=== PATIENT | female | born 1965 | race Caucasian/White ===

== ENCOUNTER 2017-09-15 02:43 | Emergency (ER) | payer SELFPAY ==
[2017-09-15] MEDS ORDERED: MEPERIDINE HCL 50 MG/ML AMP ONE ×2 (03:05→03:26)
[2017-09-15] MEDS ORDERED: PROMETHAZINE 25 MG/ML VIAL ONE (03:06)
[2017-09-15] MEDS ORDERED: NA CHLORIDE 0.9% 1,000 ML ONE (03:06)
--- NOTE | 2017-09-15 05:36 | EDPHYS ---
Physician Documentation [facility] Name: Virgie Silveira Age: 52 yrs Sex: Female : 1965 Arrival Date: 09/15/2017 Time: 02:44 Bed 2 Private MD: ED Physician Silvio Kelly HPI: 09/15 03:32 This 52 yrs old Female presents to ER via Unassigned with complaints of Fall pkl Injury. 03:32 Details of fall: The patient fell from a height, from a ladder, approximately 8 feet. pkl Onset: The symptoms/episode began/occurred just prior to arrival. Associated injuries: The patient sustained injury to the head, contusion, injury to the low back, right elbow. 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 - Social history:: Smoking status: Patient uses tobacco products, smokes one pack cigarettes per day. - Social history: Uses tobacco products: 1 ppd. ROS: 03:32 Eyes: Negative for injury, pain, redness, and discharge, ENT: Negative for injury, pkl pain, and discharge, Neck: Negative for injury, pain, and swelling, Cardiovascular: Negative for chest pain, palpitations, and edema, Respiratory: Negative for shortness of breath, cough, wheezing, and pleuritic chest pain, Abdomen/GI: Negative for abdominal pain, nausea, vomiting, diarrhea, and constipation, Back: Negative for injury and pain, : Negative for injury, bleeding, discharge, and swelling, Skin: Negative for injury, rash, and discoloration, Neuro: Negative for headache, weakness, numbness, tingling, and seizure. 03:32 MS/extremity: Negative for deformity, pain, tenderness, right elbow. Exam: 03:32 Head/Face: Normocephalic, atraumatic. Eyes: Pupils equal round and reactive to light, pkl extra-ocular motions intact. Lids and lashes normal. Conjunctiva and sclera are non-icteric and not injected. Cornea within normal limits. Periorbital areas with no swelling, redness, or edema. ENT: Nares patent. No nasal discharge, no septal abnormalities noted. Tympanic membranes are normal and external auditory canals are clear. Oropharynx with no redness, swelling, or masses, exudates, or evidence of obstruction, uvula midline. Mucous membranes moist. Neck: Trachea midline, no thyromegaly or masses palpated, and no cervical lymphadenopathy. Supple, full range of motion without nuchal rigidity, or vertebral point tenderness. No Meningismus. Chest/axilla: Normal chest wall appearance and motion. Nontender with no deformity. No lesions are appreciated. Cardiovascular: Regular rate and rhythm with a normal S1 and S2. No gallops, murmurs, or rubs. Normal PMI, no JVD. No pulse deficits. Respiratory: Lungs have equal breath sounds bilaterally, clear to auscultation and percussion. No rales, rhonchi or wheezes noted. No increased work of breathing, no retractions or nasal flaring. Abdomen/GI: Soft, non-tender, with normal bowel sounds. No distension or tympany. No guarding or rebound. No evidence of tenderness throughout. Back: No spinal tenderness. No costovertebral tenderness. Full range of motion. Skin: Warm, dry with normal turgor. Normal color with no rashes, no lesions, and no evidence of cellulitis. Neuro: Awake and alert, GCS 15, oriented to person, place, time, and situation. Cranial nerves II-XII grossly intact. Motor strength 5/5 in all extremities. Sensory grossly intact. Cerebellar exam normal. Normal gait. 03:32 Musculoskeletal/extremity: Extremities: grossly normal except: noted in the right elbow: deformity, pain, tenderness. Vital Signs: 02:44 BP 123 / 83; Pulse 67; Resp 22; Temp 97.6(A); Pulse Ox 100% on R/A; Pain 10/10; aa1 03:31 BP 144 / 87; Pulse 81; Resp 16; Pulse Ox 99% on 2 lpm NC; aa1 04:05 BP 130 / 89; Pulse 86; Resp 18 S; Pulse Ox 99% on 2 lpm NC; bb 05:05 BP 140 / 99; Pulse 86; Resp 16 S; Pulse Ox 100% on 2 lpm NC; bb 05:59 BP 136 / 89; Pulse 80; Resp 18; Pulse Ox 97% on R/A; aa1 06:15 BP 127 / 83; Pulse 77; Resp 16; Pulse Ox 97% on R/A; Pain 4/10; aa1 [place] Coma Score: 02:44 Eye Response: spontaneous(4). Verbal Response: oriented(5). Motor Response: obeys aa1 commands(6). Total: 15. 03:31 Eye Response: spontaneous(4). Verbal Response: oriented(5). Motor Response: obeys aa1 commands(6). Total: 15. 05:59 Eye Response: spontaneous(4). Verbal Response: oriented(5). Motor Response: obeys aa1 commands(6). Total: 15. 06:15 Eye Response: spontaneous(4). Verbal Response: oriented(5). Motor Response: obeys aa1 commands(6). Total: 15. Trauma Score (Adult): 02:44 Eye Response: spontaneous(1); Verbal Response: oriented(1); Motor Response: obeys aa1 commands(2); Systolic BP: > 89 mm Hg(4); Respiratory Rate: 10 to 29 per min(4); [place] Score: 15; Trauma Score: 12 Procedures: 05:19 Closed reduction dislocation. Posterior splint applied.. Post- reduction X-rays shows pkl anatomic reduction of dislocated right elbow. Displaced and angulated fracture of the radial neck. The radial head fragment is displaced along the posterior aspect of the capitellum.. MDM: 02:45 Patient medically screened. pkl 05:19 Data reviewed: vital signs, nurses notes, radiologic studies, CT scan, plain films. ED pkl course: Talked to Dr. Diaz. Will see patient in the office today. 09/15 02:46 Order name: Elbow Right 2 View XRAY pkl 09/15 02:46 Order name: CT Traumagram (Head C Spine CAP wo con) pkl 09/15 03:10 Order name: Elbow Right 2 View XRAY fc 09/15 05:36 Order name: Arianaing; Complete Time: 08:11 pkl Administered Medications: 02:48 Drug: NS 0.9% 1000 ml Route: IV; Rate: 100 ml/hr; Site: left antecubital; aa1 02:48 Drug: Demerol 50 mg Route: IVP; Site: left antecubital; aa1 04:42 Follow up: Response: No adverse reaction; Pain is decreased aa1 02:48 Drug: Phenergan 12.5 mg Route: IVP; Site: left antecubital; aa1 04:43 Follow up: Response: No adverse reaction; denies N/V aa1 03:10 Drug: Demerol 25 mg Route: IVP; Site: left antecubital; aa1 04:42 Follow up: Response: No adverse reaction; Pain is decreased aa1 Disposition: 09/15/17 05:35 Discharged to Home. Impression: Fracture/ Dislocation right elbow. S/P fall.. - Condition is Stable. - Prescriptions for Tylenol- Codeine #3 300-30 mg Oral Tablet - take 1 tablet by ORAL route every 8 hours As needed; 30 tablet. - Medication Reconciliation Form, Thank You Letter, Antibiotic Education, Prescription Opioid Use form. - Follow up: Jerome Diaz MD; When: Today; Reason: Re-evaluation by your physician. - Problem is new. - Symptoms have improved. Signatures: Dispatcher [employer] Jazlyn Dunbar, RN RN aa1 Silvio Kelly MD MD pkl Ballard, Brenda, RN RN bb Baxter, Heather, RN RN
--- NOTE | 2017-09-15 05:36 | ER ---
Nurse's Notes [facility] Name: Virgie Silveira Age: 52 yrs Sex: Female : 1965 Arrival Date: 09/15/2017 Time: 02:44 Bed 2 Private MD: Diagnosis: Fracture/ Dislocation right elbow. S/P fall. Presentation: 09/15 02:45 Presenting complaint: EMS states: toned out for report of pt having fallen from a bb ladder. Care prior to arrival: Placed on backboard. Mechanism of Injury: Fall from ladder. Trauma event details: Injury occurred in the [facility], Injury occurred: at home. Injury occurred: September 15, 2017. 02:45 Acuity: [place] 3 bb 02:45 Method Of Arrival: EMS: [facility] bb 02:45 Transition of care: patient was not received from another setting of care. Onset of bb symptoms was September 15, 2017. 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 N/A - Hysterectomy bb Trauma Activation: Alert Physician: ED Physician; Name: Dr Kelly; Notified At: 02:39; Arrived At: 02:39 Physician: General Surgeon; Name: ; Notified At: 02:39; Arrived At: Physician: Radiology; Name: erik valencia; Notified At: 02:39; Arrived At: 02:41 Physician: Respiratory; Name: Cassidy; Notified At: 02:39; Arrived At: 02:42 Physician: Lab; Name: ; Notified At: 02:39; Arrived At: Historical: - Allergies: 03:34 Lisinopril; bb 03:34 Morphine; bb - Home Meds: 03:34 None [Active]; bb - PMHx: 03:34 Hypothyroidism; bb - PSHx: 03:34 Hysterectomy; ; bb - Immunization history: Last tetanus immunization: unknown. - Social history:: Smoking status: Patient uses tobacco products, smokes one pack cigarettes per day. - Social history: Uses tobacco products: 1 ppd. Screenin:44 Abuse screen: Denies threats or abuse. Tuberculosis screening: No symptoms or risk aa1 factors identified. 02:45 Nutritional screening: No deficits noted. Fall Risk Fall in past 12 months (25 points). bb No secondary diagnosis (0 pts). IV access (20 points). Mental Status- Oriented to own ability (0 pts). Total Vogt Fall Scale indicates High Risk Score (45 or more points). Fall prevention measures have been instituted. Side Rails Up X 2 As available patient and family educated on Fall Prevention Program and Strategies. Primary Survey: 02:44 A: Airway: patent. Breathing/Chest: Respiratory pattern: regular, Respiratory effort: aa1 spontaneous, unlabored, Chest inspection: symmetrical rise and fall of the chest. Breathing/Chest: Breath sounds: clear, bilaterally. Circulation: Skin color: pink, Skin temperature: warm. Circulation: Heart tones present. Pulses: palpable right radial artery and left radial artery. Disability Alert. 03:00 Reassessment Airway Airway Patent Breathing/Chest Respiratory pattern Regular bb Respiratory effort Spontaneous Unlabored Breath sounds Clear Chest inspection Symmetrical. 07:15 Reassessment Airway Airway Patent Oxygen No O2 Breathing/Chest Respiratory pattern hb Regular Respiratory effort Spontaneous Unlabored Breath sounds Clear Chest inspection Symmetrical Circulation Color [place] Temperature Warm Dry Disability Alert. Secondary Survey: :44 HEENT: No deficits noted. Gastrointestinal: No deficits noted. : No signs and/or aa1 symptoms were reported regarding the genitourinary system. Musculoskeletal: Circulation, motion, and sensation intact. Capillary refill < 3 seconds, Range of motion: limited in right shoulder Reports pain in back, right arm and neck. Assessment: 02:45 General: Appears distressed, uncomfortable, Behavior is anxious, crying. Pain: bb Complains of pain in right shoulder and neck and right arm and back Pain currently is 10 out of 10 on a pain scale. Neuro: Level of Consciousness is awake, alert, obeys commands, Oriented to person, place, time, situation. Cardiovascular: Heart tones S1 S2 present Capillary refill < 3 seconds Patient's skin is warm and dry. Respiratory: Respiratory effort is even, unlabored, Breath sounds are clear bilaterally. GI: Abdomen is non-distended, Abd is soft and non tender X 4 quads. Derm: Skin is pink, warm \\T\\ dry. Musculoskeletal: to right elbow Reports pain in right arm. 03:10 Reassessment: Patient appears in no apparent distress at this time. Patient is alert, aa1 oriented x 3, equal unlabored respirations, skin warm/dry/pink. Pt O2 sat decreased to low 80's after receiving demerol, placed on NC at 2L and O2 sat increased to 100%. 04:04 Reassessment: Patient is alert, oriented x 3, equal unlabored respirations, skin bb warm/dry/pink. pt resting quietly awaiting results from traumagram, IV site intact, patent with fluids infusing. 05:04 Reassessment: Patient and/or family updated on plan of care and expected duration. Pain bb level reassessed. pt appears to be sleeping, eyes closed, resp unlabored, arouses easily states "it still hurts but not bad", awaiting diagnostic results, IV site intact, patent with fluids infusing. 05:22 Reassessment: Patient appears in no apparent distress at this time. Patient is alert, aa1 oriented x 3, equal unlabored respirations, skin warm/dry/pink. Dr. Kelly at bedside with pt discussing results and POC including f/u instructions. Pt verbalizes understanding of instructions and will call for transportation home. 06:15 Reassessment: Patient appears in no apparent distress at this time. Patient and/or aa1 family updated on plan of care and expected duration. Pain level reassessed. Patient is alert, oriented x 3, equal unlabored respirations, skin warm/dry/pink. Pt states someone is coming to pick her up shortly. 07:15 Reassessment: Patient appears in no apparent distress at this time. Patient and/or hb family updated on plan of care and expected duration. Pain level reassessed. Patient is alert, oriented x 3, equal unlabored respirations, skin warm/dry/pink. Vital Signs: 02:44 BP 123 / 83; Pulse 67; Resp 22; Temp 97.6(A); Pulse Ox 100% on R/A; Pain 10/10; aa1 03:31 BP 144 / 87; Pulse 81; Resp 16; Pulse Ox 99% on 2 lpm NC; aa1 04:05 BP 130 / 89; Pulse 86; Resp 18 S; Pulse Ox 99% on 2 lpm NC; bb 05:05 BP 140 / 99; Pulse 86; Resp 16 S; Pulse Ox 100% on 2 lpm NC; bb 05:59 BP 136 / 89; Pulse 80; Resp 18; Pulse Ox 97% on R/A; aa1 06:15 BP 127 / 83; Pulse 77; Resp 16; Pulse Ox 97% on R/A; Pain 4/10; aa1 [place] Coma Score: 02:44 Eye Response: spontaneous(4). Verbal Response: oriented(5). Motor Response: obeys aa1 commands(6). Total: 15. 03:31 Eye Response: spontaneous(4). Verbal Response: oriented(5). Motor Response: obeys aa1 commands(6). Total: 15. 05:59 Eye Response: spontaneous(4). Verbal Response: oriented(5). Motor Response: obeys aa1 commands(6). Total: 15. 06:15 Eye Response: spontaneous(4). Verbal Response: oriented(5). Motor Response: obeys aa1 commands(6). Total: 15. Trauma Score (Adult): 02:44 Eye Response: spontaneous(1); Verbal Response: oriented(1); Motor Response: obeys aa1 commands(2); Systolic BP: > 89 mm Hg(4); Respiratory Rate: 10 to 29 per min(4); [place] Score: 15; Trauma Score: 12 ED Course: 02:44 Patient arrived in ED. fc 02:44 Initial lab(s) drawn, by me, held in ED. Inserted saline lock: 18 gauge in left aa1 antecubital area, using aseptic technique. Blood collected. Rigid cervical collar applied and checked by physician. Thermoregulation: warm blanket given to patient. 02:44 Patient has correct armband on for positive identification. Bed in low position. Call aa1 light in reach. Side rails up X2. Pulse ox on. NIBP on. 02:45 Silvio Kelly MD is Attending Physician. pkl 02:45 Arm band placed on Patient placed in an exam room. bb 02:50 Thermoregulation: warm blanket given to patient. bb 03:00 X-ray completed. Portable x-ray completed in exam room. Patient tolerated procedure kw well. 03:04 Elbow Right 2 View XRAY In Process Unspecified. EDMS 03:10 Oxygen administration via nasal cannula \\T\\ 2L/min. aa1 03:12 Assist provider with reduction of right elbow using manipulation, Set up for procedure. aa1 Performed by Silvio Kelly MD. 03:17 Elbow Right 2 View XRAY In Process Unspecified. EDMS 03:20 Orthoglass splint: posterior long arm splint applied to the right arm. applied by Dr. rico Kelly. 03:30 Irina Crum, RN is Primary Nurse. bb 03:36 Triage completed. bb 04:31 CT Traumagram (Head C Spine CAP wo con) In Process Unspecified. EDMS 05:34 Jerome Diaz MD is Referral Physician. pkl 07:06 Report given to Cecy PENA. bb 08:00 IV discontinued, intact, bleeding controlled, No redness/swelling at site. Pressure hb dressing applied. Administered Medications: 02:48 Drug: NS 0.9% 1000 ml Route: IV; Rate: 100 ml/hr; Site: left antecubital; aa1 02:48 Drug: Demerol 50 mg Route: IVP; Site: left antecubital; aa1 04:42 Follow up: Response: No adverse reaction; Pain is decreased aa1 02:48 Drug: Phenergan 12.5 mg Route: IVP; Site: left antecubital; aa1 04:43 Follow up: Response: No adverse reaction; denies N/V aa1 03:10 Drug: Demerol 25 mg Route: IVP; Site: left antecubital; aa1 04:42 Follow up: Response: No adverse reaction; Pain is decreased aa1 Intake: 03:33 PO: 0ml; Total: 0ml. bb 05:59 IV: 300ml (IV Fluid); Total: 300ml. aa1 Outcome: 05:35 Discharge ordered by . pkl 08:12 Discharged to home via wheelchair, with family. hb 08:12 Condition: stable 08:12 Discharge instructions given to patient, family, Instructed on discharge instructions, follow up and referral plans. medication usage, Demonstrated understanding of instructions, follow-up care, medications, splint care, Prescriptions given X 1. 08:13 Patient's length of stay in the Emergency Department was greater than 2 hours. awaiting hb dispo and transportationPatient's length of stay extended due to 08:13 Patient left the ED. hb Signatures: Dispatcher [employer] EDMS Jazlyn Bashir RN RN aa1 Silvio Kelly MD MD pkTameka Irby RN RN Crum, Irina, RN RN bb Selin, Mary kw Ludwig, Cecy, RN RN hb
--- NOTE | 2017-09-15 08:34 | RAD REPORT ---
EXAM DESCRIPTION: RAD - Elbow Right 2 View - 09/15/2017 3:05 am CLINICAL HISTORY: Right elbow pain FINDINGS: The radius and ulna are dislocated posteriorly. A radial head capitellum dislocation is p resent. An avulsion fracture of the radial head with malrotation of the fracture fragments present
--- NOTE | 2017-09-15 08:34 | RAD REPORT ---
EXAM DESCRIPTION: RAD - Elbow Right 2 View - 09/15/2017 3:20 am CLINICAL HISTORY: Right elbow pain FINDINGS: The dislocation involving the humerus and ulna has been reduced. A radial head capitellum dislocation persists. An avulsion fracture of the radial head with malrotation is present
--- NOTE | 2017-09-15 10:50 | RAD REPORT ---
EXAM DESCRIPTION: CT - Head C Spine Cap Wo Con - 09/15/2017 9:02 am CLINICAL HISTORY: Head and neck injury with chest and abdominal pain status post fall. TECHNIQUE: Computed axial tomography of the head and cervical spine was obtained. Coronal and sagitt al reconstruction was performed.A preliminary report was generated by [employer] and reviewed prior to this dictation Computed axial tomography of the chest, abdomen and pelvis was obtained. Contrast was not requested. All CT scans are performed using dose optimization technique as appropriate and may include automated exposure control or mA/KV adjustment according to patient size. COMPARISON: 2015 CT cervical spine [address] abdomen FINDINGS: An intracranial bleed is not seen. The ventricles are normal caliber. An extra-axial fluid collection is not noted. Fluid within the sinuses/mastoids is not seen. Mild to moderate posterior subluxation of C3 on C4 is unchanged from 2015. A cervical fracture is not visualized. Spondylosis/disc osteophyte complexes are present from C3-4 to C6-7. This results in gregory tral and foraminal stenosis. At C 5-6 there is considerable compression upon the spinal cord. The the alden sac measures 5 millimeters The evaluation of the mediastinum, adriano, vessels, solid organs and bowel is limited secondary to lack of contrast administration. A mediastinal hematoma is not seen. A pleural effusion is not present. A pericardial effusion is not seen. A pulmonary contusion is not present. The liver, spleen, pancreas, adrenals, kidneys and bladder do not demonstrate a traumatic injury. A h [place] kidney is present. IMPRESSION: 1. No acute intracranial abnormality is seen. 2. A cervical fracture is not visualized. Spondylosis/disc osteophyte complexes involving the cervica l spine as described above. If clinically indicated further evaluation with MRI could be obtained 3. No traumatic injury involving the chest/ abdomen/pelvis.
== END 2017-09-15 08:13 | disposition home or self-care (01) ==
LOC: ER 02:43
PROC: 0PSHXZZ Reposition Right Radius, External Approach (ICD-10-PCS; principal; 2017-09-15)
PROC: 0PSHXZZ Reposition Right Radius, External Approach (ICD-10-PCS; 2017-09-15)
DX: S52.501A Unspecified fracture of the lower end of right radius, initial encounter for closed fracture (principal); S53.001A Unspecified subluxation of right radial head, initial encounter; W11.XXXA Fall on and from ladder, initial encounter; Y93.9 Activity, unspecified; Y92.89 Other specified places as the place of occurrence of the external cause; Z88.5 Allergy status to narcotic agent; Z88.8 Allergy status to other drugs, medicaments and biological substances; F17.210 Nicotine dependence, cigarettes, uncomplicated
CPT/HCPCS: 70450; 71250; 72125; 96374; 96375; 99285; J2175; J2550; J7030

== ENCOUNTER 2018-11-17 22:39 | Emergency (ER) | payer SELFPAY ==
--- OUTSIDE RECORDS SUMMARY | 2018-11-17 22:41 | XMS REPORT ---
:1965 Author Organization [employer] Care Team Providers Name Role Phone Andreia Mcdermotty Provider Role Unavailable Allergies, Adverse Reactions, Alerts Substance Reaction Event Type Morphine Sulfate Info Not Available Drug Allergy Lisinopril Info Not Available Drug Allergy Problems Problem Type Condition Code Onset Dates Condition Status Problem Acquired hypothyroidism E03.9 Active Problem Hypothyroidism (acquired) E03.9 Active Assessment Acquired hypothyroidism E03.9 Active Assessment Hypothyroidism (acquired) E03.9 Active Medications Medication Code Code Instructions Start End Status Dosage System Date Date Synthroid [facility] [id number] 25 MCG Orally Active 1 tablet Once a day on an empty stomach in the morning Hydrochlorothiazide [facility] [id number] 12.5 MG Orally Active 1 tablet Once a day in the morning Naproxen [facility] [id number] 500 MG Orally Active 1 tablet Twice a day prn pain-take with food Daily Multi NDC 0 - Orally Active as Vitamin/Minerals directed Results No Known Results Summary Purpose eClinical[employer] Submission
[2018-11-17] MEDS ORDERED: LIDOCAINE 1% MPF 5 ML VIAL ONE (23:26)
--- NOTE | 2018-11-17 23:48 | ER ---
Nurse's Notes [facility] – [place], [place] Name: Virgie Everett Age: 53 yrs Sex: Female : 1965 Arrival Date: 11/17/2018 Time: 22:40 Bed 13 Private MD: Diagnosis: Laceration without foreign body of right forearm Presentation: 11/17 22:53 Presenting complaint: Patient states: "I fell down the stairs at work today and hurt my jd3 arm. I have a pretty good gash in it and it hurts to move.". Transition of care: patient was not received from another setting of care. Onset of symptoms was November 17, 2018. Risk Assessment: Do you want to hurt yourself or someone else? Patient reports no desire to harm self or others. Initial Sepsis Screen: Does the patient meet any 2 criteria? No. Patient's initial sepsis screen is negative. Does the patient have a suspected source of infection? No. Patient's initial sepsis screen is negative. Care prior to arrival: None. 22:53 Method Of Arrival: Ambulatory j 22:53 Acuity: TOÑITO 3 jd3 [employer]: 11/18 00:05 LMP N/A - Irregular menses jd3 Historical: - Allergies: 11/17 22:56 Lisinopril; jd3 22:56 Morphine; jd3 22:56 codeine; jd3 - Home Meds: 22:56 None [Active]; jd3 - PMHx: 22:56 Hypothyroidism; Hypertension; jd3 - PSHx: 22:56 Hysterectomy; ; right elbow; jd3 - Immunization history:: Adult Immunizations up to date. - Social history:: Smoking status: Patient uses tobacco products, denies chronic smoking, but will smoke occasionally. - Ebola Screening: : Patient negative for fever greater than or equal to 101.5 degrees Fahrenheit, and additional compatible Ebola Virus Disease symptoms. Screenin:01 Abuse screen: Denies threats or abuse. Nutritional screening: No deficits noted. jd3 Tuberculosis screening: No symptoms or risk factors identified. Fall Risk Ambulatory Aid- None/Bed Rest/Nurse Assist (0 pts). Gait- Normal/Bed Rest/Wheelchair (0 pts) Mental Status- Oriented to own ability (0 pts). Total Vogt Fall Scale indicates No Risk (0-24 pts). Assessment: 22:57 General: Appears in no apparent distress. uncomfortable, Behavior is calm, cooperative, jd3 appropriate for age. Pain: Complains of pain in palmar aspect of right forearm Quality of pain is described as aching, sharp. Neuro: Level of Consciousness is awake, alert, obeys commands, Oriented to person, place, time, situation. Cardiovascular: Capillary refill < 3 seconds Patient's skin is warm and dry. Respiratory: Airway is patent Respiratory effort is even, unlabored, Respiratory pattern is regular, symmetrical. GI: No signs and/or symptoms were reported involving the gastrointestinal system. : No signs and/or symptoms were reported regarding the genitourinary system. EENT: No signs and/or symptoms were reported regarding the EENT system. Derm: Skin is intact, Skin is dry, Skin is normal, Skin temperature is warm. Musculoskeletal: Circulation, motion, and sensation intact. Range of motion: limited in right elbow. Injury Description: Laceration sustained to palmar aspect of right forearm is 2.6 to 7.5 cm long, bleeding moderately, a small amount of bleeding noted at this time. 11/18 00:03 Reassessment: Patient appears in no apparent distress at this time. Patient and/or jd3 family updated on plan of care and expected duration. Pain level reassessed. Patient is alert, oriented x 3, equal unlabored respirations, skin warm/dry/pink. Patient states feeling better. Vital Signs: 11/17 22:56 BP 125 / 91; Pulse 88; Resp 17 S; Temp 98.1(TE); Pulse Ox 100% on R/A; Weight 70.31 kg jd3 (R); Height 5 ft. 2 in. (157.48 cm) (R); Pain 8/10; 11/18 00:03 BP 131 / 95; Pulse 86; Resp 16 S; Pulse Ox 100% on R/A; Pain 0/10; jd3 11/17 22:56 Body Mass Index 28.35 (70.31 kg, 157.48 cm) j ED Course: 11/17 22:40 Patient arrived in ED. mr 22:50 Frank Bruce, RN is Primary Nurse. jd3 22:54 Triage completed. jd3 22:57 Arm band placed on. jd3 23:02 Patient has correct armband on for positive identification. Bed in low position. Call jd3 light in reach. Side rails up X 1. 23:04 Radha Messer FNP-C is [facility]. kb 23:04 Jermain Snider MD is Attending Physician. kb 23:16 Wound care: to laceration located on palmar aspect of right forearm was cleaned with jd3 Hibiclens, irrigated with normal saline. 11/18 00:04 No provider procedures requiring assistance completed. Patient did not have IV access jd3 during this emergency room visit. Administered Medications: 11/17 23:40 Drug: Lidocaine (1 %) 1 vials {Note: given by Radha OROZCO..} Volume: 5 ml; jd3 Route: Infiltration; 11/18 00:05 Follow up: Response: No adverse reaction jd3 Outcome: 11/17 23:47 Discharge ordered by . kb 11/18 00:04 Discharged to home ambulatory, with friend. jd3 Condition: stable Discharge instructions given to patient, friend, Instructed on discharge instructions, follow up and referral plans. Demonstrated understanding of instructions, follow-up care. 00:06 Patient left the ED. jd3 Signatures: Radha Messer FNP-C FNP-Blake Faby Dickey Frank Bruce RN RN jd3 Corrections: (The following items were deleted from the chart) 11/17 23:01 23:01 Fall Risk Ambulatory Aid- None/Bed Rest/Nurse Assist (0 pts). Gait- Normal/Bed jd3 Rest/Wheelchair (0 pts) Mental Status- Oriented to own ability (0 pts). Total Vogt Fall Scale indicates No Risk (0-24 pts). jd3
--- NOTE | 2018-11-17 23:48 | EDPHYS ---
Physician Documentation [facility] [place] Name: Virgie Everett Age: 53 yrs Sex: Female : 1965 Arrival Date: 11/17/2018 Time: 22:40 Bed 13 Private MD: ED Physician Jermain Snider HPI: 11/17 23:55 This 53 yrs old Female presents to ER via Ambulatory with complaints of Arm kb Injury. 23:55 The patient has a laceration related to: walking down stairs occurred at work, and kb there are no complicating factors. The injury was accidental. The laceration(s) is(are) located on the palmar aspect of right forearm. Onset: The symptoms/episode began/occurred just prior to arrival. Associated signs and symptoms: The patient has no apparent associated signs or symptoms. The patient has not experienced similar symptoms in the past. The patient has not recently seen a physician. Pt states she fell down about 4 stairs at work s/p slipping. States she landed on buttocks, but doesn't think there is anything wrong with those. sustained laceration to forearm. States she broke that elbow in the past so she has some decreased ROM from that, but feels like it is all normal. Does not want any imaging done. States she came because she was told she needed stitches. No bruising noted to buttocks. PROTECTION MGR: 11/18 00:05 LMP N/A - Irregular menses jd3 Historical: - Allergies: 11/17 22:56 Lisinopril; jd3 22:56 Morphine; jd3 22:56 codeine; jd3 - Home Meds: 22:56 None [Active]; jd3 - PMHx: 22:56 Hypothyroidism; Hypertension; jd3 - PSHx: 22:56 Hysterectomy; ; right elbow; jd3 - Immunization history:: Adult Immunizations up to date. - Social history:: Smoking status: Patient uses tobacco products, denies chronic smoking, but will smoke occasionally. - Ebola Screening: : Patient negative for fever greater than or equal to 101.5 degrees Fahrenheit, and additional compatible Ebola Virus Disease symptoms. ROS: 23:48 Constitutional: Negative for fever, chills, and weight loss, Cardiovascular: Negative kb for chest pain, palpitations, and edema, Respiratory: Negative for shortness of breath, cough, wheezing, and pleuritic chest pain, Abdomen/GI: Negative for abdominal pain, nausea, vomiting, diarrhea, and constipation, MS/Extremity: Negative for injury and deformity, Neuro: Negative for headache, weakness, numbness, tingling, and seizure. 23:48 Skin: Positive for laceration(s), of the palmar aspect of right forearm. Exam: 23:49 Constitutional: This is a well developed, well nourished patient who is awake, alert, kb and in no acute distress. Head/Face: Normocephalic, atraumatic. Neck: Trachea midline, no thyromegaly or masses palpated, and no cervical lymphadenopathy. Supple, full range of motion without nuchal rigidity, or vertebral point tenderness. No Meningismus. Chest/axilla: Normal chest wall appearance and motion. Nontender with no deformity. No lesions are appreciated. Cardiovascular: Regular rate and rhythm with a normal S1 and S2. No gallops, murmurs, or rubs. Normal PMI, no JVD. No pulse deficits. Respiratory: Lungs have equal breath sounds bilaterally, clear to auscultation and percussion. No rales, rhonchi or wheezes noted. No increased work of breathing, no retractions or nasal flaring. Abdomen/GI: Soft, non-tender, with normal bowel sounds. No distension or tympany. No guarding or rebound. No evidence of tenderness throughout. MS/ Extremity: Pulses equal, no cyanosis. Neurovascular intact. Full, normal range of motion. Neuro: Awake and alert, GCS 15, oriented to person, place, time, and situation. Cranial nerves II-XII grossly intact. Motor strength 5/5 in all extremities. Sensory grossly intact. Cerebellar exam normal. Normal gait. 23:49 Skin: injury, laceration(s), the wound is approximately 3 cm(s), of the palmar aspect of right forearm, that can be described as clean, no foreign body, linear, without bleeding. Vital Signs: 22:56 BP 125 / 91; Pulse 88; Resp 17 S; Temp 98.1(TE); Pulse Ox 100% on R/A; Weight 70.31 kg jd3 (R); Height 5 ft. 2 in. (157.48 cm) (R); Pain 8/10; 06/06 00:03 BP 131 / 95; Pulse 86; Resp 16 S; Pulse Ox 100% on R/A; Pain 0/10; jd3 11/17 22:56 Body Mass Index 28.35 (70.31 kg, 157.48 cm) jd3 Laceration: 11/17 23:46 Wound Repair of 3cm ( 1.2in ) subcutaneous laceration to palmar aspect of right kb forearm. Linear shaped.. Distal neuro/vascular/tendon intact. Anesthesia: Wound infiltrated with 4 mls of 1% lidocaine. Wound prep: Extensive cleansing with hibiclenz by nurse by me, Wound irrigation with saline by nurse by me. Skin closed with 5 5-0 Prolene using interrupted sutures and sterile technique. Dressed with Neosporin. Patient tolerated well. MDM: 23:05 Patient medically screened. kb 23:46 Data reviewed: vital signs, nurses notes. Data interpreted: Pulse oximetry: on room air kb is 100 %. Interpretation: normal. Counseling: I had a detailed discussion with the patient and/or guardian regarding: the historical points, exam findings, and any diagnostic results supporting the discharge/admit diagnosis, the need for outpatient follow up, a family practitioner, to return to the emergency department if symptoms worsen or persist or if there are any questions or concerns that arise at home. 11/17 23:05 Order name: Prolene, Sutures; Complete Time: 23:09 kb 11/17 23:05 Order name: Dressing - Wound; Complete Time: 23:06 kb 11/17 23:05 Order name: Gloves, Sterile; Complete Time: 23:09 kb 11/17 23:05 Order name: Setup Suture Tray; Complete Time: 23:09 kb Administered Medications: 23:40 Drug: Lidocaine (1 %) 1 vials {Note: given by Radha RASMUSSEN.} Volume: 5 ml; jd3 Route: Infiltration; 11/18 00:05 Follow up: Response: No adverse reaction jd3 Disposition: 02:09 Co-signature as Attending Physician, Jermain Snider MD I agree with the assessment and tw4 plan of care. Disposition: 11/17/18 23:47 Discharged to Home. Impression: Laceration without foreign body of right forearm. - Condition is Stable. - Discharge Instructions: Laceration Care, Adult, [id number]. - Medication Reconciliation Form, Thank You Letter, Antibiotic Education, Prescription Opioid Use form. - Follow up: Emergency Department; When: As needed; Reason: Worsening of condition. Follow up: Private Physician; When: 2 - 3 days; Reason: Recheck today's complaints, Continuance of care, Re-evaluation by your physician. Signatures: Radha Messer, SUJEY-C CHARGE WEIGHER-Frank Milian RN RN jd3 Jermain Snider MD MD tw4 Corrections: (The following items were deleted from the chart) 00:06 06 23:47 11/17/2018 23:47 Discharged to Home. Impression: Laceration without foreign jd3 body of right forearm. Condition is Stable. Forms are Medication Reconciliation Form, Thank You Letter, Antibiotic Education, Prescription Opioid Use. Follow up: Emergency Department; When: As needed; Reason: Worsening of condition. Follow up: Private Physician; When: 2 - 3 days; Reason: Recheck today's complaints, Continuance of care, Re-evaluation by your physician. kb
== END 2018-11-18 00:06 | disposition home or self-care (01) ==
LOC: ER 22:39
PROC: 0JQG0ZZ Repair Right Lower Arm Subcutaneous Tissue and Fascia, Open Approach (ICD-10-PCS; principal; 2018-11-17)
DX: S51.811A Laceration without foreign body of right forearm, initial encounter (principal); W10.9XXA Fall (on) (from) unspecified stairs and steps, initial encounter; E03.9 Hypothyroidism, unspecified; I10 Essential (primary) hypertension; Z72.0 Tobacco use
CPT/HCPCS: 99283

== ENCOUNTER 2018-11-28 00:29 | Emergency (ER) | payer SELFPAY ==
--- OUTSIDE RECORDS SUMMARY | 2018-11-28 00:31 | XMS REPORT ---
[...] End Status Dosage System Date Date Synthroid [facility] 37875289024 25 MCG Orally Active 1 tablet Once a day on an empty stomach in the morning Hydrochlorothiazide [facility] 13365452739 12.5 MG Orally Active 1 tablet Once a day in the morning Naproxen [facility] [address]-49 500 MG Orally Active 1 tablet Twice a day prn pain-take with food Daily Multi NDC 0 - Orally Active as Vitamin/Minerals directed Results No Known Results Summary Purpose eClinicalWorks Submission
--- NOTE | 2018-11-28 01:27 | ER ---
Nurse's Notes [facility] Name: Virgie Everett Age: 53 yrs Sex: Female : 1965 Arrival Date: 11/28/2018 Time: 00:33 Bed Waiting Private MD: Diagnosis: Encounter for removal of sutures Presentation: 11/28 00:38 Presenting complaint: Patient states: Here for removal of stitches to right forearm, 10 la1 days old. Transition of care: patient was not received from another setting of care. Onset of symptoms was November 28, 2018. Risk Assessment: Do you want to hurt yourself or someone else? Patient reports no desire to harm self or others. Initial Sepsis Screen: Does the patient meet any 2 criteria? No. Patient's initial sepsis screen is negative. Does the patient have a suspected source of infection? No. Patient's initial sepsis screen is negative. Care prior to arrival: None. 00:38 Method Of Arrival: Ambulatory la1 00:38 Acuity: TOÑITO 5 la1 Historical: - Allergies: 00:39 Codeine; la1 00:39 Lisinopril; la1 00:39 Morphine; la1 - PMHx: 00:39 Hypertension; Hypothyroidism; la1 - Immunization history:: Adult Immunizations up to date. - Social history:: Smoking status: Patient uses tobacco products, smokes one-half pack cigarettes per day. - Ebola Screening: : No symptoms or risks identified at this time. Screenin:39 Abuse screen: Denies threats or abuse. Nutritional screening: No deficits noted. la1 Tuberculosis screening: No symptoms or risk factors identified. Fall Risk None identified. Assessment: 00:39 Reassessment: Patient is alert, oriented x 3, equal unlabored respirations, skin la1 warm/dry/pink. wound well approximated without redness, swelling, drainage. Vital Signs: 00:39 BP 125 / 77; Pulse 93; Resp 16; Temp 97.7; Pulse Ox 98% on R/A; Weight 68.95 kg; Height la1 5 ft. 1 in. (154.94 cm); 00:39 Body Mass Index 28.72 (68.95 kg, 154.94 cm) la1 ED Course: 00:33 Patient arrived in ED. es 00:38 Triage completed. la1 00:39 Arm band placed on left wrist. la1 00:40 Patient has correct armband on for positive identification. la1 00:40 No provider procedures requiring assistance completed. Patient did not have IV access la1 during this emergency room visit. 01:21 Sarah Leong FNP-C is [facility]. snw 01:21 Alejandro Jenkins MD is Attending Physician. snw Administered Medications: No medications were administered Outcome: 01: Discharge ordered by . snw 01:27 Patient left the ED. bb Signatures: Sarah Leong FNP-C DOLLY OPERATOR-Csnw Shelley Dickson Brenda, RN RN bb Adis Hutton RN RN la1
--- NOTE | 2018-11-28 01:27 | EDPHYS ---
Physician Documentation [facility] Name: Virgie Everett Age: 53 yrs Sex: Female : 1965 Arrival Date: 11/28/2018 Time: 00:33 Bed Waiting Private MD: ED Physician Alejandro Jenkins HPI: 11/28 01:23 This 53 yrs old Female presents to ER via Ambulatory with complaints of snw Suture Removal. 01:23 The patient has sutures on the palmar aspect of right forearm. Previous treatment: the snw care was rendered at [facility]. Sutures/teresa progress: The patient has no c/o's. The wound is well-healing with no redness, swelling, discharge, or dehiscence reported. The patient has not experienced similar symptoms in the past. It is unknown whether or not the patient has recently seen a physician. pt states she fell down the stairs, sustained the laceration and came to ED for repair.. Historical: - Allergies: 00:39 Codeine; la1 00:39 Lisinopril; la1 00:39 Morphine; la1 - PMHx: 00:39 Hypertension; Hypothyroidism; la1 - Immunization history:: Adult Immunizations up to date. - Social history:: Smoking status: Patient uses tobacco products, smokes one-half pack cigarettes per day. - Ebola Screening: : No symptoms or risks identified at this time. ROS: 01:23 Constitutional: Negative for fever, chills, and weight loss, ENT: Negative for injury, snw pain, and discharge, MS/Extremity: Negative for injury and deformity, Skin: Negative for injury, rash, and discoloration. Exam: 01:25 Constitutional: This is a well developed, well nourished patient who is awake, alert, snw and in no acute distress. Head/Face: Normocephalic, atraumatic. Eyes: Pupils equal round and reactive to light, extra-ocular motions intact. Lids and lashes normal. Conjunctiva and sclera are non-icteric and not injected. Cornea within normal limits. Periorbital areas with no swelling, redness, or edema. ENT: Nares patent. No nasal discharge, no septal abnormalities noted. Tympanic membranes are normal and external auditory canals are clear. Oropharynx with no redness, swelling, or masses, exudates, or evidence of obstruction, uvula midline. Mucous membranes moist. Neck: Trachea midline, no thyromegaly or masses palpated, and no cervical lymphadenopathy. Supple, full range of motion without nuchal rigidity, or vertebral point tenderness. No Meningismus. Chest/axilla: Normal chest wall appearance and motion. Nontender with no deformity. No lesions are appreciated. Cardiovascular: Regular rate and rhythm with a normal S1 and S2. No gallops, murmurs, or rubs. Normal PMI, no JVD. No pulse deficits. Respiratory: Lungs have equal breath sounds bilaterally, clear to auscultation and percussion. No rales, rhonchi or wheezes noted. No increased work of breathing, no retractions or nasal flaring. Abdomen/GI: Soft, non-tender, with normal bowel sounds. No distension or tympany. No guarding or rebound. No evidence of tenderness throughout. Back: No spinal tenderness. No costovertebral tenderness. Full range of motion. MS/ Extremity: Pulses equal, no cyanosis. Neurovascular intact. Full, normal range of motion. Neuro: Awake and alert, GCS 15, oriented to person, place, time, and situation. Cranial nerves II-XII grossly intact. Motor strength 5/5 in all extremities. Sensory grossly intact. Cerebellar exam normal. Normal gait. Psych: Awake, alert, with orientation to person, place and time. Behavior, mood, and affect are within normal limits. 01:25 Skin: Appearance: normal except for affected area, sutures removed from right forearm x5 . Vital Signs: 00:39 BP 125 / 77; Pulse 93; Resp 16; Temp 97.7; Pulse Ox 98% on R/A; Weight 68.95 kg; Height la1 5 ft. 1 in. (154.94 cm); 00:39 Body Mass Index 28.72 (68.95 kg, 154.94 cm) la1 Procedures: 01:21 Suture/Staple removal: Removed 5 sutures, from palmar aspect of right forearm, site snw appears well healed, dressed with band aid, Patient tolerated well. MDM: 01:26 Patient medically screened. snw 01:26 Data reviewed: vital signs, nurses notes. Counseling: I had a detailed discussion with snw the patient and/or guardian regarding: the historical points, exam findings, and any diagnostic results supporting the discharge/admit diagnosis, to return to the emergency department if symptoms worsen or persist or if there are any questions or concerns that arise at home. Special discussion: Based on the history and exam findings, there is no indication for further emergent testing or inpatient evaluation. I discussed with the patient/guardian the need to see the primary care provider for further evaluation of the symptoms. Administered Medications: No medications were administered Disposition: 11/28/18 01:26 Discharged to Home. Impression: Encounter for removal of sutures. - Condition is Stable. - Discharge Instructions: Suture Removal, Care After, Incision Care, Adult. - Follow up: Private Physician; When: 2 - 3 days; Reason: Recheck today's complaints, Continuance of care, Re-evaluation by your physician. Addendum: 11/29/2018 07:26 Co-signature as Attending Physician, Alejandro Jenkins MD I agree with the assessment and c riley plan of care. Signatures: Alejandro Jenkins MD MD cha Therrien, Shelly, DIRECTOR OF DESIGN-C DIRECTOR OF DESIGN-Csnw Irina Crum RN RN bb Attema, Lee, RN RN la1 Corrections: (The following items were deleted from the chart) 11/28 01:27 01:26 11/28/2018 01:26 Discharged to Home. Impression: Encounter for removal of bb sutures. Condition is Stable. Forms are Medication Reconciliation Form, Thank You Letter, Antibiotic Education, Prescription Opioid Use. Follow up: Private Physician; When: 2 - 3 days; Reason: Recheck today's complaints, Continuance of care, Re-evaluation by your physician. snw
== END 2018-11-28 01:27 | disposition home or self-care (01) ==
LOC: ER 00:29
DX: Z48.02 Encounter for removal of sutures (principal); I10 Essential (primary) hypertension; F17.210 Nicotine dependence, cigarettes, uncomplicated; Z88.5 Allergy status to narcotic agent; Z88.8 Allergy status to other drugs, medicaments and biological substances
CPT/HCPCS: 99281

== ENCOUNTER 2019-01-17 01:02 | Emergency (ER) | payer SELFPAY ==
--- OUTSIDE RECORDS SUMMARY | 2019-01-17 01:04 | XMS REPORT ---
[...] End Status Dosage System Date Date Synthroid [facility] [id number] 25 MCG Orally Active 1 tablet Once a day on an empty stomach in the morning Hydrochlorothiazide [facility] 31205939420 12.5 MG Orally Active 1 tablet Once a day in the morning Naproxen [facility] [address]-54 500 MG Orally Active 1 tablet Twice a day prn pain-take with food Daily Multi NDC 0 - Orally Active as Vitamin/Minerals directed Results No Known Results Summary Purpose eClinicalWorks Submission
[2019-01-17] MEDS ORDERED: HYDROCODONE/APAP 10/325 TAB ONE (02:18)
--- NOTE | 2019-01-17 02:21 | EDPHYS ---
Physician Documentation [facility] Name: Virgie Silveira Age: 53 yrs Sex: Female : 1965 Arrival Date: 01/17/2019 Time: 01:06 Bed 14 Private MD: ED Physician Alejandro Jenkins HPI: 01/17 02:14 This 53 yrs old Female presents to ER via Wheelchair with complaints of Ankle adela Injury. 02:14 The patient presents with decreased range of motion, pain, swelling, tenderness. The adela complaints affect the right ankle, right ankle, lateral aspect of right foot, anterior aspect of right ankle and dorsum of right foot. Onset: The symptoms/episode began/occurred just prior to arrival. Context: resulted from The mechanism of injury involved eversion of the affected ankle. The patient is unable to bear weight. Associated signs and symptoms: The patient has no apparent associated signs or symptoms. Severity of symptoms: At their worst the symptoms were moderate, in the emergency department the symptoms are unchanged. The patient has not experienced similar symptoms in the past. 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 - Social history:: Smoking status: Patient uses tobacco products, smokes one-half pack cigarettes per day, Patient/guardian denies using alcohol, street drugs. - Ebola Screening: : Patient negative for fever greater than or equal to 101.5 degrees Fahrenheit, and additional compatible Ebola Virus Disease symptoms Patient denies exposure to infectious person Patient denies travel to an Ebola-affected area in the 21 days before illness onset. - Family history:: not pertinent. ROS: 02:14 Constitutional: Negative for fever, chills, and weight loss, Eyes: Negative for injury, adela pain, redness, and discharge, ENT: Negative for injury, pain, and discharge, Neck: Negative for injury, pain, and swelling, Cardiovascular: Negative for chest pain, palpitations, and edema, Respiratory: Negative for shortness of breath, cough, wheezing, and pleuritic chest pain, Abdomen/GI: Negative for abdominal pain, nausea, vomiting, diarrhea, and constipation, Back: Negative for injury and pain, : Negative for injury, bleeding, discharge, and swelling, Skin: Negative for injury, rash, and discoloration, Neuro: Negative for headache, weakness, numbness, tingling, and seizure, Psych: Negative for depression, anxiety, suicide ideation, homicidal ideation, and hallucinations, Allergy/Immunology: Negative for hives, rash, and allergies, Endocrine: Negative for neck swelling, polydipsia, polyuria, polyphagia, and marked weight changes, Hematologic/Lymphatic: Negative for swollen nodes, abnormal bleeding, and unusual bruising. 02:14 MS/extremity: Positive for decreased range of motion, pain, swelling, tenderness, of the right ankle and lateral aspect of right foot. Exam: 02:14 Constitutional: This is a well developed, well nourished patient who is awake, alert, adela and in no acute distress. Head/Face: Normocephalic, atraumatic. Eyes: Pupils equal round and reactive to light, extra-ocular motions intact. Lids and lashes normal. Conjunctiva and sclera are non-icteric and not injected. Cornea within normal limits. Periorbital areas with no swelling, redness, or edema. ENT: Nares patent. No nasal discharge, no septal abnormalities noted. Tympanic membranes are normal and external auditory canals are clear. Oropharynx with no redness, swelling, or masses, exudates, or evidence of obstruction, uvula midline. Mucous membranes moist. Neck: Trachea midline, no thyromegaly or masses palpated, and no cervical lymphadenopathy. Supple, full range of motion without nuchal rigidity, or vertebral point tenderness. No Meningismus. Chest/axilla: Normal chest wall appearance and motion. Nontender with no deformity. No lesions are appreciated. Cardiovascular: Regular rate and rhythm with a normal S1 and S2. No gallops, murmurs, or rubs. Normal PMI, no JVD. No pulse deficits. Respiratory: Lungs have equal breath sounds bilaterally, clear to auscultation and percussion. No rales, rhonchi or wheezes noted. No increased work of breathing, no retractions or nasal flaring. Abdomen/GI: Soft, non-tender, with normal bowel sounds. No distension or tympany. No guarding or rebound. No evidence of tenderness throughout. Back: No spinal tenderness. No costovertebral tenderness. Full range of motion. Skin: Warm, dry with normal turgor. Normal color with no rashes, no lesions, and no evidence of cellulitis. Neuro: Awake and alert, GCS 15, oriented to person, place, time, and situation. Cranial nerves II-XII grossly intact. Motor strength 5/5 in all extremities. Sensory grossly intact. Cerebellar exam normal. Normal gait. Psych: Awake, alert, with orientation to person, place and time. Behavior, mood, and affect are within normal limits. 02:14 Musculoskeletal/extremity: ROM: limited active range of motion, limited passive range of motion, Circulation is intact in all extremities. Sensation intact. Compartment Syndrome exam of affected extremity: is normal. severe pain. Vital Signs: 01:15 BP 129 / 97; Pulse 86; Resp 17; Temp 98; Pulse Ox 100% ; Weight 68.95 kg; Height 5 ft. rr5 1 in. (154.94 cm); Pain 8/10; 02:30 BP 121 / 85; Pulse 80; Resp 16; Pulse Ox 99% on R/A; rr5 01:15 Body Mass Index 28.72 (68.95 kg, 154.94 cm) rr5 MDM: 01:[address] [facility] 02:16 Data reviewed: vital signs, nurses notes, radiologic studies, plain films. [facility] 01/17 01:17 Order name: XRAY Ankle RIGHT 3 view 01/17 02:14 Order name: Ice pack; Complete Time: 02:26 [facility] 01/17 02:14 Order name: Splint - Ankle: Posterior; Complete Time: 02:26 [facility] 01/17 02:14 Order name: Crutch Training; Complete Time: 02:26 [facility] Administered Medications: 02:24 Drug: [place] 10 mg-325 mg 1 tabs Route: PO; rr5 02:53 Follow up: Response: No adverse reaction rr5 Disposition: 01/17/19 02:19 Discharged to Home. Impression: Sprain of ankle, Displaced fracture of fifth metatarsal bone, right foot. - Condition is Stable. - Discharge Instructions: Metatarsal Fracture. - Prescriptions for Tramadol 50 mg Oral Tablet - take 1 tablet by ORAL route every 8 hours as needed; 26 tablet. - Medication Reconciliation Form, Thank You Letter, Antibiotic Education, Prescription Opioid Use form. - Follow up: Private Physician; When: 2 - 3 days; Reason: Recheck today's complaints, Re-evaluation by your physician. Follow up: Dale Bryan MD; When: 2 - 3 days; Reason: Recheck today's complaints, Re-evaluation by your physician. - Problem is new. - Symptoms have improved. Signatures: Dispatcher [employer] EDMS Alejandro Jenkins MD MD cha Roque, Raymond RN RN rr5 Corrections: (The following items were deleted from the chart) 02:21 02:19 01/17/2019 02:19 Discharged to Home. Impression: Sprain of ankle; Displaced adela fracture of fifth metatarsal bone, right foot. Condition is Stable. Forms are Medication Reconciliation Form, Thank You Letter, Antibiotic Education, Prescription Opioid Use. Follow up: Private Physician; When: 2 - 3 days; Reason: Recheck today's complaints, Re-evaluation by your physician. Problem is new. Symptoms have improved. [facility] 02:54 02:21 01/17/2019 02:19 Discharged to Home. Impression: Sprain of ankle; Displaced rr5 fracture of fifth metatarsal bone, right foot. Condition is Stable. Discharge Instructions: Metatarsal Fracture. Prescriptions for Tramadol 50 mg Oral Tablet - take 1 tablet by ORAL route every 8 hours as needed; 26 tablet. and Forms are Medication Reconciliation Form, Thank You Letter, Antibiotic Education, Prescription Opioid Use. Follow up: Private Physician; When: 2 - 3 days; Reason: Recheck today's complaints, Re-evaluation by your physician. Follow up: Dr. Dale Bryan; When: 2 - 3 days; Reason: Recheck today's complaints, Re-evaluation by your physician. Problem is new. Symptoms have improved. adela
--- NOTE | 2019-01-17 02:21 | ER ---
Nurse's Notes [facility] Name: Virgie Silveira Age: 53 yrs Sex: Female : 1965 Arrival Date: 01/17/2019 Time: 01:06 Bed 14 Private MD: Diagnosis: Sprain of ankle;Displaced fracture of fifth metatarsal bone, right foot Presentation: 01/17 01:45 Presenting complaint: Patient states: while going down to our stairs I misstep then rr5 twisted my ankle. accident happened around 0020 H. pain score 8/10. denies LOC. 01:45 Transition of care: patient was not received from another setting of care. Onset of rr5 symptoms was January 17, 2019 at 00:20. Risk Assessment: Do you want to hurt yourself or someone else? Patient reports no desire to harm self or others. Initial Sepsis Screen: Does the patient meet any 2 criteria? No. Patient's initial sepsis screen is negative. Does the patient have a suspected source of infection? No. Patient's initial sepsis screen is negative. 01:45 Method Of Arrival: Wheelchair rr5 01:45 Acuity: [place] 3 rr5 01:45 Care prior to arrival: None. 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 - Social history:: Smoking status: Patient uses tobacco products, smokes one-half pack cigarettes per day, Patient/guardian denies using alcohol, street drugs. - Ebola Screening: : Patient negative for fever greater than or equal to 101.5 degrees Fahrenheit, and additional compatible Ebola Virus Disease symptoms Patient denies exposure to infectious person Patient denies travel to an Ebola-affected area in the 21 days before illness onset. - Family history:: not pertinent. Screenin:15 Abuse screen: Denies threats or abuse. Denies injuries from another. Nutritional rr5 screening: No deficits noted. Tuberculosis screening: No symptoms or risk factors identified. Fall Risk Fall in past 12 months (25 points). Gait- Impaired (20 pts.). Total Vogt Fall Scale indicates High Risk Score (45 or more points). Fall prevention measures have been instituted. Side Rails Up X 2 Placed Close to Nursing Station Frequent Obs/Assessments Occuring Family Present and informed to notify staff if the need to leave the bedside As available patient and family educated on Fall Prevention Program and Strategies. Assessment: 01:15 General: Appears in no apparent distress. comfortable, Behavior is calm, cooperative, rr5 appropriate for age. 01:15 Pain: Complains of pain in right ankle Pain does not radiate. Pain currently is 8 out rr5 of 10 on a pain scale. Quality of pain is described as aching, Pain began suddenly, Is intermittent. Neuro: Level of Consciousness is awake, alert, obeys commands, Oriented to person, place, time, situation, Appropriate for age. Cardiovascular: Capillary refill < 3 seconds Patient's skin is warm and dry. Respiratory: Airway is patent Respiratory effort is even, unlabored, Respiratory pattern is regular, symmetrical. GI: No signs and/or symptoms were reported involving the gastrointestinal system. : No signs and/or symptoms were reported regarding the genitourinary system. EENT: No signs and/or symptoms were reported regarding the EENT system. Derm: Skin is intact, Skin temperature is warm. Musculoskeletal: Circulation, motion, and sensation intact. Capillary refill < 3 seconds, Swelling present in right ankle Reports pain in right ankle. 02:00 Reassessment: Patient appears in no apparent distress at this time. Patient and/or rr5 family updated on plan of care and expected duration. Pain level reassessed. Patient is alert, oriented x 3, equal unlabored respirations, skin warm/dry/pink. 02:50 Reassessment: Patient appears in no apparent distress at this time. Patient is alert, rr5 oriented x 3, equal unlabored respirations, skin warm/dry/pink. discharge instruction given and explained without complaints made. crutch walking demonstrated by the patient. Patient states feeling better. Patient states symptoms have improved. Vital Signs: 01:15 BP 129 / 97; Pulse 86; Resp 17; Temp 98; Pulse Ox 100% ; Weight 68.95 kg; Height 5 ft. rr5 1 in. (154.94 cm); Pain 8/10; 02:30 BP 121 / 85; Pulse 80; Resp 16; Pulse Ox 99% on R/A; rr5 01:15 Body Mass Index 28.72 (68.95 kg, 154.94 cm) rr5 ED Course: 01:06 Patient arrived in ED. es 01:11 Alejandro Jenkins MD is Attending Physician. adela 01:15 Jonathan Piña, RN is Primary Nurse. rr5 01:20 Arm band placed on. Affected limb iced. Affected limb elevated. rr5 01:20 Patient has correct armband on for positive identification. Bed in low position. Call rr5 light in reach. Side rails up X2. 01:35 XRAY Ankle RIGHT 3 view In Process Unspecified. EDMS 01:49 Triage completed. rr5 02:21 Dale Bryan MD is Referral Physician. adela 02:31 No provider procedures requiring assistance completed. Patient did not have IV access rr5 during this emergency room visit. 02:34 Crutch training done. Orthoglass splint: ankle posterior splint. rr5 Administered Medications: 02:24 Drug: [place] 10 mg-325 mg 1 tabs Route: PO; rr5 02:53 Follow up: Response: No adverse reaction rr5 Outcome: 02:19 Discharge ordered by . adela 02:26 Discharged to home ambulatory, with crutches, with family. rr5 02:26 Condition: stable 02:26 Instructed on crutch walking. 02:26 Discharge instructions given to patient, family, Demonstrated understanding of instructions, follow-up care, medications, Prescriptions given X 1. 02:54 Patient left the ED. rr5 Signatures: Dispatcher [employer] EDDC Alejandro Jenkins MD MD cha Salyer, Edna es Roque, Raymond, RN RN rr5
--- NOTE | 2019-01-17 08:44 | RAD REPORT ---
EXAM DESCRIPTION: RAD - Ankle Right 3 View - 01/17/2019 1:34 am CLINICAL HISTORY: Twisting injury, ankle pain COMPARISON: None. FINDINGS: No gross fracture injury involving the distal tibia or fibula. There is cortical irregular ity along the medial margin of the talar dome. This is believed to be volume averaging of a small bon y protuberance. Fracture at the medial margin of the ankle joint is not suspected. Patient has promin ent lateral and anterior soft tissue swelling. Transverse fracture is present at the base of the fifth metatarsal. No significant distraction at thi s fracture site. No foreign body. IMPRESSION: Transverse fracture of the base of the right fifth metatarsal. Significant soft tissue swelling at the ankle joint without fracture identified.
== END 2019-01-17 02:54 | disposition home or self-care (01) ==
LOC: ER 01:02
PROC: 2W3QX1Z Immobilization of Right Lower Leg using Splint (ICD-10-PCS; principal; 2019-01-17)
DX: S92.351A Displaced fracture of fifth metatarsal bone, right foot, initial encounter for closed fracture (principal); S93.401A Sprain of unspecified ligament of right ankle, initial encounter; I10 Essential (primary) hypertension; F17.210 Nicotine dependence, cigarettes, uncomplicated; Z88.5 Allergy status to narcotic agent; Z88.8 Allergy status to other drugs, medicaments and biological substances
CPT/HCPCS: 99284

== ENCOUNTER 2019-06-06 23:57 | Inpatient (IN) | payer SELFPAY ==
--- OUTSIDE RECORDS SUMMARY | 2019-06-07 | XMS REPORT ---
[...] End Status Dosage System Date Date Synthroid [facility] [id number] 25 MCG Orally Active 1 tablet Once a day on an empty stomach in the morning Hydrochlorothiazide [facility] [id number] 12.5 MG Orally Active 1 tablet Once a day in the morning Naproxen [facility] [address]-98 500 MG Orally Active 1 tablet Twice a day prn pain-take with food Daily Multi NDC 0 - Orally Active as Vitamin/Minerals directed Results No Known Results Summary Purpose eClinicalWorks Submission
[2019-06-07 01:12] LABS: Arterial Blood Carboxyhemoglob 1.9 % (0-1.5); Blood Gas Oxyhemoglobin 93.7 % (94-97); Blood O2 Saturation 96.3 % (92-98.5)
--- NOTE | 2019-06-07 01:30 | EDPHYS ---
Physician Documentation [facility] Name: Virgie Silveira Age: 53 yrs Sex: Female : 1965 Arrival Date: 06/06/2019 Time: 23:58 Bed 13 Private MD: ED Physician Alejandro Jenkins HPI: 06/07 00:57 This 53 yrs old Female presents to ER via Ambulatory with complaints of adela Breathing Difficulty. 00:57 The patient has shortness of breath with light activity. Onset: The symptoms/episode adela began/occurred 2 week(s) ago. Duration: The symptoms are continuous, and are steadily getting worse. The patient's shortness of breath is aggravated by exertion, is alleviated by rest, sitting up, application of supplemental oxygen. Associated signs and symptoms: The patient has no apparent associated signs or symptoms. Severity of symptoms: in the emergency department the symptoms have improved mildly. The patient has experienced similar episodes in the past, a few times. 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 - Social history:: Smoking status: Patient uses tobacco products, smokes one-half pack cigarettes per day. - Ebola Screening: : No symptoms or risks identified at this time. - Family history:: not pertinent. ROS: 00:57 Constitutional: Negative for fever, chills, and weight loss, Eyes: Negative for injury, adela pain, redness, and discharge, ENT: Negative for injury, pain, and discharge, Neck: Negative for injury, pain, and swelling, Cardiovascular: Negative for chest pain, palpitations, and edema, Abdomen/GI: Negative for abdominal pain, nausea, vomiting, diarrhea, and constipation, Back: Negative for injury and pain, : Negative for injury, bleeding, discharge, and swelling, MS/Extremity: Negative for injury and deformity, Skin: Negative for injury, rash, and discoloration, Neuro: Negative for headache, weakness, numbness, tingling, and seizure, Psych: Negative for depression, anxiety, suicide ideation, homicidal ideation, and hallucinations, Allergy/Immunology: Negative for hives, rash, and allergies, Endocrine: Negative for neck swelling, polydipsia, polyuria, polyphagia, and marked weight changes, Hematologic/Lymphatic: Negative for swollen nodes, abnormal bleeding, and unusual bruising. 00:57 Respiratory: Positive for dyspnea on exertion, shortness of breath, on exertion. Exam: 00:57 Constitutional: This is a well developed, well nourished patient who is awake, alert, adela and in no acute distress. Head/Face: Normocephalic, atraumatic. Eyes: Pupils equal round and reactive to light, extra-ocular motions intact. Lids and lashes normal. Conjunctiva and sclera are non-icteric and not injected. Cornea within normal limits. Periorbital areas with no swelling, redness, or edema. ENT: Nares patent. No nasal discharge, no septal abnormalities noted. Tympanic membranes are normal and external auditory canals are clear. Oropharynx with no redness, swelling, or masses, exudates, or evidence of obstruction, uvula midline. Mucous membranes moist. Neck: Trachea midline, no thyromegaly or masses palpated, and no cervical lymphadenopathy. Supple, full range of motion without nuchal rigidity, or vertebral point tenderness. No Meningismus. Chest/axilla: Normal chest wall appearance and motion. Nontender with no deformity. No lesions are appreciated. Cardiovascular: Regular rate and rhythm with a normal S1 and S2. No gallops, murmurs, or rubs. Normal PMI, no JVD. No pulse deficits. Respiratory: Lungs have equal breath sounds bilaterally, clear to auscultation and percussion. No rales, rhonchi or wheezes noted. No increased work of breathing, no retractions or nasal flaring. Abdomen/GI: Soft, non-tender, with normal bowel sounds. No distension or tympany. No guarding or rebound. No evidence of tenderness throughout. Back: No spinal tenderness. No costovertebral tenderness. Full range of motion. Skin: Warm, dry with normal turgor. Normal color with no rashes, no lesions, and no evidence of cellulitis. MS/ Extremity: Pulses equal, no cyanosis. Neurovascular intact. Full, normal range of motion. Neuro: Awake and alert, GCS 15, oriented to person, place, time, and situation. Cranial nerves II-XII grossly intact. Motor strength 5/5 in all extremities. Sensory grossly intact. Cerebellar exam normal. Normal gait. Psych: Awake, alert, with orientation to person, place and time. Behavior, mood, and affect are within normal limits. Vital Signs: 00:53 BP 129 / 92; Pulse 98; Resp 20; Temp 98.8; Pulse Ox 100% ; Weight 63.5 kg; Height 5 ft. ea 1 in. (154.94 cm); 01:00 BP 128 / 98; Pulse 100; Resp 18; Pulse Ox 100% on R/A; ea 02:00 BP 113 / 81; Pulse 84; Resp 18; Pulse Ox 97% on R/A; ea 03:23 BP 117 / 80; Pulse 86; Resp 18; Pulse Ox 99% ; ea 00:53 Body Mass Index 26.45 (63.50 kg, 154.94 cm) ea MDM: 00:09 Patient medically screened. [facility] 00:59 Data reviewed: vital signs, nurses notes, lab test result(s), EKG, radiologic studies, [facility] CT scan, plain films. 12 00:54 Order name: Basic Metabolic Panel; Complete Time: 02:24 [facility] 06/07 00:54 Order name: CBC with Diff; Complete Time: 02:24 [facility] 06/07 00:54 Order name: LFT's; Complete Time: 02:24 [facility] 06/07 00:54 Order name: Magnesium; Complete Time: 02:24 [facility] 06/07 00:54 Order name: NT PRO-BNP; Complete Time: 02:24 [facility] 06/07 00:54 Order name: PT-INR; Complete Time: 02:24 [facility] 06/07 00:54 Order name: Troponin (emerg Dept Use Only); Complete Time: 02:24 [facility] 06/07 00:57 Order name: Urine Culture [facility] 06/07 00:57 Order name: ABG; Complete Time: 01:27 [facility] 06/07 00:57 Order name: Lipase [facility] 06/07 01:31 Order name: Urine Dipstick--Ancillary (enter results) [place] 06/07 01:38 Order name: Thyroid Stimulating Hormone EDUT 06/07 02:43 Order name: CKMB Creatine Kinase MB [facility] 06/07 00:54 Order name: XRAY Chest (1 view) [facility] 06/07 00:54 Order name: EKG; Complete Time: 00:55 [facility] 06/07 00:54 Order name: CT Chest For PE Angio [facility] 06/07 02:36 Order name: Echo w/ Doppler [facility] 06/07 02:43 Order name: Heart Healthy [facility] 06/07 02:43 Order name: CKMB Creatine Kinase MB [facility] 06/07 02:43 Order name: CKMB Creatine Kinase MB [facility] 06/07 02:43 Order name: Troponin I [facility] 06/07 02:43 Order name: Troponin I [facility] 06/07 02:43 Order name: Troponin I [facility] 06/07 02:45 Order name: T4 Free [facility] 06/07 00:54 Order name: Cardiac monitoring; Complete Time: 01:43 [facility] 06/07 00:54 Order name: EKG - Nurse/Tech; Complete Time: 01:43 [facility] 06/07 00:54 Order name: IV Saline Lock; Complete Time: 01:43 [facility] 06/07 00:54 Order name: Labs collected and sent; Complete Time: 01:43 [facility] 06/07 00:54 Order name: O2 Per Protocol; Complete Time: 01:43 [facility] 06/07 00:54 Order name: O2 Sat Monitoring; Complete Time: 01:43 [facility] 06/07 00:57 Order name: Urine Dipstick-Ancillary (obtain specimen); Complete Time: 01:42 [facility] Administered Medications: 02:05 Drug: Aspirin 162 mg Route: PO; ea 02:47 Follow up: Response: No adverse reaction ea 02:05 Drug: Lovenox 1 mg/kg Route: Sub-Q; Site: left lower abdomen; ea 02:47 Follow up: Response: No adverse reaction ea 03:09 Drug: Lopressor 25 mg Route: PO; ea 03:30 Follow up: Response: No adverse reaction ea 03:10 Drug: Lasix 40 mg Route: IVP; Site: right antecubital; ea 03:30 Follow up: Response: No adverse reaction ea 03:10 Drug: Potassium Effervescent Tablet 25 mEq Route: PO; ea 03:30 Follow up: Response: No adverse reaction ea Disposition: 06/07/19 01:29 Hospitalization ordered by Jose Raul Roca for Inpatient Admission. Preliminary diagnosis are Dyspnea, Unspecified combined systolic (congestive) and diastolic (congestive) heart failure, Essential (primary) hypertension. - Bed requested for Telemetry/MedSurg (Inpatient). - Status is Inpatient Admission. ea - Condition is Fair. - Problem is new. - Symptoms have improved. UTI on Admission? No Signatures: Dispatcher [employer] [facility] Cherie Zepeda RN RN Alejandro Rm MD MD cha Antunez, Elena, RN RN ea Corrections: (The following items were deleted from the chart) 01:38 01:30 THYROID STIMULAT HORMONE+C.LAB.BRZ ordered. [facility] EDUT 02:48 01:29 Hospitalization Ordered by Jose Raul Roca MD for Inpatient Admission. Preliminary diagnosis is Dyspnea; Unspecified combined systolic (congestive) and diastolic (congestive) heart failure; Essential (primary) hypertension. Bed requested for Telemetry/MedSurg (Inpatient). Status is Inpatient Admission. Condition is Fair. Problem is new. Symptoms have improved. UTI on Admission? No. adela 03:29 02:48 06/07/2019 01:29 Hospitalization Ordered by Jose Raul Roca MD for Inpatient ea Admission. Preliminary diagnosis is Dyspnea; Unspecified combined systolic (congestive) and diastolic (congestive) heart failure; Essential (primary) hypertension. Bed requested for Telemetry/MedSurg (Inpatient). Status is Inpatient Admission. Condition is Fair. Problem is new. Symptoms have improved. UTI on Admission? No. mw
--- NOTE | 2019-06-07 01:30 | ER ---
Nurse's Notes [facility] Name: Virgie Silveira Age: 53 yrs Sex: Female : 1965 Arrival Date: 06/06/2019 Time: 23:58 Bed 13 Private MD: Diagnosis: Dyspnea;Unspecified combined systolic (congestive) and diastolic (congestive) heart failure;Essential (primary) hypertension Presentation: 06/07 00:51 Presenting complaint: Patient states: Pt reports 2 months ago she started noticing she ea was getting winded going up and down the stairs. Reports symptoms worsened and noticed last night she was having a hard time breathing. Transition of care: patient was not received from another setting of care. Onset of symptoms was June 07, 2019. Risk Assessment: Do you want to hurt yourself or someone else? Patient reports no desire to harm self or others. Initial Sepsis Screen: Does the patient meet any 2 criteria? No. Patient's initial sepsis screen is negative. Does the patient have a suspected source of infection? No. Patient's initial sepsis screen is negative. Care prior to arrival: None. 00:51 Method Of Arrival: Ambulatory ea 00:51 Acuity: TOÑITO 3 ea Triage Assessment: 00:57 General: Appears uncomfortable, Behavior is appropriate for age. Pain: Denies pain. ea Respiratory: Reports shortness of breath at rest Onset: The symptoms/episode began/occurred reports symptoms started about 2 months ago and gradually got worse, the patient has mild shortness of breath. 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 - Social history:: Smoking status: Patient uses tobacco products, smokes one-half pack cigarettes per day. - Ebola Screening: : No symptoms or risks identified at this time. - Family history:: not pertinent. Screenin:55 Abuse screen: Denies threats or abuse. Nutritional screening: No deficits noted. ea Tuberculosis screening: No symptoms or risk factors identified. Fall Risk None identified. Assessment: 01:00 General: Appears in no apparent distress. Behavior is calm, cooperative, appropriate ea for age. Pain: Denies pain. Neuro: Level of Consciousness is awake, alert, obeys commands, Oriented to person, place, time, situation. Cardiovascular: Patient's skin is warm and dry. Respiratory: Airway is patent Respiratory effort is even, unlabored, Respiratory pattern is regular, symmetrical, Breath sounds are clear. Derm: Skin is pink, warm \T\ dry. Musculoskeletal: Circulation, motion, and sensation intact. 02:00 Reassessment: Patient and/or family updated on plan of care and expected duration. Pain ea level reassessed. Patient is alert, oriented x 3, equal unlabored respirations, skin warm/dry/pink. 03:15 Reassessment: Patient and/or family updated on plan of care and expected duration. Pain ea level reassessed. Patient is alert, oriented x 3, equal unlabored respirations, skin warm/dry/pink. Vital Signs: 00:53 BP 129 / 92; Pulse 98; Resp 20; Temp 98.8; Pulse Ox 100% ; Weight 63.5 kg; Height 5 ft. ea 1 in. (154.94 cm); 01:00 BP 128 / 98; Pulse 100; Resp 18; Pulse Ox 100% on R/A; ea 02:00 BP 113 / 81; Pulse 84; Resp 18; Pulse Ox 97% on R/A; ea 03:23 BP 117 / 80; Pulse 86; Resp 18; Pulse Ox 99% ; ea 00:53 Body Mass Index 26.45 (63.50 kg, 154.94 cm) ea ED Course: 06/06 23:58 Patient arrived in ED. ag3 06/07 00:09 Alejandro Jenkins MD is Attending Physician. adela 00:51 Linnea Thompson RN is Primary Nurse. ea 00:53 Triage completed. ea 00:55 Patient has correct armband on for positive identification. Bed in low position. Call ea light in reach. Side rails up X2. 00:55 Arm band placed on Patient placed in an exam room, on a stretcher, on pulse oximetry. ea 01:10 XRAY Chest (1 view) In Process Unspecified. EDMS 01:28 Jose Raul Roca MD is Hospitalizing Provider. adela 01:55 Radiology exam delayed due to lab results not completed at this time. (BUN/Creatinine). kw1 02:06 No provider procedures requiring assistance completed. ea 03:27 Patient admitted, IV remains in place. ea Administered Medications: 02:05 Drug: Aspirin 162 mg Route: PO; ea 02:47 Follow up: Response: No adverse reaction ea 02:05 Drug: Lovenox 1 mg/kg Route: Sub-Q; Site: left lower abdomen; ea 02:47 Follow up: Response: No adverse reaction ea 03:09 Drug: Lopressor 25 mg Route: PO; ea 03:30 Follow up: Response: No adverse reaction ea 03:10 Drug: Lasix 40 mg Route: IVP; Site: right antecubital; ea 03:30 Follow up: Response: No adverse reaction ea 03:10 Drug: Potassium Effervescent Tablet 25 mEq Route: PO; ea 03:30 Follow up: Response: No adverse reaction ea Outcome: 01:29 Decision to Hospitalize by Provider. adela 03:25 Admitted to Med/surg accompanied by tech, via wheelchair, room 218, with chart, Report ea called to Brandon PENA 03:25 Condition: stable 03:25 Instructed on the need for admit, Demonstrated understanding of instructions. 03:29 Patient left the ED. ea Signatures: Dispatcher [employer] Alejandro Quinn MD MD cha Antunez, Elena RN RN Carley Castellanos kw1 Tiffany Farias3
[2019-06-07 01:52] LABS: Absolute Lymphocytes (CBC) 3.3 K/uL (0.7-4.9); Basophils % 0.7 % (0-1.3); Hematocrit 40.4 % (36.0-45.0); Lymphocytes % 39.2 % (15.3-44.8); RBC Red Blood Cell Count 4.62 M/uL (3.86-4.86)
[2019-06-07 01:53] LABS: Protime INR 1.01
[2019-06-07] MEDS ORDERED: ASPIRIN EC 81 MG TAB PO ONE (02:01)
[2019-06-07] MEDS ORDERED: ENOXAPARIN 60 MG/0.6 ML SQ ONE (02:01)
[2019-06-07 02:06] LABS: ALT/SGPT 46 U/L (12-78); AST/SGOT 24 U/L (15-37); Alkaline Phosphatase 75 U/L (45-117); BUN Blood Urea Nitrogen 21 mg/dL (7-18); Bicarbonate 26 mmol/L (21-32); Bilirubin Direct < 0.1 mg/dL (0-0.2); Bilirubin Total 0.3 mg/dL (0.2-1.0); Glucose Level 98 mg/dL (74-106); Magnesium 2.2 mg/dL (1.8-2.4); NT PRO-BNP 2106 pg/mL (<125); Potassium 3.8 mmol/L (3.5-5.1); Protein, Total 7.6 g/dL (6.4-8.2); Sodium Level 142 mmol/L (136-145); Troponin (Emerg Dept Use Only) 0.07 ng/mL (0.0-0.045)
[2019-06-07] MEDS ORDERED: ACETAMINOPHEN 500 MG TAB PO PRN (02:38)
[2019-06-07] MEDS ORDERED: ONDANSETRON 4 MG/2 ML VIAL IV PRN (02:38)
[2019-06-07] MEDS ORDERED: ALBUTEROL 2.5 MG/3 ML NEB SOL NEB PRN (02:38)
--- NOTE | 2019-06-07 02:44 | P.HP ---
Certification for Inpatient Patient admitted to: Observation With expected LOS: <2 Midnights Patient will require the following post-hospital care: None Practitioner: I am a practitioner with admitting privileges, knowledge of patient current condition, hospital course, and medical plan of care. Services: Services provided to patient in accordance with Admission requirements found in Title 42 Section 412.3 of the Code of Federal Regulations Patient History Date of Service: 06/07/19 Reason for admission: SOB History of Present Illness: 53-year-old female with no significant past medical history other than hypothyroidism admitted with shortness of breath which has been going on for the last 1 month and has been progressively worsening. Patient states that she used to have exertional dyspnea which was progressive. She also complains of difficulty in breathing especially while she is in sleep. Denies any previous history of obstructive sleep apnea. Today patient was awakened from sleep because of shortness of breath and difficulty catching breath, and was brought to ER. denies any chest pain. no recent travel. no sick contacts. Patient was assessed in the ER and was found to have CHF and was admitted for further management of possible CHF exacerbation. Allergies lisinopril Allergy (Verified 06/07/19 03:41) Unknown morphine Allergy (Verified 06/07/19 03:41) Unknown Home Medications: NK [No Home Meds] 06/07/19 - Past Medical/Surgical History Past Medical History: Reviewed- Non-Contributory -: Hypothyroid Past Surgical History: Reviewed- Non-Contributory - Family History Family History: Reviewed- Non-Contributory - Social History Smoking Status: Current every day smoker Counseled patient to stop smoking for: more than 10 minutes Review of Systems 10-point ROS is otherwise unremarkable Respiratory: Shortness of Breath Cardiovascular: Paroxysmal Noc. Dyspnea Gastrointestinal: Unremarkable Genitourinary: Unremarkable Integumentary: Unremarkable Physical Examination - Vital Signs Temperature: 97.8 F Blood Pressure: 138/82 Pulse: 88 Respirations: 18 - Physical Exam General: Alert, In no apparent distress, Oriented x3 HEENT: Atraumatic, Normocephalic Neck: Supple, 2+ carotid pulse no bruit, JVD distended Respiratory: Clear to auscultation bilaterally, Normal air movement Cardiovascular: Regular rate/rhythm, Normal S1 S2 Capillary refill: <2 Seconds Gastrointestinal: Soft and benign, W/out hepatosplenomegaly Musculoskeletal: No clubbing, No swelling Integumentary: No rashes, No breakdown Neurological: Normal speech, Normal strength at 5/5 x4 extr Lymphatics: No axilla or inguinal lymphadenopathy Urinary: Other (No bladder distention) External genitalia: Deferred Rectal: Deferred - Studies Laboratory Data (last 24 hrs) 06/07/19 01:20: PT 11.9, INR 1.01 06/07/19 01:20: WBC 8.5, Hgb 13.3, Hct 40.4, Plt Count 267 06/07/19 01:20: Sodium 142, Potassium 3.8, BUN 21 H, Creatinine 0.99, Glucose 98 , Magnesium 2.2, Total Bilirubin 0.3, AST 24, ALT 46, Alkaline Phosphatase 75 Assessment and Plan - Problems (Diagnosis) (1) Acute exacerbation of CHF (congestive heart failure) Current Visit: Yes Status: Acute (2) Thyroid disorder Current Visit: Yes Status: Acute (3) Exertional dyspnea Current Visit: Yes Status: Acute (4) Elevated blood pressure reading Current Visit: Yes Status: Acute - Plan Acute CHF exacerbation possibly combined systolic/diastolic Exertional dyspnea with possible PND Elevated blood pressure with no previous history of hypertension Thyroid disorder Plan monitor under telemetry ABG looks within normal limits Aggressive diuresis Echocardiogram Will get a CT chest PE protocol Titrate antihypertensives will get TSH level and T4 Bronchodilators p.r.n. GI/DVT prophylaxis - Advance Directives Does patient have a Living Will: No Does patient have a Durable POA for Healthcare: No Time Spent Managing Pts Care (In Minutes): 46
[2019-06-07 02:45] LABS: Thyroid Stimulating Hormone 13.5 uIU/mL (0.360-3.740)
[2019-06-07 02:54] LABS: Urine Blood 2+ (NEG); Urine Glucose NEGATIVE (NEG); Urine Protein NEGATIVE (NEG); Urine Specific Gravity 1.025 (1.005-1.030)
[2019-06-07] MEDS ORDERED: METOPROLOL TAR 25 MG TAB ONE (03:06)
[2019-06-07] MEDS ORDERED: FUROSEMIDE 40 MG/4 ML VIAL ONE (03:06)
[2019-06-07] MEDS ORDERED: POTASSIUM 25 MEQ EFFERV TAB ONE (03:06)
[2019-06-07 03:42] VITALS: BMI 29.9
[2019-06-07 04:53] LABS: CKMB Creatine Kinase MB 2.4 ng/mL (0.3-3.6); Troponin I 0.08 ng/mL (0.0-0.045)
--- NOTE | 2019-06-07 06:32 | EKG ---
Test Date: 2019-06-07 Test Time: 01:15:09 Environmental Health Inspector: PRINCE MEASUREMENT RESULTS: Intervals: Rate: 83 CA: 138 QRSD: 96 QT: 386 QTc: 453 [place]: P: 54 CA: 138 QRS: 37 T: 268 INTERPRETIVE STATEMENTS: Normal sinus rhythm T wave abnormality, consider inferolateral ischemia Abnormal ECG Compared to ECG 10/29/2016 11:17:12 T-wave abnormality now present Possible ischemia now present Electronically Signed On 06-07-19 06:31:57 MEDICAL ASSISTANT INTERNAL MEDICINE by Jun Harper
[2019-06-07] MEDS ORDERED: ENOXAPARIN 40 MG/0.4 ML SQ SCH (09:00)
[2019-06-07] MEDS: FUROSEMIDE 40 MG/4 ML VIAL IV SCH ×2 (09:00→17:00)
[2019-06-07] MEDS: IPRATROPIUM BROM 0.5MG/2.5ML NEB SCH ×2 (09:41→14:58)
--- NOTE | 2019-06-07 12:02 | RAD REPORT ---
EXAM DESCRIPTION: CT - Chest For Pe Angio - 06/07/2019 4:19 am CLINICAL HISTORY: Dyspnea;SOB COMPARISON: None Available. TECHNIQUE: CTA of the chest obtained following the uncomplicated intravenous administration of iodin ated contrast.. 3-D/MIP reformatted images of the chest available for evaluation. FINDINGS: Chest: Pulmonary arteries: Contrast bolus is adequate.No filling defects identified in the pulmonary arterie s to suggest pulmonary embolus. Thyroid: No abnormalities of the visualized thyroid. Great Vessels: Great vessels have normal anatomic configuration. Thoracic Aorta: No abnormalities of the thoracic aorta identified. Heart: Cardiomegaly. No coronary artery atherosclerosis or significant pericardial effusion. Lymph Nodes: No enlarged mediastinal lymph nodes identified. Esophagus: No abnormalities of the esophagus identified. Other: No additional findings. Lungs: Lingular subsegmental/discoid atelectasis. Low lung volumes. Respiratory motion artifact. Pleura: No pleural effusion or pneumothorax. Trachea/Airways: No abnormalities of the visualized trachea or airways. Bones: Minimal endplate spondylosis. Upper Abdomen: Limited images of the upper abdomen demonstrate no definite abnormalities of visualize d portions of the liver, gallbladder, pancreas, spleen, adrenal glands, or kidneys. IMPRESSION: 1. No pulmonary embolus. 2. Mild left basilar subsegmental atelectasis. 3. Cardiomegaly. This exam was performed according to our departmental dose-optimization program, which includes autom ated exposure control, adjustment of the mA and/or kV according to patient size and/or use of iterati ve reconstruction technique. Electronically signed by: Temo Quijano 06/07/2019 3:38 AM [employer] COLOR[employer] Due to temporary technical issues with the PACS/Fluency reporting system, reports are being signed by the in house radiologist as a courtesy to ensure prompt reporting. The interpreting radiologist is f ully responsible for the content of the report.
[2019-06-07 12:23] LABS: Troponin I 0.06 ng/mL (0.0-0.045)
--- NOTE | 2019-06-07 13:10 | RAD REPORT ---
EXAM DESCRIPTION: RAD - Chest Single View - 06/07/2019 1:08 am CLINICAL HISTORY: Cough;Dyspnea Chest pain. COMPARISON: Chest For Pe Angio dated 06/07/2019 FINDINGS: Portable technique limits examination quality. Mild interstitial pulmonary edema is seen. The heart is moderately enlarged in size. No displaced fra ctures. IMPRESSION: Mild CHF versus volume overload pattern.
[2019-06-07 15:27] VITALS: O2SAT 94
--- NOTE | 2019-06-07 16:16 | P.PN ---
Date of Service: 06/07/19 Patient seen and examined. She reports no dyspnea at rest but significant dyspnea with exertion. Troponin mildly elevated but flat. CT chest result reviewed. The patient has cardiomegaly. Chest x-ray report mild vascular congestion. Plan: Elevated troponin likely secondary to demand ischemia. Low suspicion for ACS. Continue IV Lasix Echocardiogram is requested Cardiology consult requested. Oxygen as needed. Bronchodilators Start aspirin
[2019-06-07 17:14] VITALS: BP 99/61
--- NOTE | 2019-06-07 17:37 | P.DS ---
Admission Date: 06/07/19 Discharge Date: 06/07/19 Disposition: ROUTINE DISCHARGE Discharge Condition: FAIR Reason for Admission: SOB Consultations: Cardiology-Dr. Harper. - Problems (1) Acute exacerbation of CHF (congestive heart failure) Current Visit: Yes Status: Acute (2) Exertional dyspnea Current Visit: Yes Status: Acute (3) Thyroid disorder Current Visit: Yes Status: Chronic Brief History of Present Illness: 53-year-old woman with a history of hypothyroidism presented to the ED due to progressive shortness of breath of 1 month duration. The shortness of breath became more to the point she developed orthopnea. She woke up from sleep very short of breath last night and presented to the ED for evaluation. Chest x-ray in the ED reported CHF. Her initial troponin was mildly elevated. EKG demonstrated sinus rhythm and T-wave abnormality. Patient was admitted for further management. Hospital Course: Troponin trended was mildly elevated but flat. There was low suspicion for ACS. Patient was not hypertensive. She reported improvement in her shortness of breath. The patient was seen and evaluated by cardiology. Echocardiogram is not available this week. Patient requested to go home today. Cardiology- Dr. Harper recommended further outpatient workup in his office. She is discharged with oral Lasix and oral potassium per cardiology recommendations. Vital Signs/Physical Exam: Temp Pulse Resp BP Pulse Ox 97.7 F 71 18 99/61 95 06/07/19 12:00 06/07/19 17:00 06/07/19 12:00 06/07/19 17:00 06/07/19 12:00 General: Alert, In no apparent distress, Oriented x3 HEENT: Mucous membr. moist/pink Neck: Supple, JVD not distended Respiratory: Clear to auscultation bilaterally, Normal air movement Cardiovascular: No edema, Regular rate/rhythm, Normal S1 S2 Capillary refill: <2 Seconds Gastrointestinal: Normal bowel sounds, Soft and benign, No tenderness Musculoskeletal: No swelling Integumentary: No rashes Neurological: Normal speech, Normal strength at 5/5 x4 extr Laboratory Data at Discharge: WBC 8.5 K/uL (4.3-10.9) 06/07/19 01:20 Hgb 13.3 g/dL (12.0-15.0) 06/07/19 01:20 Hct 40.4 % (36.0-45.0) 06/07/19 01:20 Plt Count 267 K/uL (152-406) 06/07/19 01:20 PT 11.9 SECONDS (9.5-12.5) 06/07/19 01:20 INR 1.01 06/07/19 01:20 Sodium 142 mmol/L (136-145) 06/07/19 01:20 Potassium 3.8 mmol/L (3.5-5.1) 06/07/19 01:20 BUN 21 mg/dL (7-18) H 06/07/19 01:20 Creatinine 0.99 mg/dL (0.55-1.3) 06/07/19 01:20 Glucose 98 mg/dL (74-106) 06/07/19 01:20 Magnesium 2.2 mg/dL (1.8-2.4) 06/07/19 01:20 Total Bilirubin 0.3 mg/dL (0.2-1.0) 06/07/19 01:20 AST 24 U/L (15-37) 06/07/19 01:20 ALT 46 U/L (12-78) 06/07/19 01:20 Alkaline Phosphatase 75 U/L (45-117) 06/07/19 01:20 Troponin I 0.06 ng/mL (0.0-0.045) H 06/07/19 10:43 Lipase 250 U/L (73-393) 06/07/19 01:20 Home Medications: Aspirin [Aspirin EC 81 MG] 81 mg PO DAILY #30 tablet. 06/07/19 Furosemide [Lasix] 40 mg PO DAILY #30 tab 06/07/19 Levothyroxine Sodium 25 mcg PO DAILY #30 tablet 06/07/19 Potassium Chloride 20 meq PO DAILY #30 tablet.er 06/07/19 New Medications: Aspirin [Aspirin EC 81 MG] 81 mg PO DAILY #30 tablet. Furosemide [Lasix] 40 mg PO DAILY #30 tab Levothyroxine Sodium 25 mcg PO DAILY #30 tablet Potassium Chloride 20 meq PO DAILY #30 tablet.er Diet: AHA Activity: Ad christie Followup: Jun Harper MD [ACTIVE - CAN ADMIT] - 1 Week Physician Review: Patient Assessed, Agree with Above Assessment and Plan Time spent managing pt's care (in minutes): 28
[2019-06-07 17:45] VITALS: TEMP 98.9
[2019-06-08] MEDS ORDERED: ASPIRIN EC 81 MG TAB PO SCH (09:00)
--- NOTE | 2019-06-09 13:07 | CON ---
Date of Consultation: 06/07/2019 Reason For Consultation: Congestive heart failure. Patient was admitted to Dr. Shepherd. History Of Present Illness: Ms. Silveira is a 53-year-old white woman, has a history of hypertensio n and hypothyroidism. Came in with shortness of breath, PND. No pedal edema. No palpitation. No s yncope. No chest pain. Denied any nausea, vomiting, diaphoresis. Denied any fever or chills or cou gh. Past Medical History: Hypertension and hypothyroidism. Allergies: SHE IS ALLERGIC TO LISINOPRIL, MORPHINE, AND CODEINE. Home Medications: None. Review of Systems: Negative. Social History: Negative. Family History: Noncontributory. Physical Examination: General: She was in no acute distress. Vital Signs: Stable. She was afebrile. HEENT: Negative. Neck: Supple with no bruit. Chest: Clear to auscultation and percussion. Cardiac: Revealed a regular rhythm and rate. No murmurs, gallops, or rubs. Abdomen: Benign. Extremities: Revealed no clubbing, cyanosis, or edema. Her EKG showed possible inferolateral ischemia. BNP was 2106. Her TSH was 13.5. Chest x-ray showed mild failure. Troponin was 0.07, x3 separate occasions. Impression And Plan: 1.New onset acute congestive heart failure, probably diastolic. Echocardiogram is pending. 2.Hypothyroidism with elevated TSH. She needs to get back on her thyroid medicine. 3.Elevated BNP and troponin secondary to congestive heart failure. 4.Abnormal EKG probably secondary to hypertension and possible ischemia. I agree with her treatment right now. She needs to be on beta blockers, diuretic, low-salt diet, Synthroid, get her echocardio gram. She can go home whenever she feels better as far as I am concerned, and if it is okay with Dr. Shepherd. I will make arrangements for her to have an outpatient stress test. CHERYL/GERARDO Voice ID: [id number] Report ID: [id number]
== END 2019-06-07 18:45 | disposition home or self-care (01) | DRG 293 ==
LOC: ER 23:57 → ERHOLD 06-07 03:03 → 2ND 06-07 03:17
PROVIDERS: ADMIT Family Medicine; ATTEND Internal Medicine
DX: I50.43 Acute on chronic combined systolic (congestive) and diastolic (congestive) heart failure (principal); R06.00 Dyspnea, unspecified; E07.9 Disorder of thyroid, unspecified; E03.9 Hypothyroidism, unspecified; I10 Essential (primary) hypertension
CPT/HCPCS: 36415; 71045; 71275; 80048; 80076; 81003; 82553; 82805; 83690; 83735; 83880; 84439; 84443; 84484; 85025; 85610; 87077; 87086; 87088; 87186; 93005; 94640; 94760; 96372; 96374; 99285; J1650; J1940; Q9967

== ENCOUNTER 2020-03-18 15:14 | Emergency (ER) | payer OTHER, SELFPAY ==
[2020-03-18 16:30] LABS: Absolute Lymphocytes (CBC) 1.7 K/uL (0.7-4.9); Basophils % 0.6 % (0-1.3); Hematocrit 40.4 % (36.0-45.0); Lymphocytes % 20.4 % (15.3-44.8); MPV 9.3 fL (7.6-11.3); RBC Red Blood Cell Count 4.55 M/uL (3.86-4.86)
[2020-03-18 16:31] LABS: Protime INR 1.04
[2020-03-18 16:48] LABS: ALT/SGPT 61 U/L (12-78); AST/SGOT 35 U/L (15-37); Albumin 3.5 g/dL (3.4-5.0); Alkaline Phosphatase 77 U/L (45-117); BUN Blood Urea Nitrogen 13 mg/dL (7-18); Bicarbonate 29 mmol/L (21-32); Bilirubin Direct < 0.1 mg/dL (0-0.2); Bilirubin Total 0.4 mg/dL (0.2-1.0); Glucose Level 88 mg/dL (74-106); Potassium 3.7 mmol/L (3.5-5.1); Protein, Total 7.2 g/dL (6.4-8.2); Sodium Level 139 mmol/L (136-145)
[2020-03-18 16:49] LABS: NT PRO-BNP 149 pg/mL (<125); Troponin (Emerg Dept Use Only) 0.02 ng/mL (0.0-0.045)
[2020-03-18] MEDS ORDERED: DIAZEPAM 10 MG/2 ML INJ SYRINGE ONE (16:59)
[2020-03-18 17:01] LABS: Urine Blood TRACE (NEG); Urine Glucose NEGATIVE (NEG); Urine Protein NEGATIVE (NEG); Urine Specific Gravity 1.025 (1.005-1.030)
--- NOTE | 2020-03-18 17:31 | RAD REPORT ---
EXAM DESCRIPTION: Nancy Single View03/18/2020 5:14 pm CLINICAL HISTORY: Shortness of breath COMPARISON: 2019 FINDINGS: The lungs appear clear of acute infiltrate. The heart is upper limits normal size IMPRESSION: No acute abnormalities displayed
--- NOTE | 2020-03-18 17:32 | RAD REPORT ---
EXAM DESCRIPTION: RAD - Lumbar Spine 3 Views - 03/18/2020 5:16 pm CLINICAL HISTORY: Back pain FINDINGS: The alignment of the lumbar spine is satisfactory. No fracture or dislocation is seen. Mild spondylosis involves the lumbar spine. Bones appear osteoporotic
[2020-03-18] MEDS ORDERED: KETOROLAC 30 MG/ML INJ ONE (18:16)
[2020-03-18] MEDS ORDERED: dexAMETHasone 4 MG/ML VIAL ONE (18:16)
[2020-03-18] MEDS ORDERED: FENTANYL CITR 100 MCG/2 ML ONE (18:16)
--- NOTE | 2020-03-18 19:01 | EDPHYS ---
Physician Documentation [facility] Name: Virgie Silveira Age: 54 yrs Sex: Female : 1965 Arrival Date: 03/18/2020 Time: 15:14 Bed 20 Private MD: ED Physician Alejandro Jenkins HPI: 03/18 15:34 This 54 yrs old Female presents to ER via Wheelchair with complaints of Chest jmm Pain, Back Pain. 15:34 The patient presents with pain that is acute, and an injury. Onset: The jmm symptoms/episode began/occurred acutely, 3 day(s) ago. Modifying factors: The patient symptoms are alleviated by nothing, the patient symptoms are aggravated by any movement. Associated signs and symptoms: Pertinent positives: dysuria, numbness, Pertinent negatives: hematuria, incontinence. This is a 54 year old female with a history of htn, hypothyroidism, heart failure that presents to the ED with complaints of low back pain after heavy lifting this past . Patient also complains of shortness of breath but believes it is most likely from the pain. Patient denies incontinence, urinary or bowel issues but complains of numbness to the left leg. . 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 - Social history:: Smoking status: Patient reports the use of cigarette tobacco products, denies chronic smoking, but will smoke occasionally. ROS: 15:34 Constitutional: Negative for fever, chills, and weight loss, Cardiovascular: Negative jmm for chest pain, palpitations, and edema. 15:34 Respiratory: Positive for shortness of breath. 15:34 Back: Positive for pain with movement. 15:34 All other systems are negative. Exam: 15:34 Constitutional: This is a well developed, well nourished patient who is awake, alert, jmm and in no acute distress. Head/Face: atraumatic. Eyes: EOMI, no conjunctival erythema appreciated ENT: Moist Mucus Membranes Neck: Trachea midline, Supple Chest/axilla: Normal chest wall appearance and motion. Cardiovascular: Regular rate and rhythm. No edema appreciated Respiratory: Normal respirations, no respiratory distress appreciated Abdomen/GI: Non distended, soft 15:34 Back: ROM is painful. 15:34 Musculoskeletal/extremity: ROM: intact in all extremities. 15:34 Neuro: Orientation: is normal, Mentation: is normal, Memory: is normal, extensor hallucis longus intact bilaterally. 15:34 Psych: Behavior/mood is pleasant, cooperative. 17:40 ECG was reviewed by the Attending Physician. [facility] Vital Signs: 15:20 BP 104 / 64; Pulse 94; Resp 19 S; Temp 97.4(O); Pulse Ox 98% on R/A; Weight 69.85 kg jd3 (R); Height 5 ft. 3 in. (160.02 cm) (R); Pain 10/10; 16:30 BP 99 / 50; Pulse 78; Resp 22; Pulse Ox 99% on R/A; ca1 17:51 BP 100 / 52; Pulse 72; Resp 18; Pulse Ox 98% on R/A; mh5 18:28 BP 95 / 56; Pulse 80; Resp 18; Temp 98.1; Pulse Ox 99% on R/A; mh5 19:22 BP 101 / 59; Pulse 76; Resp 15 S; Pulse Ox 99% on R/A; ca1 15:20 Body Mass Index 27.28 (69.85 kg, 160.02 cm) jd3 MDM: 15:51 Patient medically screened. [facility] 18:59 Data reviewed: vital signs, nurses notes. Counseling: I had a detailed discussion with [facility] the patient and/or guardian regarding: the historical points, exam findings, and any diagnostic results supporting the discharge/admit diagnosis, lab results, radiology results, the need for outpatient follow up, to return to the emergency department if symptoms worsen or persist or if there are any questions or concerns that arise at home. ED course: Pain is relieved in the ED. Patient is advised to follow up with pcp and otherwise given strict return precautions. Patient understood and agrees with the plan of care. . 03/18 15:56 Order name: Basic Metabolic Panel; Complete Time: 16:51 [facility] 03/18 15:56 Order name: CBC with Diff; Complete Time: 16:51 [facility] 03/18 15:56 Order name: LFT's; Complete Time: 16:51 [facility] 03/18 15:56 Order name: Magnesium; Complete Time: 16:51 [facility] 03/18 15:56 Order name: NT PRO-BNP; Complete Time: 16:51 m 03/18 15:56 Order name: PT-INR; Complete Time: 16:51 m 03/18 15:56 Order name: Troponin (emerg Dept Use Only); Complete Time: 16:51 [facility] 03/18 15:56 Order name: XRAY Chest (1 view); Complete Time: 17:34 [facility] 03/18 15:56 Order name: Lumbar Spine (3 Views) XRAY; Complete Time: 17:34 [facility] 03/18 16:59 Order name: Urine Dipstick--Ancillary (enter results); Complete Time: 17:02 03/18 16:59 Order name: Urine --Ancillary (enter results); Complete Time: 17:02 03/18 15:34 Order name: EKG; Complete Time: 15:[address] [facility] 03/18 15:34 Order name: EKG - Nurse/Tech; Complete Time: 15:[address] [facility] 03/18 15:56 Order name: Cardiac monitoring; Complete Time: 16:41 [facility] 03/18 15:56 Order name: IV Saline Lock; Complete Time: 16:18 [facility] 03/18 15:56 Order name: Labs collected and sent; Complete Time: 16:18 [facility] 03/18 15:56 Order name: O2 Per Protocol; Complete Time: 16:58 [facility] 03/18 15:56 Order name: O2 Sat Monitoring; Complete Time: 16:58 [facility] 03/18 15:57 Order name: Urine Dipstick-Ancillary (obtain specimen); Complete Time: 16:41 jmm EC:40 Rate is 82 beats/min. Rhythm is regular. QRS [place] is Normal. HI interval is normal. QRS jmm interval is normal. QT interval is normal. No Q waves. T waves are Normal. No ST changes noted. Reviewed by me. Administered Medications: 16:58 Drug: Valium 2 mg Route: IVP; Site: right antecubital; ca1 18:00 Follow up: Response: No adverse reaction; Pain is decreased ca1 17:55 Drug: Ketorolac 30 mg Route: IVP; Site: right antecubital; ca1 19:00 Follow up: Response: No adverse reaction; Pain is decreased ca1 17:57 Drug: Decadron - Dexamethasone 10 mg Route: IVP; Site: right antecubital; ca1 19:00 Follow up: Response: No adverse reaction ca1 18:00 Drug: fentaNYL (PF) 25 mcg {Note: rass 0.} Route: IVP; Site: right antecubital; ca1 19:00 Follow up: Response: No adverse reaction; Pain is decreased; RASS: Alert and Calm (0) ca1 Disposition: 03/19 07:17 Co-signature as Attending Physician, Alejandro Jenkins MD I agree with the assessment and adela plan of care. Disposition: 03/18/20 19:01 Discharged to Home. Impression: Strain of muscle, fascia and tendon of lower back. - Condition is Stable. - Discharge Instructions: Back Pain, Adult. - Prescriptions for Zanaflex 4 mg Oral Tablet - take 1 tablet by ORAL route every 8 hours As needed; 20 tablet. - Medication Reconciliation Form, Thank You Letter, Antibiotic Education, Prescription Opioid Use form. - Follow up: Private Physician; When: 2 - 3 days; Reason: Recheck today's complaints, Continuance of care, Re-evaluation by your physician. Signatures: Dispatcher [employer] EDAlejandro Fabian MD MD cha Mickail, Joel, PA PA jmm Davies, Jonathon, RN RN jd3 Orly Coley RN RN ca1 Corrections: (The following items were deleted from the chart) 03/18 19:23 19:01 03/18/2020 19:01 Discharged to Home. Impression: Strain of muscle, fascia and ca1 tendon of lower back. Condition is Stable. Forms are Medication Reconciliation Form, Thank You Letter, Antibiotic Education, Prescription Opioid Use. Follow up: Private Physician; When: 2 - 3 days; Reason: Recheck today's complaints, Continuance of care, Re-evaluation by your physician. dylan
--- NOTE | 2020-03-18 19:01 | ER ---
Nurse's Notes [facility] Name: Virgie Silveira Age: 54 yrs Sex: Female : 1965 Arrival Date: 03/18/2020 Time: 15:14 Bed 20 Private MD: Diagnosis: Strain of muscle, fascia and tendon of lower back Presentation: 03/18 15:16 Chief complaint: Patient states: "I am having some bad back issues since when jd3 I was carrying some heavy items up the stairs, but I also have heart failure and I am having pain that feels like it is related to that.". Coronavirus screen: Coronavirus screen: At this time, the client does not indicate any symptoms associated with coronavirus-19. Ebola Screen: Patient negative for fever greater than or equal to 101.5 degrees Fahrenheit, and additional compatible Ebola Virus Disease symptoms. Initial Sepsis Screen: Does the patient meet any 2 criteria? No. Patient's initial sepsis screen is negative. Does the patient have a suspected source of infection? No. Patient's initial sepsis screen is negative. Risk Assessment: Do you want to hurt yourself or someone else? Patient reports no desire to harm self or others. Onset of symptoms was March 15, 2020. 15:16 Method Of Arrival: Wheelchair jd3 15:16 Acuity: [place] 3 jd3 EMS DIRECTOR: 15:20 LMP N/A - Hysterectomy jd3 Historical: - Allergies: 15:20 Codeine; jd3 15:20 Lisinopril; jd3 - PMHx: 15:20 Hypertension; Hypothyroidism; Pacemaker; defib; jd3 - PSHx: 15:20 elbow surgery; ; Hysterectomy; jd3 - Immunization history:: Adult Immunizations unknown. - Social history:: Smoking status: Patient reports the use of cigarette tobacco products, denies chronic smoking, but will smoke occasionally. Screenin:30 Abuse screen: Denies threats or abuse. Denies injuries from another. Nutritional ca1 screening: No deficits noted. Tuberculosis screening: No symptoms or risk factors identified. Fall Risk IV access (20 points). Assessment: 15:30 General: Appears in no apparent distress. uncomfortable, Behavior is calm, cooperative, ca1 appropriate for age. Pain: Complains of pain in low back area and chest Pain does not radiate. Pain currently is 10 out of 10 on a pain scale. Pain began 2-3 days ago. Is intermittent. Neuro: Level of Consciousness is awake, alert, obeys commands, Oriented to person, place, time, situation. Cardiovascular: Heart tones S1 S2 present Capillary refill < 3 seconds Patient's skin is warm and dry. Pulses are all present. Rhythm is sinus rhythm. Respiratory: Airway is patent Respiratory effort is even, unlabored, Respiratory pattern is regular, symmetrical. GI: Abdomen is round non-distended, Bowel sounds present X 4 quads. Abd is soft and non tender X 4 quads. : No signs and/or symptoms were reported regarding the genitourinary system. EENT: No signs and/or symptoms were reported regarding the EENT system. Derm: Skin is intact, is healthy with good turgor, Skin is pink, warm \\T\\ dry. Musculoskeletal: Circulation, motion, and sensation intact. Capillary refill < 3 seconds. 16:30 Reassessment: Patient appears in no apparent distress at this time. Patient and/or ca1 family updated on plan of care and expected duration. Pain level reassessed. Patient is alert, oriented x 3, equal unlabored respirations, skin warm/dry/pink. 17:00 Reassessment: Pt at radiology. ca1 17:30 Reassessment: Patient appears in no apparent distress at this time. Patient and/or ca1 family updated on plan of care and expected duration. Pain level reassessed. Patient is alert, oriented x 3, equal unlabored respirations, skin warm/dry/pink. 18:29 Reassessment: Patient appears in no apparent distress at this time. Patient and/or ca1 family updated on plan of care and expected duration. Pain level reassessed. Patient is alert, oriented x 3, equal unlabored respirations, skin warm/dry/pink. 19:22 Reassessment: Patient appears in no apparent distress at this time. Patient is alert, ca1 oriented x 3, equal unlabored respirations, skin warm/dry/pink. Vital Signs: 15:20 BP 104 / 64; Pulse 94; Resp 19 S; Temp 97.4(O); Pulse Ox 98% on R/A; Weight 69.85 kg jd3 (R); Height 5 ft. 3 in. (160.02 cm) (R); Pain 10/10; 16:30 BP 99 / 50; Pulse 78; Resp 22; Pulse Ox 99% on R/A; ca1 17:51 BP 100 / 52; Pulse 72; Resp 18; Pulse Ox 98% on R/A; mh5 18:28 BP 95 / 56; Pulse 80; Resp 18; Temp 98.1; Pulse Ox 99% on R/A; mh5 19:22 BP 101 / 59; Pulse 76; Resp 15 S; Pulse Ox 99% on R/A; ca1 15:20 Body Mass Index 27.28 (69.85 kg, 160.02 cm) jd3 ED Course: 15:14 Patient arrived in ED. as 15:18 Triage completed. jd3 15:18 Arm band placed on. jd3 15:30 No provider procedures requiring assistance completed. ca1 15:34 EKG done, by ED staff. jd3 15:43 Orly Coley, BECKY is Primary Nurse. ca1 15:46 Rufino Sparks PA is PHCP. [facility] 15:46 Alejandro Jenkins MD is Attending Physician. m 16:15 Inserted saline lock: 20 gauge in right antecubital area, using aseptic technique. dh4 Blood collected. 16:18 Troponin (emerg Dept Use Only) Sent. dh4 16:41 Patient has correct armband on for positive identification. Placed in gown. Bed in low mh5 position. Warm blanket given. assistant finance manager on. Pulse ox on. NIBP on. 16:41 Troponin (emerg Dept Use Only) Sent. mh5 16:41 Basic Metabolic Panel Sent. mh5 16:58 Patient maintains SpO2 saturation greater than 95% on room air. ca1 17:15 XRAY Chest (1 view) In Process Unspecified. EDMS 17:15 Lumbar Spine (3 Views) XRAY In Process Unspecified. EDMS 19:22 IV discontinued, intact, bleeding controlled, No redness/swelling at site. Pressure ca1 dressing applied. Administered Medications: 16:58 Drug: Valium 2 mg Route: IVP; Site: right antecubital; ca1 18:00 Follow up: Response: No adverse reaction; Pain is decreased ca1 17:55 Drug: Ketorolac 30 mg Route: IVP; Site: right antecubital; ca1 19:00 Follow up: Response: No adverse reaction; Pain is decreased ca1 17:57 Drug: Decadron - Dexamethasone 10 mg Route: IVP; Site: right antecubital; ca1 19:00 Follow up: Response: No adverse reaction ca1 18:00 Drug: fentaNYL (PF) 25 mcg {Note: rass 0.} Route: IVP; Site: right antecubital; ca1 19:00 Follow up: Response: No adverse reaction; Pain is decreased; RASS: Alert and Calm (0) ca1 Outcome: 19:01 Discharge ordered by MD. richardson 19:22 Discharged to home ambulatory. ca1 19:22 Condition: stable 19:22 Discharge instructions given to patient, Instructed on discharge instructions, follow up and referral plans. medication usage, Demonstrated understanding of instructions, follow-up care, medications, Prescriptions given X 1. 19:23 Patient left the ED. ca1 Signatures: Dispatcher [employer] EDMS Rufino Sparks PA PA jmm Martinez, Amelia as Martinez, [facility] Frank Bruce RN RN jd3 Orly Coley RN RN ca1 Kaiden Dillard 4 Corrections: (The following items were deleted from the chart) 15:23 15:20 Pulse 94bpm; Resp 19bpm; Spontaneous; Pulse Ox 98% RA; Temp 97.4F Oral; 69.85 kg jd3 Reported; Height 5 ft. 3 in. Reported; BMI: 27.2; Pain 10/10; jd3
[2020-03-18 20:03] VITALS: TEMP 98.1; O2SAT 99
[2020-03-18 20:05] VITALS: BP 101/59
--- OUTSIDE RECORDS SUMMARY | 2020-03-22 01:23 | XMS REPORT ---
:1965 Author Organization [employer] Care Team Providers Name Role Phone Awilda Daniels Provider Role Unavailable Allergies No Known Allergies Problems Problem Type Condition Code Onset Dates Condition Statu s Problem Peripheral edema R60.9 Active Problem Follow-up exam Z09 Active Problem Family history of colon cancer Z80.0 Active Problem Hypokalemia E87.6 Active Problem Acquired hypothyroidism E03.9 Acti ve Problem Congestive heart failure, unspecified I50.9 Active HF chronicity, unspecified heart failure type Problem Tachycardia R00.0 Active Medications No Known Medications Results No Known Results Summary Purpose [employer] Submission
--- OUTSIDE RECORDS SUMMARY | 2020-03-22 01:23 | XMS REPORT ---
:1965 Author Organization [employer] Care Team Providers Name Role Phone Steph Mcdermott Provider Role Unavailable Allergies, Adverse Reactions, Alerts Substance Reaction Event Type Morphine Sulfate Info Not Available Drug Allergy Lisinopril Info Not Available Drug Allergy Problems Problem Type Condition Code Onset Dates Condition Statu s Problem Hypokalemia E87.6 Active Problem Acquired hypothyroidism E03.9 Acti ve Assessment Lumbar radiculopathy, chronic M54.16 Active Assessment Cervical radiculopathy at C5 M54.12 Active Assessment Cough R05 Active Assessment Bronchitis J40 Active Problem Cervical radiculopathy at C5 M54.12 Active Problem Follow-up exam Z09 Active Problem Lumbar radiculopathy, chronic M54.16 Active Problem Peripheral edema R60.9 Active Problem Tachycardia R00.0 Active Problem Congestive heart failure, I50.9 Ac tive unspecified HF chronicity, unspecified heart failure type Problem Family history of colon cancer Z80.0 Active Medications Medication Code Code Instructions Start End Status Dosage System Date Date Furosemide [facility] 56714696279 40 MG Orally Active 1 ta blet Once a day Aspirin 81 [facility] [id number] 81 MG Orally Active 1 ta blet Once a day Levothyroxine [facility] 12731686581 25 MCG Orally Active 1 tablet Sodium Once daily in the morning on an empty stomach Entresto [facility] [id number] 24-26 MG Oral Active TAKE 1 TABLET BY MOUTH TWICE A DAY Results No Known Results Summary Purpose [employer] Submission
--- OUTSIDE RECORDS SUMMARY | 2020-03-22 01:23 | XMS REPORT ---
:1965 Author Organization [employer]ClinicalWorks Care Team Providers Name Role Phone Awilda Daniels Provider Role Unavailable Allergies No Known Allergies Problems Problem Type Condition Code Onset Dates Condition Statu s Problem Hypokalemia E87.6 Active Problem Acquired hypothyroidism E03.9 Acti ve Assessment Cervical radiculopathy at C5 M54.12 Active Assessment Lumbar radiculopathy, chronic M54.16 Active Problem Cervical radiculopathy at C5 M54.12 Active Problem Follow-up exam Z09 Active Problem Lumbar radiculopathy, chronic M54.16 Active Problem Peripheral edema R60.9 Active Problem Tachycardia R00.0 Active Problem Congestive heart failure, I50.9 Ac tive unspecified HF chronicity, unspecified heart failure type Problem Family history of colon cancer Z80.0 Active Medications Medication Code Code Instructions Start End Status Dosage System Date Date Furosemide [facility] 29499907220 40 MG Orally Active 1 ta blet Once a day Aspirin 81 [facility] [id number] 81 MG Orally Active 1 ta blet Once a day Levothyroxine Sodium [facility] 76872403737 25 MCG Orally A ctive 1 tablet Once daily in the morning on an empty stomach Naproxen [facility] [id number] 500 MG Orally Active 1 tab let Twice a day prn pain-take with food Hydrochlorothiazide [facility] [id number] 12.5 MG Orally A ctive 1 tablet Once a day in the morning Daily Multi NDC 0 - Orally Active as Vitamin/Minerals directe d Amoxicillin-Pot [facility] 16908225236 875-125 MG December Active 1 tablet Clavulanate Orally every 31, 07, 12 hrs 2019 2019 Results No Known Results Summary Purpose eClinicalWorks Submission
--- OUTSIDE RECORDS SUMMARY | 2020-03-22 01:23 | XMS REPORT | Continuity of Care Document ---
:1965 Author Organization [facility] t Address [address] [place] [address] Care Team Providers Name Role Phone Unavailable Unavailable Unavailable Problems Condition Condition Condition Status Onset Resolution Last Treating Co mments Source Name Details Category Date Date Treatment Clinician Date Acquired Acquired Problem [facility]i Emily kes - dism dism [facility] l [facility] Tachycardi Tachycardi Problem [facility] Peripheral Peripheral Problem Active [facility] edema edema [facility] Follow-up Follow-up Problem Active [facility] exam exam [facility] Family Family Problem Active [facility] history of history of Emily kes - colon colon Memoria cancer cancer l [facility] Hypokalemi Hypokalemi Problem Active [facility] Congestive Congestive Problem Active [facility] heart heart [facility] - failure, failure, Memori a unspecifie unspecifie l d HF d HF [facility] chronicity chronicity en t , , Clinics unspecifie unspecifie d heart d heart failure failure type type Lumbar Lumbar Problem Active [facility] radiculopa radiculopa Emily kes - thy, thy, Memoria chronic chronic l [facility] Cervical Cervical Problem Active [facility] radiculopa radiculopa Emily kes - thy at C5 thy at C5 Luis gonzalo l [facility]ics Allergies, Adverse Reactions, Alerts Allergy Allergy Status Severity Reaction(s) Onset Inactive Treating Comm ents Source Name Type Date Date Clinician Morphine Adverse Active Info Not [facility] Sulfate Reaction Available [facility] Lisinopr Adverse Active Info Not [facility] il Reaction Available [facility] - [facility] Medications Ordered Filled Start Stop Current Ordering Indication Dosage Frequency Signature Comments Components Source Medication Medication Date Date Medication? Clinician (SIG) Name Name Amoxicillin Amoxicillin 2019- Yes Awilda [address] [facility] -Pot -Pot 01-12 [facility] - Clavulanate Clavulanate 00:00: 00:00 Memoria 00 :00 [facility] Furosemide Furosemide Yes Awilda [address] [facility] Aspirin 81 Aspirin 81 Yes Awilda [address] [facility] Levothyroxi Levothyroxi Yes Awilda [address] [facility] ne Sodium ne Sodium Millender in the [facility] - morning on [facility] an empty l stomach [facility] Naproxen Naproxen Yes Awilda [address] [facility] Hydrochloro Hydrochloro Yes Awilda [address] [facility] thiazide thiazide [facility] in [facility] - morning [facility] ent [facility] Daily Multi Daily Multi Yes Awilda as [facility] Vitamin/Min Vitamin/Min Millender directed [facility] Procedures This patient has no known procedures. Encounters Start End Encounter Admission Attending Care Care Encounter Source Date/Time Date/Time Type Type Clinicians Facility Department ID 2020-01-13 2020-01-13 Outpatient Vivi Partida [id number] [facility] 14:40:00 14:40:00 [facility] Medicine Medicine [facility] 2020-01-13 2020-01-13 Outpatient Vivi Partida [id number] 11:40:00 11:40:00 [facility] Medicine [facility] 2019-12-21 2019-12-21 Outpatient Vivi Partida [id number] [facility] 16:33:00 16:33:00 [facility] Medicine Medicine [facility] Clinics 2019-09-05 2019-09-05 Outpatient Vivi Partida [id number] [facility] 13:11:00 13:11:00 [facility] Medicine Medicine [facility] ent [facility] 2019-08-15 2019-08-15 Inpatient E [address] 19:48:00 15:28:00 [facility] 2019-07-07 2019-07-07 Outpatient Vivi Partida [id number] [facility] 15:26:00 15:26:00 [facility] ent [facility] 2019-06-23 2019-06-23 Outpatient Vivi Partida [id number] 14:00:00 14:00:00 [facility] ent [facility] 2018-02-04 2018-02-04 Outpatient Vivi Trinidadt [id number] 15:00:00 15:00:00 [facility] Results Test Description Test Time Test Comments Results Result Comments Source Lipid Panel 2019-10-28 06:52:53 Test Item Value Reference Range Interpretation Comme nts Cholesterol Total (test code = 147 mg/dL 0-200 RISK OF HEART DISEASEPublished by Cholesterol Total) [place] [employer] Analyte Optimal Border line Increased RiskCHOL <200 200-239 >240TRIG <150 150-199 >2 00HDL Male >60 <40HDL Female >60 <50LDL <100 130-159 >160LDL Near optimal is 100-129 Triglycerides (test code = 95 mg/dL 9-200 Triglycerides) HDL (test code = HDL) 51 mg/dL 50-60 LDL (test code = LDL) 77 mg/dL 0-130 The eq uation being used in this calculation is LDL = (Chol - HDL) - (Trig / 5) VLDL (test code = VLDL) 19 mg/dL 5-40 The equation being used in this calculation is VLDL = Trig / 5 Chol/HDL (test code = Chol/HDL) 2.9 ratio 0.0-4.4 LDL/HDL Ratio (test code = 2 N T he equation being used in this LDL/HDL Ratio) calculation i s LDL/HDL Ratio=LDL Calc/HDL Chol Troponin [id number] 21:47:02 Test Item Value Reference Range Interpretation Comments Troponin-T (test 7.950 ng/L 0.000-14.000 The CV of t he assay at code = Troponin-T) 99th perc entile for both male and female patient population is < 10%. A rise and fall i n REJI with at least one va lue above the 99th percen tile with clinical eviden ce of myocardial isch emia would support a diagn osis of AMI. A delta of at least 20% is recommen ded to assess acute ch anges in results above t he 99th percentile in s erial measurements. S table REJI levels (<20%) d elta above the 99th percen tile URL would support a diagnosis of chronic myoc ardial injury. Troponin [id number] 19:26:34 Test Item Value Reference Range Interpretation Comments Troponin-T (test 8.060 ng/L 0.000-14.000 The CV of t he assay at code = Troponin-T) 99th perc entile for both male and female patient population is < 10%. A rise and fall i n REJI with at least one va lue above the 99th percen tile with clinical eviden ce of myocardial isch emia would support a diagn osis of AMI. A delta of at least 20% is recommen ded to assess acute ch anges in results above t he 99th percentile in s erial measurements. S table REJI levels (<20%) d elta above the 99th percen tile URL would support a diagnosis of chronic myoc ardial injury. Troponin [id number] 17:01:59 Test Item Value Reference Range Interpretation Comments Troponin-T (test 8.150 ng/L 0.000-14.000 The CV of t he assay at code = Troponin-T) 99th perc entile for both male and female patient population is < 10%. A rise and fall i n REJI with at least one va lue above the 99th percen tile with clinical eviden ce of myocardial isch emia would support a diagn osis of AMI. A delta of at least 20% is recommen ded to assess acute ch anges in results above t he 99th percentile in s erial measurements. S table REJI levels (<20%) d elta above the 99th percen tile URL would support a diagnosis of chronic myoc ardial injury. Comprehensive Metabolic [id number] 16:46:40 Test Item Value Reference Range Interpretation Comments Sodium Level (test 137.0 mmol/L 135.0-145.0 code = Sodium Level) Potassium Level 4.0 mmol/L 3.5-5.1 (test code = Potassium Level) Chloride Level (test 103 mmol/L 98-105 code = Chloride Level) CO2 (test code = 24 mmol/L 22-29 CO2) Anion Gap (test code 10 mmol/L 7-16 = Anion Gap) BUN (test code = 18.20 mg/dL 6.00-20.00 BUN) Creatinine Level 0.90 mg/dL 0.50-0.90 (test code = Creatinine Level) BUN/Creat Ratio 20 N (test code = BUN/Creat Ratio) Glucose Level (test 132 mg/dL 70-115 H code = Glucose Level) Calcium Level (test 9.5 mg/dL 8.3-10.5 code = Calcium Level) Alk Phos (test code 73 U/L 35-104 = Alk Phos) Bilirubin Total 0.4 mg/dL 0.1-0.9 (test code = Bilirubin Total) Albumin Level (test 4.3 g/dL 3.5-5.2 code = Albumin Level) Protein Total (test 6.5 g/dL 6.4-8.3 code = Protein Total) ALT (test code = 24 U/L 1-33 ALT) AST (test code = 19 U/L 1-32 AST) Globulin (test code 2.2 g/dL 2.9-3.1 L = Globulin) A/G Ratio (test code 2.0 ratio N = A/G Ratio) eGFR AA (test code = >60 N eGFR (e stimated eGFR AA) mL/min/1.73 m2 Glomerular Filtration Rate ) is an estimated va lue, calculated from the patient's serum creatinine usin g the MDRD equation. It is NOT the patient 's actual GFR. The eGFR provides a more clinically usef ul measure of kidn ey disease than se rum creatinine alone.This calculation geovany es sex and race in to account, if the information is provided. If th e race is not provided, and t he patient is -Sandra n, multiply by 1.2 12. If sex is not provided, and t he patient is fema le, multiply by 0.7 42. Results for pat ients <18 years of ag e have not been validated by th e MDRD study and should be interpreted wit h caution. eGFR R esult Interpretation: eGFR > or = 60 is in the Normal RangeeGF R < 60 may mean kid ibrahima diseaseeGFR < 1 5 may mean kidney failure Rang es recommended by the National Kidney Foundation, http://nkdep.ni h.gov Creatine [id number] 16:46:40 Test Item Value Reference Range Interpretation Comments CK (test code = CK) 224 U/L 26-192 H Comprehensive Metabolic [id number] 16:46:40 Test Item Value Reference Range Interpretation Comments Sodium Level (test 137.0 mmol/L 135.0-145.0 code = Sodium Level) Potassium Level 4.0 mmol/L 3.5-5.1 (test code = Potassium Level) Chloride Level (test 103 mmol/L 98-105 code = Chloride Level) CO2 (test code = 24 mmol/L 22-29 CO2) Anion Gap (test code 10 mmol/L 7-16 = Anion Gap) BUN (test code = 18.20 mg/dL 6.00-20.00 BUN) Creatinine Level 0.90 mg/dL 0.50-0.90 (test code = Creatinine Level) BUN/Creat Ratio 20 N (test code = BUN/Creat Ratio) Glucose Level (test 132 mg/dL 70-115 H code = Glucose Level) Calcium Level (test 9.5 mg/dL 8.3-10.5 code = Calcium Level) Alk Phos (test code 73 U/L 35-104 = Alk Phos) Bilirubin Total 0.4 mg/dL 0.1-0.9 (test code = Bilirubin Total) Albumin Level (test 4.3 g/dL 3.5-5.2 code = Albumin Level) Protein Total (test 6.5 g/dL 6.4-8.3 code = Protein Total) ALT (test code = 24 U/L 1-33 ALT) AST (test code = 19 U/L 1-32 AST) Globulin (test code 2.2 g/dL 2.9-3.1 L = Globulin) A/G Ratio (test code 2.0 ratio N = A/G Ratio) eGFR AA (test code = >60 N eGFR (e stimated eGFR AA) mL/min/1.73 m2 Glomerular Filtration Rate ) is an estimated va lue, calculated from the patient's serum creatinine usin g the MDRD equation. It is NOT the patient 's actual GFR. The eGFR provides a more clinically usef ul measure of kidn ey disease than se rum creatinine alone.This calculation geovany es sex and race in to account, if the information is provided. If th e race is not provided, and t he patient is -Sandra n, multiply by 1.2 12. If sex is not provided, and t he patient is fema le, multiply by 0.7 42. Results for pat ients <18 years of ag e have not been validated by [facility] MDRD study and should be interpreted wit h caution. eGFR R esult Interpretation: eGFR > or = 60 is in the Normal RangeeGF R < 60 may mean kid ibrahima diseaseeGFR < 1 5 may mean kidney failure Rang es recommended by the National Kidney Foundation, http://nkdep.ni h.gov eGFR Non-AA (test >60.00 N eGFR (oscar mated code = eGFR Non-AA) mL/min/1.73 m2 Glomer ular Filtration Rate ) is an estimated va lue, calculated from the patient's serum creatinine usin g the MDRD equation. It is NOT the patient 's actual GFR. The eGFR provides a more clinically usef ul measure of kidn ey disease than se rum creatinine alone.This calculation geovany es sex and race in to account, if the information is provided. If th e race is not provided, and t he patient is -Sandra n, multiply by 1.2 12. If sex is not provided, and t he patient is fema le, multiply by 0.7 42. Results for pat ients <18 years of ag e have not been validated by [facility] MDRD study and should be interpreted wit h caution. eGFR R esult Interpretation: eGFR > or = 60 is in the Normal RangeeGF R < 60 may mean kid ibrahima diseaseeGFR < 1 5 may mean kidney failure Rang es recommended by the National Kidney Foundation, http://nkdep.ni h.gov Comprehensive Metabolic [id number] 16:46:40 Test Item Value Reference Range Interpretation Comments Sodium Level (test 137.0 mmol/L 135.0-145.0 code = Sodium Level) Potassium Level 4.0 mmol/L 3.5-5.1 (test code = Potassium Level) Chloride Level (test 103 mmol/L 98-105 code = Chloride Level) CO2 (test code = 24 mmol/L 22-29 CO2) Anion Gap (test code 10 mmol/L 7-16 = Anion Gap) BUN (test code = 18.20 mg/dL 6.00-20.00 BUN) Creatinine Level 0.90 mg/dL 0.50-0.90 (test code = Creatinine Level) BUN/Creat Ratio 20 N (test code = BUN/Creat Ratio) Glucose Level (test 132 mg/dL 70-115 H code = Glucose Level) Calcium Level (test 9.5 mg/dL 8.3-10.5 code = Calcium Level) Alk Phos (test code 73 U/L 35-104 = Alk Phos) Bilirubin Total 0.4 mg/dL 0.1-0.9 (test code = Bilirubin Total) Albumin Level (test 4.3 g/dL 3.5-5.2 code = Albumin Level) Protein Total (test 6.5 g/dL 6.4-8.3 code = Protein Total) ALT (test code = 24 U/L 1-33 ALT) AST (test code = 19 U/L 1-32 AST) Globulin (test code 2.2 g/dL 2.9-3.1 L = Globulin) A/G Ratio (test code 2.0 ratio N = A/G Ratio) eGFR AA (test code = >60 N eGFR (e stimated eGFR AA) mL/min/1.73 m2 Glomerular Filtration Rate ) is an estimated va lue, calculated from the patient's serum creatinine usin g the MDRD equation. It is NOT the patient 's actual GFR. The eGFR provides a more clinically usef ul measure of kidn ey disease than se rum creatinine alone.This calculation geovany es sex and race in to account, if the information is provided. If th e race is not provided, and t he patient is -Sandra n, multiply by 1.2 12. If sex is not provided, and t he patient is fema le, multiply by 0.7 42. Results for pat ients <18 years of ag e have not been validated by th e MDRD study and should be interpreted wit h caution. eGFR R esult Interpretation: eGFR > or = 60 is in the Normal RangeeGF R < 60 may mean kid ibrahima diseaseeGFR < 1 5 may mean kidney failure Rang es recommended by the National Kidney Foundation, http://nkdep.ni h.gov eGFR Non-AA (test >60.00 N eGFR (oscar mated code = eGFR Non-AA) mL/min/1.73 m2 Glomer ular Filtration Rate ) is an estimated va lue, calculated from the patient's serum creatinine usin g the MDRD equation. It is NOT the patient 's actual GFR. The eGFR provides a more clinically usef ul measure of kidn ey disease than se rum creatinine alone.This calculation geovany es sex and race in to account, if the information is provided. If th e race is not provided, and t he patient is -Sandra n, multiply by 1.2 12. If sex is not provided, and t he patient is fema le, multiply by 0.7 42. Results for pat ients <18 years of ag e have not been validated by e MDRD study and should be interpreted wit h caution. eGFR R esult Interpretation: eGFR > or = 60 is in the Normal RangeeGF R < 60 may mean kid ibrahima diseaseeGFR < 1 5 may mean kidney failure Rang es recommended by the National Kidney Foundation, http://nkdep.ni h.gov Pro B Natriuretic [id number] 16:43:50 Test Item Value Reference Range Interpretation Comments NT-proBNP (test code = NT-proBNP) 513 pg/mL 0-124 H Automated [id number] 16:24:33 Test Item Value Reference Range Interpretation Comments Neutro Auto (test code = Neutro 53.0 % 36.0-70.0 Auto) Lymph Auto (test code = Lymph Auto) 39.3 % 12.0-44.0 [place] Auto (test code = [place] Auto) 6.6 % 0.0-11.0 Eos, Auto (test code = Eos, Auto) 0.0 % 0.0-7.0 Basophil Auto (test code = Basophil 0.8 % 0.0-2.0 Auto) Neutro Absolute (test code = Neutro 4.0 x10 1.6-7.4 Absolute) Lymph Absolute (test code = Lymph 2.97 x10 .50-4.60 Absolute) [place] Absolute (test code = [place] .50 x10 .00-1.20 Absolute) Eos Absolute (test code = Eos 0.00 x10 0.00-0.74 Absolute) Baso Absolute (test code = Baso 0.06 x10 0.00-0.21 Absolute) IG [id number] 16:24:33 Test Item Value Reference Range Interpretation Comments IG (test code = IG) 0.3 % 0.0-5.0 IG Abs (test code = IG Abs) 0 x10 N Complete Blood Count with [id number] 16:24:32 Test Item Value Reference Range Interpretation Comments WBC (test code = WBC) 7.6 x10 4.4-10.5 RBC (test code = RBC) 4.42 x10 3.75-5.20 Hgb (test code = Hgb) 12.7 g/dL 12.2-14.8 Hct (test code = Hct) 40.2 % 36.5-44.4 MCV (test code = MCV) 91.00 fL 80.00-100.00 MCHC (test code = 31.60 g/dL 32.00-37.50 L MCHC) RDW CV (test code = 14.4 % 11.5-14.5 RDW CV) MCH (test code = MCH) 28.7 pg 27.0-32.5 Platelets (test code = 301.0 x10 140.0-440.0 Platelets) MPV (test code = MPV) 10.9 fL N Slide Review (test Auto Auto Result cr eated by code = Slide Review) GL_SJM_ SLIDE_REV_AUTO nRBC (test code = 0 N nRBC) NRBC Abs (test code = 0.00 x10 N NRBC Abs) IPF (test code = IPF) 0 % N XR Chest 1 View [id number] 16:11:29Patient: SHEFALI JOYNER Date/Time10/27/2019 16:05 CDTReason for ExamChest painReportDICTATION LOCATION: [id number]: Female, 54 years of age with Chest painEXAM: CHEST X-RAY, ONE VIEWCOMPARISON: NoneCOMMENT: Frontal view of the chest is provided. No focal infiltrate, consolidation, mass lesion, or effusion is seen. Cardiac silhouette is within normal limits. No acute bony abnormalities.IMPRESSION: No acute cardiopulmonary disease. Final Dictated by: Fanny Davis LDictated DT/TM: 10/27/2019 4:11 pmSigned by: Fanny Davis LSigned (Electronic Signature): 10/27/2019 4:11 pm
== END 2020-03-18 19:23 | disposition home or self-care (01) ==
LOC: ER 15:14
DX: S39.012A Strain of muscle, fascia and tendon of lower back, initial encounter (principal); I10 Essential (primary) hypertension; X50.0XXA Overexertion from strenuous movement or load, initial encounter; Y93.89 Activity, other specified; Y92.9 Unspecified place or not applicable; Z88.5 Allergy status to narcotic agent; Z88.8 Allergy status to other drugs, medicaments and biological substances; Z95.0 Presence of cardiac pacemaker; F17.210 Nicotine dependence, cigarettes, uncomplicated
CPT/HCPCS: 93005; 85025; 80048; 36415; 83735; 81025; 85610; 80076; 81003; 84484; 83880; 71045; 72100; 96375; 96374; 99285; J1100; J3360; J3010

== ENCOUNTER 2020-05-26 16:18 | Emergency (ER) | payer SELFPAY ==
--- OUTSIDE RECORDS SUMMARY | 2020-05-26 16:30 | XMS REPORT | Continuity of Care Document ---
:1965 Author Organization [facility] t Address [address] [place] [address] Care Team Providers Name Role Phone Bobby Arceo Attending Clinician Unavailable Bobby Arceo Admitting Clinician Unavailable Problems Condition Condition Condition Status Onset Resolution Last Treating Co mments Source Name Details Category Date Date Treatment Clinician Date Acquired Acquired Problem [facility] hypothyroi Emily kes - dism dism Memoria l [facility] Tachycardi Tachycardi Problem Active [facility] Peripheral Peripheral Problem Active [facility] edema edema [facility] Follow-up Follow-up Problem Active [facility] exam exam [facility] Family Family Problem Active [facility] history of history of Emily kes - colon colon Memoria cancer cancer l [facility]ics Hypokalemi Hypokalemi Problem Active [facility] Congestive Congestive Problem Active [facility] heart heart [facility] - failure, failure, Memori a unspecifie unspecifie l d HF d HF [facility] chronicity chronicity en t , , Clinics unspecifie unspecifie d heart d heart failure failure type type Lumbar Lumbar Problem Active [facility] radiculopa radiculopa Emily kes - thy, thy, Memoria chronic chronic l [facility] Cervical Cervical Problem Active [facility] radiculopa radiculopa Emily kes - thy at C5 thy at C5 Luis gonzalo l [facility] Allergies, Adverse Reactions, Alerts Allergy Allergy Status Severity Reaction(s) Onset Inactive Treating Comm ents Source Name Type Date Date Clinician Morphine Adverse Active Info Not [facility] Sulfate Reaction Available [facility] - Memoria l [facility] Lisinopr Adverse Active Info Not [facility] il Reaction Available [facility] Medications Ordered Filled Start Stop Current Ordering Indication Dosage Frequency Signature Comments Components Source Medication Medication Date Date Medication? Clinician (SIG) Name Name Amoxicillin Amoxicillin Awilda [address] [facility] [address] -Pot -Pot 01-12 Millender [facility] - Clavulanate Clavulanate 00:00: 00:00 Memoria 00 :00 [facility] Furosemide Furosemide Yes Awilda [address] [facility] Millender [facility] Aspirin 81 Aspirin 81 Yes Awilda [address] [facility] [address] Millender [facility] Levothyroxi Levothyroxi Yes Awilda [address] ne Sodium ne Sodium Millender in the [facility] - morning on [facility] an empty l stomach [facility] Naproxen Naproxen Yes Awilda [address] Millender [facility] Hydrochloro Hydrochloro Yes Awilda [address] thiazide thiazide [facility]ender in the [facility] - morning [facility] Daily Multi Daily Multi Yes Awilda as [facility] Vitamin/Min Vitamin/Min Millender directed [facility] Procedures This patient has no known procedures. Encounters Start End Encounter Admission Attending Care Care Encounter Source Date/Time Date/Time Type Type Clinicians Facility Department ID 2020-01-13 2020-01-13 Outpatient Vivi Partida [id number] [facility] [address] 14:40:00 14:40:00 [facility] Medicine [facility] 2020-01-13 2020-01-13 Outpatient Vivi Trinidadt [id number] 11:40:00 11:40:00 [facility] Medicine Medicine [facility] 2019-12-21 2019-12-21 Outpatient Vivi Trinidadt [id number] [address] 16:33:00 16:33:00 [facility] Medicine [facility] 2019-10-27 2019-10-28 Inpatient 1 Oscar Arceo [facility] TEL [id number] 39 [facility] 15:41:00 20:02:00 Oscar Arceo 2019-09-05 2019-09-05 [place] [id number] [address] 13:11:00 13:11:00 [facility] 2019-08-15 2019-08-15 Inpatient E [facility] [address] [place] [address] 19:48:00 15:28:00 l [facility] 2019-07-07 2019-07-07 [place] [id number] 15:26:00 15:26:00 [facility] 2019-06-23 2019-06-23 [place] [id number] [address] 14:00:00 14:00:00 [facility] 2018-02-04 2018-02-04 [place] [id number] [address] 15:00:00 15:00[facility]00 [facility] Results Test Description Test Time Test Comments Results Result Comments Source Lipid Panel 2019-10-28 06:52:53 Test Item Value Reference Range Interpretation Comme nts Cholesterol Total (test code = 147 mg/dL 0-200 RISK OF HEART DISEASEPublished by Cholesterol Total) [place] [employer] Analyte Optimal Border line Increased [...] i s LDL/HDL Ratio=LDL Calc/HDL Chol Troponin [id number] 21:47:02 Test Item Value Reference Range Interpretation [...] diagnosis of chronic myoc ardial injury. Troponin [id number] 19:26:34 Test Item Value Reference Range Interpretation [...] diagnosis of chronic myoc ardial injury. Troponin [id number] 17:01:59 Test Item Value Reference Range Interpretation [...] of chronic myoc ardial injury. Comprehensive Metabolic [id number] 16:46:40 Test Item Value Reference Range Interpretation [...] the National Kidney Foundation, http://nkdep.ni h.gov Creatine [id number] 16:46:40 Test Item Value Reference Range Interpretation Comments CK (test code = CK) 224 U/L 26-192 H Comprehensive Metabolic [id number] 16:46:40 Test Item Value Reference Range Interpretation [...] ag e have not been validated by [facility] MDRD study and should be interpreted [...] ag e have not been validated by [facility] MDRD study and should be interpreted wit h caution. eGFR R esult Interpretation: eGFR > or = 60 is in the Normal RangeeGF R < 60 may mean kid ibrahima diseaseeGFR < 1 5 may mean kidney failure Rang es recommended by the National Kidney Foundation, http://nkdep.ni h.gov Comprehensive Metabolic [id number] 16:46:40 Test Item Value Reference Range Interpretation [...] ag e have not been validated by [facility] MDRD study and should be interpreted [...] ag e have not been validated by [facility] MDRD study and should be interpreted wit h caution. eGFR R esult Interpretation: eGFR > or = 60 is in the Normal RangeeGF R < 60 may mean kid irbahima diseaseeGFR < 1 5 may mean kidney failure Rang es recommended by the National Kidney Foundation, http://nkdep.ni h.gov Pro B Natriuretic [id number] 16:43:50 Test Item Value Reference Range Interpretation Comments NT-proBNP (test code = NT-proBNP) 513 pg/mL 0-124 H Automated [id number] 16:24:33 Test Item Value Reference Range Interpretation Comments Neutro Auto (test code = Neutro 53.0 % 36.0-70.0 Auto) Lymph Auto (test code = Lymph Auto) 39.3 % 12.0-44.0 Mathews Auto (test code = Mathews Auto) 6.6 % 0.0-11.0 Eos, Auto (test code = Eos, Auto) 0.0 % 0.0-7.0 Basophil Auto (test code = Basophil 0.8 % 0.0-2.0 Auto) Neutro Absolute (test code = Neutro 4.0 x10 1.6-7.4 Absolute) Lymph Absolute (test code = Lymph 2.97 x10 .50-4.60 Absolute) Mathews Absolute (test code = Mathews .50 x10 .00-1.20 Absolute) Eos Absolute (test code = Eos 0.00 x10 0.00-0.74 Absolute) Baso Absolute (test code = Baso 0.06 x10 0.00-0.21 Absolute) IG [id number] 16:24:33 Test Item Value Reference Range Interpretation Comments IG (test code = IG) 0.3 % 0.0-5.0 IG Abs (test code = IG Abs) 0 x10 N Complete Blood Count with [id number] 16:24:32 Test Item Value Reference Range Interpretation [...] 0 % N XR Chest 1 View [id number] 16:11:29Patient: SHEFALI JOYNER Date/Time10/27/2019 16:05 CDTReason for ExamChest painReportDICTATION LOCATION: [id number]: Female, 54 years of age with Chest [...]
--- NOTE | 2020-05-26 18:53 | ER ---
Nurse's Notes [facility] Name: Virgie Silveira Age: 54 yrs Sex: Female : 1965 Arrival Date: 05/26/2020 Time: 16:20 Bed Waiting Private MD: Diagnosis: Presentation: 05/26 16:45 Chief complaint: Patient states: Non-radiating, intermittent mid-sternal chest pain x 2 jl7 days, shortness of breath at night when trying to sleep. Coronavirus screen: Client denies travel out of the [place] in the last 14 days. At this time, the client does not indicate any symptoms associated with coronavirus-19. Ebola Screen: No symptoms or risks identified at this time. 16:45 Method Of Arrival: Ambulatory jl7 16:45 Initial Sepsis Screen: Does the patient meet any 2 criteria? No. Patient's initial jl7 sepsis screen is negative. Does the patient have a suspected source of infection? No. Patient's initial sepsis screen is negative. Risk Assessment: Do you want to hurt yourself or someone else? Patient reports no desire to harm self or others. Onset of symptoms was May 24, 2020. Care prior to arrival: None. 16:45 Acuity: TOÑITO 2 jl7 Triage Assessment: 17:29 General: Appears in no apparent distress. uncomfortable, Behavior is cooperative, jl7 anxious. Pain: Complains of pain in mid-sternal area Pain does not radiate. Pain currently is 8 out of 10 on a pain scale. Cardiovascular: Patient's skin is warm and dry. 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 - Social history:: Smoking status: Patient reports the use of cigarette tobacco products. Assessment: 18:10 Reassessment: attempted to call pt on the phone, no answer. jl7 18:52 Reassessment: attempted to call pt on phone, no answer. jl7 Vital Signs: 16:45 BP 106 / 57; Pulse 88; Resp 17; Temp 98.4; Pulse Ox 99% ; Weight 69.85 kg; Pain 8/10; jl7 ED Course: 16:20 Patient arrived in ED. ag5 16:50 EKG completed in triage. Results shown to MD. jl7 17:27 Triage completed. jl7 17:29 Arm band placed on right wrist. jl7 18:09 Patient's name was called from ER lobby. No response. jl7 18:51 Patient's name was called from ER lobby. No response. Unable to locate patient. Will jl7 disposition as left without being seen by a provider. Administered Medications: No medications were administered Outcome: 18:53 Patient left the ED. jl7 Signatures: Miah Velasco RN RN jl7 Liseth Mcbride [facility]
[2020-05-30 18:58] VITALS: BP 106/57; TEMP 98.4; O2SAT 99
== END 2020-05-26 18:53 | disposition left against medical advice (07) ==
LOC: ER 16:18
DX: Z53.21 Procedure and treatment not carried out due to patient leaving prior to being seen by health care provider (principal)
CPT/HCPCS: 93005; 99281

== ENCOUNTER 2021-01-04 16:05 | Inpatient (IN) | payer SELFPAY ==
--- OUTSIDE RECORDS SUMMARY | 2021-01-04 16:09 | XMS REPORT | Continuity of Care Document ---
:1965 Author Organization [facility] t Address [address] [place] [address] Care Team Providers Name Role Phone Bobby Arceo Attending Clinician Unavailable Bobby Arceo Admitting Clinician Unavailable Problems This patient has no known problems. Allergies, Adverse Reactions, Alerts Allergy Allergy Status Severity Reaction(s) Onset Inactive Treating Comm ents Source Name Type Date Date Clinician Morphine Adverse Active Info Not [facility] Sulfate Reaction Available [place] [facility] - Memoria [facility] ent [facility] Lisinopr Adverse Active Info Not [facility] il Reaction Available [facility] Medications Ordered Filled Start Stop Current Ordering Indication Dosage Frequency Signature Comments Components Source Medication Medication Date Date Medication? Clinician (SIG) Name Name Amoxicillin Amoxicillin 2020-0 2020- No Awilda [address] [facility] [address] -Pot -Pot 01-12 08-07 Millender [facility] - Clavulanate Clavulanate 00:00: 00:00 Memoria 00 :00 l [facility] ent Clinics Furosemide Furosemide Yes Awilda [address] [facility] Millender [facility] ent [facility] Aspirin 81 Aspirin 81 Yes Awilda [address] [facility] Millender [facility] ent Clinics Levothyroxi Levothyroxi Yes Awilda [address] ne Sodium ne Sodium Millender in the [facility] - morning on Memoria an empty l stomach [facility] ent Clinics Naproxen Naproxen Yes Awilda [address] Mill[facility] ent Clinics Hydrochloro Hydrochloro Yes Awilda [address] thiazide thiazide Millender in the [facility] - morning [facility] Clin[facility] Daily Multi Daily Multi Yes Awilda as [facility] Vitamin/Min Vitamin/Min Millender directed [facility] Outpati ent Clinics Procedures This patient has no known procedures. Encounters Start End Encounter Admission Attending Care Care Encounter Source Date/Time Date/Time Type Type Clinicians Facility Department ID 2020-12-10 2020-12-10 [facility] [id number]00 [facility] Outpat[facility] ent Clinics 2020-01-13 2020-01-13 [place] [facility] [id number] 14:40:00 14:40:00 [facility] Medicine Medicine Outpati ent Clinics 2020-01-13 2020-01-13 [place] [id number] 11:40:00 11:40:00 [facility] Medicine l Medicine Outpati ent Clinics 2019-12-21 2019-12-21 [place] [id number] 16:33:00 16:33:00 [facility] Medicine Medicine Outpati ent Clinics 2019-10-27 2019-10-28 Inpatient 1 Oscar Arceo [facility] TEL [id number] [address] 15:41:00 20:02:00 AdisOscar [facility] 2019-09-05 2019-09-05 [place] [id number] 13:11:00 13:11:00 [facility] Medicine l Medicine Outpati ent Clinics 2019-08-15 2019-08-15 Inpatient E [facility] [id number] [facility] 19:48:00 15:28:00 [facility] 2019-07-07 2019-07-07 [place] [place] [id number] 15:26:00 15:26:00 [facility] Medicine l Medicine Outpati ent Clinics 2019-06-23 2019-06-23 [place] [id number] 14:00:00 14:00:00 [facility] Medicine l Medicine Outpati ent Clinics 2018-02-04 2018-02-04 [facility] [facility] [id number] 15:00:00 15:00:00 [facility] s [facility] ent [facility] Results Test Description Test Time Test Comments Results Result Comments Source Lipid Panel 2019-10-28 06:52:53 Test Item Value Reference Range Interpretation Comme nts Cholesterol Total (test code = 147 mg/dL 0-200 RISK OF HEART DISEASEPublished by Cholesterol Total) [place] [employer] Analyte Optimal Border line Increased [...] i s LDL/HDL Ratio=LDL Calc/HDL Chol Troponin [id number] 21:47:02 Test Item Value Reference Range Interpretation [...] diagnosis of chronic myoc ardial injury. Troponin [id number] 19:26:34 Test Item Value Reference Range Interpretation [...] diagnosis of chronic myoc ardial injury. Troponin [id number] 17:01:59 Test Item Value Reference Range Interpretation [...] of chronic myoc ardial injury. Comprehensive Metabolic [id number] 16:46:40 Test Item Value Reference Range Interpretation [...] the National Kidney Foundation, http://nkdep.ni h.gov Creatine [id number] 16:46:40 Test Item Value Reference Range Interpretation Comments CK (test code = CK) 224 U/L 26-192 H Comprehensive Metabolic [id number] 16:46:40 Test Item Value Reference Range Interpretation [...] ag e have not been validated by [facility] MDRD study and should be interpreted wit [...] account, if the information is provided. If e race is not provided, and t he patient is -Sandra n, multiply by 1.2 12. If sex is not provided, and t he patient is fema le, multiply by 0.7 42. Results for pat ients <18 years of ag e have not been validated by [facility] MDRD study and should be interpreted wit h caution. eGFR R esult Interpretation: eGFR > or = 60 is in the Normal RangeeGF R < 60 may mean kid ibrahima diseaseeGFR < 1 5 may mean kidney failure Rang es recommended by the National Kidney Foundation, http://nkdep.ni h.gov Comprehensive Metabolic [id number] 16:46:40 Test Item Value Reference Range Interpretation [...] Kidney Foundation, http://nkdep.ni h.gov Pro B Natriuretic [id number] 16:43:50 Test Item Value Reference Range Interpretation Comments NT-proBNP (test code = NT-proBNP) 513 pg/mL 0-124 H Automated [id number] 16:24:33 Test Item Value Reference Range Interpretation Comments Neutro Auto (test code = Neutro 53.0 % 36.0-70.0 Auto) Lymph Auto (test code = Lymph Auto) 39.3 % 12.0-44.0 Shackelford Auto (test code = Shackelford Auto) 6.6 % 0.0-11.0 Eos, Auto (test code = Eos, Auto) 0.0 % 0.0-7.0 Basophil Auto (test code = Basophil 0.8 % 0.0-2.0 Auto) Neutro Absolute (test code = Neutro 4.0 x10 1.6-7.4 Absolute) Lymph Absolute (test code = Lymph 2.97 x10 .50-4.60 Absolute) Shackelford Absolute (test code = Shackelford .50 x10 .00-1.20 Absolute) Eos Absolute (test code = Eos 0.00 x10 0.00-0.74 Absolute) Baso Absolute (test code = Baso 0.06 x10 0.00-0.21 Absolute) IG [id number] 16:24:33 Test Item Value Reference Range Interpretation Comments IG (test code = IG) 0.3 % 0.0-5.0 IG Abs (test code = IG Abs) 0 x10 N Complete Blood Count with [id number] 16:24:32 Test Item Value Reference Range Interpretation [...] 0 % N XR Chest 1 View [id number] 16:11:29Patient: SHEFALI JOYNER Date/Time10/27/2019 16:05 CDTReason for ExamChest painReportDICTATION LOCATION: [id number]: Female, 54 years of age with Chest [...]
--- NOTE | 2021-01-04 16:28 | RAD REPORT ---
EXAM DESCRIPTION: CT - Ct Stroke Brain Wo Cont - 01/04/2021 4:20 pm CLINICAL HISTORY: left arm and left leg weakness COMPARISON: <Comparisons> TECHNIQUE: All CT scans are performed using dose optimization technique as appropriate and may inclu de automated exposure control or mA/KV adjustment according to patient size. FINDINGS: No intracranial hemorrhage, hydrocephalus or extra-axial fluid collection.No areas of brai n edema or evidence of midline shift. The paranasal sinuses and mastoids are clear. The calvarium is intact. IMPRESSION: No acute intracranial abnormality. Discussed with Alejandro in the ED at 1617 on 01/04/21
[2021-01-04 16:33] LABS: Absolute Lymphocytes (CBC) 2.3 K/uL (0.7-4.9); Basophils % 0.7 % (0-1.3); Hematocrit 37.8 % (36.0-45.0); Lymphocytes % 25.7 % (15.3-44.8); MPV 8.8 fL (7.6-11.3)
[2021-01-04 16:34] LABS: Protime INR 0.98
[2021-01-04 16:36] LABS: Albumin 3.8 g/dL (3.4-5.0); Bilirubin Direct 0.1 mg/dL (0-0.2); Bilirubin Total 0.3 mg/dL (0.2-1.0); Magnesium 2.2 mg/dL (1.8-2.4); Potassium 3.7 mmol/L (3.5-5.1); Protein, Total 7.1 g/dL (6.4-8.2); Troponin (Emerg Dept Use Only) 0.02 ng/mL (0.0-0.045)
[2021-01-04] MEDS ORDERED: ALTEPLASE 100 ML IV ONE (16:41)
--- NOTE | 2021-01-04 16:52 | RAD REPORT ---
EXAM DESCRIPTION: RAD - Chest Single View - 01/04/2021 4:36 pm CLINICAL HISTORY: left side weakness COMPARISON: Chest Single View dated 03/18/2020; Chest Single View dated 06/07/2019 FINDINGS: No evidence of edema or pneumonia. Cardiomegaly defibrillator.No acute osseous abnormality . No significant pleural effusions or pneumothorax. IMPRESSION: No acute cardiopulmonary disease.
[2021-01-04] MEDS ORDERED: FOLIC ACID 5 MG/ML VIAL ONE (18:07)
--- NOTE | 2021-01-04 18:07 | RAD REPORT ---
EXAM DESCRIPTION: CT - Head angio - 01/04/2021 5:55 pm CLINICAL HISTORY: WEAKNESS COMPARISON: Ct Stroke Brain Wo Cont dated 01/04/2021 TECHNIQUE: CT angiography of the head was performed with MIPs. All CT scans are performed using dose optimization technique as appropriate and may include automated exposure control or mA/KV adjustment according to patient size. FINDINGS: No evidence of aneurysm is detected. No flow-limiting stenosis or vascular malformation id entified. Antegrade flow is seen in the vertebral arteries. The vertebral arteries are codominant. The visualized dural venous sinuses are patent. IMPRESSION: No significant flow abnormality is detected.
--- NOTE | 2021-01-04 18:08 | RAD REPORT ---
EXAM DESCRIPTION: CT - Neck Angio - 01/04/2021 5:55 pm CLINICAL HISTORY: left side weakness COMPARISON: [id number] dated 10/05/2014 TECHNIQUE: CT angiography of the neck vessels was performed with MIPs. All CT scans are performed using dose optimization technique as appropriate and may include automated exposure control or mA/KV adjustment according to patient size. FINDINGS: A left aortic arch is identified with normal three vessel configuration of the great vesse ls. No significant flow abnormality is seen of the common carotid bilaterally. No significant stenosis is identified involving the cervical segments of both internal carotid arteri es. Normal flow is seen within both vertebral arteries. IMPRESSION: No significant flow abnormality of the neck vessels is identified.
--- NOTE | 2021-01-04 18:13 | EDPHYS ---
Physician Documentation [facility] Name: Virgie Silveira Age: 55 yrs Sex: Female : 1965 Arrival Date: 01/04/2021 Time: 16:11 Bed 27 Private MD: ED Physician Demetria Pham HPI: 01/04 16:13 This 55 yrs old Female presents to ER via Unassigned with complaints of Left cp Arm and Left Leg Weakness. 16:13 The patient's problem is reported as a facial droop, on left, paresthesias, in left cp upper extremity, in left lower extremity, in left side of face, weakness, in the left upper extremity, in the left lower extremity. Onset: The symptoms/episode began/occurred suddenly, approximately 1500 today. Duration: The episode is continuous. 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 Severity of symptoms: in the emergency department the symptoms are unchanged despite EMS interventions. Patient's baseline: Neuro: alert and fully oriented, Motor: no deficits, Ambulation: walks without assistance, Speech: normal. Historical: - Allergies: 16:47 Codeine; zb 16:47 Lisinopril; zb 16:47 Morphine; zb - Home Meds: 16:47 Furosemide Oral [Active]; levothyroxine oral [Active]; Norvasc Oral [Active]; Potassium zb Chloride Oral [Active]; - PMHx: 16:47 Hypertension; Hypothyroidism; Pacemaker; defib; Congestive heart failure; zb - Immunization history:: Adult Immunizations up to date, Client reports having NOT received the Covid vaccine. - Social history:: Smoking status: Patient/guardian denies using tobacco, Stopped _ months ago 2. ROS: 16:13 Cardiovascular: Negative for chest pain, palpitations. cp 16:13 Neuro: Positive for weakness, of the left arm and left leg, left side facial droop, Negative for altered mental status, headache. 16:13 Constitutional: Negative for body aches, chills, fever, poor PO intake. cp 16:13 Eyes: Negative for injury, pain, redness, and discharge. cp 16:13 Neck: Negative for pain with movement, pain at rest. 16:13 Respiratory: Negative for cough, shortness of breath, wheezing. 16:13 Abdomen/GI: Negative for abdominal pain, nausea, vomiting, and diarrhea. 16:13 Back: Negative for pain at rest, pain with movement. 16:13 All other systems are negative. Exam: 16:15 Head/Face: Normocephalic, atraumatic. cp 16:15 Constitutional: The patient appears in no acute distress, alert, awake, non-diaphoretic, non-toxic, well developed, well nourished. 16:15 Eyes: Periorbital structures: appear normal, Pupils: equal, round, and reactive to light and accomodation, Extraocular movements: intact throughout, Conjunctiva: normal, no exudate, no injection, Sclera: no appreciated abnormality, Lids and lashes: appear normal, bilaterally. 16:15 ENT: External ear(s): are unremarkable, Nose: is normal, Mouth: Lips: moist, Oral mucosa: moist, Posterior pharynx: Airway: no evidence of obstruction, patent. 16:15 Neck: ROM/movement: is normal, is supple, without pain, no range of motions limitations. 16:15 Chest/axilla: Inspection: normal, Palpation: is normal, no crepitus, no tenderness. 16:15 Cardiovascular: Rate: normal, Rhythm: regular, Edema: is not appreciated, JVD: is not appreciated. 16:15 Respiratory: the patient does not display signs of respiratory distress, Respirations: normal, no use of accessory muscles, no retractions, labored breathing, is not present, Breath sounds: are clear throughout, no decreased breath sounds, no stridor, no wheezing. 16:15 Abdomen/GI: Inspection: abdomen appears normal, Palpation: abdomen is soft and non-tender, in all quadrants. 16:15 Neuro: Orientation: to person, place \T\ time. Mentation: able to follow commands, slow to respond, Motor: moves all fours, Sensation: numbness, that is mild, of the left arm and left leg. 16:19 Radiologist reports: no acute findings cp 16:57 ECG was reviewed by the Attending Physician. cp Vital Signs: 14:00 BP 127 / 79; Pulse 88; Resp 16; Pulse Ox 98% ; Weight 75.75 kg; Pain 0/10; zb 17:22 BP 104 / 69; Pulse 73; Resp 18; Temp 97.8; Pulse Ox 97% ; zb 17:51 BP 113 / 73; Pulse 75; Resp 16; Pulse Ox 100% on R/A; zb NIH Stroke Scale Scores: 16:15 NIHSS Score: 6 cp 19:26 NIHSS Score: 6 zb MDM: 16:12 Patient medically screened. cp 16:30 Differential diagnosis: CVA, TIA, metabolic disorder, drug effects. cp 16:30 Physician consultation: Aire Ross MD was called at 16:25, was contacted at 16:25, regarding consult, patient's condition, would like further tests performed, CT angio of head and neck. Admit to hospital if negative for large vessel blockage. 17:49 Data reviewed: vital signs, nurses notes, lab test result(s), EKG, radiologic studies, cp CT scan, plain films, I have discussed the patient's presentation/case with the attending Emergency Department Physician;. 01/04 16:12 Order name: Basic Metabolic Panel; Complete Time: 16:41 01/04 16:41 Interpretation: Normal except: CL 108; GLUC 126; GFR 63; CA 8.2. 01/04 16:12 Order name: CBC with Diff; Complete Time: 16:41 01/04 16:41 Interpretation: Reviewed. 01/04 16:12 Order name: LFT's; Complete Time: 16:41 01/04 16:41 Interpretation: Reviewed. 01/04 16:12 Order name: Magnesium; Complete Time: 16:41 01/04 16:12 Order name: NT PRO-BNP; Complete Time: 16:41 01/04 16:41 Interpretation: Abnormal: NT PRO-BNP 141. 01/04 16:12 Order name: PT-INR; Complete Time: 16:41 01/04 16:12 Order name: Troponin (emerg Dept Use Only); Complete Time: 16:41 01/04 16:42 Interpretation: Within normal limits: TROPED 0.02. 01/04 16:52 Order name: Glucose, Ancillary Testing; Complete Time: 17:07 [facility] 01/04 18:59 Order name: SARS-COV-2 RT PCR; Complete Time: 16:26 EDND 01/05 04:42 Order name: CBC with Automated Diff; Complete Time: 16:26 [facility] 01/05 05:10 Order name: Comprehensive Metabolic Panel; Complete Time: 16:26 EDMS 01/05 05:10 Order name: Lipid Profile; Complete Time: 16:26 EDMS 01/05 05:10 Order name: T4 Free; Complete Time: 16:26 EDMS 01/04 16:12 Order name: XRAY Chest (1 view); Complete Time: 17:07 cp 01/04 16:12 Order name: EKG; Complete Time: 16:13 cp 01/04 16:12 Order name: Cardiac monitoring; Complete Time: 16:46 cp 01/04 16:12 Order name: EKG - Nurse/Tech; Complete Time: 17:52 cp 01/04 16:12 Order name: IV Saline Lock; Complete Time: 16:46 cp 01/04 16:12 Order name: Labs collected and sent; Complete Time: 16:46 cp 01/04 16:15 Order name: CT Stroke Brain w/o Contrast; Complete Time: 16:41 cp 01/04 16:42 Interpretation: Report reviewed. 01/04 16:22 Order name: CT Head Angio; Complete Time: 18:13 cp 01/04 18:13 Interpretation: Report reviewed. 01/04 16:22 Order name: CT Neck Angio; Complete Time: 18:13 cp 01/04 18:13 Interpretation: Report reviewed. 01/04 21:26 Order name: US; Complete Time: 02:10 EDMS 01/05 05:10 Order name: Magnesium; Complete Time: 16:26 EDMS 01/05 05:10 Order name: Thyroid Stimulating Hormone; Complete Time: 16:26 EDMS 01/05 16:19 Order name: CT; Complete Time: 16: EDMS 01/04 16:12 Order name: O2 Per Protocol; Complete Time: 16:46 cp 01/04 16:12 Order name: O2 Sat Monitoring; Complete Time: 16:46 cp EC:57 Rate is 80 beats/min. Rhythm is regular. WV interval is normal. QRS interval is normal. cp QT interval is normal. T waves are Inverted in leads V4, V5, V6. Interpreted by me. Reviewed by me. Administered Medications: 16:35 Drug: ACTIvase (alteplase) {Co-Signature: jd3 (Frank Bruce RN).} Route: IV zb Thrombolytics; Rate: calculated rate; Infused Over: 60 mins; 17:35 Follow up: Response: No adverse reaction; Marked relief of symptoms zb 17:49 Follow up: Response: No adverse reaction; Marked relief of symptoms zb 17:47 Drug: foLIC Acid 1 mg Route: IVPB; Site: right antecubital; zb 23:49 Follow up: Response: No adverse reaction; IV Status: Completed infusion; IV Intake: zb 0.2ml 21:52 Drug: Nicotine Patch 21 mg/24 hr 1 patches Route: Transdermal; Site: affected area; zb 23:49 Follow up: Response: No adverse reaction zb Disposition: 01/06 17:11 Co-signature as Attending Physician, Demetria Pham MD. ma2 Disposition Summary: 01/04/21 18:12 Hospitalization Ordered Hospitalization Status: Inpatient Admission cp Provider: Jonathan Casarez cp Condition: Stable cp Problem: new cp Symptoms: have improved cp Bed/Room Type: Standard cp Location: [facility] ER HOLD(01/04/21 21:47) cg Room Assignment: ERHOLD-(01/04/21 21:47) cg Diagnosis - Cerebral infarction, unspecified cp Forms: - Medication Reconciliation Form cp - SBAR form cp NIH Stroke Scale - NIH Stroke Score Date: 01/04/2021 Time: 16:15 Total Score = 6 1a. Level of Consciousness (LOC) - 0(Alert) 1b. Level of Consciousness (LOC) (Month \T\ Age) - 0(Both) 1c. LOC Commands (Open \T\ Closes Eyes/Environmental Compliance Inspector) - 0(Both) 2. Best Gaze (Lateral Gaze Paresis) - 0(Normal) 3. Visual Field Loss - 0(No visual loss) 4. Facial Palsy - 1(Minor Paralysis) 5a. Left Arm: Motor (10-second hold) - 1(Drift) 5b. Right Arm: Motor (10-second hold) - 0(No drift) 6a. Left Leg: Motor (5-second hold - always test supine) - 1(Drift) 6b. Right Leg: Motor (5-second hold - always test supine) - 0(No drift) 7. Limb Ataxia (finger/nose \T\ heel/lawson - test with eyes open) - 2(Present in two limbs) 8. Sensory Loss (pinprick arms/legs/face) - 1(Mild to moderate loss) 9. Best Language: Aphasia (description/naming/reading) - 0(No aphasia) 10. Dysarthria (speech clarity - read or repeat words) - 0(Normal) 11. Extinction and Inattention (visual/tactile/auditory/spatial/personal) - 0(No abnormality) Initials: cp NIH Stroke Scale - NIH Stroke Score Date: 01/04/2021 Time: 19:26 Total Score = 6 1a. Level of Consciousness (LOC) - 0(Alert) 1b. Level of Consciousness (LOC) (Month \T\ Age) - 0(Both) 1c. LOC Commands (Open \T\ Closes Eyes/Environmental Compliance Inspector) - 0(Both) 2. Best Gaze (Lateral Gaze Paresis) - 0(Normal) 3. Visual Field Loss - 0(No visual loss) 4. Facial Palsy - 1(Minor Paralysis) 5a. Left Arm: Motor (10-second hold) - 1(Drift) 5b. Right Arm: Motor (10-second hold) - 0(No drift) 6a. Left Leg: Motor (5-second hold - always test supine) - 1(Drift) 6b. Right Leg: Motor (5-second hold - always test supine) - 0(No drift) 7. Limb Ataxia (finger/nose \T\ heel/lawson - test with eyes open) - 2(Present in two limbs) 8. Sensory Loss (pinprick arms/legs/face) - 1(Mild to moderate loss) 9. Best Language: Aphasia (description/naming/reading) - 0(No aphasia) 10. Dysarthria (speech clarity - read or repeat words) - 0(Normal) 11. Extinction and Inattention (visual/tactile/auditory/spatial/personal) - 0(No abnormality) Initials: cesar Signatures: Dispatcher [employer] EDMS Adis Hutton, WHITE LEAD GRINDER-C WHITE LEAD GRINDER-Cla1 Alejandro Barraza PA PA cp Sondra Garrett, Demetria Valdez RN, MD MD ma2 Sharon Bruce RN RN zb Jonathon Davies RN jd3 Corrections: (The following items were deleted from the chart) 01/04 17:48 17:30 CORONAVIRUS+MR.LAB.BRZ ordered. EDMS EDMS 47 18:12 Telemetry/MedSurg (Inpatient) [facility] :47 18:12 cp cg
--- NOTE | 2021-01-04 18:13 | ER ---
Nurse's Notes [facility] Name: Virgie Silveira Age: 55 yrs Sex: Female : 1965 Arrival Date: 01/04/2021 Time: 16:11 Bed 27 Private MD: Diagnosis: Cerebral infarction, unspecified Presentation: 01/04 14:00 Chief complaint: EMS states: 1500 patient called EMS c/o left side facial dropping and zb left hand numbness. Risk Assessment: Do you want to hurt yourself or someone else? Patient reports no desire to harm self or others. Onset of symptoms was January 04, 2021 at 15:00. 14:00 Acuity: TOÑITO 2 zb 14:00 Method Of Arrival: EMS: [facility] zb 17:00 Coronavirus screen: At this time, the client does not indicate any symptoms associated zb with coronavirus-19. Ebola Screen: No symptoms or risks identified at this time. Initial Sepsis Screen: Does the patient meet any 2 criteria? No. Patient's initial sepsis screen is negative. Does the patient have a suspected source of infection? No. Patient's initial sepsis screen is negative. Triage Assessment: 16:00 General: Appears uncomfortable, Behavior is calm, cooperative, appropriate for age. zb Pain: Complains of pain in forehead, left arm and left leg Pain Quality of pain is described as tingling, Pain began suddenly, 1500. Neuro: Level of Consciousness is awake, alert, obeys commands, Oriented to person, place, time, Student Accounts Coordinator are weak on left Weakness in left hand(s) Speech is slurred, Facial droop on left, Pupils are PERRLA, Reports headache frontal area, numbness in face, left arm and left leg. Cardiovascular: Patient's skin is warm and dry. Respiratory: Airway is patent. Derm: Skin is normal. Musculoskeletal: Range of motion: limited in left leg and left arm. Historical: - Allergies: 16:47 Codeine; zb 16:47 Lisinopril; zb 16:47 Morphine; zb - Home Meds: 16:47 Furosemide Oral [Active]; levothyroxine oral [Active]; Norvasc Oral [Active]; Potassium zb Chloride Oral [Active]; - PMHx: 16:47 Hypertension; Hypothyroidism; Pacemaker; defib; Congestive heart failure; zb - Immunization history:: Adult Immunizations up to date, Client reports having NOT received the Covid vaccine. - Social history:: Smoking status: Patient/guardian denies using tobacco, Stopped _ months ago 2. Screenin:05 VAN Screening: Arm Drift: Minor drift. Visual Disturbance: No visual disturbance noted. zb Aphasia: No aphasia noted. 17:00 Abuse screen: Denies threats or abuse. Denies injuries from another. Nutritional zb screening: No deficits noted. Tuberculosis screening: No symptoms or risk factors identified. Fall Risk No fall in past 12 months (0 pts). Secondary diagnosis (15 points) CVA, IV access (20 points). Ambulatory Aid- None/Bed Rest/Nurse Assist (0 pts). Gait- Normal/Bed Rest/Wheelchair (0 pts) Mental Status- Oriented to own ability (0 pts). Total Vogt Fall Scale indicates Low Risk Score (25-44 pts). Fall prevention measures have been instituted. Side Rails Up X 2 Placed close to Nursing Station Frequent Obs/Assesments occuring Family Present and informed to notify staff if they need to leave bedside As available Patient and Family Educated on Fall Prevention Program and strategies. 17:23 Patient has been NPO before screening. The patient is alert, able to follow commands. zb The patient exhibits slurred or garbled speech. The patient is not exhibiting difficulty speaking. The patient does not exhibit difficulty understanding words. The patient is able to swallow own secretions with no drooling or need for suction. Patient tolerated one teaspoon of water. No drooling, immediate coughing, gurgling, or clearing of the throat was noted. The patient tolerated 90mL of water. No drooling, immediate coughing, gurgling, or clearing of the throat was noted. The patient passed the bedside swallow screening. Oral medications may be given as ordered. Contact Physician for further diet orders. Provider notified of bedside swallow screening results: Alejandro MONTESINOS. Assessment: 16:00 Reassessment: See triage assessment. zb 16:45 Reassessment: Patient appears in no apparent distress at this time. Patient and/or zb family updated on plan of care and expected duration. Pain level reassessed. Patient is alert, oriented x 3, equal unlabored respirations, skin warm/dry/pink. patient states sx are improving. passed swallow study. slurred speech appears to be resolved. Patient states feeling better. 17:50 Reassessment: Patient appears in no apparent distress at this time. Patient and/or zb family updated on plan of care and expected duration. Pain level reassessed. Patient is alert, oriented x 3, equal unlabored respirations, skin warm/dry/pink. pt states she is back to base line Patient states feeling better. Patient states symptoms have improved. 18:21 Reassessment: hospitilist at bedside. discussing care with patient. Reassessment: zb Patient appears in no apparent distress at this time. Patient and/or family updated on plan of care and expected duration. Pain level reassessed. Patient is alert, oriented x 3, equal unlabored respirations, skin warm/dry/pink. 21:51 Reassessment: received verbal for nicotine patch by DIE DESIGNER minda. zb Vital Signs: 14:00 BP 127 / 79; Pulse 88; Resp 16; Pulse Ox 98% ; Weight 75.75 kg; Pain 0/10; zb 17:22 BP 104 / 69; Pulse 73; Resp 18; Temp 97.8; Pulse Ox 97% ; zb 17:51 BP 113 / 73; Pulse 75; Resp 16; Pulse Ox 100% on R/A; zb NIH Stroke Scale Scores: 16:15 NIHSS Score: 6 cp 19:26 NIHSS Score: 6 zb ED Course: 16:00 Arm band placed on. zb 16:11 Patient arrived in ED. iw 16:11 [facility] cp 16:11 Demetria Pham MD is Attending Physician. cp 16:19 Neurologist called and connected Dr. Ross with Alejandro Montesinos for patient consultation. eb 16:20 CT Stroke Brain w/o Contrast In Process Unspecified. EDMS 16:22 Sharon Bruce, BECKY is Primary Nurse. zb 16:23 Triage completed. zb 16:36 XRAY Chest (1 view) In Process Unspecified. EDMS 17:03 Patient has correct armband on for positive identification. Placed in gown. Bed in low zb position. Adult w/ patient. 17:55 CT Head Angio In Process Unspecified. EDMS 17:55 CT Neck Angio In Process Unspecified. EDMS 18:11 Casarez, Jonathan, MD is Hospitalizing Provider. cp 21:00 No provider procedures requiring assistance completed. Patient admitted, IV remains in zb place. Administered Medications: 16:35 Drug: ACTIvase (alteplase) {Co-Signature: jd3 (Frank Bruce RN).} Route: IV zb Thrombolytics; Rate: calculated rate; Infused Over: 60 mins; 17:35 Follow up: Response: No adverse reaction; Marked relief of symptoms zb 17:49 Follow up: Response: No adverse reaction; Marked relief of symptoms zb 17:47 Drug: foLIC Acid 1 mg Route: IVPB; Site: right antecubital; zb 23:49 Follow up: Response: No adverse reaction; IV Status: Completed infusion; IV Intake: zb 0.2ml 21:52 Drug: Nicotine Patch 21 mg/24 hr 1 patches Route: Transdermal; Site: affected area; zb 23:49 Follow up: Response: No adverse reaction zb Intake: 23:49 IV: 0ml; Total: 0ml. zb Outcome: 18:12 Decision to Hospitalize by Provider. cp 21:00 [facility]. zb 21:00 Condition: stable 21:00 Instructed on the need for admit. 01/05 18:37 Patient left the ED. bp NIH Stroke Scale - NIH Stroke Score Date: 01/04/2021 Time: 16:15 Total Score = 6 1a. Level of Consciousness (LOC) - 0(Alert) 1b. Level of Consciousness (LOC) (Month \T\ Age) - 0(Both) 1c. LOC Commands (Open \T\ Closes Eyes/Therapy Coordinator) - 0(Both) 2. Best Gaze (Lateral Gaze Paresis) - 0(Normal) 3. Visual Field Loss - 0(No visual loss) 4. Facial Palsy - 1(Minor Paralysis) 5a. Left Arm: Motor (10-second hold) - 1(Drift) 5b. Right Arm: Motor (10-second hold) - 0(No drift) 6a. Left Leg: Motor (5-second hold - always test supine) - 1(Drift) 6b. Right Leg: Motor (5-second hold - always test supine) - 0(No drift) 7. Limb Ataxia (finger/nose \T\ heel/lawson - test with eyes open) - 2(Present in two limbs) 8. Sensory Loss (pinprick arms/legs/face) - 1(Mild to moderate loss) 9. Best Language: Aphasia (description/naming/reading) - 0(No aphasia) 10. Dysarthria (speech clarity - read or repeat words) - 0(Normal) 11. Extinction and Inattention (visual/tactile/auditory/spatial/personal) - 0(No abnormality) Initials: cp NIH Stroke Scale - NIH Stroke Score Date: 01/04/2021 Time: : Total Score = 6 1a. Level of Consciousness (LOC) - 0(Alert) 1b. Level of Consciousness (LOC) (Month \T\ Age) - 0(Both) 1c. LOC Commands (Open \T\ Closes Eyes/Therapy Coordinator) - 0(Both) 2. Best Gaze (Lateral Gaze Paresis) - 0(Normal) 3. Visual Field Loss - 0(No visual loss) 4. Facial Palsy - 1(Minor Paralysis) 5a. Left Arm: Motor (10-second hold) - 1(Drift) 5b. Right Arm: Motor (10-second hold) - 0(No drift) 6a. Left Leg: Motor (5-second hold - always test supine) - 1(Drift) 6b. Right Leg: Motor (5-second hold - always test supine) - 0(No drift) 7. Limb Ataxia (finger/nose \T\ heel/lawson - test with eyes open) - 2(Present in two limbs) 8. Sensory Loss (pinprick arms/legs/face) - 1(Mild to moderate loss) 9. Best Language: Aphasia (description/naming/reading) - 0(No aphasia) 10. Dysarthria (speech clarity - read or repeat words) - 0(Normal) 11. Extinction and Inattention (visual/tactile/auditory/spatial/personal) - 0(No abnormality) Initials: zb Signatures: Dispatcher [employer] Jo Waggoner RN RN iw Page, Corey, PA PA cp Peltier, Brian, RN RN bp Botello, Elizabeth eb Brown, Zipporah, RN RN zb Frank Bruce RN jd3 Corrections: (The following items were deleted from the chart) 01/04 19:27 16:05 NIHSS Score: 6 zb zb 19:27 19:15 NIHSS Score: 6 zb zb 19:27 19:16 NIHSS Score: 6 zb zb
--- NOTE | 2021-01-04 18:41 | P.HP ---
Certification for Inpatient Patient admitted to: Inpatient With expected LOS: >2 Midnights Patient will require the following post-hospital care: None Practitioner: I am a practitioner with admitting privileges, knowledge of patient current condition, hospital course, and medical plan of care. Services: Services provided to patient in accordance with Admission requirements found in Title 42 Section 412.3 of the Code of Federal Regulations Patient History Date of Service: 01/04/21 Primary Care Provider: Dr. Marilin Perales Reason for admission: Hemiplegia, suspected acute ischemic CVA History of Present Illness: 55-year-old female with history of chronic systolic congestive heart failure, hypothyroidism presents emergency department with left-sided weakness. Patient reports that she was exerting herself helping move some things around in the house when she had sudden weakness, numbness of the left side of her body which began at 1500 this evening. Patient presented to the emergency department for evaluation, stat CT head brain negative for any acute findings, patient was given TPA in the emergency department after neurology consult. Patient had CT angio head and neck which were both negative for occlusive findings, neurology recommends admission to ICU overnight for close monitoring after TPA. Chest x- ray was unremarkable, labs also unremarkable. Patient reports that she had an echocardiogram approximately 3 months ago with an EF of around 22%. Patient does have pacemaker in place. When I saw the patient in the emergency department she was awake, alert, oriented x3. Patient has had some resolution of her symptoms, at this time patient currently with partial left-sided facial palsy, mild slurred speech, mild left leg drift. Patient did pass her bedside swallow screen, will admit for further evaluation and management of acute suspected ischemic CVA Allergies lisinopril Allergy (Verified 06/07/19 03:41) Unknown morphine Allergy (Verified 06/07/19 03:41) Unknown Home Medications: Aspirin [Aspirin EC 81 MG] 81 mg PO DAILY #30 tablet.dr 06/07/19 Furosemide [Lasix] 40 mg PO DAILY #30 tab 06/07/19 Levothyroxine Sodium 25 mcg PO DAILY #30 tablet 06/07/19 Potassium Chloride 20 meq PO DAILY #30 tablet.er 06/07/19 - Past Medical/Surgical History Diabetic: No -: Hypothyroid -: Systolic congestive heart failure status post pacemaker -: Hysterectomy -: Elbow Surgery -: C section -: Pacemaker 2019 Psychosocial/ Personal History: Employed, lives with family - Family History Mother -: Cancer Notes: Colon Father -: Cancer Notes: Prostate - Social History Smoking Status: Current every day smoker Counseled patient to stop smoking for: less than 10 minutes Smoking therapy provided: Yes Alcohol use: No Caffeine use: No Place of Residence: Home Review of Systems 10-point ROS is otherwise unremarkable Neurological: Weakness, Change in Speech, As per HPI Physical Examination - Physical Exam General: Alert, In no apparent distress, Oriented x3 HEENT: Atraumatic, Normocephalic Neck: Supple Respiratory: Clear to auscultation bilaterally, Normal air movement Cardiovascular: No edema, Normal S1 S2 Capillary refill: <2 Seconds Gastrointestinal: Normal bowel sounds, Soft and benign Musculoskeletal: No contractures, No erythema, No tenderness Integumentary: No significant lesion, No tenderness/swelling, No erythema Neurological: Abnormal gait, Abnormal speech, Abnormal strength (4/5 left upper and lower extremities, mild left arm drift, mild left facial palsy) Lymphatics: No axilla or inguinal lymphadenopathy - Studies Laboratory Data (last 24 hrs) 01/04/21 16:09: PT 11.3, INR 0.98 01/04/21 16:09: WBC 8.80, Hgb 12.8, Hct 37.8, Plt Count 263 01/04/21 16:09: Sodium 141, Potassium 3.7, BUN 13, Creatinine 0.93, Glucose 126 H, Magnesium 2.2, Total Bilirubin 0.3, AST 16, ALT 25, Alkaline Phosphatase 79 Assessment and Plan - Plan Assessment: Left-sided weakness with suspected ischemic CVA status post TPA Chronic systolic congestive heart failure S/P pacemaker insertion 2019 Hypothyroidism Plan: Left-sided weakness with suspected ischemic CVA status post TPA: Patient received TPA in the emergency department, neurology has been consulted will admit to the ICU overnight for close monitoring, neuro checks. Continue with folic acid, statin therapy. Physical/speech therapy consult in place. Patient passed bedside swallow screen, continue with diet. Patient with pacemaker will be unable to have MRI. CT head brain without contrast ordered for 24-hour follow-up tomorrow at 1600. DVT prophylaxis with SCDs at this time as patient did receive TPA. Will likely need Plavix at discharge. Appreciate further input from neurology. Chronic systolic congestive heart failure S/P pacemaker insertion 2019: Stable at this time, continue medications. Patient reports most recent echocardiogram with ejection fraction of around 22% about 3 months ago. Patient on Entresto. Continue other medications. Hypothyroidism: Continue medications, thyroid panel with morning labs. DVT PPX: SCDs Code status: Full Discharge Plan: Home Plan to discharge in: 48 Hours - Advance Directives Does patient have a Living Will: No Does patient have a Durable POA for Healthcare: No - Code Status/Comfort Care Code Status Assessed: Yes (Full code) Critical Care: No Time Spent Managing Pts Care (In Minutes): 55
[2021-01-04] MEDS ORDERED: TRAMADOL HCL 50 MG TAB PO PRN (19:53)
[2021-01-04] MEDS ORDERED: ONDANSETRON 4 MG/2 ML VIAL IV PRN (19:53)
[2021-01-04] MEDS ORDERED: ACETAMINOPHEN 500 MG TAB PO PRN (19:53)
[2021-01-04] MEDS ORDERED: ATORVASTATIN 40 MG TAB PO SCH (21:00)
--- NOTE | 2021-01-04 21:25 | RAD REPORT ---
EXAM DESCRIPTION: US - CP - 01/04/2021 9:02 pm CLINICAL HISTORY: cva COMPARISON: Neck Angio dated 01/04/2021 TECHNIQUE: Real-time sonographic evaluation of both carotid systems was performed. Doppler interroga tion was performed with waveform tracing bilaterally. FINDINGS: Normal high resistance waveforms are noted in both external carotid arteries. The common c arotid arteries and internal carotid arteries show normal low resistance waveforms. Mild soft plaque is present at both proximal ICAs at the bulbs. Peak systolic and end diastolic veloc ity values and the ICA/CCA ratios are in the non-hemodynamically significant range. Antegrade flow seen in both vertebral arteries. IMPRESSION: Mild atherosclerotic changes with soft plaque involving the ICAs at the carotid bulbs. No evidence of a hemodynamically significant stenosis.
[2021-01-04] MEDS ORDERED: ATORVASTATIN 20 MG TAB ONE (22:08)
[2021-01-04] MEDS ORDERED: NICOTINE 21 MG/PAT TD ONE (22:08)
[2021-01-04 23:28] VITALS: BMI 27.8
[2021-01-04] MEDS ORDERED: ACETAMINOPHEN 500 MG TAB ONE (23:47)
[2021-01-05 04:37] LABS: Absolute Lymphocytes (CBC) 2.2 K/uL (0.7-4.9); Basophils % 0.6 % (0-1.3); Hematocrit 37.1 % (36.0-45.0); MPV 8.8 fL (7.6-11.3)
[2021-01-05 04:55] LABS: Albumin 3.3 g/dL (3.4-5.0); Bilirubin Total 0.2 mg/dL (0.2-1.0); Magnesium 2.2 mg/dL (1.8-2.4); Potassium 3.3 mmol/L (3.5-5.1); Protein, Total 6.6 g/dL (6.4-8.2)
[2021-01-05 05:10] LABS: Thyroid Stimulating Hormone 7.01 uIU/mL (0.360-3.740)
[2021-01-05] MEDS ORDERED: NICOTINE 21 MG/PAT TD SCH (09:00)
[2021-01-05] MEDS ORDERED: FOLIC ACID 1 MG TABLET PO SCH (09:00)
[2021-01-05] MEDS ORDERED: NICOTINE 21 MG/PAT TD ONE (10:37)
[2021-01-05] MEDS ORDERED: FOLIC ACID 1 MG TABLET ONE (10:37)
[2021-01-05 10:40] VITALS: TEMP 97.9
--- NOTE | 2021-01-05 16:19 | RAD REPORT ---
EXAM DESCRIPTION: CT - Head Brain Wo Cont - 01/05/2021 4:11 pm CLINICAL HISTORY: CVA COMPARISON: January 04, 2021 TECHNIQUE: Computed axial tomography of the head was obtained. IV contrast was not requested. All CT scans are performed using dose optimization technique as appropriate and may include automated exposure control or mA/KV adjustment according to patient size. FINDINGS: An intracranial bleed is not seen . The ventricles are normal in caliber. No extra-axial fluid collection is noted. Fluid within the sinuses/ mastoids is not seen. IMPRESSION: No acute intracranial abnormality is seen. If patient's symptoms persist MRI of the bra in would be recommended.
[2021-01-05 18:40] VITALS: BP 114/68
[2021-01-05 18:52] VITALS: O2SAT 100
--- NOTE | 2021-01-05 19:27 | P.DS ---
Admission Date: 01/04/21 Discharge Date: 01/05/21 Primary Care Provider: Dr. Marilin Perales Disposition: ROUTINE DISCHARGE Discharge Condition: GOOD Reason for Admission: Hemiplegia, suspected acute ischemic CVA Consultations: Neurology - Dr. Ross Procedures: CXR (01/04): No evidence of edema or pneumonia. Cardiomegaly defibrillator.No acute osseous abnormality. No significant pleural effusions or pneumothorax. IMPRESSION: No acute cardiopulmonary disease. CT Brain (01/04): No intracranial hemorrhage, hydrocephalus or extra-axial fluid collection.No areas of brain edema or evidence of midline shift. The paranasal sinuses and mastoids are clear. The calvarium is intact. IMPRESSION: No acute intracranial abnormality. CTA Head (01/04): No evidence of aneurysm is detected. No flow-limiting stenosis or vascular malformation identified. Antegrade flow is seen in the vertebral arteries. The vertebral arteries are codominant. The visualized dural venous sinuses are patent. IMPRESSION: No significant flow abnormality is detected. CTA Neck (01/04): A left aortic arch is identified with normal three vessel configuration of the great vessels. No significant flow abnormality is seen of the common carotid bilaterally. No significant stenosis is identified involving the cervical segments of both internal carotid arteries. Normal flow is seen within both vertebral arteries. IMPRESSION: No significant flow abnormality of the neck vessels is identified. Carotid U/S (01/04): Normal high resistance waveforms are noted in both external carotid arteries. The common carotid arteries and internal carotid arteries show normal low resistance waveforms. Mild soft plaque is present at both proximal ICAs at the bulbs. Peak systolic and end diastolic velocity values and the ICA/CCA ratios are in the non- hemodynamically significant range. Antegrade flow seen in both vertebral arteries. IMPRESSION: Mild atherosclerotic changes with soft plaque involving the ICAs at the carotid bulbs. No evidence of a hemodynamically significant stenosis. CT Head (01/05): An intracranial bleed is not seen . The ventricles are normal in caliber. No extra-axial fluid collection is noted. Fluid within the sinuses/ mastoids is not seen. IMPRESSION: No acute intracranial abnormality is seen. If patient's symptoms persist MRI of the brain would be recommended. Problem List Left-sided weakness with suspected ischemic CVA status post TPA Chronic systolic congestive heart failure S/P pacemaker insertion 2020 Hypothyroidism Brief History of Present Illness: 55-year-old female with history of chronic systolic congestive heart failure, hypothyroidism presents emergency department with left-sided weakness. Patient reports that she was exerting herself helping move some things around in the house when she had sudden weakness, numbness of the left side of her body which began at 1500 this evening. Patient presented to the emergency department for evaluation, stat CT head brain negative for any acute findings, patient was given TPA in the emergency department after neurology consult. Patient had CT angio head and neck which were both negative for occlusive findings, neurology recommends admission to ICU overnight for close monitoring after TPA. Chest x- ray was unremarkable, labs also unremarkable. Patient reports that she had an echocardiogram approximately 3 months ago with an EF of around 22%. Patient does have pacemaker in place. When I saw the patient in the emergency department she was awake, alert, oriented x3. Patient has had some resolution of her symptoms, at this time patient currently with partial left-sided facial palsy, mild slurred speech, mild left leg drift. Patient did pass her bedside swallow screen, will admit for further evaluation and management of acute suspected ischemic CVA Hospital Course: Received TPA in the ED. Neurology was consulted and recommended monitoring overnight / next 24hrs. Repeat CT head done ~24hrs after TPA was negative. Patient with pacemaker and unable to have MRI done. She had near resolution of her symptoms. PT recommended outpatient PT/OT. She was discharged home with aspirin, plavix, folic acid, to continue statin. f/u with PCP in 3-5 days f/u with Neurology in ~1 month Vital Signs/Physical Exam: Physical Exam General: Alert, In no apparent distress, Oriented x3 HEENT: Atraumatic, Normocephalic Respiratory: Clear to auscultation bilaterally, Normal air movement Cardiovascular: No edema, Normal S1 S2, regular rate/rhythm Gastrointestinal: soft, nontender, nondistended Musculoskeletal: No contractures, No tenderness Integumentary: No significant lesion Neurological: Str 5-/5 on left arm/leg, 5/5 on R arm/leg. no facial droop/palsy - CN II-XII grossly intact Temp Pulse Resp BP Pulse Ox 97.9 F 84 20 114/68 100 01/05/21 08:00 01/05/21 18:00 01/05/21 18:00 01/05/21 18:00 01/05/21 18:00 Laboratory Data at Discharge: WBC 7.40 K/uL (4.3-10.9) D 01/05/21 04:08 Hgb 12.4 g/dL (12.0-15.0) 01/05/21 04:08 Hct 37.1 % (36.0-45.0) 01/05/21 04:08 Plt Count 251 K/uL (152-406) 01/05/21 04:08 PT 11.3 SECONDS (9.5-12.5) 01/04/21 16:09 INR 0.98 01/04/21 16:09 Sodium 140 mmol/L (136-145) 01/05/21 04:08 Potassium 3.3 mmol/L (3.5-5.1) L 01/05/21 04:08 BUN 13 mg/dL (7-18) 01/05/21 04:08 Creatinine 0.77 mg/dL (0.55-1.3) 01/05/21 04:08 Glucose 108 mg/dL (74-106) H 01/05/21 04:08 Magnesium 2.2 mg/dL (1.8-2.4) 01/05/21 04:08 Total Bilirubin 0.2 mg/dL (0.2-1.0) 01/05/21 04:08 AST 15 U/L (15-37) 01/05/21 04:08 ALT 24 U/L (12-78) 01/05/21 04:08 Alkaline Phosphatase 77 U/L (45-117) 01/05/21 04:08 Triglycerides 55 mg/dL (<150) 01/05/21 04:08 Cholesterol 103 mg/dL (<200) 01/05/21 04:08 HDL Cholesterol 57 mg/dL (40-60) 01/05/21 04:08 Cholesterol/HDL Ratio 1.81 01/05/21 04:08 Home Medications: Aspirin [Aspirin EC 81 MG] 81 mg PO DAILY #30 tablet. 06/07/19 Furosemide [Lasix*] 40 mg PO DAILY #30 tab 06/07/19 Levothyroxine Sodium 25 mcg PO DAILY #30 tablet 06/07/19 Potassium Chloride 20 meq PO DAILY #30 tablet.er 06/07/19 Atorvastatin Calcium [Lipitor] 40 mg PO DAILY 01/05/21 Clopidogrel Bisulfate [Plavix] 75 mg PO DAILY 30 Days #30 tablet 01/05/21 Folic Acid 1 mg PO DAILY 30 Days #30 tablet 01/05/21 Sacubitril/Valsartan [Entresto 24 mg-26 mg Tablet] 1 tab PO DAILY 01/05/21 New Medications: Folic Acid 1 mg PO DAILY 30 Days #30 tablet Clopidogrel Bisulfate [Plavix] 75 mg PO DAILY 30 Days #30 tablet Physician Discharge Instructions: Your symptoms were likely related to a transient ischemic attack vs stroke. Your symptoms resolved and your CT scan did not reveal any stroke findings, however an MRI was unable to be performed due to your pacemaker. You were given TPA (blood thinner) to treat your potential stroke. You had near resolution of your symptoms Recommend outpatient physical therapy Your blood pressure was noted to be on the low-normal end. Recommend holding your entresto over the next few days as you do not want to have a low blood pressure shortly after a possible TIA or stroke. Follow up with your PCP in 3-5 days. Discuss restarting your blood pressure medication. Call Dr. Ross's office (Neurology) Thursday to schedule appointment in 4-6 weeks. Diet: AHA Activity: Ad christie Followup: Unknown,U [Primary Care Provider] - Time spent managing pt's care (in minutes): 40
== END 2021-01-05 18:41 | disposition home or self-care (01) | DRG 62 ==
LOC: ER 16:05 → ERHOLD 18:54
PROVIDERS: ADMIT Hospitalist; ATTEND Hospitalist
DX: I63.9 Cerebral infarction, unspecified (principal); I50.22 Chronic systolic (congestive) heart failure; G81.94 Hemiplegia, unspecified affecting left nondominant side; I11.0 Hypertensive heart disease with heart failure; F17.200 Nicotine dependence, unspecified, uncomplicated; E03.9 Hypothyroidism, unspecified; G51.0 Bell's palsy; R29.810 Facial weakness; R29.706 NIHSS score 6; R20.2 Paresthesia of skin; Z88.5 Allergy status to narcotic agent; Z88.8 Allergy status to other drugs, medicaments and biological substances; Z79.890 Hormone replacement therapy; Z79.899 Other long term (current) drug therapy; Z95.810 Presence of automatic (implantable) cardiac defibrillator; Z79.82 Long term (current) use of aspirin; Z90.710 Acquired absence of both cervix and uterus; Z79.02 Long term (current) use of antithrombotics/antiplatelets; Z20.822 Contact with and (suspected) exposure to COVID-19
CPT/HCPCS: 36415; 70450; 70496; 70498; 71045; 80048; 80053; 80061; 80076; 82947; 83735; 83880; 84439; 84443; 84484; 85025; 85610; 92977; 93005; 93880; 96365; 96366; 97112; 97162; 99291; 99292; J2997; Q9967; U0003

== ENCOUNTER 2021-09-11 01:08 | Observation (INO) | payer OTHER ==
--- OUTSIDE RECORDS SUMMARY | 2021-09-11 01:12 | XMS REPORT | Continuity of Care Document ---
:1965 Author Organization [facility] t Address [address] [place] [place] [address] Care Team Providers Name Role Phone Sharron Attending Clinician Unavailable Jeremiah Attending Clinician Unavailable Bobby Arceo Attending Clinician Unavailable Yg Gaston Attending Clinician Unavailable Yg Gaston Attending Clinician Unavailable KENDALL Attending Clinician Unavailable Bobby Arceo Admitting Clinician Unavailable Yg Gaston Admitting Clinician Unavailable KENDALL Admitting Clinician Unavailable Payers Payer Name Policy Type Policy Number Effective Date Expiration Date S ource Problems This patient has no known problems. Allergies, Adverse Reactions, Alerts Allergy Allergy Status Severity Reaction(s) Onset Inactive Treating Comm ents Source Name Type Date Date Clinician LISINOPR DRUG Active [place] [facility] [place] 01-14 ity of 00:00: [address] MORPHINE DRUG Active Unknown-Cmnt 2009-06 Un tony INGREDI 06-16 ity of 00:00: [address] CODEINE- DRUG Active N/V 2006-06 Univers BUTALBIT 07-12 ity of [place]-ASA-C 00:00: [place] [address] morphine Drug Active [facility] lisinopr Drug Active [facility] morphine Drug Active [facility] lisinopr Drug Active [facility] morphine Drug Active [facility] lisinopr Drug Active [facility] morphine [facility] Active [facility] lisinopr Drug Active [facility] morphine [facility] Active [facility] lisinopr Drug Active [facility] morphine Drug Active [facility] lisinopr Drug Active [facility] morphine Drug Active [facility] lisinopr Drug Active [facility] morphine Drug Active [facility] lisinopr Drug Active [facility] morphine Drug Active [facility] lisinopr Drug Active [facility] morphine Drug Active [facility] lisinopr Drug Active [facility] morphine Drug Active [facility] lisinopr Drug Active [facility] morphine Drug Active [facility] lisinopr Drug Active [facility] morphine Drug Active [facility] lisinopr Drug Active [facility] morphine Drug Active [facility] lisinopr Drug Active [facility] Morphine Adverse Active Info Not [facility] Sulfate Reaction Available [facility] ent Clinics Lisinopr Adverse Active Info Not [facility] Reaction Available [facility]ics Medications Ordered Filled Start Stop Current Ordering Indication Dosage Frequency Signature Comments Components Source Medication Medication Date Date Medication? Clinician (SIG) Name Name Amoxicillin Amoxicillin 2020-0 2020- No Awilda [address] [facility] 01-12 08-07 [facility] Cl[facility] Clavulanate 00:00: 00:00 [facility]oria 00 :00 l [facility] Furosemide Furosemide Yes Awilda [address] [facility] Aspirin 81 Aspirin 81 Yes Awilda [address] [facility] Levothyroxi Levothyroxi Yes Awilda [address] [facility] ne Sodium ne Sodium Millender in the [facility] on [facility]oria an empty l stomach [facility] Naproxen Naproxen Yes Awilda [address] [facility] Hydrochloro Hydrochloro Yes Awilda [address] [facility] thiazide thiazide Millender in the [facility] Daily Multi Daily Multi Yes Awilda as [facility] Vitamin/Min Vitamin/Min Millender directed [facility] ent [facility] Vital Signs Vital Name Observation Time Observation Value Comments Source Height/Length Measured 2019-10-27 21:50:43 Height/Length Measured 2021-07-02 12:51:42 158 cm Weight Dosing 2021-07-02 12:51:42 728.00 kg Height/Length Measured 2021-07-02 12:50:29 158 cm Weight Dosing 2021-07-02 12:50:29 728.00 kg Height/Length Measured 2021-07-02 10:34:06 158 cm Weight Dosing 2021-07-02 10:34:06 728.00 kg Height/Length Measured 2021-07-02 10:26:27 158 cm Weight Dosing 2021-07-02 10:26:27 728.00 kg Height/Length Measured 2021-07-02 10:26:26 158 cm Weight Dosing 2021-07-02 10:26:26 728.00 kg Height/Length Measured 2021-07-02 10:25:23 158 cm Weight Dosing 2021-07-02 10:25:23 728.00 kg Height/Length Measured 2021-07-02 10:24:58 158 cm Weight Dosing 2021-07-02 10:24:58 728.00 kg Height/Length Measured 2021-07-02 10:24:26 158 cm Weight Dosing 2021-07-02 10:24:26 728.00 kg Procedures This patient has no known procedures. Encounters Start End Encounter Admission Attending Care Care Encounter Source Date/Time Date/Time Type Type Clinicians Facility Department ID 2021-07-[address] [facility] [id number] [facility] [address] 13:02:37 Steph [id number] [facility] 2021-07-[address] [facility] [id number] [facility] 11:34:12 Awilda [id number] [facility] 2021-07-[address] [facility] [id number] [id number] [facility] 2021-07-10 Outpatient Jeremiah STNATANAEL [facility] 10:59:36 Awilda [id number] [facility] 2021-07-10 Outpatient Jeremiah STJOLENELC [facility] 10:59[facility]25 Awilda [id number] [facility] 2021-07-10 Outpatient Jeremiah STNATANAEL [facility] 10:59[facility]02 Awilda [id number] [facility] 2019-10-27 Inpatient 1 Oscar Arceo [facility] TEL [id number] 15:41:00 Oscar Arceo -[id number] [facility] 2019-08-09 Inpatient Stanford Gaston [facility] STEFANI [id number] 13:06:00 Marilin Stanford Delmer [facility] 2021-05-10 2021-05-10 ambulatory [facility] [id number] [facility] 2021-01-20 2021-01-20 Outpatient [facility] [id number] [facility] 2021-01-14 2021-01-14 Emergency X [facility] ERT [id number] Univers 14:30:00 14:30:00 [facility] 2020-12-10 2020-12-10 Outpatient [facility] [id number] [facility] 2020-01-13 2020-01-13 [facility] [id number] 14:40:00 14:40:00 t [facility] l Medicine Outpati ent Clinics 2020-01-13 2020-01-13 [facility] [id number] 11:40:00 11:40:00 t [facility] Medicine l Medicine Outpati ent Clinics 2019-12-21 2019-12-21 [facility] [id number] 16:33:00 16:33:00 [facility] 2019-10-27 2019-10-28 Inpatient 1 Oscar Arceo [facility] TEL [id number] 15:41:00 [facility]02[facility]00 [facility] 2019-09-05 [facility] [id number] 13:11:00 13:11:00 [facility] 2019-08-15 2019-08-20 Inpatient E DIDIER ARGUETA [id number] 19:48:00 12:33:00 l [facility] 2019-07-07 2019-07-07 [facility] [id number] 15:26:00 15:26:00 [facility] 2019-06-23 2019-06-23 [facility] [id number] 14:00:00 14:00:00 [facility] 2018-02-04 2018-02-04 [facility] [id number] 15:00:00 15:00:00 [facility] Results Test Description Test Time Test Comments Results Result Comments Source Lipid Panel 2019-10-28 06:52:53 Test Item Value Reference Range Interpretation Comme nts Cholesterol Total (test code = 147 mg/dL 0-200 RISK OF HEART DISEASEPublished by Cholesterol Total) [employer] Analyte Optimal Border line Increased [...] i s LDL/HDL Ratio=LDL Calc/HDL Chol Troponin [id number] 21:47:02 Test Item Value Reference Range Interpretation [...] diagnosis of chronic myoc ardial injury. Troponin [id number] 19:26:34 Test Item Value Reference Range Interpretation [...] diagnosis of chronic myoc ardial injury. Troponin [id number] 17:01:59 Test Item Value Reference Range Interpretation [...] of chronic myoc ardial injury. Comprehensive Metabolic [id number] 16:46:40 Test Item Value Reference Range Interpretation [...] the National Kidney Foundation, http://nkdep.ni h.gov Creatine [id number] 16:46:40 Test Item Value Reference Range Interpretation Comments CK (test code = CK) 224 U/L 26-192 H Comprehensive Metabolic [id number] 16:46:40 Test Item Value Reference Range Interpretation [...] ag e have not been validated by [facility] MDRD study and should be interpreted wit h caution. eGFR R esult Interpretation: eGFR > or = 60 is in the Normal RangeeGF R < 60 may mean kid ibrahima diseaseeGFR < 1 5 may mean kidney failure Rang es recommended by the National Kidney Foundation, http://nkdep.ni h.gov Comprehensive Metabolic [id number] 16:46:40 Test Item Value Reference Range Interpretation [...] ag e have not been validated by [facility] MDRD study and should be [...] ag e have not been validated by [facility] MDRD study and should be interpreted wit h caution. eGFR R esult Interpretation: eGFR > or = 60 is in the Normal RangeeGF R < 60 may mean kid ibrahima diseaseeGFR < 1 5 may mean kidney failure Rang es recommended by the National Kidney Foundation, http://nkdep.ni h.gov Pro B Natriuretic [id number] 16:43:50 Test Item Value Reference Range Interpretation Comments NT-proBNP (test code = NT-proBNP) 513 pg/mL 0-124 H Automated [id number] 16:24:33 Test Item Value Reference Range Interpretation Comments Neutro Auto (test code = Neutro 53.0 % 36.0-70.0 Auto) Lymph Auto (test code = Lymph Auto) 39.3 % 12.0-44.0 Dillingham Auto (test code = Dillingham Auto) 6.6 % 0.0-11.0 Eos, Auto (test code = Eos, Auto) 0.0 % 0.0-7.0 Basophil Auto (test code = Basophil 0.8 % 0.0-2.0 Auto) Neutro Absolute (test code = Neutro 4.0 x10 1.6-7.4 Absolute) Lymph Absolute (test code = Lymph 2.97 x10 .50-4.60 Absolute) Dillingham Absolute (test code = Dillingham .50 x10 .00-1.20 Absolute) Eos Absolute (test code = Eos 0.00 x10 0.00-0.74 Absolute) Baso Absolute (test code = Baso 0.06 x10 0.00-0.21 Absolute) IG [id number] 16:24:33 Test Item Value Reference Range Interpretation Comments IG (test code = IG) 0.3 % 0.0-5.0 IG Abs (test code = IG Abs) 0 x10 N Complete Blood Count with [id number] 16:24:32 Test Item Value Reference Range Interpretation [...] 0 % N XR Chest 1 View [id number] 16:11:29Patient: SHEFALI JOYNER Date/Time10/27/2019 16:05 CDTReason for ExamChest painReportDICTATION LOCATION: [id number]: Female, 54 years of age with Chest [...]
[2021-09-11 02:18] LABS: Protime INR 1.08
[2021-09-11 02:19] LABS: Absolute Lymphocytes (CBC) 2.9 K/uL (0.7-4.9); Lymphocytes % 32.6 % (15.3-44.8); MPV 8.4 fL (7.6-11.3); RBC Red Blood Cell Count 4.52 M/uL (3.86-4.86)
[2021-09-11] MEDS ORDERED: dexAMETHasone 10 MG/ML VIAL ONE (02:19)
[2021-09-11] MEDS ORDERED: NA CHLORIDE 0.9% 1,000 ML ONE (02:19)
[2021-09-11] MEDS ORDERED: ONDANSETRON 4 MG/2 ML VIAL ONE (02:19)
[2021-09-11] MEDS ORDERED: HYDROMORPHONE HCL 0.5 MG/0.5 ML INJ ONE (02:19)
[2021-09-11] MEDS ORDERED: DIAZEPAM 5 MG TABLET ONE (02:19)
[2021-09-11 02:33] LABS: Albumin 3.9 g/dL (3.4-5.0); Bilirubin Direct 0.2 mg/dL (0-0.2); Bilirubin Total 0.4 mg/dL (0.2-1.0); Magnesium 2.2 mg/dL (1.8-2.4); Potassium 3.5 mmol/L (3.5-5.1); Protein, Total 7.8 g/dL (6.4-8.2)
[2021-09-11 03:02] LABS: Troponin High Sensitivity 73.9 pg/mL (<58.9)
--- NOTE | 2021-09-11 03:26 | EDPHYS ---
Physician Documentation [facility] Name: Virgie Silveira Age: 56 yrs Sex: Female : 1965 Arrival Date: 09/11/2021 Time: 01:09 Bed 30 Private MD: ED Physician Alejandro Jenkins HPI: 09/11 01:48 This 56 yrs old Female presents to ER via Ambulatory with complaints of Arm adela Pain. 01:48 The patient or guardian complains of decreased range of motion. The complaints affect adela the anterior aspect of left shoulder and posterior aspect of left shoulder. Context: The problem was sustained at an unknown location. Historical: - Allergies: 01:18 Codeine; lg3 01:18 Lisinopril; lg3 01:18 Morphine; lg3 - Home Meds: 01:18 Furosemide Oral [Active]; levothyroxine oral [Active]; Norvasc Oral [Active]; Potassium lg3 Chloride Oral [Active]; Entresto oral [Active]; - PMHx: 01:18 Congestive heart failure; Hypertension; Hypothyroidism; Pacemaker; defib; lg3 - PSHx: 01:18 section; lg3 01:19 hysterectomy; lg3 - Immunization history:: Adult Immunizations up to date, Client reports receiving the 2nd dose of the Covid vaccine, pfizer X2. - Social history:: Smoking status: Patient reports the use of cigarette tobacco products, smokes one-half pack cigarettes per day, Patient/guardian denies using alcohol. ROS: 01:49 Constitutional: Negative for fever, chills, and weight loss, Eyes: Negative for injury, adela pain, redness, and discharge, ENT: Negative for injury, pain, and discharge, Neck: Negative for injury, pain, and swelling, Cardiovascular: Negative for chest pain, palpitations, and edema, Respiratory: Negative for shortness of breath, cough, wheezing, and pleuritic chest pain, Abdomen/GI: Negative for abdominal pain, nausea, vomiting, diarrhea, and constipation, Back: Negative for injury and pain, : Negative for injury, bleeding, discharge, and swelling, Skin: Negative for injury, rash, and discoloration, Neuro: Negative for headache, weakness, numbness, tingling, and seizure, Psych: Negative for depression, anxiety, suicide ideation, homicidal ideation, and hallucinations, Allergy/Immunology: Negative for hives, rash, and allergies, Endocrine: Negative for neck swelling, polydipsia, polyuria, polyphagia, and marked weight changes, Hematologic/Lymphatic: Negative for swollen nodes, abnormal bleeding, and unusual bruising. 01:49 MS/extremity: Positive for decreased range of motion, pain, of the left arm. Exam: 01:49 Constitutional: This is a well developed, well nourished patient who is awake, alert, adela and in no acute distress. Head/Face: Normocephalic, atraumatic. Eyes: Pupils equal round and reactive to light, extra-ocular motions intact. Lids and lashes normal. Conjunctiva and sclera are non-icteric and not injected. Cornea within normal limits. Periorbital areas with no swelling, redness, or edema. ENT: Nares patent. No nasal discharge, no septal abnormalities noted. Tympanic membranes are normal and external auditory canals are clear. Oropharynx with no redness, swelling, or masses, exudates, or evidence of obstruction, uvula midline. Mucous membranes moist. Neck: Trachea midline, no thyromegaly or masses palpated, and no cervical lymphadenopathy. Supple, full range of motion without nuchal rigidity, or vertebral point tenderness. No Meningismus. Chest/axilla: Normal chest wall appearance and motion. Nontender with no deformity. No lesions are appreciated. Cardiovascular: Regular rate and rhythm with a normal S1 and S2. No gallops, murmurs, or rubs. Normal PMI, no JVD. No pulse deficits. Respiratory: Lungs have equal breath sounds bilaterally, clear to auscultation and percussion. No rales, rhonchi or wheezes noted. No increased work of breathing, no retractions or nasal flaring. Abdomen/GI: Soft, non-tender, with normal bowel sounds. No distension or tympany. No guarding or rebound. No evidence of tenderness throughout. Back: No spinal tenderness. No costovertebral tenderness. Full range of motion. Female : Normal external genitalia. Skin: Warm, dry with normal turgor. Normal color with no rashes, no lesions, and no evidence of cellulitis. Neuro: Awake and alert, GCS 15, oriented to person, place, time, and situation. Cranial nerves II-XII grossly intact. Motor strength 5/5 in all extremities. Sensory grossly intact. Cerebellar exam normal. Normal gait. Psych: Awake, alert, with orientation to person, place and time. Behavior, mood, and affect are within normal limits. 01:49 Musculoskeletal/extremity: ROM: limited active range of motion due to pain, limited passive range of motion due to pain, in the left arm, Circulation is intact in all extremities. Sensation intact. Compartment Syndrome exam of affected extremity: is normal. DVT Exam: no swelling, negative Homans' sign noted on exam, no appreciated bluish discoloration, no erythema, no increased warmth, pain, tenderness. 02:09 ECG was reviewed by the Attending Physician. [facility] Vital Signs: 01:15 BP 133 / 78; Pulse 93; Resp 17 S; Temp 97.6(TE); Pulse Ox 100% on R/A; Weight 72.57 kg lg3 (R); Height 5 ft. 3 in. (160.02 cm) (R); Pain 10/10; 03:00 BP 111 / 79; Pulse 84; Resp 14 S; Pulse Ox 93% on R/A; al4 03:48 Weight 72.5 kg (M); al4 03:48 Body Mass Index 28.31 (72.50 kg, 160.02 cm) al4 MDM: 01:40 Patient medically screened. [facility] 01:50 Differential diagnosis: contusion, tendonitis. Data reviewed: vital signs, nurses [facility] notes, lab test result(s), EKG, radiologic studies, CT scan, plain films. Data interpreted: court monitor: rate is 93 beats/min, rhythm is regular, Pulse oximetry: on room air is 100 %. Test interpretation: by ED physician or midlevel provider: ECG, plain radiologic studies. Counseling: I had a detailed discussion with the patient and/or guardian regarding: the historical points, exam findings, and any diagnostic results supporting the discharge/admit diagnosis, lab results, radiology results, the need for outpatient follow up, for definitive care, a family practitioner, a neurologist. 09/11 01:47 Order name: Basic Metabolic Panel; Complete Time: 03: adela 09/11 01:47 Order name: CBC with Diff; Complete Time: 03: adela 09/11 01:47 Order name: LFT's; Complete Time: 03: adela 09/11 01:47 Order name: Magnesium; Complete Time: 03:26 [facility] 09/11 01:47 Order name: NT PRO-BNP; Complete Time: 03:26 [facility] 09/11 01:47 Order name: PT-INR; Complete Time: 03:26 [facility] 09/11 01:47 Order name: Troponin HS; Complete Time: 03:26 [facility] 09/11 05:43 Order name: COVID-19 (Coronavirus) Document "Date of Onset" if Symptomatic vc1 09/11 06:21 Order name: COVID 19 CPL [facility] 09/11 06:59 Order name: SARS-COV-2 RT PCR [facility] 09/11 08:32 Order name: Troponin High Sensitivity [facility] 09/11 12:34 Order name: Urine Dipstick-Ancillary [facility] 09/11 14:32 Order name: Troponin High Sensitivity [facility] 09/12 03:40 Order name: CBC with Automated Diff [facility] 09/11 01:47 Order name: XRAY Chest (1 view) [facility] 09/11 01:47 Order name: EKG; Complete Time: 01:48 [facility] 09/11 01:47 Order name: Cardiac monitoring; Complete Time: 02:10 [facility] 09/11 01:47 Order name: EKG - Nurse/Tech; Complete Time: 02:10 [facility] 09/11 01:47 Order name: CT C Spine [facility] 09/11 01:49 Order name: Shoulder Left (2 View) XRAY [facility] 09/11 02:24 Order name: UPPER EXTREMITY VENOUS UNILATE [facility] 09/12 03:57 Order name: Comprehensive Metabolic Panel [facility] 09/11 01:47 Order name: IV Saline Lock; Complete Time: 01:54 [facility] 09/11 01:47 Order name: Labs collected and sent; Complete Time: 01:54 [facility] 09/11 01:47 Order name: O2 Per Protocol; Complete Time: 01:54 [facility] 09/11 01:47 Order name: O2 Sat Monitoring; Complete Time: 01:54 [facility] EC:09 Rate is 76 beats/min. Rhythm is regular. QRS [place] is Normal. NM interval is normal. QRS adela interval is normal. QT interval is prolonged at 463 msec. No Q waves. T waves are Normal. No ST changes noted. Clinical impression: NSR w/ Non-specific ST/T Changes and No evidence of ischemia. Interpreted by me. Reviewed by me. Administered Medications: 02:27 Drug: Zofran (Ondansetron) 4 mg Route: IVP; Site: right antecubital; lg3 02:28 Follow up: Response: No adverse reaction lg3 02:28 Drug: Decadron - Dexamethasone 10 mg Route: IVP; Site: right antecubital; lg3 02:28 Follow up: Response: No adverse reaction lg3 02:28 Drug: Valium (diazepam) 5 mg Route: PO; lg3 02:28 Follow up: Response: No adverse reaction lg3 02:28 Drug: Dilaudid (HYDROmorphone) 0.5 mg Route: IVP; Site: right antecubital; lg3 02:28 Follow up: Response: No adverse reaction; RASS: Alert and Calm (0) lg3 02:30 Drug: NS 0.9% 1000 ml Route: IV; Rate: 50 ml/hr; Site: right antecubital; lg3 04:25 Drug: Lovenox (enoxaparin) 1 mg/kg Route: Sub-Q; Site: left lower abdomen; al4 05:29 Follow up: Response: No adverse reaction al4 04:25 Drug: Pepcid (famotidine) 20 mg Route: IVP; Site: right antecubital; al4 05:29 Follow up: Response: No adverse reaction al4 Disposition Summary: 09/11/21 03:31 Hospitalization Ordered Condition: Fair(09/11/21 03:31) adela Problem: new(09/11/21 03:31) adela Symptoms: have improved(09/11/21 03:31) adela Bed/Room Type: Standard adela Provider: Jaquan Miller(09/11/21 03:43) la1 Hospitalization Status: Observation(09/11/21 04:05) la1 Location: [facility] ER HOLD(09/11/21 06:25) eb1 Room Assignment: ERHOLD-(09/11/21 06:25) eb1 Diagnosis - Cervical disc disorder with radiculopathy(09/11/21 03:31) adela - Non ST elevation [place] adela - Systolic (congestive) heart failure adela - Pain in left arm(09/11/21 03:31) adela Forms: - Medication Reconciliation Form adela - SBAR form adela Signatures: Dispatcher [employer] EDAlejandro Fabian MD MD cha Attema, Lee, RELAY MAN-C RELAY MAN-Cla1 Jovana Patel, RN RN eb1 Stacey Rodriguez, RN RN lg3 Mane Rosales Corrections: (The following items were deleted from the chart) 02:24 02:14 Extremity Venous [employer]+US.RAD.BRZ ordered. EDMS EDMS 03:25 03:25 Home adela adela 03:25 03:25 new adela adela 03:25 03:25 have improved adela adela 03:25 03:25 Stable adela adela 03:25 03:25 Cervical disc disorder with radiculopathy adela adela 03:25 03:25 Tobacco abuse counseling adela adela 03:25 03:25 Tobacco use adela adela 03:25 03:25 Pain in left arm adela adela 03:43 03:31 Jonathan Casarez adela la1 04:00 03:31 Telemetry/MedSurg (Inpatient) adela eb1 04:00 03:31 adela eb1 04:05 03:31 Inpatient Admission adela la1 05:37 04:00 [facility] ER HOLD eb1 eb1 05:37 04:00 ERHOLD- eb1 eb1 06:25 05:37 Telemetry/MedSurg (observation) eb1 eb1 06:25 05:37 403 eb1 eb1
--- NOTE | 2021-09-11 03:26 | ER ---
Nurse's Notes [facility] Name: Virgie Silveira Age: 56 yrs Sex: Female : 1965 Arrival Date: 09/11/2021 Time: 01:09 Bed 30 Private MD: Diagnosis: Cervical disc disorder with radiculopathy;Non ST elevation [place];Systolic (congestive) heart failure;Pain in left arm Presentation: 09/11 01:15 Chief complaint: Patient states: left arm pain for 3 days. numbness for over 6 months. lg3 now numbness and episodes of hand turning blue. cannot lift left arm at this time. Coronavirus screen: Client denies travel out of the [place] in the last 14 days. At this time, the client does not indicate any symptoms associated with coronavirus-19. Ebola Screen: No symptoms or risks identified at this time. Initial Sepsis Screen: Does the patient meet any 2 criteria? No. Patient's initial sepsis screen is negative. Does the patient have a suspected source of infection? No. Patient's initial sepsis screen is negative. Risk Assessment: Do you want to hurt yourself or someone else? Patient reports no desire to harm self or others. Onset of symptoms is unknown. 01:15 Method Of Arrival: Ambulatory lg3 01:15 Acuity: TOÑITO 3 lg3 Triage Assessment: 01:19 General: Appears in no apparent distress. comfortable, Behavior is calm, cooperative. lg3 Pain: Complains of pain in left arm. EENT: No deficits noted. No signs and/or symptoms were reported regarding the EENT system. Neuro: No deficits noted. Level of Consciousness is awake, alert, obeys commands, Oriented to person, place, time, situation. Cardiovascular: Denies chest pain, shortness of breath, Capillary refill < 3 seconds JVD is absent Patient's skin is warm and dry. Respiratory: No deficits noted. Airway is patent Trachea midline Respiratory effort is even, unlabored, Respiratory pattern is regular, symmetrical. GI: No deficits noted. No signs and/or symptoms were reported involving the gastrointestinal system. Abdomen is round non-distended. : No deficits noted. No signs and/or symptoms were reported regarding the genitourinary system. Derm: No deficits noted. Skin is intact, is healthy with good turgor, Skin is dry. Musculoskeletal: Circulation, motion, and sensation intact. Range of motion: limited in left shoulder and left elbow Reports weakness in left arm numbness in left arm pain in left arm. Historical: - Allergies: 01:18 Codeine; lg3 01:18 Lisinopril; lg3 01:18 Morphine; lg3 - Home Meds: 01:18 Furosemide Oral [Active]; levothyroxine oral [Active]; Norvasc Oral [Active]; Potassium lg3 Chloride Oral [Active]; Entresto oral [Active]; - PMHx: 01:18 Congestive heart failure; Hypertension; Hypothyroidism; Pacemaker; defib; lg3 - PSHx: 01:18 section; lg3 01:19 hysterectomy; lg3 - Immunization history:: Adult Immunizations up to date, Client reports receiving the 2nd dose of the Covid vaccine, pfizer X2. - Social history:: Smoking status: Patient reports the use of cigarette tobacco products, smokes one-half pack cigarettes per day, Patient/guardian denies using alcohol. Screenin:22 Abuse screen: Denies threats or abuse. Denies injuries from another. Nutritional lg3 screening: No deficits noted. Tuberculosis screening: No symptoms or risk factors identified. Fall Risk None identified. Assessment: 02:09 General: see triage assessment. lg3 03:08 General: Appears in no apparent distress. Behavior is calm, cooperative. Pain: al4 Complains of pain in left arm Pain began "3 or 4 days ago". Neuro: Level of Consciousness is awake, alert, obeys commands, Oriented to person, place, time, situation. Cardiovascular: Capillary refill < 3 seconds Patient's skin is warm and dry. Respiratory: Airway is patent Respiratory effort is unlabored, Respiratory pattern is regular. Musculoskeletal: Circulation, motion, and sensation intact. 05:00 Reassessment: confirmed home medication list with patient. al4 05:28 Reassessment: Report given to BECKY Lagunas. al4 Vital Signs: 01:15 BP 133 / 78; Pulse 93; Resp 17 S; Temp 97.6(TE); Pulse Ox 100% on R/A; Weight 72.57 kg lg3 (R); Height 5 ft. 3 in. (160.02 cm) (R); Pain 10/10; 03:00 BP 111 / 79; Pulse 84; Resp 14 S; Pulse Ox 93% on R/A; al4 03:48 Weight 72.5 kg (M); al4 03:48 Body Mass Index 28.31 (72.50 kg, 160.02 cm) al4 ED Course: 01:09 Patient arrived in ED. ag3 01:18 Triage completed. lg3 01:19 Arm band placed on right wrist. lg3 01:40 Alejandro Jenkins MD is Attending Physician. adela 01:54 Basic Metabolic Panel Sent. bb 01:54 CBC with Diff Sent. bb 01:54 LFT's Sent. bb 01:54 Magnesium Sent. bb 01:54 NT PRO-BNP Sent. bb 01:54 PT-INR Sent. bb 01:54 Troponin HS Sent. bb 02:05 XRAY Chest (1 view) In Process Unspecified. EDMS 02:05 Shoulder Left (2 View) XRAY In Process Unspecified. EDMS 02:09 Stacey Rodriguez, RN is Primary Nurse. lg3 02:24 CT C Spine In Process Unspecified. EDMS 02:30 Inserted saline lock: 20 gauge in right antecubital area, using aseptic technique. lg3 Blood collected. 03:01 UPPER EXTREMITY VENOUS UNILATE In Process Unspecified. EDMS 03:25 Arie Ross MD is Referral Physician. adela 03:28 Jonathan Casarez MD is Hospitalizing Provider. adela 03:43 Jaquan Miller MD is Hospitalizing Provider. la1 05:00 Bed in low position. al4 05:27 No provider procedures requiring assistance completed. Patient admitted, IV remains in al4 place. 06:17 COVID-19 (Coronavirus) Document "Date of Onset" if Symptomatic Sent. al4 19:45 Primary Nurse role handed off by Stacey Rodriguez, RN vc1 Administered Medications: 02:27 Drug: Zofran (Ondansetron) 4 mg Route: IVP; Site: right antecubital; lg3 02:28 Follow up: Response: No adverse reaction lg3 02:28 Drug: Decadron - Dexamethasone 10 mg Route: IVP; Site: right antecubital; lg3 02:28 Follow up: Response: No adverse reaction lg3 02:28 Drug: Valium (diazepam) 5 mg Route: PO; lg3 02:28 Follow up: Response: No adverse reaction lg3 02:28 Drug: Dilaudid (HYDROmorphone) 0.5 mg Route: IVP; Site: right antecubital; lg3 02:28 Follow up: Response: No adverse reaction; RASS: Alert and Calm (0) lg3 02:30 Drug: NS 0.9% 1000 ml Route: IV; Rate: 50 ml/hr; Site: right antecubital; lg3 04:25 Drug: Lovenox (enoxaparin) 1 mg/kg Route: Sub-Q; Site: left lower abdomen; al4 05:29 Follow up: Response: No adverse reaction al4 04:25 Drug: Pepcid (famotidine) 20 mg Route: IVP; Site: right antecubital; al4 05:29 Follow up: Response: No adverse reaction al4 Outcome: 03:25 Discharge ordered by MD. adela 03:31 Decision to Hospitalize by Provider. adela 05:27 Admitted to ER Hold. Please see [facility] for further documentation. al4 05:27 Condition: stable 05:27 Instructed on the need for admit, Demonstrated understanding of instructions. 17:13 Patient left the ED. ab2 09/12 12:40 Patient left the ED. iw Signatures: Dispatcher [employer] EDMS Alejandro Jenkins MD MD cha Ballard, Brenda, RN RN Jo Rivera RN BECKY iw Adis Hutton, WEB UI SOFTWARE ENGINEER-C WEB UI SOFTWARE ENGINEER-[facility] Tiffany Farias ag3 Stacey Rodriguez RN RN lg3 Mane Rosales al4 Mane Zimmerman ab2 Norma Melara RN RN vc1 Corrections: (The following items were deleted from the chart) 09/11 05:28 05:27 No provider procedures requiring assistance completed. al4 al4 05:28 05:27 Patient admitted, IV remains in place. al4 al4
[2021-09-11] MEDS ORDERED: ENOXAPARIN 80 MG/0.8 ML SQ ONE (03:56)
[2021-09-11] MEDS ORDERED: FAMOTIDINE 20 MG/2 ML VIAL IV ONE (03:56)
--- NOTE | 2021-09-11 04:19 | P.HP ---
Certification for Inpatient Patient admitted to: Observation With expected LOS: <2 Midnights Patient will require the following post-hospital care: None Practitioner: I am a practitioner with admitting privileges, knowledge of patient current condition, hospital course, and medical plan of care. Services: Services provided to patient in accordance with Admission requirements found in Title 42 Section 412.3 of the Code of Federal Regulations Patient History Date of Service: 09/11/21 Reason for admission: ACS r/o History of Present Illness: 56-year-old female with history of chronic systolic congestive heart failure related to cardiomyopathy, HTN, HLD presents to the emergency department for left shoulder pain. Patient reports left arm pain over the course of the last year worsening over the course last few days reports that she has intermittent numbness pain especially the range of motion to the left shoulder area. Patient was evaluated the emergency department she had CT scan of her C- spine which showed degenerative changes, x-ray left shoulder which was negative DVT study of left upper extremity which was also negative. Chest x-ray unremarkable does show pacemaker in place. Patient had mild elevation in her [id number]. Given elevation in troponin in conjunction with left shoulder pain ED provider wishes to admit under observation for ACS rule out. Allergies lisinopril Allergy (Verified 06/07/19 03:41) Unknown morphine Allergy (Verified 06/07/19 03:41) Unknown Home Medications: Aspirin [Aspirin EC 81 MG] 81 mg PO DAILY #30 tablet.dr 06/07/19 Furosemide [Lasix*] 40 mg PO DAILY #30 tab 06/07/19 Levothyroxine Sodium 25 mcg PO DAILY #30 tablet 06/07/19 Potassium Chloride 20 meq PO DAILY #30 tablet.er 06/07/19 Atorvastatin Calcium [Lipitor] 40 mg PO DAILY 01/05/21 Clopidogrel Bisulfate [Plavix] 75 mg PO DAILY 30 Days #30 tablet 01/05/21 Folic Acid 1 mg PO DAILY 30 Days #30 tablet 01/05/21 Sacubitril/Valsartan [Entresto 24 mg-26 mg Tablet] 1 tab PO DAILY 01/05/21 - Past Medical/Surgical History Diabetic: No -: Hypothyroid -: Hypertension -: Systolic congestive heart failure status post pacemaker -: HLD -: Hysterectomy -: Elbow Surgery -: C section -: Pacemaker 2019 Psychosocial/ Personal History: Employed, lives with family - Family History Mother -: Cancer Notes: Colon Father -: Cancer Notes: Prostate - Social History Smoking Status: Current every day smoker Counseled patient to stop smoking for: less than 10 minutes Smoking therapy provided: No (Pt declined) Alcohol use: No CD- Drugs: No Caffeine use: Yes Place of Residence: Home Review of Systems 10-point ROS is otherwise unremarkable Musculoskeletal: Shoulder Pain, Arm Pain Physical Examination - Physical Exam General: Alert, In no apparent distress, Oriented x3 HEENT: Atraumatic, PERRLA, Mucous membr. moist/pink, EOMI, Sclerae nonicteric Neck: Supple, 2+ carotid pulse no bruit, No LAD, Without JVD or thyroid ab normality Respiratory: Clear to auscultation bilaterally, Normal air movement Cardiovascular: Regular rate/rhythm, Normal S1 S2 Gastrointestinal: Normal bowel sounds, No tenderness Musculoskeletal: No tenderness Integumentary: No rashes Neurological: Normal speech, Normal strength at 5/5 x4 extr, Normal tone, Normal affect Lymphatics: No axilla or inguinal lymphadenopathy - Studies Laboratory Data (last 24 hrs) 09/11/21 01:52: PT 11.9, INR 1.08 09/11/21 01:52: WBC 8.8, Hgb 13.3, Hct 39.0, Plt Count 274 09/11/21 01:52: Sodium 136, Potassium 3.5, BUN 18, Creatinine 1.11, Glucose 109 H, Magnesium 2.2, Total Bilirubin 0.4, AST 21, ALT 59, Alkaline Phosphatase 111 Assessment and Plan - Plan Assessment: Mild troponin elevationrule out ACS left shoulder pain Chronic systolic congestive heart failure Hypertension hypothyroidism Hyperlipidemia Plan: Mild troponin elevationrule out ACS: Monitor on telemetry, trend troponins, cardiology consult in place. Patient reports her most recent echocardiogram done "a few months ago" demonstrated ejection fraction of 19%. Patient does have pacemaker in place. Patient denies any chest pain reports he does have shortness of breath although this is chronic and has been going on over the course last few months. left shoulder pain: Seems musculoskeletal/possibility to cervical degenerative changes. Good pulses, painful range of motion sensation intact currently. Unable to have MRI secondary to pacemaker placement. Instructed to follow-up with Ortho/neuro at discharge. Chronic systolic congestive heart failure: Continue medications including Entresto, Lasix. Appears to be stable at this time. Likely contributes to mild troponin elevation Hypertension: Continue home meds hypothyroidism:Continue home meds Hyperlipidemia:Continue home meds DVT PPX: Lovenox Code status: Full Discharge Plan: Home Plan to discharge in: 24 Hours - Advance Directives Does patient have a Living Will: No Does patient have a Durable POA for Healthcare: No - Code Status/Comfort Care Code Status Assessed: Yes (full code) Critical Care: No Time Spent Managing Pts Care (In Minutes): 55
[2021-09-11] MEDS ORDERED: ONDANSETRON 4 MG/2 ML VIAL IV PRN (05:09)
[2021-09-11 06:26] VITALS: BMI 28.1
[2021-09-11] MEDS ORDERED: TRAMADOL HCL 50 MG TAB PO PRN (07:50)
--- NOTE | 2021-09-11 07:53 | EKG ---
Test Date: 2021-09-11 Test Time: 02:04:46 Manager Talent Management: MEASUREMENT RESULTS: Intervals: Rate: 76 SC: 154 QRSD: 90 QT: 412 QTc: 463 [place]: P: 58 SC: 154 QRS: 50 T: -42 INTERPRETIVE STATEMENTS: Normal sinus rhythm Nonspecific T wave abnormality Prolonged QT Abnormal ECG Compared to ECG 01/04/2021 16:49:15 Prolonged QT interval now present Possible ischemia no longer present T-wave abnormality still present Electronically Signed On 09-11-21 07:52:26 CDT by Jun Harper
[2021-09-11] MEDS ORDERED: INFLUENZA VACCINE (for 6+ mo) 0.5 ML DOSE IMVAC ONE ×2 (08:00→08:21)
[2021-09-11] MEDS ORDERED: ENOXAPARIN 40 MG/0.4 ML SQ ONE (08:03)
[2021-09-11] MEDS: ENOXAPARIN 40 MG/0.4 ML SQ SCH (08:20)
[2021-09-11] MEDS ORDERED: ASPIRIN EC 81 MG TAB PO SCH (09:00)
[2021-09-11] MEDS ORDERED: CLOPIDOGREL 75 MG TABLET PO SCH (09:00)
[2021-09-11 12:34] LABS: Urine Blood 2+ (Negative); Urine Glucose Negative (Negative); Urine Protein Negative (Negative); Urine Specific Gravity >=1.030 (1.005-1.030)
--- NOTE | 2021-09-11 13:57 | ECHO ---
HEIGHT: 5 ft 3 in WEIGHT: 159 lb 0 oz DATE OF STUDY: 09/11/[address]: Jun Harper MD 2-DIMENSIONAL: YES M.MODE: YES DOPPLER: YES COLOR FLOW: YES TDS: PORTABLE: DEFINITY: BUBBLE STUDY: DIAGNOSIS: CONGESTIVE HEART FAILURE CARDIAC HISTORY: CATHERIZATION: SURGERY: PROSTHETIC VALVE: PACEMAKER: YES MEASUREMENTS (cm) DIASTOLIC (NORMALS) SYSTOLIC (NORMALS) IVSd 1.0 (0.6-1.2) LA Diam 2.9 (1.9-4.0) LVEF 45% LVIDd 4.6 (3.5-5.7) LVIDs 3.5 (2.0-3.5) %FS 22% LVPWd 1.2 (0.6-1.2) Ao Diam 2.4 (2.0-3.7) 2 DIMENSIONAL ASSESSMENT: RIGHT ATRIUM: NORMAL LEFT ATRIUM: NORMAL RIGHT VENTRICLE: NORMAL LEFT VENTRICLE: NORMAL TRICUSPID VALVE: NORMAL MITRAL VALVE: NORMAL PULMONIC VALVE: NORMAL AORTIC VALVE: NORMAL PERICARDIAL EFFUSION: NONE AORTIC ROOT: NORMAL LEFT VENTRICULAR WALL MOTION: MILD GLOBAL HYPOKINESIS DOPPLER/COLOR FLOW: NORMAL COMMENTS: MILD GLOBAL HYPOKINESIS. POSITIVE PERMANENT PACEMAKER IN RIGHT VENTRICULAR APEX. EJECTION FRACTION 45%. TECHNOLOGIST: MUNDO RIOS
--- NOTE | 2021-09-11 13:57 | RAD REPORT ---
EXAM DESCRIPTION: US - UPPER EXTREMITY VENOUS UNILATE - 09/11/2021 4:16 am CLINICAL HISTORY: 56 years, Female, Pain;Radiculopathy COMPARISON: None. FINDINGS: Multiple grayscale images as well as duplex Doppler ultrasound of left approximately were performed. Left internal jugular vein, left subclavian vein, left external vein, left brachial vein, left radial vein, left ulnar vein were imaged. Spectral waveform demonstrate normal compressibility, phasicity and augmentation. No intraluminal defects were seen. The left cephalic vein and basilic vein demonstrate to be patent with no evidence for superficial thr ombophlebitis. IMPRESSION: NO EVIDENCE FOR DEEP VEIN THROMBOSIS OF THE LEFT UPPER EXTREMITY. Electronically signed by: Geoff Basilio MD 09/11/2021 3:45 AM CDT Due to temporary technical issues with the PACS/Fluency reporting system, reports are being signed by the in house radiologists without review as a courtesy to insure prompt reporting. The interpreting radiologist is fully responsible for the content of the report.
--- NOTE | 2021-09-11 14:03 | RAD REPORT ---
EXAM DESCRIPTION: CT - C Spine Wo Con - 09/11/2021 6:42 am CLINICAL HISTORY: 56 years Female PAIN TECHNIQUE: Multiple high-resolution thin axial CT images were performed through the cervical spine f ollowed by sagittal and coronal reconstructed images. The CT study is performed according to ALARA (a s low as reasonably achievable) or ALARA/IMAGE GENTLY, with automatic adjustment of mA and/or kV acco rding to patient size. Performed on: 09/11/2021 at 2:22 AM COMPARISON: CTA neck performed on 01/04/2021. FINDINGS: The cervical vertebrae are normal in height. There is straightening and slight reversal of the normal cervical lordosis. There is multilevel moderate to marked disc space narrowing C3-C4 thro ugh C6-C7. There is degenerative spurring throughout the cervical spine most pronounced from C3 throu gh C7. Bone mineralization is normal. The atlanto-axial articulation is preserved and the odontoid process is intact. There is normal alignment of the facet joints on the parasagittal images. There are mild degenerative changes of the facet joints. There is no evidence of acute fracture or subluxation. There is multilevel canal stenosis due to mult ilevel disc osteophyte complexes most pronounced from C3-C4 through C6-C7. There is multilevel bila teral neural foraminal stenosis secondary to uncovertebral joint hypertrophy. The prevertebral and paraspinal soft tissues are unremarkable. The lung apices are clear. There are b ilateral carotid artery bifurcation calcifications. There is partial visualization of a left subclavi an pacemaker. IMPRESSION: 1. No evidence of acute osseous injury involving the cervical spine. 2. Multilevel degenerative changes of the cervical spine as described above resulting in multilevel spinal canal stenosis and neural foraminal stenosis. 3. Straightening and slight reversal of the normal cervical lordosis. Electronically signed by: Tiffany Gamboa DO 09/11/2021 3:01 AM CDT Due to temporary technical issues with the PACS/Fluency reporting system, reports are being signed by the in house radiologists without review as a courtesy to insure prompt reporting. The interpreting radiologist is fully responsible for the content of the report.
--- NOTE | 2021-09-11 14:04 | RAD REPORT ---
EXAM DESCRIPTION: RAD - Shoulder Left 2 View - 09/11/2021 2:04 am CLINICAL HISTORY: 56 years Female PAIN TECHNIQUE: 2 x-ray views of the left shoulder were performed on 09/11/2021 at 1:59 AM. COMPARISON: None FINDINGS: There is no definite fracture or dislocation. There is no significant arthritis or degener ative change. No focal lytic or sclerotic bone lesions are seen. There is a left subclavian unipola r AICD. The pacer pack projects over the medial scapula. Bone mineralization is grossly within normal limits. No acute soft tissue abnormalities are identified. IMPRESSION: No evidence of acute osseous injury involving the left shoulder. Electronically signed by: Tiffany Gamboa DO 09/11/2021 2:30 AM CDT Due to temporary technical issues with the PACS/Fluency reporting system, reports are being signed by the in house radiologists without review as a courtesy to insure prompt reporting. The interpreting radiologist is fully responsible for the content of the report.
--- NOTE | 2021-09-11 14:12 | RAD REPORT ---
EXAM DESCRIPTION: RAD - Chest Single View - 09/11/2021 2:04 am COMPARISON: None. TECHNIQUE: Single portable x-ray view of the chest performed on 09/11/2021 at 1:58 AM FINDINGS: The lungs are well expanded and are clear. There is no evidence of a pneumothorax. The cardiac silhouette is normal in size and configuration. The mediastinal contours are normal. No acute osseous abnormality is identified. No acute soft tissue abnormalities are seen. Lines and tubes: There is a left subclavian single lead AICD. Free air: None IMPRESSION: No evidence of acute intrathoracic disease. Electronically signed by: Tiffany Gamboa DO 09/11/2021 2:27 AM CDT Due to temporary technical issues with the PACS/Fluency reporting system, reports are being signed by the in house radiologists without review as a courtesy to insure prompt reporting. The interpreting radiologist is fully responsible for the content of the report.
[2021-09-11] MEDS: AMLODIPINE 10 MG TAB PO SCH (17:00)
[2021-09-11] MEDS ORDERED: AMLODIPINE 10 MG TAB ONE (18:04)
[2021-09-12 03:39] LABS: Absolute Lymphocytes (CBC) 2.6 K/uL (0.7-4.9); Hematocrit 38.4 % (36.0-45.0); Lymphocytes % 22.7 % (15.3-44.8); MPV 8.5 fL (7.6-11.3); RBC Red Blood Cell Count 4.39 M/uL (3.86-4.86)
[2021-09-12 03:57] LABS: Albumin 3.4 g/dL (3.4-5.0); Bilirubin Total 0.3 mg/dL (0.2-1.0); Potassium 3.6 mmol/L (3.5-5.1); Protein, Total 6.9 g/dL (6.4-8.2)
[2021-09-12] MEDS ORDERED: LEVOTHYROXINE SOD 0.025 MG TAB ONE (05:42)
[2021-09-12] MEDS ORDERED: LEVOTHYROXINE SOD 0.025 MG TAB PO SCH (06:30)
[2021-09-12] MEDS ORDERED: ENOXAPARIN 40 MG/0.4 ML SQ ONE (07:56)
[2021-09-12] MEDS ORDERED: ATORVASTATIN 20 MG TAB ONE (07:56)
[2021-09-12] MEDS ORDERED: FUROSEMIDE 40 MG TABLET ONE (07:56)
[2021-09-12] MEDS ORDERED: AMLODIPINE 10 MG TAB ONE (07:56)
[2021-09-12] MEDS ORDERED: SPIRONOLACTONE 25 MG TABLET ONE (08:05)
[2021-09-12] MEDS ORDERED: CEPHALEXIN 250 MG CAP ONE (08:56)
[2021-09-12] MEDS: ENOXAPARIN 40 MG/0.4 ML SQ SCH (08:58)
[2021-09-12] MEDS ORDERED: ATORVASTATIN 40 MG TAB PO SCH ×2 (09:00→21:00)
[2021-09-12] MEDS ORDERED: SACUBITRIL/VALSARTAN 24/26 MG TAB PO SCH (09:00)
[2021-09-12] MEDS ORDERED: CEPHALEXIN 250 MG CAP PO SCH (09:00)
[2021-09-12] MEDS ORDERED: FUROSEMIDE 40 MG TABLET PO SCH (09:00)
[2021-09-12] MEDS ORDERED: SPIRONOLACTONE 25 MG TABLET PO SCH (09:00)
[2021-09-12] MEDS: AMLODIPINE 10 MG TAB PO SCH (09:00)
[2021-09-12 09:03] VITALS: BP 108/62
--- NOTE | 2021-09-12 09:42 | P.DS ---
Admission Date: 09/11/21 Discharge Date: 09/12/21 Disposition: ROUTINE DISCHARGE Discharge Condition: GOOD Reason for Admission: ACS r/o Consultations: cardiology Procedures: Echocardiogram. Brief History of Present Illness: 56-year-old female with history of chronic systolic congestive heart failure related to cardiomyopathy, HTN, HLD presents to the emergency department for left shoulder pain. Patient reports left arm pain over the course of the last year worsening over the course last few days reports that she has intermittent numbness pain especially the range of motion to the left shoulder area. Patient was evaluated the emergency department she had CT scan of her C- spine which showed degenerative changes, x-ray left shoulder which was negative DVT study of left upper extremity which was also negative. Chest x-ray unremarkable does show pacemaker in place. Patient had mild elevation in her [id number]. Given elevation in troponin in conjunction with left shoulder pain ED provider wishes to admit under observation for ACS rule out. Hospital Course: She was worked up for possible ACS because she had troponin elevation. She also had echocardiogram ordered and cardiology consultation done. On echocardiogram review she was found to have mild global hypokinesis but EF was measured at 45%. A chest pain episode improved and there was no significant change. She does have a history of congestive heart failure and will follow up with cardiology as an outpatient. Presently patient is recommended to start Lasix therapy for possible volume management due to her CHF episode. Vital Signs/Physical Exam: Temp Pulse Resp BP Pulse Ox 97.7 F 76 16 108/62 94 09/12/21 04:00 09/12/21 09:00 09/12/21 04:00 09/12/21 09:00 09/12/21 04:00 Laboratory Data at Discharge: WBC 11.3 K/uL (4.3-10.9) H D 09/12/21 03:16 Hgb 12.7 g/dL (12.0-15.0) 09/12/21 03:16 Hct 38.4 % (36.0-45.0) 09/12/21 03:16 Plt Count 277 K/uL (152-406) 09/12/21 03:16 PT 11.9 SECONDS (9.5-12.5) 09/11/21 01:52 INR 1.08 09/11/21 01:52 Sodium 138 mmol/L (136-145) 09/12/21 03:16 Potassium 3.6 mmol/L (3.5-5.1) 09/12/21 03:16 BUN 17 mg/dL (7-18) 09/12/21 03:16 Creatinine 0.83 mg/dL (0.55-1.3) 09/12/21 03:16 Glucose 107 mg/dL (74-106) H 09/12/21 03:16 Magnesium 2.2 mg/dL (1.8-2.4) 09/11/21 01:52 Total Bilirubin 0.3 mg/dL (0.2-1.0) 09/12/21 03:16 AST 25 U/L (15-37) 09/12/21 03:16 ALT 59 U/L (12-78) 09/12/21 03:16 Alkaline Phosphatase 99 U/L (45-117) 09/12/21 03:16 Home Medications: Furosemide [Lasix*] 40 mg PO DAILY #30 tab 06/07/19 Levothyroxine Sodium 25 mcg PO DAILY #30 tablet 06/07/19 Atorvastatin Calcium [Lipitor] 40 mg PO DAILY 01/05/21 Sacubitril/Valsartan [Entresto 24 mg-26 mg Tablet] 1 tab PO DAILY 09/11/21 Spironolactone 25 mg PO DAILY 09/11/21 Followup: Unknown,U [Primary Care Provider] -
[2021-09-12 11:09] VITALS: TEMP 97.6; O2SAT 100
--- NOTE | 2021-09-12 12:56 | PN ---
Date of Progress Note: 09/12/2021 The patient is 56 years old patient of Dr. Gaston, normal coronaries, history of defibrillator pacemak er for congestive heart failure. Echocardiogram yesterday showed an ejection fraction about 40% to 4 5%, with mild global hypokinesis. She had come in on 09/11/2021, because of CHF and elevated troponi n. Her troponin elevation is secondary to congestive heart failure. She was on Entresto, aldactone, Lasix and Synthroid. She diuresed well. She is asymptomatic today and she can be discharged on fabrizio e medication and maybe double her Lasix dose when she goes home, but she will follow up with Dr. Andrew moncada in the near future. CHERYL/GERARDO Voice ID: [id number] Report ID: [id number]
--- NOTE | 2021-09-12 14:02 | CON ---
Date of Consultation: 09/11/2021 Reason For Consultation: Congestive heart failure and elevated troponin. History Of Present Illness: Ms. Silveira is a 56-year-old white woman. She is a patient of Dr. Christopher Gaston. She has had a history of chronic systolic congestive heart failure. She has had normal h eart catheterization. She has a history of defibrillator and pacemaker. She has a history of hypert ension, hypothyroidism. She came in with congestive heart failure exacerbation and was found to have elevated troponin and I was consulted. Echocardiogram is pending. Her troponin was 73. She denied any chest pain. Denied any nausea, vomiting, diaphoresis. Has had some shortness of breath and ped al edema. No palpitation or syncope or fever or chills. She has recently had a visit with Dr. Gaston and has had her defibrillator checked recently and it was functioning appropriately. Past Medical History: As stated above. Allergies: SHE IS ALLERGIC TO LISINOPRIL AND MORPHINE. Review of Systems: Negative. Social History: Negative. Family History: Noncontributory. Medications: At home include Aldactone, Lasix, Synthroid, and Entresto. Physical Examination: Vital Signs: Stable. She was afebrile. Sinus rhythm. HEENT: Negative. Neck: Supple. No bruit. Chest: Revealed some rales at both bases. Cardiac: Revealed a regular rhythm and rate. No murmurs, gallops, or rubs. Abdomen: Benign. Extremities: Revealed trace edema. Diagnostic Data: Normal except for the troponin of 73. Impression And Plan: 1.Elevated troponin secondary to demand ischemia from congestive heart failure. 2.History of chronic systolic congestive heart failure, status post pacemaker and defibrillator rece ntly checked, which was normal. She had normal coronaries. 3.Hypothyroidism. 4.Hypertension, well controlled. I think Ms. Silveira needs to be diuresed slowly with IV Lasix. Echocardiogram is pending. She may need to go home on a higher dose of Lasix and maybe a low-dose beta-agnieszka, but she will follow up with Dr. Gaston after her discharge. No plan for heart catheterization at this point. CHERYL/GERARDO Voice ID: [id number] Report ID: [id number]
== END 2021-09-12 11:50 | disposition home or self-care (01) ==
LOC: ER 01:08 → ERHOLD 04:53
PROVIDERS: ADMIT Internal Medicine Nephrology; ATTEND Internal Medicine Nephrology
DX: I11.0 Hypertensive heart disease with heart failure (principal); I50.22 Chronic systolic (congestive) heart failure; I24.8 Other forms of acute ischemic heart disease; M25.512 Pain in left shoulder; E03.9 Hypothyroidism, unspecified; E78.5 Hyperlipidemia, unspecified; M50.10 Cervical disc disorder with radiculopathy, unspecified cervical region; F17.210 Nicotine dependence, cigarettes, uncomplicated; Z71.6 Tobacco abuse counseling; Z95.810 Presence of automatic (implantable) cardiac defibrillator; Z79.82 Long term (current) use of aspirin; Z79.02 Long term (current) use of antithrombotics/antiplatelets; Z79.899 Other long term (current) drug therapy; Z88.6 Allergy status to analgesic agent; Z88.8 Allergy status to other drugs, medicaments and biological substances; Z90.710 Acquired absence of both cervix and uterus; Z20.822 Contact with and (suspected) exposure to COVID-19; Z80.0 Family history of malignant neoplasm of digestive organs; Z80.42 Family history of malignant neoplasm of prostate
CPT/HCPCS: 93005; 93306; 85025 ×2; 80048; 36415 ×2; 83735; 85610; 80076; 81003; 84484 ×3; 80053; 83880; 72125; 71045; 73030; 93971; 90471; U0003; Q2035; J1650; J1100; J1170; J7030; J2405; G0378 ×3; 96372; 96374; 96375; 99285

== ENCOUNTER 2022-01-29 01:06 | Emergency (ER) | payer OTHER ==
--- OUTSIDE RECORDS SUMMARY | 2022-01-29 01:10 | XMS REPORT | Continuity of Care Document ---
:1965 Author Organization [facility] t Address [address] [place] [address] Care Team Providers Name Role Phone STEPH OSWALD Primary Care Physician Unavailable Steph Oswald Attending Clinician Unavailable Awilda Daniels Attending Clinician Unavailable Oscar Arceo Attending Clinician Unavailable Stanford Gaston Attending Clinician Unavailable Stanford Gaston Attending Clinician Unavailable AALIYAH MASON Attending Clinician Unavailable Aaliyah Morrison Attending Clinician DIDIER ARGUETA Attending Clinician Unavailable Oscar Arceo Admitting Clinician Unavailable Stanford Gaston Admitting Clinician Unavailable AALIYAH MASON Admitting Clinician Unavailable DIDIER ARGUETA Admitting Clinician Unavailable Payers Payer Name Policy Type Policy Number Effective Date Expiration Date Rosalina SEPULVEDA FROM [id number] 2020 [facility] 00:00:00 Problems Condition Condition Condition Status Onset Resolution Last Treating Co mments Source Name Details Category Date Date Treatment Clinician Date No known No known Disease Unive rs active active ity of problems problems [facility] Allergies, Adverse Reactions, Alerts Allergy Allergy Status Severity Reaction(s) Onset Inactive Treating Comm ents Source Name Type Date Date Clinician LISINOPR DRUG Active Rash 2021-0 Univers [place] INGREDI 01-14 ity of 00:00: [place] 00 [facility] Branch Lisinopr Propensi Active Rash 0 Univer s il ty to 01-14 ity of adverse 00:00: [place] reaction 00 Medical s Branch MORPHINE DRUG Active Unknown-Cmnt 2009-06 Un tony INGREDI 06-16 ity of 00:00: [place] 00 [facility] Morphine Propensi Active Unknown - 2009-06 Uni vers ty to See comments 06-16 ity of adverse 00:00: [place] reaction Medical s Branch CODEINE- DRUG Active N/V 2006-06 Univers BUTALBIT 07-12 ity of AL-ASA-C 00:00: [place] AFF 00 Medical Branch Codeine- Propensi Active Nausea 2006-06 Univer s Butalbit ty to and/or 07-12 ity of al-Asa-C adverse Vomiting 00:00: [place] aff reaction 00 Medical s Branch morphine Drug Active [facility] lisinopr Drug Active [facility] morphine Drug Active [facility] lisinopr Drug Active [facility] morphine Drug Active [facility] lisinopr Drug Active [facility] morphine Drug Active [facility] lisinopr Drug Active [facility] morphine Drug Active [facility] lisinopr Drug Active [facility] morphine Drug Active [facility] lisinopr Drug Active [facility] morphine Drug Active [facility] lisinopr Drug Active [facility] morphine Drug Active [facility] lisinopr Drug Active [facility] morphine Drug Active [facility] lisinopr Drug Active [facility] morphine Drug Active [facility] lisinopr Drug Active [facility] morphine Drug Active [facility] lisinopr Drug Active [facility] morphine Drug Active [facility] lisinopr Drug Active [facility] morphine Drug Active [facility] lisinopr Drug Active [facility] morphine Drug Active [facility] lisinopr Drug Active [facility] Morphine Adverse Active Info Not Commo n Sulfate Reaction Available Spir it - [facility] Lisinopr Adverse Active Info Not Commo n il Reaction Available Spiri t - [facility] Social History Social Habit Start Date Stop Date Quantity Comments Source History of Cigarette Smoker Universi ty of tobacco use [facility] Exposure to 2021-11-24 2021-12-04 Unable to assess Univers ity of SARS-CoV-2 00:00:00 10:21:00 [place] [facility] (event) [facility] Alcohol intake 2010-04-16 2010-04-16 Current drinker Unive rsity of 00:00:00 00:00:00 of alcohol [facility] (finding) Branch Sex [birth year] At [birth year] Universit y of 00:00:00 00:00:00 [facility] Smoking Status Start Date Stop Date Source Current every day smoker Univers ity of [facility] Medications Ordered Filled Start Stop Current Ordering Indication Dosage Frequency Signature Comments Components Source Medication Medication Date Date Medication? Clinician (SIG) Name Name albuterol Yes [id number] 2{puff} Inhale 2 Univers 90 6-22 Puffs ity of mcg/actuati 00:00: every 6 [place] as on inhaler 00 (six) Medical hours as Branch needed for Wheezing or Shortness of Breath. Amoxicillin Amoxicillin 2019-0 2020- No Awilda 1 tablet Common -Pot -Pot 01-12 08-07 [facility] Spirit Clavulanate Clavulanate 00:00: 00:00 - [facility] 00 :00 [facility] acetaminoph Yes 1{tbl} Take 1 Un tony en-codeine 4-06 tablet by ity of 300-30 mg 00:00: mouth [place] tablet 00 every 4 Medical (four) Branch hours as needed for Pain (scale 4-6). ibuprofen Yes 600mg Take 1 Unive rs 600 mg 4-06 tablet by ity of tablet 00:00: mouth [place] 00 every 6 Medical (six) Branch hours as needed for Pain (scale 4-6). sulfamethox 2009-06 Yes 1{tbl} Take 1 Tab Univers azole-trime -02 by mouth 2 it y of thoprim 00:00: (two) [place] (BACTRIM 00 times Medical DS) 800-160 daily. Branch mg tablet hydrochloro 2009-06 Yes 12.5mg Take 0.5 Univers thiazide 1-02 Tabs by ity of (ESIDRIX) 00:00: mouth [place] 25 mg 00 daily. Medical tablet Branch hydrocodone 2009-06 Yes 1{tbl} Take 1 Tab Univers -acetaminop 1-02 by mouth ity of hen (NORCO 00:00: every 6 [place] 5) 5-325 mg 00 (six) Medical tablet hours as Branch needed for Pain. Furosemide Furosemide Yes Awilda 1 tablet Common Millender [facility] Aspirin 81 Aspirin 81 Yes Awilda 1 tablet Common Millender [facility] Levothyroxi Levothyroxi Yes Awilda 1 tablet Common ne Sodium ne Sodium Millender in the [facility] on - [facility] an empty [facility] Naproxen Naproxen Yes Awilda 1 tablet Co mmon Millender [facility] Hydrochloro Hydrochloro Yes Awilda 1 tablet Common thiazide thiazide Millender in the [facility] Daily Multi Daily Multi Yes Awilda as Common Vitamin/Min Vitamin/Min Millender directed [facility] Vital Signs Vital Name Observation Time Observation Value Comments Source Height/Length 2019-10-27 21:50:43 Measured Systolic blood 2021-12-04 15:36:00 125 mm[Hg] Univer sity [facility] Diastolic blood 2021-12-04 15:36:00 53 mm[Hg] [facility] 2021-12-04 15:36:00 93 /min [facility] Body temperature 2021-12-04 15:36:00 36.78 Monalisa [facility] Respiratory rate 2021-12-04 15:36:00 20 /min [facility] Body height 2021-12-04 15:36:00 160 cm [facility] Body weight 2021-12-04 15:36:00 75.751 kg [facility] BMI 2021-12-04 15:36:00 29.58 kg/m2 [facility] Oxygen saturation in 2021-12-04 15:36:00 97 /min University of Arterial blood by [facility] Pulse oximetry Branch Height/Length 2021-07-02 12:51:42 158 cm Measured Weight Dosing 2021-07-02 12:51:42 728.00 kg Height/Length 2021-07-02 12:50:29 158 cm Measured Weight Dosing 2021-07-02 12:50:29 728.00 kg Height/Length 2021-07-02 10:34:06 158 cm Measured Weight Dosing 2021-07-02 10:34:06 728.00 kg Height/Length 2021-07-02 10:26:27 158 cm Measured Weight Dosing 2021-07-02 10:26:27 728.00 kg Height/Length 2021-07-02 10:26:26 158 cm Measured Weight Dosing 2021-07-02 10:26:26 728.00 kg Height/Length 2021-07-02 10:25:23 158 cm Measured Weight Dosing 2021-07-02 10:25:23 728.00 kg Height/Length 2021-07-02 10:24:58 158 cm Measured Weight Dosing 2021-07-02 10:24:58 728.00 kg Height/Length 2021-07-02 10:24:26 158 cm Measured Weight Dosing 2021-07-02 10:24:26 728.00 kg Procedures Procedure Date / Time Performed Performing Clinician Sour e XR CHEST 1 VW 2021-12-04 16:35:48 Aaliyah Mason [facility] RAPID INFLUENZA A/B 2021-12-04 15:50:00 Aaliyah Mason [facility] COVID-19 (ID NOW 2021-12-04 15:50:00 Aaliyah Mason [facility] RAPID TESTING) Medical Branch NOTICE OF PRIVACY 2021-12-04 15:23:47 Doctor Unassigned, No Univ [facility] PRACTICES Name [facility] CONSENT/REFUSAL FOR 2021-12-04 15:23:25 [facility] AND Name Medical Branch TREATMENT Encounters Start End Encounter Admission Attending Care Care Encounter Source Date/Time Date/Time Type Type Clinicians Facility Department ID 2022-01-08 Outpatient Van Zandt, STLMLC STLMLC [id number] Common 08:37:00 Steph [id number] [facility] 2021-07-10 Outpatient Sharron, STLMLC STLMLC [id number] Common 13:02:37 Steph 24740 [facility] 2021-07-10 Outpatient Jeremiah, STLMLC STLMLC [id number] Common 11:34:12 Awilda 26628 [facility] 2021-07-10 Outpatient Millender, STLMLC STLMLC [id number] Common 11:34:01 Awilda 19526 [facility] 2021-07-10 Outpatient Millender, STLMLC STLMLC [id number] Common 10:59:36 Awilda 26402 [facility] 2021-07-10 Outpatient Ajayender, STLMLC STLMLC [id number] Common 10:59:25 Awilda 46217 [facility] 2021-07-10 Outpatient Jeremiah, STLMLC STLMLC [id number] Common 10:59:02 Awilda 11103 [facility] 2019-10-27 Inpatient 1 Oscar Arceo [facility] [address] [id number] 15:41:00 Oscar Arceo -[id number] [facility] 2019-08-09 Inpatient Stanford Gaston [facility] STEFANI [id number] 13:06:00 Stanford Gaston Demler [facility] 2021-12-04 2021-12-04 Emergency X RIDDLE, [facility] ERT [id number] Univers 10:40:00 12:16:00 AALIYAH clark [facility] 2021-12-04 2021-12-04 Emergency [place], [facility] [id number] Univers 10:40:00 12:16:00 Aaliyah VICTORIA [id number] [facility] [id number] [facility] [id number] [place] [address] Branch 2021-05-10 2021-05-10 ambulatory STLMLC STLMLC [id number] Common 00:00:00 00:00:00 [facility] 2021-01-20 2021-01-20 Outpatient STLMLC STLMLC [id number] Common 00:00:00 00:00:00 [facility] 2021-01-14 2021-01-14 Emergency X [facility] ERT [id number] Univers 14:30:00 14:30:00 ity [facility] 2020-12-10 2020-12-10 Outpatient STLMLC STLMLC [id number] Common 00:00:00 00:00:00 [facility] 2020-01-13 2020-01-13 [facility] [id number] Common 14:40:00 14:40:[address] [facility] [address] [facility] 2020-01-13 2020-01-13 Outpatient [facility] [id number] Common 11:40:00 11:40:[address] [facility] [address] [facility] 2019-12-21 2019-12-21 Outpatient [facility] [id number] Common 16:33:00 16:33:[address] [facility] [address] [facility] 2019-10-27 2019-10-28 Inpatient 1 Adis Oscar [facility] TEL [id number] 15:41:00 20:02:[facility] 2019-09-05 [facility] [id number] Common 13:11:00 13:11:[address] [facility] [address] [facility] 2019-08-15 2019-08-20 Inpatient E DIDIER ARGUETA [facility] MED [id number] 19:48:00 12:33:00 l [facility] 2019-07-07 2019-07-07 [facility] [id number] Common 15:26:00 15:26:[address] [facility] 2019-06-23 2019-06-23 Out[facility] [id number] Common 14:00:00 14:00:[address] [facility] 2018-02-04 2018-02-04 Outpatient Vivi Trinidadt [id number] Common 15:00:00 15:00:[address] [facility] [address] [facility] Results Test Description Test Time Test Comments Results Result Comments Source Lipid Panel 2019-10-28 06:52:53 Test Item Value Reference Range Interpretation Comme nts Cholesterol Total (test code = 147 mg/dL 0-200 RISK OF HEART DISEASEPublished by Cholesterol Total) [place] [employer] Analyte Optimal Borderl ine Increased RiskCHOL <200 2 00-239 >240TRIG <150 150-199 >2 00HDL Male >60 <40HDL Female > 60 <50LDL <100 130-159 >160LDL Near optimal is [...] i s LDL/HDL Ratio=LDL Calc/HDL Chol Troponin [id number] 21:47:02 Test Item Value Reference Range Interpretation [...] diagnosis of chronic myoc ardial injury. Troponin [id number] 19:26:34 Test Item Value Reference Range Interpretation [...] diagnosis of chronic myoc ardial injury. Troponin [id number] 17:01:59 Test Item Value Reference Range Interpretation [...] of chronic myoc ardial injury. Comprehensive Metabolic [id number] 16:46:40 Test Item Value Reference Range Interpretation [...] the National Kidney Foundation, http://nkdep.ni h.gov Creatine [id number] 16:46:40 Test Item Value Reference Range Interpretation Comments CK (test code = CK) 224 U/L 26-192 H Comprehensive Metabolic [id number] 16:46:40 Test Item Value Reference Range Interpretation [...] National Kidney Foundation, http://nkdep.ni h.gov Comprehensive Metabolic [id number] 16:46:40 Test Item Value Reference Range Interpretation [...] Kidney Foundation, http://nkdep.ni h.gov Pro B Natriuretic [id number] 16:43:50 Test Item Value Reference Range Interpretation Comments NT-proBNP (test code = NT-proBNP) 513 pg/mL 0-124 H Automated [id number] 16:24:33 Test Item Value Reference Range Interpretation Comments Neutro Auto (test code = Neutro 53.0 % 36.0-70.0 Auto) Lymph Auto (test code = Lymph Auto) 39.3 % 12.0-44.0 [place] Auto (test code = [place] Auto) 6.6 % 0.0-11.0 Eos, Auto (test code = Eos, Auto) 0.0 % 0.0-7.0 Basophil Auto (test code = Basophil 0.8 % 0.0-2.0 Auto) Neutro Absolute (test code = Neutro 4.0 x10 1.6-7.4 Absolute) Lymph Absolute (test code = Lymph 2.97 x10 .50-4.60 Absolute) [place] Absolute (test code = [place] .50 x10 .00-1.20 Absolute) Eos Absolute (test code = Eos 0.00 x10 0.00-0.74 Absolute) Baso Absolute (test code = Baso 0.06 x10 0.00-0.21 Absolute) IG [id number] 16:24:33 Test Item Value Reference Range Interpretation Comments IG (test code = IG) 0.3 % 0.0-5.0 IG Abs (test code = IG Abs) 0 x10 N Complete Blood Count with [id number] 16:24:32 Test Item Value Reference Range Interpretation [...] 0 % N XR Chest 1 View [id number] 16:11:29Patient: SHEFALI JOYNER Date/Time10/27/2019 16:05 CDTReason for [facility] pain ReportDICTATION LOCATION: [id number]: Female, 54 years of age with Chest painEXAM: CHEST X-RAY, ONE VIEWCOMPARISON: NoneCOMMENT: Frontal view of the chest is provided. No focal infiltrate, consolidation, mass lesion, or effusion is seen. Cardiac silhouette is within normal limits. No acute bony abnorma lities.IMPRESSION: No acute cardiopulmonary disease. Final Dictated by: Fanny Davis LDictated DT/TM: 10/27/2019 4:11 pmSigned by: Fanny Davis LSigned (Electronic Signature): 10/27/2019 4:11pm
[2022-01-29 04:27] LABS: Absolute Lymphocytes (CBC) 2.5 K/uL (0.7-4.9); Hematocrit 39.2 % (36.0-45.0); Lymphocytes % 32.1 % (15.3-44.8); MCV 87.3 fL (80-100); MPV 8.3 fL (7.6-11.3); RBC Red Blood Cell Count 4.49 M/uL (3.86-4.86)
[2022-01-29 04:34] LABS: Protime INR 1.04
[2022-01-29 04:50] LABS: ALT/SGPT 47 U/L (12-78); AST/SGOT 23 U/L (15-37); Albumin 3.7 g/dL (3.4-5.0); Alkaline Phosphatase 86 U/L (45-117); BUN Blood Urea Nitrogen 15 mg/dL (7-18); Bicarbonate 27 mmol/L (21-32); Bilirubin Total 0.3 mg/dL (0.2-1.0); Glomerular Filtration Rate 88 ml/min (=/>90); Glucose Level 101 mg/dL (74-106); Magnesium 2.2 mg/dL (1.8-2.4); NT PRO-BNP 114 pg/mL (<125); Potassium 3.7 mmol/L (3.5-5.1); Protein, Total 7.4 g/dL (6.4-8.2); Sodium Level 138 mmol/L (136-145)
[2022-01-29 04:51] LABS: Bilirubin Direct < 0.1 mg/dL (0-0.2)
[2022-01-29 04:52] LABS: Troponin High Sensitivity 72.2 pg/mL (<58.9)
--- NOTE | 2022-01-29 05:31 | EDPHYS ---
Physician Documentation [facility] Name: Virgie Silveira Age: 56 yrs Sex: Female : 1965 Arrival Date: 01/29/2022 Time: 01:41 Bed 25 Private MD: ED Physician Thomas Hahn HPI: 01/29 03:28 This 56 yrs old Unknown Female presents to ER via Ambulatory with complaints of Fall mh7 Injury. 03:28 Details of fall: The patient fell from an upright position, while standing. Onset: The mh7 symptoms/episode began/occurred yesterday, at 15:30. Associated injuries: The patient sustained right jaw, painful injury, right hand, painful injury. Severity of symptoms: At their worst the symptoms were moderate, yesterday, in the emergency department the symptoms have improved, moderately. States that she felt dizzy with a spinning sensation then fell to the ground. Denies any head trauma or LOC.. Historical: - Allergies: 01:45 Codeine; kd3 01:45 Lisinopril; kd3 01:45 Morphine; kd3 - Home Meds: 01:45 Entresto Oral [Active]; Furosemide Oral [Active]; levothyroxine oral [Active]; Norvasc kd3 Oral [Active]; Potassium Chloride Oral [Active]; - PMHx: 01:45 Congestive heart failure; Hypothyroidism; Hypertension; Pacemaker; defib; kd3 - PSHx: 01:45 section; hysterectomy; kd3 - Immunization history:: Adult Immunizations not up to date, Client reports receiving the 2nd dose of the Covid vaccine, Last tetanus immunization: up to date. - Social history:: Smoking status: Patient reports the use of cigarette tobacco products, smokes one-half pack cigarettes per day. ROS: 03:28 Constitutional: Negative for fever, chills, and weight loss, Eyes: Negative for injury, mh7 pain, redness, and discharge, ENT: Negative for injury, pain, and discharge, Neck: Negative for injury, pain, and swelling, Cardiovascular: Negative for chest pain, palpitations, and edema, Respiratory: Negative for shortness of breath, cough, wheezing, and pleuritic chest pain, Abdomen/GI: Negative for abdominal pain, nausea, vomiting, diarrhea, and constipation, Back: Negative for injury and pain, : Negative for injury, bleeding, discharge, and swelling, Skin: Negative for injury, rash, and discoloration, Neuro: Negative for headache, weakness, numbness, tingling, and seizure, Psych: Negative for depression, anxiety, suicide ideation, homicidal ideation, and hallucinations, Allergy/Immunology: Negative for hives, rash, and allergies, Endocrine: Negative for neck swelling, polydipsia, polyuria, polyphagia, and marked weight changes, Hematologic/Lymphatic: Negative for swollen nodes, abnormal bleeding, and unusual bruising. Exam: 03:28 Constitutional: This is a well developed, well nourished patient who is awake, alert, mh7 and in no acute distress. Eyes: Pupils equal round and reactive to light, extra-ocular motions intact. Lids and lashes normal. Conjunctiva and sclera are non-icteric and not injected. Cornea within normal limits. Periorbital areas with no swelling, redness, or edema. Neck: Trachea midline, no thyromegaly or masses palpated, and no cervical lymphadenopathy. Supple, full range of motion without nuchal rigidity, or vertebral point tenderness. No Meningismus. Chest/axilla: Normal chest wall appearance and motion. Nontender with no deformity. No lesions are appreciated. 03:28 Cardiovascular: Regular rate and rhythm with a normal S1 and S2. No gallops, murmurs, or rubs. Normal PMI, no JVD. No pulse deficits. Respiratory: Lungs have equal breath sounds bilaterally, clear to auscultation and percussion. No rales, rhonchi or wheezes noted. No increased work of breathing, no retractions or nasal flaring. Abdomen/GI: Soft, non-tender, with normal bowel sounds. No distension or tympany. No guarding or rebound. No evidence of tenderness throughout. Back: No spinal tenderness. No costovertebral tenderness. Full range of motion. Skin: Warm, dry with normal turgor. Normal color with no rashes, no lesions, and no evidence of cellulitis. Neuro: Awake and alert, GCS 15, oriented to person, place, time, and situation. Cranial nerves II-XII grossly intact. Motor strength 5/5 in all extremities. Sensory grossly intact. Cerebellar exam normal. Normal gait. Psych: Awake, alert, with orientation to person, place and time. Behavior, mood, and affect are within normal limits. 03:28 Head/face: Noted is tenderness, that is mild, of the right jaw. 03:28 Musculoskeletal/extremity: Extremities: noted in the right hand: ecchymosis, tenderness, ROM: intact in all extremities, Circulation is intact in all extremities. Sensation intact. Compartment Syndrome exam of affected extremity: is normal. no numbness, no tingling, no sensation deficit, no palor, no weak pulses, Joints: All joints appear normal with full range of motion. Weight bearing: able to fully bear weight, without difficulty, Tendon exam: specific tendon testing normal through active and passive range of motion Vital Signs: 01:43 BP 146 / 89; Pulse 81; Resp 15; Temp 98(O); Pulse Ox 100% on R/A; Weight 68.04 kg; kd3 Height 5 ft. 2 in. (157.48 cm); 05:24 BP 115 / 71; Pulse 73; Resp 14; Pulse Ox 99% on R/A; ke1 01:43 Body Mass Index 27.44 (68.04 kg, 157.48 cm) kd3 [place] Coma Score: 01/28 22:00 Eye Response: spontaneous(4). Verbal Response: oriented(5). Motor Response: obeys ke1 commands(6). Total: 15. Trauma Score (Adult): 22:00 Eye Response: spontaneous(1); Verbal Response: oriented(1); Motor Response: obeys ke1 commands(2); Systolic BP: > 89 mm Hg(4); Respiratory Rate: 10 to 29 per min(4); Maranda Score: 15; Trauma Score: 12 MDM: 01/29 05:26 Differential diagnosis: abrasion, closed head injury, contusion, fracture, sprain, mh7 dizziness. Data reviewed: vital signs, nurses notes, lab test result(s), cardiac enzymes, CBC, electrolytes, EKG, radiologic studies, CT scan, plain films. Data interpreted: Pulse oximetry: on room air is 99 %. Interpretation: normal. Counseling: I had a detailed discussion with the patient and/or guardian regarding: the historical points, exam findings, and any diagnostic results supporting the discharge/admit diagnosis, lab results, radiology results, the need for further work-up and treatment in the hospital. Response to treatment: the patient's symptoms have markedly improved after treatment. 05:27 Refusal of service: The patient/guardian displays adequate decision making capability [facility] and despite a detailed discussion of alternatives, benefits, risks, and consequences refuses: Admission to the hospital for further work-up and treatment. 05:30 Patient medically screened. [facility] 01/29 03:04 Order name: Basic Metabolic Panel; Complete Time: 04:54 [facility] 01/29 03:04 Order name: CBC with Diff; Complete Time: 04:54 [facility] 01/29 03:04 Order name: LFT's; Complete Time: 04:54 [facility] 01/29 03:04 Order name: Magnesium; Complete Time: 04:54 [facility] 01/29 03:04 Order name: NT PRO-BNP; Complete Time: 04:54 [facility] 01/29 03:04 Order name: PT-INR; Complete Time: 04:54 [facility] 01/29 02:00 Order name: XRAY Hand RIGHT 3 View [facility] 01/29 02:18 Order name: Head C Spine MPR Wo Con [facility] 01/29 02:18 Order name: Facial Bones W/O Con [facility] 01/29 03:04 Order name: Troponin HS; Complete Time: 04:54 [facility] 01/29 03:04 Order name: XRAY Chest (1 view) [facility] 01/29 03:04 Order name: EKG; Complete Time: 03:08 [facility] 01/29 03:04 Order name: Cardiac monitoring; Complete Time: 05:20 [facility] 01/29 03:04 Order name: EKG - Nurse/Tech; Complete Time: 04:33 [facility] 01/29 03:04 Order name: IV Saline Lock; Complete Time: 04:40 [facility] 01/29 03:04 Order name: Labs collected and sent; Complete Time: 04:40 [facility] 01/29 03:04 Order name: O2 Per Protocol; Complete Time: 04:40 [facility] 01/29 03:04 Order name: O2 Sat Monitoring; Complete Time: 04:40 7 Administered Medications: 05:44 Drug: Aspirin 325 mg Route: PO; ke1 05:44 Follow up: Response: Medication administered at discharge. ke1 Disposition Summary: 01/29/22 05:30 Left Against Medical Advice Location: Home [facility] Problem: new [facility] Symptoms: have improved [facility] Condition: Stable mh7 Diagnosis - Dizziness and giddiness mh7 - Elevated Troponin level mh7 - Contusion, Right Hand mh7 - Fall on same level, unspecified 7 Followup: 7 - With: Private Physician - When: Today - Reason: Worsening of condition, Recheck today's complaints, Continuance of care, Re-evaluation by your physician Followup: 7 - With: Jun Harper MD - When: Today - Reason: Worsening of condition, Recheck today's complaints Discharge Instructions: - Discharge Summary Sheet 7 - Hand Contusion, [id number] mh7 - Dizziness, [id number] mh7 Signatures: Dispatcher [employer] EDMS Thomas Hahn MD MD 7 Karen Orellana RN RN kd3 Joaquim Broderick RN RN ke1 Corrections: (The following items were deleted from the chart) 02:13 02:03 Wrist Right 3 View+RAD.RAD.BRZ ordered. EDMS EDMS 03:31 03:28 Details of fall: The patient fell 7 7
--- NOTE | 2022-01-29 05:31 | ER ---
Nurse's Notes [facility] Name: Virgie Silveira Age: 56 yrs Sex: Female : 1965 Arrival Date: 01/29/2022 Time: 01:41 Bed 25 Private MD: Diagnosis: Dizziness and giddiness;Elevated Troponin level;Contusion, Right Hand;Fall on same level, unspecified Presentation: 01/28 22:00 Mechanism of Injury: Fall from standing position. Trauma event details: Injury occurred ke1 in the [facility]. 01/29 01:43 Chief complaint: Patient states: I have congestive heart failure and I stood up from my kd3 car, got dizzy and fell. I do not remember hitting my head but my right wrist and hand hurt and are swollen. my right jaw also hurts. Coronavirus screen: Vaccine status: Patient reports receiving the 2nd dose of the covid vaccine. Ebola Screen: No symptoms or risks identified at this time. Initial Sepsis Screen: Does the patient meet any 2 criteria? No. Patient's initial sepsis screen is negative. Does the patient have a suspected source of infection? No. Patient's initial sepsis screen is negative. Risk Assessment: Do you want to hurt yourself or someone else? Patient reports no desire to harm self or others. Onset of symptoms was January 29, 2022. 01:43 Method Of Arrival: Ambulatory kd3 01:43 Acuity: TOÑITO 3 kd3 04:24 Care prior to arrival: None. ke Triage Assessment: 01:46 General: Appears in no apparent distress. Behavior is calm, cooperative. Pain: kd3 Complains of pain in right hand. Trauma Activation: Physician: ED Physician; Name: dusty; Notified At: 01:45; Arrived At: Physician: General Surgeon; Name: ; Notified At: 01:45; Arrived At: Physician: Radiology; Name: ; Notified At: 01:45; Arrived At: Physician: Respiratory; Name: ; Notified At: 01:45; Arrived At: Physician: Lab; Name: ; Notified At: 01:45; Arrived At: Historical: - Allergies: 01:45 Codeine; kd3 01:45 Lisinopril; kd3 01:45 Morphine; kd3 - Home Meds: 01:45 Entresto Oral [Active]; Furosemide Oral [Active]; levothyroxine oral [Active]; Norvasc kd3 Oral [Active]; Potassium Chloride Oral [Active]; - PMHx: 01:45 Congestive heart failure; Hypothyroidism; Hypertension; Pacemaker; defib; kd3 - PSHx: 01:45 section; hysterectomy; kd3 - Immunization history:: Adult Immunizations not up to date, Client reports receiving the 2nd dose of the Covid vaccine, Last tetanus immunization: up to date. - Social history:: Smoking status: Patient reports the use of cigarette tobacco products, smokes one-half pack cigarettes per day. Screenin/16 22:30 Abuse screen: Denies threats or abuse. Nutritional screening: No deficits noted. ke1 Tuberculosis screening: No symptoms or risk factors identified. Fall Risk No fall in past 12 months (0 pts). IV access (20 points). Ambulatory Aid- None/Bed Rest/Nurse Assist (0 pts). Gait- Normal/Bed Rest/Wheelchair (0 pts) Mental Status- Oriented to own ability (0 pts). Total Vogt Fall Scale indicates No Risk (0-24 pts). Primary Survey: 01/29 02:00 NO uncontrolled hemorrhage observed. A: The client is alert. Airway: patent, No ke1 supplemental oxygen in use on arrival. Oral cavity: clear, gag reflex present, Trachea midline. Breathing/Chest: Respiratory effort: spontaneous, unlabored, Breath sounds: clear, bilaterally. Respiratory pattern: regular, Chest inspection: symmetrical rise and fall of the chest. Circulation: Hemorrhage: No external hemorrhage noted. Pulses: palpable right radial artery and left radial artery. Skin color: pink, Skin temperature: warm, Heart tones present. Disability Pupils are equal, round, reactive to light and accommodation. Exposure/Environment: All clothing and personal items were removed. Forensic evidence collection is not deemed to be indicated at this time. Items placed in patient belonging bag. There is no evidence of uncontrolled external bleeding. No obvious injuries are noted at this time. A warming method has been applied: A warm blanket has been provided to the patient. 04:28 Reassessment Alertness and Airway: Airway Patent Breathing: Respiratory effort ke1 Spontaneous Unlabored Breath sounds Clear Diminished Respiratory pattern Regular Circulation: Heart rhythm Heart tones Present Pulses Palpable Color [place] Temperature Warm Dry Disability:. Secondary Survey: 03:00 HEENT: Head No injury/deformity Face No injury/deformity Eyes: No injury or deformity ke1 noted. to bilateral eyes. Ears: clear bilaterally. Nose: clear to bilateral nares. Throat: No injury or deformity noted. with gag reflex present. Gastrointestinal: Abdomen is soft. :. Musculoskeletal: Capillary refill < 3 seconds, Range of motion: limited in right elbow and right wrist. Assessment: 01/28 22:00 Pain: Complains of pain in right wrist and right elbow. Neuro: Level of Consciousness ke1 is awake, alert, Oriented to person, place, time, situation. Vital Signs: 01/29 01:43 BP 146 / 89; Pulse 81; Resp 15; Temp 98(O); Pulse Ox 100% on R/A; Weight 68.04 kg; kd3 Height 5 ft. 2 in. (157.48 cm); 05:24 BP 115 / 71; Pulse 73; Resp 14; Pulse Ox 99% on R/A; ke1 01:43 Body Mass Index 27.44 (68.04 kg, 157.48 cm) kd3 Maranda Coma Score: 01/28 22:00 Eye Response: spontaneous(4). Verbal Response: oriented(5). Motor Response: obeys ke1 commands(6). Total: 15. Trauma Score (Adult): 22:00 Eye Response: spontaneous(1); Verbal Response: oriented(1); Motor Response: obeys ke1 commands(2); Systolic BP: > 89 mm Hg(4); Respiratory Rate: 10 to 29 per min(4); Maranda Score: 15; Trauma Score: 12 ED Course: 22:00 Placed in gown. Bed in low position. ke1 01/29 01:41 Patient arrived in ED. ja2 01:45 Triage completed. kd3 01:46 Arm band placed on left wrist. kd3 02:00 Thermoregulation: warm blanket given to patient. ke1 02:31 Thomas Hahn MD is Attending Physician. 7 02:42 XRAY Hand RIGHT 3 View In Process Unspecified. EDMS 02:55 Joaquim Broderick, BECKY is Primary Nurse. ke1 02:58 Facial Bones W/O Con CT In Process Unspecified. EDMS 02:58 Head C Spine MPR Wo Con CT In Process Unspecified. EDMS 03:49 XRAY Chest (1 view) In Process Unspecified. EDMS 04:19 Inserted saline lock: 20 gauge in left antecubital area, using aseptic technique. ke1 04:29 Patient maintains SpO2 saturation greater than 95% on room air. ke1 04:53 Notified ED physician of a critical lab result(s). troponin of 70.2 Dr Hahn notified. 05:28 Jun Harper MD is Referral Physician. [facility] 05:45 No provider procedures requiring assistance completed. IV discontinued. ke1 Administered Medications: 05:44 Drug: Aspirin 325 mg Route: PO; ke1 05:44 Follow up: Response: Medication administered at discharge. ke1 Medication: 05:45 VIS not applicable for this client. ke1 Outcome: 05:45 Discharged to home ambulatory. ke1 05:45 Condition: good 05:45 Discharge instructions given to patient. 05:46 Patient left the ED. ke1 Signatures: Dispatcher [employer] Irina Penn, RN RN Thomas Luna MD MD 7 Diane Reynoso Kyli RN RN kd3 Joaquim Broderick RN RN ke1
[2022-01-29 05:52] VITALS: TEMP 98
[2022-01-29] MEDS ORDERED: ASPIRIN 325 MG TAB ONE (05:52)
[2022-01-29 05:54] VITALS: BP 115/71; O2SAT 99
--- NOTE | 2022-01-29 13:50 | RAD REPORT ---
EXAM DESCRIPTION: XR HAND 3 OR MORE VIEWS CLINICAL HISTORY: Pain COMPARISON: None. TECHNIQUE: XR HAND 3 OR MORE VIEWS 01/29/2022 2:00 AM CDT FINDINGS: There is no fracture. Joint spaces are preserved. Soft tissues are unremarkable. IMPRESSION: No acute osseous findings. Electronically signed by: Marlon Wayne MD 01/29/2022 3:23 AM CDT Due to temporary technical issues with the PACS/Fluency reporting system, reports are being signed by the in house radiologists without review as a courtesy to insure prompt reporting. The interpreting radiologist is fully responsible for the content of the report.
--- NOTE | 2022-01-29 13:56 | RAD REPORT ---
EXAM DESCRIPTION: CT MAXILLOFACIAL WITHOUT IV CONTRAST CLINICAL HISTORY: Facial trauma COMPARISON: None. TECHNIQUE: CT MAXILLOFACIAL WITHOUT IV CONTRAST on 01/29/2022 2:18 AM CDT This exam was performed according to our departmental dose-optimization program, which includes autom ated exposure control, adjustment of the mA and/or kV according to patient size and/or use of iterati ve reconstruction technique. FINDINGS: There is no acute fracture. The paranasal sinuses are clear. Orbits and globes are unremar kable. Mastoid air cells are clear. Temporomandibular joints are intact. There are no significant sof t tissue abnormalities. IMPRESSION: No post-traumatic findings. Electronically signed by: Marlon Wayne MD 01/29/2022 3:30 AM CDT Due to temporary technical issues with the PACS/Fluency reporting system, reports are being signed by the in house radiologists without review as a courtesy to insure prompt reporting. The interpreting radiologist is fully responsible for the content of the report.
--- NOTE | 2022-01-29 14:09 | RAD REPORT ---
EXAM DESCRIPTION: CT HEAD AND CERVICAL SPINE WITHOUT CONTRAST CLINICAL HISTORY: Dizziness COMPARISON: None. TECHNIQUE: CT HEAD AND CERVICAL SPINE WITHOUT CONTRAST on 01/29/2022 2:18 AM CDT This exam was performed according to our departmental dose-optimization program, which includes autom ated exposure control, adjustment of the mA and/or kV according to patient size and/or use of iterati ve reconstruction technique. FINDINGS: Brain: There is no acute hemorrhage, mass effect or midline shift. Jordan-white differentiat ion is preserved. There is no hydrocephalus. There is no significant volume loss for age. The calvarium is intact. Orbits and globes are unremarkable. The paranasal sinuses are clear. Mastoid air cells are clear. Cervical Spine: There is no acute fracture. There may be minimal grade 1 retrolisthesis of C3 on C4. There is moderate to severe narrowing of the C3-4, C4-5, C5-6 and C6-7 discs. Vertebral body heights are preserved. Soft tissues are unremarkable. IMPRESSION: No acute postraumatic findings. Electronically signed by: Marlon Wayne MD 01/29/2022 3:29 AM CDT Due to temporary technical issues with the PACS/Fluency reporting system, reports are being signed by the in house radiologists without review as a courtesy to insure prompt reporting. The interpreting radiologist is fully responsible for the content of the report.
--- NOTE | 2022-01-29 14:12 | RAD REPORT ---
EXAM DESCRIPTION: Chest Radiography COMPARISON: Chest radiograph September 11, 2021 CLINICAL HISTORY: [facility] MA[facility] Dizziness FINDINGS: A single AP view of the chest demonstrates a normal cardiomediastinal silhouette. Left samir st pacemaker in place. No pneumothorax or pleural effusion. No consolidation or pulmonary edema. Osseous structures are intact. IMPRESSION: No acute chest process. Electronically signed by: Aureliano Cristina MD 01/29/2022 4:54 AM CDT Due to temporary technical issues with the PACS/Fluency reporting system, reports are being signed by the in house radiologists without review as a courtesy to insure prompt reporting. The interpreting radiologist is fully responsible for the content of the report.
--- NOTE | 2022-01-30 07:56 | EKG ---
Test Date: 2022-01-29 Test Time: 04:26:44 Medical Auditor: EVELYN MEASUREMENT RESULTS: Intervals: Rate: 59 [place]: 152 QRSD: 94 QT: 528 QTc: 522 [place]: P: 61 [place]: 152 QRS: 61 T: 49 INTERPRETIVE STATEMENTS: Sinus bradycardia Prolonged QT Abnormal ECG Compared to ECG 09/11/2021 02:04:46 Sinus rhythm no longer present T-wave abnormality no longer present Electronically Signed On 01-30-22 07:54:34 CDT by Jun Harper
== END 2022-01-29 05:46 | disposition left against medical advice (07) ==
LOC: ER 01:06
DX: S60.221A Contusion of right hand, initial encounter (principal); R77.8 Other specified abnormalities of plasma proteins; W18.30XA Fall on same level, unspecified, initial encounter; F17.210 Nicotine dependence, cigarettes, uncomplicated; I10 Essential (primary) hypertension; I50.9 Heart failure, unspecified; Z95.810 Presence of automatic (implantable) cardiac defibrillator; Z88.5 Allergy status to narcotic agent; Z88.8 Allergy status to other drugs, medicaments and biological substances
CPT/HCPCS: 36415; 70450; 70486; 71045; 72125; 76377; 80048; 80076; 83735; 83880; 84484; 85025; 85610; 93005

== ENCOUNTER 2022-05-06 06:21 | Inpatient (IN) | payer OTHER, SELFPAY ==
--- OUTSIDE RECORDS SUMMARY | 2022-05-06 06:24 | XMS REPORT | Continuity of Care Document ---
:[address] [facility] t Address [address] [place] [place] [address] Care Team Providers Name Role Phone STEPH OSWALD Primary Care Physician Unavailable Steph Oswald Attending Clinician Unavailable Awilda Daniels Attending Clinician Unavailable Oscar Arceo Attending Clinician Unavailable Stanford Gaston Attending Clinician Unavailable Stanford Gaston Attending Clinician Unavailable AALIYAH ROSADO Attending Clinician Unavailable Aaliyah Morrison Attending Clinician DIDIER RAGUETA Attending Clinician Unavailable Oscar Arceo Admitting Clinician Unavailable Stanford Gaston Admitting Clinician Unavailable AALIYAH ROSADO Admitting Clinician Unavailable DIDIER ARGUETA Admitting Clinician Unavailable Payers Payer Name Policy Type Policy Number Effective Date Expiration Date S shi HIM AMBETTER [id number] 2020 FROM [place] 00:00:00 HEALTH Ambetter from [id number] 2020 Common Spi [facility] 00:00:00 - [facility] Ambetter from [id number] 2020 Common Spi rit [facility] 00:00:00 - [facility] Ambetter from [id number] 2020 Common [facility] 00:00:00 - [facility] Problems Condition Condition Condition Status Onset Resolution Last Treating Co mments Source Name Details Category Date Date Treatment Clinician Date [id number] Hypokalemi Problem Active Com mon a [facility] [id number] Tachycardi Problem Active Comm on a [facility] [id number] Congestive Problem Active Com mon heart [facility] failure, [facility] unspecifie [facility] chronicity [facility] Center unspecifie d heart failure type Smoker Smoker Problem Active Common [facility] [id number] Acquired Problem Active Comm on hypothyroi [facility] [id number] Screening Problem Active Com mon mammogram, [facility] for [facility] [id number] Peripheral Problem Active Co mmon edema [facility] [id number] Cervical Problem Active Commo n radiculopa [facility] thy at [address] [id number] Lumbar Problem Active Common radiculopa Spirit thy, [facility] No known No known Disease Unive rs active active ity of problems problems [facility] Allergies, Adverse Reactions, Alerts Allergy Allergy Status Severity Reaction(s) Onset Inactive Treating Comm ents Source Name Type Date Date Clinician LISINOPR DRUG Active Rash Univers [place] INGREDI 01-14 ity of 00:00: Medical Branch Lisinopr Propensi Active Rash Univer s il ty to 01-14 ity of adverse 00:00: [place] reaction Medical s Branch MORPHINE DRUG Active Unknown-Cmnt 2009-06 Un tony INGREDI 06-16 ity of 00:00: [place] [facility] Morphine Propensi Active Unknown - 2009-06 Uni vers ty to See comments 06-16 ity of adverse 00:00: [place] reaction 00 Medical s Branch CODEINE- DRUG Active N/V 2006-06 Univers BUTALBIT 07-12 ity of AL-ASA-C 00:00: [place] AFF 00 Medical Branch Codeine- Propensi Active Nausea 2006-06 Univer s Butalbit ty to and/or 07-12 ity of al-Asa-C adverse Vomiting 00:00: [place] aff reaction 00 Medical s Branch morphine morphine Active Unknown Commo n Spirit - [facility] lisinopr lisinopr Active Unknown Commo n il il [facility] - [facility] morphine Drug Active [facility] lisinopr Drug Active [facility] morphine Drug Active [facility] lisinopr Drug Active [facility] morphine Drug Active [facility] lisinopr Drug Active [facility] morphine Drug Active [facility] lisinopr Drug Active [facility] morphine Drug Active [facility] lisinopr Drug Active [facility] morphine Drug Active [facility] lisinopr Drug Active [facility] morphine Drug Active [facility] lisinopr Drug Active [facility] morphine Drug Active [facility] lisinopr Drug Active [facility] morphine Drug Active [facility] lisinopr Drug Active [facility] morphine Drug Active [facility] lisinopr Drug Active [facility] morphine Drug Active [facility] lisinopr Drug Active [facility] morphine Drug Active [facility] lisinopr Drug Active [facility] morphine Drug Active [facility] lisinopr Drug Active [facility] morphine Drug Active [facility] lisinopr Drug Active [facility] Social History Social Habit Start Date Stop Date Quantity Comments Source History of Common Spirit - Tobacco Use [facility] Sex Assigned At Common Sp ilana - [facility] Exposure to 2021-11-24 2021-12-04 Unable to assess Univers ity of SARS-CoV-2 00:00:00 10:21:00 [facility] (event) Branch Alcohol intake 2010-04-16 2010-04-16 Current drinker Unive rsity of 00:00:00 00:00:00 of alcohol [facility] (finding) Branch Smoking Status Start Date Stop Date Source Current every day [facility] smoker Medical Branch Former Smoker 2021-03-11 00:00:00 2021-03-11 00:00:00 Common S pirit - [facility] nter Medications Ordered Filled Start Stop Current Ordering Indication Dosage Frequency Signature Comments Components Source Medication Medication Date Date Medication? Clinician (SIG) Name Name albuterol Yes [id number] 2{puff} Inhale 2 Univers 90 6-22 Puffs ity of mcg/actuati 00:00: every 6 Pa as on inhaler 00 (six) Medical hours as Branch needed for Wheezing or Shortness of Breath. Chantix Chantix 2020- No BID Chantix Continuing Continuing 01-21 Continuing Month Jaleel 1 Month Jaleel 1 00:00: 00:00 Month Jaleel MG MG 00 :00 1 MG Amoxicillin Amoxicillin Awilda 1 tablet Common -Pot -Pot 01-12 [facility] Spirit Clavulanate Clavulanate 00:00: 00:00 - [facility]I 00 :00 [facility] acetaminoph Yes 1{tbl} Take 1 Un [...] Yes 1{tbl} Take 1 Tab Univers azole-trime 1-02 by mouth 2 it y of thoprim [...] Furosemide Yes Awilda 1 tablet Common [facility] Aspirin 81 Aspirin 81 Yes Awilda 1 tablet Common Millender [facility] Levothyroxi Levothyroxi Yes Awilda 1 tablet Common ne Sodium ne Sodium Millender in the Spirit morning on - [facility] an empty [facility] Naproxen Naproxen Yes Awilda 1 tablet Co mmon Millender [facility] Hydrochloro Hydrochloro Yes Awilda 1 tablet Common thiazide thiazide Mill[facility] in the [facility] Daily Multi Daily Multi Yes Awilda as Common Vitamin/Min Vitamin/Min [facility] Spironolact Spironolact No Spironolac one 25 MG one 25 MG tone 25 MG Chantix Chantix No Chantix Starting Starting Starting Month Month Month Jaleel 0.5 MG X 11 0.5 MG X 11 0.5 MG X & 1 MG X 42 & 1 MG X 42 11 & 1 MG X 42 Furosemide Furosemide No 1{table QD Furosemide 40 MG 40 MG t} 40 MG Potassium Potassium No 1{table QD Potassium Chloride ER Chloride ER t_with_ Chloride 20 MEQ 20 MEQ food} ER 20 MEQ Levothyroxi Levothyroxi No QD Levothyrox ne Sodium ne Sodium ine Sodium 25 MCG 25 MCG 25 MCG Atorvastati Atorvastati No 1{table QD Atorvastat n Calcium n Calcium t} in Calcium 40 MG 40 MG 40 MG Entresto Entresto No Entresto 24-26 MG 24-26 MG 24-26 MG Spironolact Spironolact No Spironolac one 25 MG one 25 MG tone 25 MG Furosemide Furosemide No 1{table QD Furosemide 40 MG 40 MG t} 40 MG Entresto Entresto No Entresto 24-26 MG 24-26 MG 24-26 MG Potassium Potassium No 1{table QD Potassium Chloride ER Chloride ER t_with_ Chloride 20 MEQ 20 MEQ food} ER 20 MEQ Levothyroxi Levothyroxi No QD Levothyrox ne Sodium ne Sodium ine Sodium 25 MCG 25 MCG 25 MCG Atorvastati Atorvastati No 1{table QD Atorvastat n Calcium n Calcium t} in Calcium 40 MG 40 MG 40 MG Chantix Chantix No Chantix Starting Starting Starting Month Jaleel Month Jaleel Month Jaleel 0.5 MG X 11 0.5 MG X 11 0.5 MG X & 1 MG X 42 & 1 MG X 42 11 & 1 MG X 42 Chantix 1 Chantix 1 No 1{table BID Chantix 1 MG MG t} MG Entresto Entresto No Entresto 24-26 MG 24-26 MG 24-26 MG Potassium Potassium No 1{table QD Potassium Chloride ER Chloride ER t_with_ Chloride 20 MEQ 20 MEQ food} ER 20 MEQ Furosemide Furosemide No 1{table QD Furosemide 40 MG 40 MG t} 40 MG Atorvastati Atorvastati No 1{table QD Atorvastat n Calcium n Calcium t} in Calcium 40 MG 40 MG 40 MG Spironolact Spironolact No Spironolac one 25 MG one 25 MG tone 25 MG Levothyroxi Levothyroxi No QD Levothyrox ne Sodium ne Sodium ine Sodium 25 MCG 25 MCG 25 MCG Immunizations Ordered Immunization Filled Immunization Date Status Commen ts Source Name Name Pfizer COVID-19 Pfizer COVID-19 2021-03-13 Completed Comm on Spirit Vaccine Vaccine 11:37:00 - [facility] Pfizer COVID-19 Pfizer COVID-19 2021-02-12 Completed Comm on Spirit Vaccine Vaccine 16:27:00 - [facility] Vital Signs Vital Name Observation Time Observation Value Comments Source Height/Length 2019-10-27 21:50:43 Measured Systolic blood 2021-12-04 15:36:00 125 mm[Hg] Univer sity [facility] Diastolic blood 2021-12-04 15:36:00 53 mm[Hg] [facility] 2021-12-04 15:36:00 93 /min [facility] Body temperature 2021-12-04 15:36:00 36.78 Monalisa [facility] Res[facility] rate 2021-12-04 15:36:00 20 /min [facility] Body height 2021-12-04 15:36:00 160 cm [facility] Body weight 2021-12-04 15:36:00 75.751 kg [facility] BMI 2021-12-04 15:36:00 29.58 kg/m2 [facility] Oxygen saturation in 2021-12-04 15:36:00 97 /min [facility] of Arterial blood by [facility] Pulse oximetry Branch height 2020-12-10 09:00:00 61 [in_i] [facility] weight 2020-12-10 09:00:00 160 [lb_av] [facility] temperature 2020-12-10 09:00:00 97.2 [degF] [facility] bmi 2020-12-10 09:00:00 30.23 kg/m2 [facility] oximetry 2020-12-10 09:00:00 100 % [facility] respiratory rate 2020-12-10 09:00:00 20 /min Comm on [facility] blood pressure 2020-12-10 09:00:00 110 mm[Hg] Common [facility] - systolic [facility] blood pressure 2020-12-10 09:00:00 64 mm[Hg] Common [facility] - diastolic [facility] Height/Length 2021-07-02 12:51:42 158 cm Measured Weight [...] Procedure Date / Time Performed Performing Clinician Sourc e XR CHEST 1 VW 2021-12-04 16:35:48 Aaliyah Rosado [facility] RAPID INFLUENZA A/B 2021-12-04 15:50:00 Aaliyah Rosado [facility] COVID-19 (ID NOW 2021-12-04 15:50:00 Aaliyah Rosado [facility] RAPID TESTING) Medical Branch NOTICE OF PRIVACY 2021-12-04 15:23:47 Doctor Unassigned, No [facility] PRACTICES Name [facility] CONSENT/REFUSAL FOR 2021-12-04 15:23:25 Doctor Unassigned, No [facility] DIAGNOSIS AND Name [facility] Branch TREATMENT Encounters Start End Encounter Admission Attending Care Care Encounter Source Date/Time Date/Time Type Type Clinicians Facility Department ID 2022-01-08 Outpatient [place], STLMLC STLMLC [id number] Common 08:37:00 Steph [id number] [facility] 2021-07-10 Outpatient [place], STLMLC STLMLC [id number] Common 13:02:37 Steph 25815 [facility] 2021-07-10 Outpatient [place], STLMLC STLMLC [id number] Common 11:34:12 Awilda [id number] [facility] 2021-07-10 Outpatient [place], STLMLC STLMLC [id number] Common 11:34:01 Awilda [id number] [facility] 2021-07-10 Outpatient [place], STLMLC STLMLC [id number] Common 10:59:36 Awilda 42102 [facility] 2021-07-10 Outpatient [place], STLMLC STLMLC [id number] Common 10:59:25 Awilda [id number] [facility] 2021-07-10 Outpatient [place], STLMLC STLMLC [id number] Common 10:59:02 Awilda 74437 [facility] 2019-10-27 Inpatient 1 Oscar Arceo [facility] T[address] [id number] St. 15:41:00 Oscar Arceo -[id number] [facility] 2019-08-09 Inpatient Stanford Gaston [facility] STEF[id number] 13:06:00 Stanford Gaston [facility] 2021-12-04 2021-12-04 Emergency X [place], [facility] ERT [id number] Univers 10:40:00 12:16:00 FLEMING it y [facility] 2021-12-04 2021-12-04 Emergency [place], [facility] [id number] Univers 10:40:00 12:16:00 Aaliyah PHENIX [id number] ity [facility] [id number] [facility] [id number] [place] [id number] Branch 2021-05-10 2021-05-10 (TEL) STLMLC STLMLC [id number] Co mmon 00:00:00 00:00:00 [facility] 2021-01-20 2021-01-20 (WEB) STLMLC STLMLC [id number] Co mmon 00:00:00 00:00:00 Spirit [facility] 2021-01-14 2021-01-14 Emergency X [facility] ERT [id number] Univers 14:30:00 14:30:00 ity [facility] 2020-12-10 2020-12-10 OFFICE STLMLC STLMLC [id number] Co mmon 00:00:00 00:00:00 VISIT Spirit ESTAB PT - [facility] LEVEL 4 [facility] 2020-01-13 2020-01-13 [place] [id number] Common 14:40:00 14:40:00 t [facility] [address] [facility] 2020-01-13 2020-01-13 [place] [id number] Common 11:40:00 11:40:00 t [facility] [address] [facility] 2019-12-21 2019-12-21 Outpatient [place] [id number] Common 16:33:00 16:33:00 t [facility] [address] [facility] 2019-10-27 2019-10-28 Inpatient 1 Oscar Arceo [facility] TEL [id number] 15:41:00 20:02:00 [facility] 2019-09-05 2019-09-05 [place] [place] [id number] Common 13:11:00 13:11:[address] [facility] 2019-08-15 2019-08-20 Inpatient E DIDIER ARGUETA [facility] MED [facility] Memoria 19:48:00 12:33:00 l [facility] 2019-07-07 2019-07-07 [place] [id number] Common 15:26:00 15:26:[address] [facility] 2019-06-23 2019-06-23 [place] [id number] Common 14:00:00 14:00:[address] [facility] 2018-02-04 2018-02-04 [place] [id number] Common 15:00:00 15:00:[address] [facility] Results Test Description Test Time Test Comments Results Result Comments Source Lipid Panel 2019-10-28 06:52:53 Test Item Value Reference Range Interpretation Comme nts Cholesterol Total (test code = 147 mg/dL 0-200 RISK OF HEART DISEASEPublished by Cholesterol Total) [place] [employer] Analyte Optimal Borderl ine Increased [...] i s LDL/HDL Ratio=LDL Calc/HDL Chol Troponin [id number] 21:47:02 Test Item Value Reference Range Interpretation [...] diagnosis of chronic myoc ardial injury. Troponin [id number] 19:26:34 Test Item Value Reference Range Interpretation [...] diagnosis of chronic myoc ardial injury. Troponin [id number] 17:01:59 Test Item Value Reference Range Interpretation [...] of chronic myoc ardial injury. Comprehensive Metabolic [id number] 16:46:40 Test Item Value Reference Range Interpretation [...] the National Kidney Foundation, http://nkdep.ni h.gov Creatine [id number] 16:46:40 Test Item Value Reference Range Interpretation Comments CK (test code = CK) 224 U/L 26-192 H Comprehensive Metabolic [id number] 16:46:40 Test Item Value Reference Range Interpretation [...] ag e have not been validated by [facility] MDRD study and should be interpreted [...] ag e have not been validated by [facility] MDRD study and should be interpreted wit h caution. eGFR R esult Interpretation: eGFR > or = 60 is in the Normal RangeeGF R < 60 may mean kid ibrahima diseaseeGFR < 1 5 may mean kidney failure Rang es recommended by the National Kidney Foundation, http://nkdep.ni h.gov Comprehensive Metabolic [id number] 16:46:40 Test Item Value Reference Range Interpretation [...] ag e have not been validated by [facility] MDRD study and should be interpreted [...] ag e have not been validated by [facility] MDRD study and should be interpreted wit h caution. eGFR R esult Interpretation: eGFR > or = 60 is in the Normal RangeeGF R < 60 may mean kid ibrahima diseaseeGFR < 1 5 may mean kidney failure Rang es recommended by the National Kidney Foundation, http://nkdep.ni h.gov Pro B Natriuretic [id number] 16:43:50 Test Item Value Reference Range Interpretation Comments NT-proBNP (test code = NT-proBNP) 513 pg/mL 0-124 H Automated [id number] 16:24:33 Test Item Value Reference Range Interpretation Comments Neutro Auto (test code = Neutro 53.0 % 36.0-70.0 Auto) Lymph Auto (test code = Lymph Auto) 39.3 % 12.0-44.0 Piute Auto (test code = Piute Auto) 6.6 % 0.0-11.0 Eos, Auto (test code = Eos, Auto) 0.0 % 0.0-7.0 Basophil Auto (test code = Basophil 0.8 % 0.0-2.0 Auto) Neutro Absolute (test code = Neutro 4.0 x10 1.6-7.4 Absolute) Lymph Absolute (test code = Lymph 2.97 x10 .50-4.60 Absolute) Piute Absolute (test code = Piute .50 x10 .00-1.20 Absolute) Eos Absolute (test code = Eos 0.00 x10 0.00-0.74 Absolute) Baso Absolute (test code = Baso 0.06 x10 0.00-0.21 Absolute) IG [id number] 16:24:33 Test Item Value Reference Range Interpretation Comments IG (test code = IG) 0.3 % 0.0-5.0 IG Abs (test code = IG Abs) 0 x10 N Complete Blood Count with [id number] 16:24:32 Test Item Value Reference Range Interpretation [...] 0 % N XR Chest 1 View [id number] 16:11:29Patient: SHEFALI SILVEIRA Date/Time10/27/2019 16:05 CDTReason for ExamChest [facility] nReportDICTATION LOCATION: [id number]: Female, 54 years of age with Chest painEXAM: CHEST X-RAY, ONEVIEWCOMPARISON: NoneCOMMENT: Frontal view of the chest is provided. No focal infiltrate, consolidation, mass lesion, or effusion is seen. Cardiac silhouette is within normal limits. No acute bony abnorm alities.IMPRESSION: No acute cardiopulmonary disease. Final Dictated by: Fanny Davis LDictated DT/TM: 10/27/2019 4:11 pmSigned by: Fanny Davis LSigned (Electronic Signature): 10/27/2019 4:11 pm
[2022-05-06] MEDS ORDERED: HYDROMORPHONE HCL 1 MG/ML INJ ONE ×2 (06:49→12:06)
[2022-05-06] MEDS ORDERED: KETOROLAC 30 MG/ML INJ ONE (06:49)
[2022-05-06] MEDS ORDERED: FAMOTIDINE 20 MG/2 ML VIAL IV ONE (06:50)
[2022-05-06] MEDS ORDERED: ONDANSETRON 4 MG/2 ML VIAL ONE ×2 (06:50→09:21)
[2022-05-06] MEDS ORDERED: NA CHLORIDE 0.9% 1,000 ML ONE (06:50)
[2022-05-06 06:54] LABS: Absolute Lymphocytes (CBC) 1.4 K/uL (0.7-4.9); Hematocrit 39.7 % (36.0-45.0); Lymphocytes % 10.5 % (15.3-44.8); MCV 85.9 fL (80-100); MPV 8.8 fL (7.6-11.3); RBC Red Blood Cell Count 4.62 M/uL (3.86-4.86)
[2022-05-06 07:04] LABS: Urine Blood 2+ (Negative); Urine Glucose Negative (Negative); Urine Protein Negative (Negative); Urine Specific Gravity 1.025 (1.005-1.030); Urine pH 5.5 (5.0-7.0)
[2022-05-06 07:06] LABS: Albumin 3.9 g/dL (3.4-5.0); Bilirubin Total 0.6 mg/dL (0.2-1.0); Potassium 3.6 mmol/L (3.5-5.1); Protein, Total 7.7 g/dL (6.4-8.2)
[2022-05-06 07:07] LABS: Urine Bacteria <20 /HPF (<20); Urine Mucus Slight /HPF (None Seen); Urine RBC <5 /HPF (None Seen)
--- NOTE | 2022-05-06 07:40 | RAD REPORT ---
EXAM DESCRIPTION: CT - Stone Protocol - 05/06/2022 7:14 am CLINICAL HISTORY: Abdominal pain. COMPARISON: 2016 TECHNIQUE: Computed axial tomography of the abdomen pelvis was obtained without oral or IV contrast. Lack of IV and oral contrast limits evaluation of solid organs, appendix, bowel, and vessels. Gonzales l reformatted images were obtained and reviewed. All CT scans are performed using dose optimization technique as appropriate and may include automated exposure control or mA/KV adjustment according to patient size. FINDINGS: Horseshoe kidney. Renal calculus is not seen. Ureteral calculus is not visualized. Bladder calculus is not present. No hydronephrosis. Extrarenal pelvis. The liver, spleen, pancreas and adrenals appear grossly normal There is no evidence of diverticulitis. The appendix is mildly dilated. It extends medially from the cecum. Couple of calculi within the appe ndix are present. Mild stranding adjacent to the proximal appendix. No abscess. No free air. No adnexal mass. Small umbilical hernia IMPRESSION: Negative for a genitourinary calculus Appendicitis
--- NOTE | 2022-05-06 07:45 | RAD REPORT ---
EXAM DESCRIPTION: US - Abdomen Exam Limited - 05/06/2022 7:03 am CLINICAL HISTORY: Abdominal pain. COMPARISON: None. FINDINGS: 2.5 centimeter gallstone. Gallbladder wall is not thickened. The biliary tree is normal caliber. IMPRESSION: Cholelithiasis without evidence of cholecystitis
--- NOTE | 2022-05-06 08:24 | ER ---
Nurse's Notes [facility] Name: Virgie Silveira Age: 56 yrs Sex: Female : 1965 Arrival Date: 05/06/2022 Time: 06:24 Bed 8 Private MD: Diagnosis: Acute appendicitis with localized peritonitis Presentation: 05/06 06:31 Chief complaint: Patient states: "about an hour ago I got a sharp cramping pain in my as6 right side and it's not going away" EMS states: called out for abdominal pain. Coronavirus screen: At this time, the client does not indicate any symptoms associated with coronavirus-19. Ebola Screen: No symptoms or risks identified at this time. Initial Sepsis Screen: Does the patient meet any 2 criteria? No. Patient's initial sepsis screen is negative. Does the patient have a suspected source of infection? No. Patient's initial sepsis screen is negative. Risk Assessment: Do you want to hurt yourself or someone else? Patient reports no desire to harm self or others. Onset of symptoms was May 06, 2022 at 05:00. 06:31 Acuity: TOÑITO 3 as6 06:31 Method Of Arrival: EMS: [facility] as6 Historical: - Allergies: 06:35 Codeine; as6 06:35 Lisinopril; as6 06:35 Morphine; as6 - Home Meds: 06:35 Potassium Chloride Oral [Active]; furosemide 40 mg oral tab 1 tab once daily [Active]; as6 - PMHx: 06:35 Congestive heart failure; Hypertension; Hypothyroidism; Pacemaker; defib; as6 - PSHx: 06:35 section; hysterectomy; as6 - Immunization history:: Client reports receiving the 2nd dose of the Covid vaccine, pfizer Flu vaccine is not up to date. - Social history:: Smoking status: Patient reports the use of cigarette tobacco products, denies chronic smoking, but will smoke occasionally. Screenin:36 Abuse screen: Denies threats or abuse. Denies injuries from another. Nutritional as6 screening: No deficits noted. Tuberculosis screening: No symptoms or risk factors identified. Fall Risk None identified. Assessment: 06:36 General: Appears uncomfortable, Behavior is crying, restless. Pain: Complains of pain as6 in right lower quadrant Pain radiates to right upper quadrant Pain currently is 10 out of 10 on a pain scale. Quality of pain is described as crampy, sharp, shooting, stabbing. GI: Reports lower abdominal pain, upper abdominal pain, nausea. 07:20 Reassessment: Patient appears in no apparent distress at this time. No changes from [facility] previously documented assessment. Patient and/or family updated on plan of care and expected duration. Pain level reassessed. Patient is alert, oriented x 3, equal unlabored respirations, skin warm/dry/pink. client stated her pain is decreased to 4/10. placed client on 2L per nasal canula for SPO2 less than 89% on room air. 08:20 Reassessment: Patient appears in no apparent distress at this time. No changes from [facility] previously documented assessment. Patient and/or family updated on plan of care and expected duration. Pain level reassessed. Patient is alert, oriented x 3, equal unlabored respirations, skin warm/dry/pink. 09:20 Reassessment: Patient appears in no apparent distress at this time. No changes from [facility] previously documented assessment. Patient and/or family updated on plan of care and expected duration. Pain level reassessed. Patient is alert, oriented x 3, equal unlabored respirations, skin warm/dry/pink. 09:53 Reassessment: preop nurse at bedside, taking client for appendectomy. kc6 Vital Signs: 06:31 BP 131 / 96; Pulse 86; Resp 18 S; Temp 98.6(O); Pulse Ox 98% on R/A; Weight 73.48 kg as6 (R); Height 5 ft. 1 in. (154.94 cm) (R); Pain 10/10; 07:21 BP 112 / 68; Pulse 86; Resp 16 S; Pulse Ox 95% on 2 lpm NC; Pain 4/10; kc6 09:03 BP 109 / 65; Pulse 72; Resp 18 S; Pulse Ox 94% on R/A; kc6 09:30 BP 97 / 57; Pulse 71; Resp 17 S; Pulse Ox 97% on R/A; kc6 06:31 Body Mass Index 30.61 (73.48 kg, 154.94 cm) as6 ED Course: 06:24 Patient arrived in ED. vc1 06:25 Alejandro Jenkins MD is Attending Physician. adela 06:29 Esteban, Karen, RN is Primary Nurse. kd3 06:33 Triage completed. as6 06:36 Arm band placed on. as6 06:36 Inserted saline lock: 18 gauge in right antecubital area, using aseptic technique. as6 Blood collected. 06:37 Bed in low position. Call light in reach. Side rails up X 1. as6 06:45 Lipase Sent. as6 06:45 CMP Sent. as6 06:45 CBC with Diff Sent. as6 07:05 US Abdomen Limited In Process Unspecified. EDMS 07:14 Primary Nurse role handed off by Karen Orellana, BECKY jd3 07:14 Frank Bruce, BECKY is Primary Nurse. jd3 07:15 CT Stone Protocol In Process Unspecified. EDMS 07:20 Mariam Hernandez, BECKY is Primary Nurse. kc6 07:35 Attending Physician role handed off by Alejandro Jenkins MD rt 07:35 Ty Santiago MD is Attending Physician. rt 08:23 Aaron Leahy MD is Hospitalizing Provider. rt 08:37 Chest Single View XRAY In Process Unspecified. EDMS 09:02 SARS-COV-2 Antigen Rapid Sent. kc6 09:53 No provider procedures requiring assistance completed. Patient admitted, IV remains in kc6 place. Administered Medications: 06:50 Drug: NS 0.9% 1000 ml Route: IV; Rate: 125 ml/hr; Site: right antecubital; as6 07:50 Follow up: Response: No adverse reaction; IV Status: Completed infusion; IV Intake: kc6 1000ml 06:50 Drug: Ketorolac 30 mg Route: IVP; Site: right antecubital; as6 07:50 Follow up: Response: No adverse reaction; Pain is decreased kc6 06:50 Drug: Dilaudid (HYDROmorphone) 1 mg Route: IVP; Site: right antecubital; as6 07:50 Follow up: Response: No adverse reaction; Pain is decreased; RASS: Alert and Calm (0) kc6 06:50 Drug: Zofran (Ondansetron) 4 mg Route: IVP; Site: right antecubital; as6 07:50 Follow up: Response: No adverse reaction; Nausea is decreased kc6 06:50 Drug: Pepcid (famotidine) 20 mg Route: IVP; Site: right antecubital; as6 07:50 Follow up: Response: No adverse reaction kc6 09:02 Drug: Zosyn (piperacillin-tazobactam) 3.375 grams Route: IVPB; Infused Over: 60 mins; kc6 Site: right antecubital; 09:54 Follow up: Response: No adverse reaction; IV Status: Completed infusion; IV Intake: kc6 100ml Medication: 06:37 VIS not applicable for this client. as6 Intake: 07:50 IV: 1000ml; Total: 1000ml. kc6 09:54 IV: 100ml; Total: 1100ml. kc6 Outcome: 08:24 Decision to Hospitalize by Provider. rt 09:53 Admitted to OR accompanied by nurse, via stretcher, with chart. kc6 09:53 Condition: stable 09:53 Instructed on the need for admit. 09:55 Patient left the ED. kc6 Signatures: Dispatcher [employer] EDAlejandro Fabian MD MD cha Davies, Jonathon, RN RN Sivakumar Almeida RN RN as6 Karen Orellana RN RN kd3 Norma Melara RN RN 1 Mariam Hernandez RN RN kc6 Ty Santiago MD MD rt Corrections: (The following items were deleted from the chart) 07:26 07:20 Reassessment: Patient appears in no apparent distress at this time. No changes kc6 from previously documented assessment. Patient and/or family updated on plan of care and expected duration. Pain level reassessed. Patient is alert, oriented x 3, equal unlabored respirations, skin warm/dry/pink. client stated her pain is decreased to 4/10. kc6
--- NOTE | 2022-05-06 08:25 | EDPHYS ---
Physician Documentation [facility] Name: Virgie Silveira Age: 56 yrs Sex: Female : 1965 Arrival Date: 05/06/2022 Time: 06:24 Bed 8 Private MD: ED Physician Ty Santiago HPI: 05/06 06:56 This 56 yrs old Unknown Female presents to ER via EMS with complaints of RIGHT adela ABDOMINAL PAIN. 06:56 The patient presents with abdominal pain right lower quadrant, abdominal distention in adela the upper abdomen, in the lower abdomen. Onset: The symptoms/episode began/occurred just prior to arrival. The patient presents to the emergency department with nausea, vomiting. Onset: The symptoms/episode began/occurred this morning. Possible causes: unknown. The symptoms are aggravated by nothing. The symptoms are alleviated by remaining still. Associated signs and symptoms: Pertinent positives: abdominal pain, nausea. The symptoms radiate to right lower quadrant. Associated signs and symptoms: none. The symptoms are described as sharp. Modifying factors: The symptoms are alleviated by nothing, the symptoms are aggravated by movement, touching the area, walking. Historical: - Allergies: 06:35 Codeine; as6 06:35 Lisinopril; as6 06:35 Morphine; as6 - Home Meds: 06:35 Potassium Chloride Oral [Active]; furosemide 40 mg oral tab 1 tab once daily [Active]; as6 - PMHx: 06:35 Congestive heart failure; Hypertension; Hypothyroidism; Pacemaker; defib; as6 - PSHx: 06:35 section; hysterectomy; as6 - Immunization history:: Client reports receiving the 2nd dose of the Covid vaccine, pfizer Flu vaccine is not up to date. - Social history:: Smoking status: Patient reports the use of cigarette tobacco products, denies chronic smoking, but will smoke occasionally. ROS: 06:59 Constitutional: Negative for fever, chills, and weight loss, Eyes: Negative for injury, adela pain, redness, and discharge, ENT: Negative for injury, pain, and discharge, Neck: Negative for injury, pain, and swelling, Cardiovascular: Negative for chest pain, palpitations, and edema, Respiratory: Negative for shortness of breath, cough, wheezing, and pleuritic chest pain, Back: Negative for injury and pain, : Negative for injury, bleeding, discharge, and swelling, MS/Extremity: Negative for injury and deformity, Skin: Negative for injury, rash, and discoloration, Neuro: Negative for headache, weakness, numbness, tingling, and seizure, Psych: Negative for depression, anxiety, suicide ideation, homicidal ideation, and hallucinations, Allergy/Immunology: Negative for hives, rash, and allergies, Endocrine: Negative for neck swelling, polydipsia, polyuria, polyphagia, and marked weight changes, Hematologic/Lymphatic: Negative for swollen nodes, abnormal bleeding, and unusual bruising. 06:59 Abdomen/GI: Positive for abdominal pain, nausea and vomiting, of the epigastric area, right upper quadrant and right lower quadrant. Exam: 06:59 Constitutional: This is a well developed, well nourished patient who is awake, alert, adela and in no acute distress. Head/Face: Normocephalic, atraumatic. Eyes: Pupils equal round and reactive to light, extra-ocular motions intact. Lids and lashes normal. Conjunctiva and sclera are non-icteric and not injected. Cornea within normal limits. Periorbital areas with no swelling, redness, or edema. ENT: Nares patent. No nasal discharge, no septal abnormalities noted. Tympanic membranes are normal and external auditory canals are clear. Oropharynx with no redness, swelling, or masses, exudates, or evidence of obstruction, uvula midline. Mucous membranes moist. Neck: Trachea midline, no thyromegaly or masses palpated, and no cervical lymphadenopathy. Supple, full range of motion without nuchal rigidity, or vertebral point tenderness. No Meningismus. Chest/axilla: Normal chest wall appearance and motion. Nontender with no deformity. No lesions are appreciated. Cardiovascular: Regular rate and rhythm with a normal S1 and S2. No gallops, murmurs, or rubs. Normal PMI, no JVD. No pulse deficits. Respiratory: Lungs have equal breath sounds bilaterally, clear to auscultation and percussion. No rales, rhonchi or wheezes noted. No increased work of breathing, no retractions or nasal flaring. Back: No spinal tenderness. No costovertebral tenderness. Full range of motion. Skin: Warm, dry with normal turgor. Normal color with no rashes, no lesions, and no evidence of cellulitis. MS/ Extremity: Pulses equal, no cyanosis. Neurovascular intact. Full, normal range of motion. Neuro: Awake and alert, GCS 15, oriented to person, place, time, and situation. Cranial nerves II-XII grossly intact. Motor strength 5/5 in all extremities. Sensory grossly intact. Cerebellar exam normal. Normal gait. Psych: Awake, alert, with orientation to person, place and time. Behavior, mood, and affect are within normal limits. 06:59 Constitutional: The patient appears in obvious distress, moderately distressed, restless. 06:59 Abdomen/GI: Inspection: distension, Bowel sounds: active, Palpation: moderate abdominal tenderness, in the right upper quadrant and right lower quadrant, Liver: no appreciated palpable abnormalities, Hernia: not appreciated. 09:08 ECG was reviewed by the Attending Physician. rt Vital Signs: 06:31 BP 131 / 96; Pulse 86; Resp 18 S; Temp 98.6(O); Pulse Ox 98% on R/A; Weight 73.48 kg as6 (R); Height 5 ft. 1 in. (154.94 cm) (R); Pain 10/10; 07:21 BP 112 / 68; Pulse 86; Resp 16 S; Pulse Ox 95% on 2 lpm NC; Pain 4/10; kc6 09:03 BP 109 / 65; Pulse 72; Resp 18 S; Pulse Ox 94% on R/A; kc6 09:30 BP 97 / 57; Pulse 71; Resp 17 S; Pulse Ox 97% on R/A; kc6 06:31 Body Mass Index 30.61 (73.48 kg, 154.94 cm) as6 MDM: 06:25 Patient medically screened. adela 07:01 Differential diagnosis: Nonspecific abd pain, gastritis, pancreatitis, bowel adela obstruction, Cholelithiasis, gastritis, non-specific abd pain, pancreatitis, Ureterolithiasis, urinary tract infection. Data reviewed: vital signs, nurses notes, lab test result(s), radiologic studies, CT scan, ultrasound. Data interpreted: delivery person: rate is 86 beats/min, rhythm is regular, Pulse oximetry: on room air is 98 %. Counseling: I had a detailed discussion with the patient and/or guardian regarding: the historical points, exam findings, and any diagnostic results supporting the discharge/admit diagnosis, lab results, radiology results. 08:24 ED course: Assumed care at shift change. Patient presents to the ED with right lower rt quadrant pain, CT scan shows an uncomplicated appendicitis. Patient was given Zosyn. Case was discussed with general surgery who given comorbidities request medical admission for preoperative clearance.. 05/06 06:38 Order name: CBC with Diff; Complete Time: 07:13 as6 05/06 06:38 Order name: CMP; Complete Time: 07:13 as6 05/06 06:38 Order name: Lipase; Complete Time: 07:13 as6 05/06 06:44 Order name: Urine Microscopic Only; Complete Time: 07:13 [facility] 05/06 07:04 Order name: Urine Dipstick-Ancillary; Complete Time: 07:13 EDMS 05/06 08:32 Order name: SARS-COV-2 Antigen Rapid bd 05/06 06:44 Order name: US Abdomen Limited; Complete Time: 07:50 [facility] 05/06 06:59 Order name: CT Stone Protocol; Complete Time: 07:50 [facility] 05/06 08:06 Order name: Chest Single View XRAY; Complete Time: 09:10 rt 05/06 06:38 Order name: IV Saline Lock; Complete Time: 06:38 as6 05/06 06:38 Order name: Labs collected and sent; Complete Time: 06:38 as6 05/06 06:44 Order name: Urine Dipstick-Ancillary (obtain specimen); Complete Time: 07:08 [facility] 05/06 08:06 Order name: EKG; Complete Time: 08:06 rt 05/06 08:06 Order name: EKG - Nurse/Tech; Complete Time: 08:42 rt 05/06 08:41 Order name: NPO; Complete Time: 08:42 EDMS EC:08 Rate is 77 beats/min. Rhythm is regular, Normal Sinus Rhythm with No ectopy. QRS [place] rt is Normal. TN interval is normal. QRS interval is normal. QT interval is prolonged at 502 msec. No Q waves. Clinical impression: NSR w/ Non-specific ST/T Changes. Interpreted by me. Administered Medications: 06:50 Drug: NS 0.9% 1000 ml Route: IV; Rate: 125 ml/hr; Site: right antecubital; as6 07:50 Follow up: Response: No adverse reaction; IV Status: Completed infusion; IV Intake: kc6 1000ml 06:50 Drug: Ketorolac 30 mg Route: IVP; Site: right antecubital; as6 07:50 Follow up: Response: No adverse reaction; Pain is decreased kc6 06:50 Drug: Dilaudid (HYDROmorphone) 1 mg Route: IVP; Site: right antecubital; as6 07:50 Follow up: Response: No adverse reaction; Pain is decreased; RASS: Alert and Calm (0) kc6 06:50 Drug: Zofran (Ondansetron) 4 mg Route: IVP; Site: right antecubital; as6 07:50 Follow up: Response: No adverse reaction; Nausea is decreased kc6 06:50 Drug: Pepcid (famotidine) 20 mg Route: IVP; Site: right antecubital; as6 07:50 Follow up: Response: No adverse reaction kc6 09:02 Drug: Zosyn (piperacillin-tazobactam) 3.375 grams Route: IVPB; Infused Over: 60 mins; kc6 Site: right antecubital; 09:54 Follow up: Response: No adverse reaction; IV Status: Completed infusion; IV Intake: kc6 100ml Disposition Summary: 05/06/22 08:24 Hospitalization Ordered Hospitalization Status: Observation rt Provider: Aaron Leahy rt Location: Telemetry/MedSurg (observation) rt Condition: Stable rt Problem: new rt Symptoms: are unchanged rt Bed/Room Type: Standard rt Room Assignment: rt Diagnosis - Acute appendicitis with localized peritonitis rt Forms: - Medication Reconciliation Form rt - SBAR form rt Signatures: Dispatcher [employer] Alejandro Quinn MD MD cha Slawson, Ashby, RN RN as6 Mariam Hernandez RN RN kc6 Ty Santiago MD MD rt
[2022-05-06] MEDS ORDERED: MORPHINE 4 MG/ML SYR IV PRN (08:37)
[2022-05-06] MEDS ORDERED: ONDANSETRON 4 MG/2 ML VIAL IV PRN (08:37)
[2022-05-06] MEDS ORDERED: NA CHLORIDE 0.9% 100 ML IV ONE (08:50)
[2022-05-06] MEDS ORDERED: PIPERACIL/TAZO 3.375 GM VIAL IV ONE (08:51)
--- NOTE | 2022-05-06 08:56 | RAD REPORT ---
EXAM DESCRIPTION: Nancy Single View05/06/2022 8:35 am CLINICAL HISTORY: Abdominal pain COMPARISON: March 16, 2023 FINDINGS: The lungs appear clear of acute infiltrate. The heart is normal size. Pacemaker leads in place. IMPRESSION: No acute abnormalities displayed
[2022-05-06] MEDS: PIPER TAZO 3.375 GM in NA CHLORIDE 0.9% 100 ML IV SCH ×2 (09:00→16:31)
[2022-05-06] MEDS ORDERED: FENTANYL CITR 100 MCG/2 ML ONE ×2 (09:19→10:33)
[2022-05-06] MEDS ORDERED: LIDOCAINE 2% MPF 5 ML VIAL ONE (09:20)
[2022-05-06] MEDS ORDERED: propofoL 200 MG/20 ML VIAL IV ONE (09:20)
[2022-05-06] MEDS ORDERED: MIDAZOLAM HCL 2 MG/2 ML INJ ONE (09:21)
[2022-05-06] MEDS ORDERED: GLYCOPYRROLATE 0.2 MG/ML SYR ONE (09:22)
[2022-05-06] MEDS ORDERED: NEOSTIGMINE 1 MG/ML -5 ML ONE (09:22)
[2022-05-06] MEDS ORDERED: ROCURONIUM 50 MG/5 ML VIAL IV ONE (09:22)
[2022-05-06 09:23] LABS: SARS-CoV-2 Antigen Rapid Res Negative (Negative)
[2022-05-06] MEDS ORDERED: Ringers Lactate 1,000 ML IV ONE (09:41)
--- NOTE | 2022-05-06 10:04 | P.CNS ---
Date of Consult: 05/06/22 Reason for consult: Abdominal pain History of present illness: Patient is a 56-year-old female presents to the hospital with 1 day history of right lower quadrant abdominal pain associated with nausea and vomiting. Patient denies diarrhea, constipation, blood per rectum, dysuria or hematuria. Patient denies fever or chills. Patient denies any chest pain sore throat, runny nose, cough, headaches or dizziness. Patient was admitted about a month and a half ago and had an echocardiogram with ejection fraction of 30 to 35%. Patient was seen by our medical team and deemed to be in compensated congestive heart failure at this time and a moderate risk for general anesthesia. Patient does have episodes of biliary colic. Review of systems: Otherwise unremarkable Past medical history: Hypertension, CHF, pacemaker and defibrillator Past surgical history: Hysterectomy and C-sections Allergies: Lisinopril and morphine Social history: Patient does smoke was counseled, denies drinking alcohol Family history: Noncontributory Vital signs: Stable, afebrile Physical exam: Awake alert oriented x3 Head and neck exam: No masses, no JVD, throat clear and neck supple Chest: Clear Heart: S1-S2 Abdomen: Positive Rovsing's sign, right lower quadrant tenderness with rebound, no rigidity or guarding. Please note patient does not have any tenderness in the right upper quadrant Extremity: Neurovascular intact, non tender Neuro: Nonfocal Diagnostic data: Leukocytosis with a left shift, CT of the abdomen pelvis revealed acute appendicitis uncomplicated and ultrasound of the abdomen shows cholelithiasis without evidence of cholecystitis. LFTs within normal limits. Assessment: Acute appendicitis and symptomatic cholelithiasis Plan/recommendation: Admit, n.p.o., IV fluids, IV antibiotics. Patient does have medical clearance. To the OR for laparoscopic appendectomy and laparoscopic cholecystectomy, possible open. Patient understands risk benefits alternatives and agrees to procedure. CC: Dr. Olea's office
[2022-05-06] MEDS ORDERED: Mastisol Adhesive Liq ONE ×2 (11:11→11:20)
--- NOTE | 2022-05-06 11:41 | P.OP ---
Date of Service: 05/06/22 Preop diagnosis: Acute appendicitis, symptomatic cholelithiasis and umbilical hernia Postop diagnosis: Same Procedure performed: Laparoscopic appendectomy, laparoscopic cholecystectomy and repair of umbilical hernia Surgeon: Chadwick Mejia MD Associate Business Analyst: Jeanie AGUIRRE Estimated blood loss: Minimal Specimen: Gallbladder, appendix, hernia sac and contents Findings: As above Anesthesia: General Complications: None Drains: None Fluids and blood products: Nonapplicable Disposition: Recovery room Operative note: Patient brought to the OR and placed in the supine position. General anesthesia begun. Patient prepped and draped in the usual sterile fashion. Marcaine 0.5% infiltrated locally. 15 blade used to make a 2.5 cm supraumbilical curvilinear incision. Subcutaneous tissue divided. Hernia sac and contents were identified. They were excised at the fascial edge which is approximately 1 cm in diameter. #1 Vicryl stay suture was placed. Peritoneal cavity entered with sharp and blunt dissection. 12 mm trocar placed in the peritoneal cavity under direct vision. Pneumoperitoneum established. 5 mm trocar placed in the epigastric region just to the right of midline under direct vision. 2 other trochars 5 mm in size placed in the right subcostal region. Laparoscopy revealed distended gallbladder with minimal inflammation. The appendix was indurated with separation. The gallbladder surgery was performed first. Fundus was retracted superiorly after the gallbladder was aspirated of bile. Infundibulum was identified and retracted inferolaterally. Minimal adhesions were identified and dissected free from the infundibulum. Cystic duct and cystic artery were clearly identified. Clips placed and both structures divided. Cautery used to remove the gallbladder from the liver bed. Bleeding on the liver bed controlled with cautery. Gallbladder retrieved through the umbilicus via Endo Catch bag. Right upper quadrant irrigated and effluent clear. There was no evidence of bleeding or bile leakage appreciated. Then patient's appendix was addressed base of the appendix on the cecum was iden tified. Mesoappendix was identified. Endo BEAN stapling device was used in sequential fashion to divide the mesoappendix and the base of the appendix on the cecum. The appendix was retrieved through the umbilicus via Endo Catch bag. Right lower quadrant irrigated effluent clear. No evidence of bleeding or bowel injury appreciated. All trochars removed under direct vision. Stay sutures tied to each other to close the fascial defect and fix the hernia. Subcutaneous wounds irrigated bleeding controlled with cautery 3-0 chromic used approximate subcu suture and close skin. Sterile dressing applied. Patient awakened and taken to recovery room in good general condition. CC:
[2022-05-06] MEDS ORDERED: HYDROMORPHONE HCL 1 MG/ML INJ IV PRN (11:48)
[2022-05-06] MEDS ORDERED: ACETAMINOPHEN 325 MG TABLET PO PRN (12:26)
--- NOTE | 2022-05-06 12:30 | P.HP ---
Certification for Inpatient Patient admitted to: Observation With expected LOS: <2 Midnights Patient will require the following post-hospital care: None Practitioner: I am a practitioner with admitting privileges, knowledge of patient current condition, hospital course, and medical plan of care. Services: Services provided to patient in accordance with Admission requirements found in Title 42 Section 412.3 of the Code of Federal Regulations <Afsaneh Mike Jennifer - Last Filed: 05/06/22 16:26> Patient History Date of Service: 05/06/22 Reason for admission: Abdominal pain History of Present Illness: Patient is a 56-year-old female with a past medical history significant for CHF, hypothyroidism, pacemaker\defibrillator, hypertension, nicotine dependence, obesity who presents with complaint of abdominal pain located in the right lower quadrant onset yesterday. Patient reported that pain radiates to right upper quadrant. Patient rated pain as 10/10 and described pain as sharp in quality. Patient reported associated signs and symptoms of headache. Patient denies any other signs or symptoms. Symptoms are aggravated or relieved by nothing. Patient decided to present to the hospital due to worsening symptoms. - Past Medical/Surgical History Diabetic: No -: Hypothyroid -: Hypertension -: Systolic congestive heart failure status post pacemaker -: HLD -: Hysterectomy -: Elbow Surgery -: C section -: Pacemaker 2019 Psychosocial/ Personal History: Employed, lives with family - Family History Mother -: Cancer Notes: Colon CA Father -: Hypertension Notes: HTN, spinal issue - Social History Smoking Status: Current every day smoker Counseled patient to stop smoking for: less than 10 minutes Smoking therapy provided: Yes Patient receptive to therapy: Yes Alcohol use: Yes CD- Drugs: No Caffeine use: Yes Place of Residence: Home <DeejenniferAfsaneh Mccabe - Last Filed: 05/06/22 16:26> Date of Service: 05/06/22 <Aaron Leahy - Last Filed: 05/06/22 17:18> Allergies lisinopril Allergy (Verified 05/06/22 13:25) Hives/Rash morphine Allergy (Verified 05/06/22 13:25) Hives/Rash Home Medications: RX: Furosemide [Lasix*] 40 mg PO DAILY #30 tab 06/07/19 RX: Levothyroxine Sodium 25 mcg PO DAILY #30 tablet 06/07/19 RX: Sacubitril/Valsartan [Entresto 24 mg-26 mg Tablet] 1 tab PO BID 09/11/21 RX: Spironolactone 25 mg PO DAILY 09/11/21 RX: Potassium Chloride 1 tab PO DAILY 03/17/22 Review of Systems General: Unremarkable Eyes: Unremarkable ENT: Unremarkable Respiratory: Unremarkable Cardiovascular: Unremarkable Gastrointestinal: Abdominal Pain Genitourinary: Unremarkable Musculoskeletal: Unremarkable Integumentary: Unremarkable Neurological: Other (Headache ) Lymphatics: Unremarkable <Afsaneh Mike - Last Filed: 05/06/22 16:26> Physical Examination - Vital Signs Temperature: 97.2 F Blood Pressure: 95/58 Pulse: 77 Respirations: 16 - Physical Exam General: Alert, In no apparent distress, Oriented x3, Cooperative HEENT: Atraumatic, PERRLA, Mucous membr. moist/pink, EOMI, Sclerae nonicteric Neck: Supple, 2+ carotid pulse no bruit, No LAD, Without JVD or thyroid abnormality Respiratory: Clear to auscultation bilaterally, Normal air movement Cardiovascular: No edema, Regular rate/rhythm, Normal S1 S2 Capillary refill: <2 Seconds Gastrointestinal: Hypoactive, Tenderness Musculoskeletal: No clubbing, No swelling, No contractures, No erythema Integumentary: No rashes, No breakdown, No significant lesion Neurological: Normal gait, Normal speech, Normal tone, Normal affect Lymphatics: No axilla or inguinal lymphadenopathy - Studies Laboratory Data (last 24 hrs) 05/06/22 06:41: Sodium 135 L, Potassium 3.6, BUN 13, Creatinine 0.91, Glucose 119 H, Total Bilirubin 0.6, AST 18, ALT 69, Alkaline Phosphatase 105, Lipase 155 05/06/22 06:41: WBC 12.90 H, Hgb 13.3, Hct 39.7, Plt Count 270 <Afsaneh Mike - Last Filed: 05/06/22 16:26> - Studies Laboratory Data (last 24 hrs) 05/06/22 06:41: Sodium 135 L, Potassium 3.6, BUN 13, Creatinine 0.91, Glucose 119 H, Total Bilirubin 0.6, AST 18, ALT 69, Alkaline Phosphatase 105, Lipase 155 05/06/22 06:41: WBC 12.90 H, Hgb 13.3, Hct 39.7, Plt Count 270 <Aaron Leahy - Last Filed: 05/06/22 17:18> Assessment and Plan - Plan --Acute appendicitis. Noted on imaging. Surgeon consulted. Plan an appendectomy. Continue antibiotics. Will await further recommendation from surgeon. --Cholelithiasis. Noted on gallbladder ultrasound. Surgery on board. Plans a cholecystectomy. Continue supportive care. -- Acute pain. We will manage pain with current pain medication regimen. --Chronic systolic CHF. Echocardiogram done on March 2022 indicates an EF of 30 to 35%. Daily weight and strict I/O. Continue home medications and supportive care. --Hypothyroidism. Continue Synthroid. --Hyperlipidemia. Continue statin. --Nicotine dependence. Patient is on nicotine patch and counseled on tobacco cessation. --Presence of pacemaker\defibrillator. Telemetry to monitor for any malignant arrhythmia. Continue supportive care. --Hypertension. Stable. Continue home medications when appropriate. --Class I obesity. Likely secondary to excess calories intake. Patient counseled on weight reduction, diet and exercise therapy. --Leukocytosis. Likely secondary to appendicitis. Blood cultures pending. Continue antibiotics. --Headache. Tylenol as needed. --DVT prophylaxis with SCDs. Discharge Plan: Home Plan to discharge in: 48 Hours - Advance Directives Does patient have a Living Will: No Does patient have a Durable POA for Healthcare: No - Code Status/Comfort Care Code Status Assessed: Yes Physician Review: Patient Assessed, Agree with Above Assessment and Plan Critical Care: No (.) <Afsaneh Mike - Last Filed: 05/06/22 16:26> Physician Review: Patient Assessed, Agree with Above Assessment and Plan <Aaron Leahy - Last Filed: 05/06/22 17:18>
[2022-05-06] MEDS: NA CHLORIDE 0.9% 1,000 ML IV SCH ×2 (13:20→23:28)
[2022-05-06] MEDS: HYDROCODONE/APAP 7.5/325 MG TAB PO PRN (19:17)
[2022-05-06] MEDS: SACUBITRIL/VALSARTAN 24/26 MG TAB PO SCH (20:10)
[2022-05-06] MEDS: ATORVASTATIN 40 MG TAB PO SCH (20:10)
[2022-05-06] MEDS ORDERED: ALBUMIN HUMAN 25% 100 ML IV ONE (23:53)
[2022-05-07] MEDS: PIPER TAZO 3.375 GM in NA CHLORIDE 0.9% 100 ML IV SCH ×3 (01:52→16:47)
[2022-05-07 04:32] LABS: Absolute Lymphocytes (CBC) 2.1 K/uL (0.7-4.9); Hematocrit 33.8 % (36.0-45.0); Lymphocytes % 24.4 % (15.3-44.8); MCV 87.4 fL (80-100); RBC Red Blood Cell Count 3.87 M/uL (3.86-4.86)
[2022-05-07 05:43] LABS: Phosphorus 2.3 mg/dL (2.5-4.9); Potassium 3.4 mmol/L (3.5-5.1)
[2022-05-07] MEDS: LEVOTHYROXINE SOD 0.025 MG TAB PO SCH (06:07)
[2022-05-07] MEDS: HYDROCODONE/APAP 7.5/325 MG TAB PO PRN ×3 (06:07→18:00)
[2022-05-07] MEDS: POTASS/SODIUM PHOSPHATE 1 PKT POWD.PACK PO SCH ×3 (08:22→11:14)
[2022-05-07] MEDS: NICOTINE 21 MG/PAT TD SCH (08:22)
[2022-05-07] MEDS: SACUBITRIL/VALSARTAN 24/26 MG TAB PO SCH ×2 (08:22→22:13)
[2022-05-07] MEDS: POTASSIUM CL SA 10 MEQ TAB PO SCH (08:23)
[2022-05-07] MEDS ORDERED: POTASSIUM CL SA 10 MEQ TAB PO ONE (09:00)
[2022-05-07] MEDS: SPIRONOLACTONE 25 MG TABLET PO SCH (09:00)
[2022-05-07] MEDS: FUROSEMIDE 40 MG TABLET PO SCH ×2 (09:00→18:08)
[2022-05-07] MEDS ORDERED: HOME MED 1 EA UNK (Potassium Chloride [Potassium Chloride] 20 MEQ Tablet.Er) PO SCH (09:00)
--- NOTE | 2022-05-07 09:20 | P.PN ---
Date of Service: 05/07/22 Subjective: Patient is feeling weak. Patient still with abdominal pain. Tolerating diet. Objective: Vitals are significant for slightly low blood pressuresystolic in the 90s otherwise stable and afebrile. White count is normal and H&H is 1133. Abdomen: Soft, nondistended, positive bowel sounds with minimal tenderness around incision. Dressing is clean dry and intact Assessment: Status post lap junaid and lap appendectomy Plan: Discussed the case with Dr. Olea. We will keep patient another day and monitor her blood pressure because patient has significant comorbidities. Continue IV antibiotics. Encourage ambulation and incentive spirometry. CC:
[2022-05-07] MEDS: NA CHLORIDE 0.9% 1,000 ML IV SCH ×3 (09:55→22:15)
--- NOTE | 2022-05-07 11:37 | EKG ---
Test Date: 2022-05-06 Test Time: 08:37:06 Bee Raiser: GUY MEASUREMENT RESULTS: Intervals: Rate: 77 NH: 140 QRSD: 90 QT: 444 QTc: 502 [place]: P: 81 NH: 140 QRS: 85 T: 90 INTERPRETIVE STATEMENTS: Normal sinus rhythm Nonspecific ST and T wave abnormality Prolonged QT Abnormal ECG Compared to ECG 03/16/2022 22:16:18 ST (T wave) deviation now present Atrial premature complex(es) no longer present Aberrant conduction of supraventricular beat(s) no longer present T-wave abnormality no longer present Electronically Signed On 05-07-22 11:34:42 PICTURE ENLARGER by Jun Harper
--- NOTE | 2022-05-07 18:40 | P.PN ---
Subjective Date of Service: 05/07/22 Chief Complaint: Abdominal pain Post-op day #1 from laparoscopic appendectomy and laparoscopic cholecystectomy. This morning, she reports significant post-operative pain. She grades the pain a 6-7/10 in severity. Her blood pressure has been soft overnight. Review of Systems 10-point ROS is otherwise unremarkable Gastrointestinal: Nausea, Abdominal Pain, No Distention Physical Examination - Vital Signs Temperature: 99.2 F Blood Pressure: 104/67 Pulse: 84 Respirations: 19 Pulse Ox (%): 96 - Physical Exam General: Alert, Oriented x3, Mild distress HEENT: Atraumatic, Mucous membr. moist/pink, EOMI, Sclerae nonicteric Neck: JVD not distended Respiratory: Clear to auscultation bilaterally, Normal air movement Cardiovascular: Regular rate/rhythm, Normal S1 S2, No gallops, No rubs, No murmurs, Edema (trace) Gastrointestinal: Hypoactive, Soft and benign, Non-distended, No rebound, No guarding, Other (abdomen in binder), Tenderness (generalized) Musculoskeletal: No clubbing Integumentary: No rashes Neurological: Normal speech, Cranial nerves 3-12 intact, Normal affect Assessment And Plan - Plan # Acute Uncomplicated Appendicitis s/p Laparoscopic Appendectomy # Cholelithiasis s/p Laparoscopic Cholecystectomy # Post-Operative Pain # Suspect Medication-Induced Hypotension - Abdominal ultrasound = "cholelithiasis without evidence of cholecystitis" - CT abdomen/pelvis = "negative for a genitourinary calculus. Appendicitis." - General Surgery consulted and spoke with Dr. Mejia - recommendations appreciated - POD #1 - laparoscopic cholecystectomy + laparoscopic appendectomy - Continue piperacillin-tazobactam - Pain control - Advance diet as tolerated # Chronic Compensated Systolic Congestive Heart Failure with Reduced Ejection Fraction (LVEF 30-35%) s/p PPM/AICD # Hypertension - Stable, no evidence of acute exacerbation - Chest x-ray = "no acute abnormalities displayed." - Continue home furosemide, spironolactone, sacubutril-valsartan - Daily weights - Strict I/O - Cardiac diet, 2 L fluid restriction, 2 g Na restriction # Hypothyroidism - Continue home levothyroxine # Hyperlipidemia - Continue home atorvastatin # Tobacco Use Disorder - Continue nicotine patch - Tobacco cessation counseling provided # [facility] Aaron Leahy M.D.
[2022-05-07] MEDS: ATORVASTATIN 40 MG TAB PO SCH (22:13)
[2022-05-08] MEDS: PIPER TAZO 3.375 GM in NA CHLORIDE 0.9% 100 ML IV SCH ×2 (02:12→09:00)
[2022-05-08] MEDS: NA CHLORIDE 0.9% 1,000 ML IV SCH (04:00)
[2022-05-08] MEDS: HYDROCODONE/APAP 7.5/325 MG TAB PO PRN ×2 (05:45→12:05)
[2022-05-08] MEDS: LEVOTHYROXINE SOD 0.025 MG TAB PO SCH (05:45)
[2022-05-08 05:51] LABS: Phosphorus 2.8 mg/dL (2.5-4.9); Potassium 3.7 mmol/L (3.5-5.1)
--- NOTE | 2022-05-08 08:08 | P.DS ---
Admission Date: 05/07/22 Discharge Date: 05/08/22 Disposition: ROUTINE DISCHARGE Discharge Condition: GOOD Reason for Admission: Abdominal pain Consultations: 1. General Surgery Procedures: - 05/06/2022 - Laparoscopic Appendectomy - 05/06/2022 - Laparoscopic Cholecystectomy Hospital Course: DIAGNOSES: # Acute Uncomplicated Appendicitis s/p Laparoscopic Appendectomy # Cholelithiasis s/p Laparoscopic Cholecystectomy # Post-Operative Pain # Suspect Medication-Induced Hypotension (resolved) # Chronic Compensated Systolic Congestive Heart Failure with Reduced Ejection Fraction (LVEF 30-35%) s/p PPM/AICD # Hypertension # Hypothyroidism # Hyperlipidemia # Tobacco Use Disorder # [facility] HOSPITAL COURSE: Ms. Virgie Silveira is a pleasant 56 year old female with a past medical history significant for chronic systolic congestive heart failure, hypertension, hyperlipidemia, hypothyroidism, and tobacco use disorder who was admitted to the [facility] on 05/06/2022 for abdominal pain. She was admitted to the Medicine service. Upon further evaluation, her abdominal ultrasound revealed, "cholelithiasis without evidence of cholecystitis." Her CT abdomen/pelvis revealed, "negative for a genitourinary calculus. Appendicitis." General Surgery was consulted and she was evaluated by Dr. Mejia. On 05/06/2022, she underwent a combined laparoscopic appendectomy and cholecystectomy. She tolerated the procedure well, but her hospital course was complicated by post- operative pain. She was weaned to PO pain medication and was able to tolerate a regular diet. She has passed flatus this morning. She would like to be discharged home and has been cleared for discharge with a PCP and General Surgery follow-up. On 05/08/2022, she was seen on morning rounds and deemed medically stable for discharge. She was discharged with instructions to schedule follow-up appointments with her PCP (VAN Mcdermott) and with General Surgery (Dr. Mejia). She was provided prescriptions for amoxicillin-clavulanate and hydrocodone- acetaminophen. She was given the opportunity to ask questions and reported no further questions. Furthermore, all questions were answered to the best of my ability. Prior to her controlled substance prescription, a PDMP review was conducted. Over the last year, she has received 0 prescriptions, to 0 pharmacies, from 0 providers. Her opioid overdose risk score is 0. A copy of this discharge summary will be sent to the above providers to facilitate continuity of care. Today, I personally spent 25 minutes on her case, of which greater than 50% of the time was spent in patient education, counseling, and coordination of care as described above. - Physical Exam General: Alert, Oriented x3, No distress HEENT: Atraumatic, Mucous membr. moist/pink, EOMI, Sclerae nonicteric Neck: JVD not distended Respiratory: Clear to auscultation bilaterally, Normal air movement Cardiovascular: Regular rate/rhythm, Normal S1 S2, No gallops, No rubs, No murmurs, Edema (trace) Gastrointestinal: Hypoactive, Soft and benign, Non-distended, No rebound, No guarding, Minimal right-sided tenderness Musculoskeletal: No clubbing Integumentary: No rashes, incision sites are clean, dry, and intact Neurological: Normal speech, Cranial nerves 3-12 intact, Normal affect Vital Signs/Physical Exam: Temp Pulse Resp BP Pulse Ox 97.2 F 80 18 110/67 96 05/08/22 04:00 05/08/22 04:00 05/08/22 06:45 05/08/22 04:00 05/08/22 06:45 Laboratory Data at Discharge: WBC 8.50 K/uL (4.3-10.9) 05/07/22 03:30 Hgb 11.4 g/dL (12.0-15.0) L D 05/07/22 03:30 Hct 33.8 % (36.0-45.0) L 05/07/22 03:30 Plt Count 210 K/uL (152-406) 05/07/22 03:30 Sodium 135 mmol/L (136-145) L 05/08/22 05:22 Potassium 3.7 mmol/L (3.5-5.1) 05/08/22 05:22 BUN 11 mg/dL (7-18) 05/08/22 05:22 Creatinine 0.86 mg/dL (0.55-1.3) 05/08/22 05:22 Glucose 89 mg/dL (74-106) 05/08/22 05:22 Phosphorus 2.8 mg/dL (2.5-4.9) 05/08/22 05:22 Magnesium 2.0 mg/dL (1.8-2.4) 05/07/22 03:30 Total Bilirubin 0.6 mg/dL (0.2-1.0) 05/06/22 06:41 AST 18 U/L (15-37) 05/06/22 06:41 ALT 69 U/L (12-78) 05/06/22 06:41 Alkaline Phosphatase 105 U/L (45-117) 05/06/22 06:41 Lipase 155 U/L (73-393) 05/06/22 06:41 Home Medications: RX: Furosemide [Lasix*] 40 mg PO DAILY #30 tab 06/07/19 RX: Levothyroxine Sodium 25 mcg PO DAILY #30 tablet 06/07/19 RX: Sacubitril/Valsartan [Entresto 24 mg-26 mg Tablet] 1 tab PO BID 09/11/21 RX: Spironolactone 25 mg PO DAILY 09/11/21 RX: Potassium Chloride 1 tab PO DAILY 03/17/22 Amox/Clavulanate [Augmentin 875-125 Tab] 875 mg PO BID 5 Days #10 tab 05/08/22 Hydrocodone 5/APAP 325 [[place]bie 5/325] 1 tab PO Q6H PRN 3 Days #12 tab 05/08/22 New Medications: Amox/Clavulanate [Augmentin 875-125 Tab] 875 mg PO BID 5 Days #10 tab Hydrocodone 5/APAP 325 [[place]bie 5/325] 1 tab PO Q6H PRN 3 Days #12 tab PRN Reason: Pain Physician Discharge Instructions: 1. Please call and schedule a follow-up appointment with your PCP (VAN Mcdermott) in 3-5 days 2. Please call and schedule a follow-up appointment with General Surgery (Dr. Mejia) in 5-7 days Followup: Steph Mcdermott NP [ALLIED HEALTH PROFESSIONAL] - Chadwick Mejia MD [ACTIVE - CAN ADMIT] - Time spent managing pt's care (in minutes): 25
[2022-05-08] MEDS: FUROSEMIDE 40 MG TABLET PO SCH (09:00)
[2022-05-08] MEDS: SPIRONOLACTONE 25 MG TABLET PO SCH (09:08)
[2022-05-08] MEDS: POTASSIUM CL SA 10 MEQ TAB PO SCH (09:09)
[2022-05-08] MEDS: NICOTINE 21 MG/PAT TD SCH (09:09)
[2022-05-08] MEDS: SACUBITRIL/VALSARTAN 24/26 MG TAB PO SCH (09:09)
--- NOTE | 2022-05-08 10:59 | P.PN ---
Date of Service: 05/08/22 Subjective: Patient is feeling much better. Patient is tolerating diet. Pain is controlled on oral medications. Objective: Vitals stable, afebrile. Abdomen: Soft, nondistended, positive bowel sounds with minimal tenderness around incision. Dressing is clean dry and intact Assessment: Status post lap junaid and lap appendectomy Plan: Discussed the case with Dr. Olea. Patient cleared for discharge from surgery point of view. Discharge instructions given. CC:
[2022-05-08 12:58] VITALS: O2SAT 94; BMI 31.4
[2022-05-08 13:03] VITALS: BP 114/54; TEMP 97.8
== END 2022-05-08 12:23 | disposition home or self-care (01) | DRG 342 ==
LOC: ER 06:21 → ERHOLD 08:36 → 4TH 12:35 → OBSVTOIN 05-07 08:00
PROVIDERS: ADMIT Internal Medicine; ATTEND Internal Medicine
PROC: 0FT44ZZ Resection of Gallbladder, Percutaneous Endoscopic Approach (ICD-10-PCS; 2022-05-06)
PROC: 0WQF4ZZ Repair Abdominal Wall, Percutaneous Endoscopic Approach (ICD-10-PCS; 2022-05-06)
PROC: 0DTJ4ZZ Resection of Appendix, Percutaneous Endoscopic Approach (ICD-10-PCS; principal; 2022-05-06 10:00)
DX: K35.30 Acute appendicitis with localized peritonitis, without perforation or gangrene (principal); I50.22 Chronic systolic (congestive) heart failure; K80.20 Calculus of gallbladder without cholecystitis without obstruction; I11.0 Hypertensive heart disease with heart failure; E03.9 Hypothyroidism, unspecified; K42.9 Umbilical hernia without obstruction or gangrene; E66.9 Obesity, unspecified; E78.5 Hyperlipidemia, unspecified; G89.18 Other acute postprocedural pain; Q63.1 Lobulated, fused and horseshoe kidney; I95.2 Hypotension due to drugs; T50.905A Adverse effect of unspecified drugs, medicaments and biological substances, initial encounter; F17.210 Nicotine dependence, cigarettes, uncomplicated; R51.9 Headache, unspecified; Z88.5 Allergy status to narcotic agent; Z88.8 Allergy status to other drugs, medicaments and biological substances; Z68.30 Body mass index [BMI] 30.0-30.9, adult; Z95.810 Presence of automatic (implantable) cardiac defibrillator; Z90.710 Acquired absence of both cervix and uterus; Z20.822 Contact with and (suspected) exposure to COVID-19
CPT/HCPCS: 36415; 71045; 74176; 76377; 76705; 80048; 80053; 81003; 81015; 83690; 83735; 83880; 84100; 84132; 85025; 87040; 87811; 88302; 88304; 93005; 94010; 96361; 96365; 96375; 99285; G0378; J1170; J2001; J2250; J2405; J2543; J2704; J2710; J3010; J7030; J7120; P9047

== ENCOUNTER 2022-10-31 22:35 | Inpatient (IN) | payer OTHER ==
--- OUTSIDE RECORDS SUMMARY | 2022-10-31 22:39 | XMS REPORT | Continuity of Care Document ---
:1965 Author Organization [facility] t Address [address] [place] [address] Care Team Providers Name Role Phone STEPH OSWALD Primary Care Physician Unavailable Steph Oswald Attending Clinician Unavailable Awilda Daniels Attending Clinician Unavailable Oscar Arceo Attending Clinician Unavailable Stanford Gaston Attending Clinician Unavailable Stanford Gaston Attending Clinician Unavailable TERI GARCIA Attending Clinician Unavailable TG MOJICA Attending Clinician Unavailable MAXIMILIAN VIDALES Attending Clinician Unavailable AALIYAH MASON Attending Clinician Unavailable Aaliyah Morrison Attending Clinician DIDIER ARGUETA Attending Clinician Unavailable Oscar Arceo Admitting Clinician Unavailable Stanford Gaston Admitting Clinician Unavailable AALIYAH MASON Admitting Clinician Unavailable DIDIER ARGUETA Admitting Clinician Unavailable Payers Payer Name Policy Type Policy Number Effective Date Expiration Date Rosalina hernandezwally YESIKA [facility] 9 [id number] 2022 SILVER: 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 Ambetter from [id number] 2020 Common [facility] 00:00:00 [facility] Ambetter from [id number] 2020 [facility] 00:00:00 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 cardiac cardiac l defibrilla defibrilla tor tor COPD COPD Disease Active Hilda (chronic (chronic 10-10 Seybol d obstructiv obstructiv 00:00: - e e 00 Externa pulmonary pulmonary l disease) disease) No known No known Disease Unive rs active active ity of problems problems [facility] [id number] Hypokalemi Problem Active Com mon a [facility] [id number] Tachycardi Problem Active Comm on a [facility] Smoker Smoker Problem Active Common [facility] [id number] Acquired Problem Active Comm on hypothyroi [facility] [id number] Screening Problem Active Com mon mammogram, [facility] for [facility] [id number] Peripheral Problem Active Co mmon edema [facility] [id number] Cervical Problem Active Commo n radiculopa [facility] at [address] [id number] Lumbar Problem Active Common radiculopa Spirit thy, - [facility] Allergies, Adverse Reactions, Alerts Allergy Allergy Status Severity Reaction(s) Onset Inactive Treating Comm ents Source Name Type Date Date Clinician Lisinopr Propensi Active Rash Hilda il ty to 4-27 Seybold adverse 00:00: - reaction 00 Externa s l Morphine Propensi Active Other Hilda ty to 4-27 Seybold adverse 00:00: - reaction 00 Externa s l LISINOPR DRUG Active Rash Univers [place] INGREDI 01-14 ity of 00:00: [place] 00 [facility] Lisinopr Propensi Active Rash Univer s il ty to 01-14 ity of adverse 00:00: [place] reaction Medical s Branch Morphine Propensi Active Unknown - 2009-06 Uni vers ty to See comments 06-16 ity of adverse 00:00: [place] reaction Medical s Branch MORPHINE DRUG Active Unknown-Cmnt 2009-06 Un tony INGREDI 06-16 ity of 00:00: [place] 00 Medical Branch CODEINE- DRUG Active N/V 2006-06 Univers BUTALBIT 07-12 ity of AL-ASA-C 00:00: [place] AFF 00 Medical Branch Codeine- Propensi Active Nausea 2006-06 Univer s Butalbit ty to and/or 07-12 ity of al-Asa-C adverse Vomiting 00:00: [place] aff reaction 00 Medical s Branch morphine morphine Active Unknown Commo n [facility] lisinopr lisinopr Active Unknown Commo n [facility] morphine Drug Active [facility] lisinopr Drug Active [facility] morphine Drug Active [facility] lisinopr Drug Active [facility] morphine Drug Active [facility] lisinopr Drug Active [facility] morphine Drug Active [facility] lisinopr Drug Active [facility] morphine Drug Active [facility] lisinopr Drug Active [facility] morphine Drug Active [facility] lisinopr Drug Active [facility] morphine [facility] Active [facility] lisinopr Drug Active [facility] morphine Drug Active [facility] lisinopr Drug Active [facility] morphine Drug Active [facility] lisinopr Drug Active [facility] morphine Drug Active [facility] lisinopr Drug Active [facility] morphine Drug Active [facility] lisinopr Drug Active [facility] morphine Drug Active [facility] lisinopr Drug Active [facility] morphine Drug Active [facility] lisinopr Drug Active [facility] morphine Drug Active [facility] lisinopr Drug Active [facility] Social History Social Habit Start Date Stop Date Quantity Comments Source Gender identity Hilda valentino - External Sexual orientation Hilda Flores - External History of tobacco Cigarette Smoker Hilda Flores - use External Alcohol intake 2022-10-10 2022-10-10 Ex-drinker Hilda berrios - 00:00:00 00:00:00 (finding) External Education 2022-10-10 2022-10-10 11 Hilda Flores - 00:00:00 00:00:00 External History of Social 2022-10-09 2022-10-09 Hilda Flores - function 00:00:00 00:00:00 External Alcohol Comment 2022-10-09 2022-10-09 stopped in 2007 Deb Flores - 00:00:00 00:00:00 External Cigarettes smoked 2022-10-09 2022-10-09 Hilda Flores - current (pack per 00:00:00 00:00:00 Externa l day) - Reported Cigarette 2022-10-09 2022-10-09 Hilda Flores - pack-years 00:00:00 00:00:00 External Tobacco use and 2022-10-09 2022-10-09 Smokeless Hilda valentino - exposure 00:00:00 00:00:00 tobacco non-user External Exposure to 2021-11-24 2021-12-04 Unable to assess Univers ity of SARS-CoV-2 (event) 00:00:00 10:21:00 [facility] Sex Ass[birth year] At [birth year] Hilda sanchezmert - 00:00:00 00:00:00 External Smoking Status Start Date Stop Date Source Smokes tobacco daily 2022-10-09 00:00:00 Hilda Flores - External Former Smoker 2021-03-11 00:00:00 2021-03-11 00:00:00 Common S pirit - [facility] nter Medications Ordered Filled Start Stop Current Ordering Indication Dosage Frequency Signature Comments Components Source Medication Medication Date Date Medication? Clinician (SIG) Name Name POTASSIUM 2022- No Take by Deb ey OR 4-28 - mouth Seybold 16:36: 00:00 - 15 :00 Externa l Spironolact Yes 25mg Take 1 Deb ey one 25 MG 4-28 tablet (25 Seyb old oral Tablet 16:35: mg total) - 59 by mouth Externa daily l Sacubitril- 0 Yes 1{tbl} Take 1 Ke lsey Valsartan 4-28 tablet by Seybo ld 24-26 MG 16:16: mouth 2 - oral Tablet 39 times Externa daily l FUROSEMIDE Yes 40mg Take 40 mg K elsey OR 4-28 by mouth Seybold 16:16: daily - 39 Externa l Spironolact 2022- No 25mg Take 1 Ravi sey one 25 MG 4-28 - tablet (25 Sey bold oral Tablet 16:16: 00:00 mg total) - 39 :00 by mouth Externa daily l Fluticasone Yes [id number] 1{puff} Inhale 1 Hilda -Salmeterol 4-28 puff into Sey bold (Advair 00:00: the lungs - Diskus) 00 2 times Externa 250-50 daily l MCG/ACT inhalation AEROSOL POWDER, BREATH ACTIVATED Levalbutero Yes [id number] 2{puff} Q.[id number] Inhale 2 Hilda l Tartrate -28 [id number] puffs into Seybold (Xopenex 00:00: 3D the lungs - HFA) 45 00 every 8 Externa MCG/ACT hours as l inhalation needed for Aerosol wheezing or shortness of breath albuterol Yes [id number] 2{puff} Inhale 2 Univers 90 6-22 Puffs ity of mcg/actuati 00:00: every 6 Pa as on inhaler 00 (six) Medical hours as Branch needed for Wheezing or Shortness of Breath. Chantix Chantix 0 2020- No BID Chantix Continuing Continuing 01-21 Continuing Month Jaleel 1 Month Jaleel 1 00:00: 00:00 Month Jaleel MG MG 00 :00 1 MG Amoxicillin Amoxicillin 2020-0 2020- No Awilda 1 tablet Common -Pot -Pot 7-31 08-07 Millender Spirit Clavulanate Clavulanate 00:00: 00:00 - [facility]I 00 :00 [facility] acetaminoph Yes 1{tbl} Take 1 Un tony [...] Furosemide Yes Awilda 1 tablet Common Millender [facility] Aspirin 81 Aspirin 81 Yes Awilda 1 tablet Common Millender [facility] Levothyroxi Levothyroxi Yes Awilda 1 tablet Common ne Sodium ne Sodium Millender in the [facility] morning on - [facility] an empty [facility] Naproxen Naproxen Yes Awilda 1 tablet Co mmon Millender [facility] Hydrochloro Hydrochloro Yes Awilda 1 tablet Common thiazide thiazide Millender in the [facility] Daily Multi Daily Multi Yes Awilda as Common Vitamin/Min Vitamin/Min [facility]ender [facility] Spironolact No Spironolac one 25 MG [...] Pfizer COVID-19 2021-03-13 Completed Comm on Spirit - Vaccine Vaccine 11:37:00 [facility] Pfizer COVID-19 Pfizer COVID-19 2021-02-12 Completed Comm on Spirit - Vaccine Vaccine 16:27:00 [facility] Influenza Virus 2019-07-31 Completed Hilda Rodriguez ybold Vaccine, No Preserv, 00:00:00 - Ex ternal age 6 months and up Vital Signs Vital Name Observation Time Observation Value Comments Source Height/Length 2019-10-27 21:50:43 Measured Systolic blood 2022-10-10 21:14:00 101 mm[Hg] Hilda Flores - pressure External Diastolic blood 2022-10-10 21:14:00 74 mm[Hg] Andressa Flores - pressure External Heart rate 2022-10-10 21:14:00 85 /min Hilda brewerbonick - External Body temperature 2022-10-10 21:14:00 36.33 Monalisa Deb brewer Seybold - External Respiratory rate 2022-10-10 21:14:00 14 /min Deb brewer ybold - External Body height 2022-10-10 21:14:00 157.5 cm Hilda brewerbonick - External Body weight 2022-10-10 21:14:00 119.75 kg Hilda hensley - External BMI 2022-10-10 21:14:00 48.29 kg/m2 Hilda hensley - External Oxygen saturation in 2022-10-10 21:14:00 99 /min Hilda Flores - Arterial blood by External Pulse oximetry Systolic blood 2021-12-04 15:36:00 125 mm[Hg] Univer sity of pressure [facility] Diastolic blood 2021-12-04 15:36:00 53 mm[Hg] Unive rsity of pressure [facility] Heart rate 2021-12-04 15:36:00 93 /min [facility] Body temperature 2021-12-04 15:36:00 36.78 [facility] 2021-12-04 15:36:00 20 /min [facility] Body height 2021-12-04 15:36:00 160 cm [facility] ty [facility] Body weight 2021-12-04 15:36:00 75.751 kg Universi ty [facility] BMI 2021-12-04 15:36:00 29.58 [facility]m2 [facility] O[facility] saturation in 2021-12-04 15:36:00 97 /min [facility] Arterial blood by [facility] Pulse oximetry Branch height 2020-12-10 09:00:00 61 [in_i] [facility] weight 2020-12-10 09:00:00 160 [lb_av] [facility] temperature 2020-12-10 09:00:00 97.2 [degF] [facility] bmi 2020-12-10 09:00:00 30.23 kg/m2 [facility] oximetry 2020-12-10 09:00:00 100 % [facility] respiratory rate 2020-12-10 09:00:00 20 /min Comm on [facility] blood pressure 2020-12-10 09:00:00 110 mm[Hg] Common [facility] - systolic [facility] blood pressure 2020-12-10 09:00:00 64 mm[Hg] Common [facility] - diastolic [facility] Height/Length 2021-07-02 12:51:42 158 cm Measured Weight [...] CHEST 1 VW 2021-12-04 16:35:48 Aaliyah [facility] RAPID INFLUENZA A/B 2021-12-04 15:50:00 Aaliyah Mason [facility] COVID-19 (ID NOW 2021-12-04 15:50:00 Aaliyah Mason [facility] RAPID TESTING) [facility] NOTICE OF PRIVACY 2021-12-04 15:23:47 Doctor Unassigned, No [facility] PRACTICES Name [facility] CONSENT/REFUSAL FOR 2021-12-04 15:23:25 Doctor Unassigned, No [facility] DIAGNOSIS AND Name [facility] Branch TREATMENT Encounters Start End Encounter Admission Attending Care Care Encounter Source Date/Time Date/Time Type Type Clinicians Facility Department ID 2022-01-08 Outpatient Custer, STLMLC STLMLC [id number] Common 08:37:00 Steph 56009 [facility] 2021-07-10 Outpatient C[place], STLMLC STLMLC [id number] Common 13:02:37 Steph 08955 [facility] 2021-07-10 Outpatient Millender, STLMLC STLMLC [id number] Common 11:34:12 Awilda 80083 [facility] 2021-07-10 Outpatient Millender, STLMLC STLMLC [id number] Common 11:34:01 Awilda 27754 [facility] 2021-07-10 Outpatient Millender, STLMLC STLMLC [id number] Common 10:59:36 Awilda 90171 [facility] 2021-07-10 Outpatient Jeremiah STNATANAEL [facility] [id number] Common 10:59:25 Awilda 73848 [facility] 2021-07-10 Outpatient Jeremiah STAUDIE [facility] [id number] Common 10:59:02 Awilda 24408 [facility] 2019-10-27 Inpatient 1 Oscar Arceo [facility] TEL [id number] [address]. 15:41:00 Oscar Arceo -[id number] [facility] 2019-08-09 Inpatient Marilin [facility] STEFANI [id number] 13:06:00 Stanford Gaston [facility] 2023-01-14 2023-01-14 Outpatient HILDA GARCIA [id number] Hilda 14:30:00 14:30:00 TERI Seybol d 2023-01-02 2023-01-02 Outpatient TG MOJICA [id number] Hilda 15:20:00 15:20:00 Seybol d 2022-11-11 2022-11-11 Outpatient HILDA VIDALES [id number] Hilda 15:30:00 15:30:00 MAXIMILIAN Seybol d 2022-10-24 2022-10-24 Outpatient HILDA VIDALES [id number] Hilda 00:00:00 00:00:00 MAXIMILIAN Seybol d 2022-10-20 2022-10-20 Outpatient HILDA VIDALES [id number] Hilda 00:00:00 00:00:00 MAXIMILIAN Seybol d 2022-10-10 2022-10-10 Outpatient HILDA VIDALES [id number] Hilda 16:15:00 16:15:00 MAXIMILIAN Seybol d 2021-12-04 2021-12-04 Emergency [facility] ERT [id number] Univers 10:40:00 12:16:00 AALIYAH clark [facility] 2021-12-04 2021-12-04 Emergency [place], [facility] [id number] Univers 10:40:00 12:16:00 Aaliyah VICTORIA [id number] [facility] [id number] [facility] [id number] [place] [id number] Branch 2021-05-10 2021-05-10 (TEL) STLMLC STLMLC [id number] Co mmon 00:00:00 00:00:00 [facility] 2021-01-20 2021-01-20 (WEB) STLMLC STLMLC [id number] Co mmon 00:00:00 00:00:00 [facility] 2021-01-14 2021-01-14 Emergency X [facility] ERT [id number] Univers 14:30:00 14:30:00 ity [facility] 2020-12-10 2020-12-10 OFFICE STLMLC STLMLC [id number] Co mmon 00:00:00 00:00:00 VISIT [facility] LEVEL 4 [facility] 2020-01-13 2020-01-13 [facility] [id number] Common 14:40:00 14:40:00 [facility] [address] [facility] 2020-01-13 2020-01-13 Out[facility] [id number] Common 11:40:00 11:40:00 [facility] [address] [facility] 2019-12-21 2019-12-21 Outpatient [facility] [id number] Common 16:33:00 16:33:00 [facility] [address] [facility] 2019-10-27 2019-10-28 Inpatient 1 Oscar Arceo [facility] TEL [id number] 15:41:00 20:02:00 Oscar Arceo [facility] 2019-09-05 2019-09-05 [facility] [id number] Common 13:11:00 13:11:00 [facility] [address] [facility] 2019-08-15 2019-08-20 Inpatient E DIDIER ARGUETA [facility] MED [facility] Memoria 19:48:00 12:33:00 l [facility] 2019-07-07 2019-07-07 Outpatient [facility] [id number] Common 15:26:00 15:26:00 t [facility] Sp[address] [facility] 2019-06-23 2019-06-23 Outpatient Vivi Partida [id number] Common 14:00:00 14:00:00 t [facility] [address] Sp[address] [facility] 2018-02-04 2018-02-04 Outpatient Vivi Partida [id number] Common 15:00:00 15:00:00 t [facility] [address] [facility] Results Test Description Test Time Test Comments Results Result Comments Source Lipid Panel 2019-10-28 06:52:53 Test Item Value Reference Range Interpretation Comme nts Cholesterol Total (test code = 147 mg/dL 0-200 RISK OF HEART DISEASEPublished by Cholesterol Total) [place] [employer] Analyte Optimal Borderl ine Increased [...] i s LDL/HDL Ratio=LDL Calc/HDL Chol Troponin [id number] 21:47:02 Test Item Value Reference Range Interpretation [...] diagnosis of chronic myoc ardial injury. Troponin [id number] 19:26:34 Test Item Value Reference Range Interpretation [...] diagnosis of chronic myoc ardial injury. Troponin [id number] 17:01:59 Test Item Value Reference Range Interpretation [...] of chronic myoc ardial injury. Comprehensive Metabolic [id number] 16:46:40 Test Item Value Reference Range Interpretation [...] disease than se rum creatinine alone.This calculation geovnay es sex and race in to account, [...] the National Kidney Foundation, http://nkdep.ni h.gov Creatine [id number] 16:46:40 Test Item Value Reference Range Interpretation Comments CK (test code = CK) 224 U/L 26-192 H Comprehensive Metabolic [id number] 16:46:40 Test Item Value Reference Range Interpretation [...] ag e have not been validated by [facility] MDRD study and should be interpreted [...] ag e have not been validated by [facility] MDRD study and should be interpreted wit h caution. eGFR R esult Interpretation: eGFR > or = 60 is in the Normal RangeeGF R < 60 may mean kid ibrahima diseaseeGFR < 1 5 may mean kidney failure Rang es recommended by the National Kidney Foundation, http://nkdep.ni h.gov Comprehensive Metabolic [id number] 16:46:40 Test Item Value Reference Range Interpretation [...] Kidney Foundation, http://nkdep.ni h.gov Pro B Natriuretic [id number] 16:43:50 Test Item Value Reference Range Interpretation Comments NT-proBNP (test code = NT-proBNP) 513 pg/mL 0-124 H Automated [id number] 16:24:33 Test Item Value Reference Range Interpretation Comments Neutro Auto (test code = Neutro 53.0 % 36.0-70.0 Auto) Lymph Auto (test code = Lymph Auto) 39.3 % 12.0-44.0 [place] Auto (test code = [place] Auto) 6.6 % 0.0-11.0 Eos, Auto (test code = Eos, Auto) 0.0 % 0.0-7.0 Basophil Auto (test code = Basophil 0.8 % 0.0-2.0 Auto) Neutro Absolute (test code = Neutro 4.0 x10 1.6-7.4 Absolute) Lymph Absolute (test code = Lymph 2.97 x10 .50-4.60 Absolute) [place] Absolute (test code = [place] .50 x10 .00-1.20 Absolute) Eos Absolute (test code = Eos 0.00 x10 0.00-0.74 Absolute) Baso Absolute (test code = Baso 0.06 x10 0.00-0.21 Absolute) IG [id number] 16:24:33 Test Item Value Reference Range Interpretation Comments IG (test code = IG) 0.3 % 0.0-5.0 IG Abs (test code = IG Abs) 0 x10 N Complete Blood Count with [id number] 16:24:32 Test Item Value Reference Range Interpretation [...] 0 % N XR Chest 1 View [id number] 16:11:29Patient: SHEFALI JOYNER Date/Time10/27/2019 16:05 CDTReason for ExamChest pain ReportDICTATION LOCATION: [id number]: Female, 54 years of age with Chest [...]
[2022-10-31 23:41] LABS: Hematocrit 39.9 % (36.0-45.0); Lymphocytes % 39.4 % (15.3-44.8); MCV 87.5 fL (80-100); MPV 8.4 fL (7.6-11.3); RBC Red Blood Cell Count 4.56 M/uL (3.86-4.86)
[2022-10-31 23:58] LABS: Potassium 3.4 mEq/L (3.5-5.1)
[2022-11-01 00:08] LABS: Troponin High Sensitivity 93.4 pg/mL (<58.9)
[2022-11-01] MEDS ORDERED: ASPIRIN 81 MG CHEWABLE TABLET ONE (00:27)
--- NOTE | 2022-11-01 01:35 | ER ---
Nurse's Notes [facility] Name: Virgie Silveira Age: 57 yrs Sex: Female : 1965 Arrival Date: 10/31/2022 Time: 22:35 Bed 5 Private MD: Diagnosis: Chest pain, unspecified;Subsequent non-ST elevation (NSTEMI) myocardial infarction Presentation: 10/31 22:56 Chief complaint: Patient states: I passed out at work around 400 this evening. Then i kd3 felt like a big rubber band hit me in the chest. The chest pain is still there, it does not radiate. It feel like pressure. I have heart failure. Coronavirus screen: Vaccine status: Patient reports receiving the 2nd dose of the covid vaccine. Ebola Screen: No symptoms or risks identified at this time. Initial Sepsis Screen: Does the patient meet any 2 criteria? No. Patient's initial sepsis screen is negative. Does the patient have a suspected source of infection? No. Patient's initial sepsis screen is negative. Risk Assessment: Do you want to hurt yourself or someone else? Patient reports no desire to harm self or others. Onset of symptoms was October 31, 2022. 22:56 Method Of Arrival: Ambulatory kd3 22:56 Acuity: TOÑITO 3 kd3 Triage Assessment: 22:59 General: Appears uncomfortable, Behavior is calm, cooperative. Pain: Complains of pain kd3 in anterior aspect of right upper chest. Respiratory: Reports shortness of breath at rest Onset: The symptoms/episode began/occurred gradually, the patient has moderate shortness of breath. Historical: - Allergies: 22:59 Cipro; kd3 22:59 Morphine; kd3 22:59 Lisinopril; kd3 22:59 Codeine; kd3 - Home Meds: 22:59 Entresto Oral [Active]; Norvasc Oral [Active]; furosemide 40 mg Oral tab 1 tab once kd3 daily [Active]; Potassium Chloride Oral [Active]; levothyroxine oral [Active]; - PMHx: 22:59 Congestive heart failure; Hypothyroidism; Pacemaker; defib; Hypertension; kd3 - PSHx: 22:59 section; hysterectomy; kd3 - Immunization history:: Adult Immunizations up to date. - Social history:: Smoking status: Patient reports the use of cigarette tobacco products, 2 a day . Screenin/20 02:40 [facility] ED Fall Risk Assessment (Adult) History of falling in the last 3 months, jb4 including since admission No falls in past 3 months (0 pts) Confusion or Disorientation No (0 pts) Score/Fall Risk Level 0 - 2 = Low Risk Oriented to surroundings, Maintained a safe environment. Abuse screen: Denies threats or abuse. Nutritional screening: No deficits noted. Tuberculosis screening: No symptoms or risk factors identified. Assessment: 10/31 23:13 General: Appears in no apparent distress. comfortable, Behavior is calm, cooperative, jb4 appropriate for age. Pain: Complains of pain in chest Pain does not radiate. Pain currently is 8 out of 10 on a pain scale. Quality of pain is described as pressure. Neuro: Level of Consciousness is awake, alert, obeys commands, Oriented to person, place, time, situation. Cardiovascular: Patient's skin is warm and dry. Rhythm is sinus rhythm. Respiratory: Airway is patent Respiratory effort is even, unlabored, Respiratory pattern is regular, symmetrical, Breath sounds are clear bilaterally. GI: No signs and/or symptoms were reported involving the gastrointestinal system. : No signs and/or symptoms were reported regarding the genitourinary system. EENT: No signs and/or symptoms were reported regarding the EENT system. Derm: Skin is intact, Skin is pink, warm \T\ dry. Musculoskeletal: Circulation, motion, and sensation intact. Range of motion: intact in all extremities. 11/01 00:11 Reassessment: Patient appears in no apparent distress at this time. Patient and/or jb4 family updated on plan of care and expected duration. Pain level reassessed. Patient is alert, oriented x 3, equal unlabored respirations, skin warm/dry/pink. 01:09 Reassessment: Patient appears in no apparent distress at this time. Patient and/or jb4 family updated on plan of care and expected duration. Pain level reassessed. Patient is alert, oriented x 3, equal unlabored respirations, skin warm/dry/pink. 02:40 Reassessment: Patient appears in no apparent distress at this time. Patient and/or jb4 family updated on plan of care and expected duration. Pain level reassessed. Patient is alert, oriented x 3, equal unlabored respirations, skin warm/dry/pink. Vital Signs: 05/19 22:56 BP 135 / 82; Pulse 63; Resp 19; Temp 98(O); Pulse Ox 100% ; Weight 71.67 kg; Height 5 kd3 ft. 2 in. ; 11/01 00:11 BP 129 / 85; Pulse 77; Resp 21; Pulse Ox 97% on R/A; jb4 01:09 BP 131 / 86; Pulse 79; Resp 23; Pulse Ox 97% on R/A; jb4 02:40 BP 122 / 62; Pulse 72; Resp 16; Pulse Ox 96% on R/A; jb4 10/31 22:56 Body Mass Index 28.90 (71.67 kg, 157.48 cm) kd3 ED Course: 10/31 22:41 Patient arrived in ED. ag3 22:59 Triage completed. kd3 22:59 Arm band placed on right wrist. kd3 23:02 Dayron Holloway MD is Attending Physician. bs3 23:12 Andrea Keith RN is Primary Nurse. jb4 23:31 Inserted saline lock: 22 gauge in left antecubital area, using aseptic technique. Blood lg3 collected. 23:31 Basic Metabolic Panel Sent. lg3 23:31 CBC with Diff Sent. lg3 23:31 D-Dimer Sent. lg3 23:31 NT PRO-BNP Sent. lg3 23:31 Troponin HS Sent. lg3 23:59 XRAY Chest (1 view) In Process Unspecified. EDMS 11/01 01:04 CT Chest For PE Angio In Process Unspecified. EDMS 01:34 Chandler Shepherd is Hospitalizing Provider. bs3 02:40 Patient has correct armband on for positive identification. Bed in low position. Call jb4 light in reach. Side rails up X 1. Client placed on continuous cardiac and pulse oximetry monitoring. NIBP monitoring applied. gambling monitor on. 02:42 No provider procedures requiring assistance completed. Patient admitted, IV remains in jb4 place. Administered Medications: 00:25 Drug: Aspirin PO Chewable Tablet 324 mg Route: PO; jb4 Medication: 02:43 VIS not applicable for this client. jb4 Outcome: 01:35 Decision to Hospitalize by Provider. bs3 02:42 Admitted to Tele accompanied by nurse, via wheelchair, room 410, with chart. jb4 02:42 Condition: stable 02:42 Discharge instructions given to patient, Instructed on the need for admit, Demonstrated understanding of instructions. 03:00 Patient left the ED. lg3 Signatures: Dispatcher [employer] EDAndrea Cottrell RN RN jb4 Tiffany Farias3 Stacey Rodriguez, RN RN lg3 Karen Orellana RN RN oscar3 Dayron Holloway MD MD bs3 Corrections: (The following items were deleted from the chart) 10/31 23:18 23:13 Cardiovascular: Patient's skin is warm and dry. mayito jb4
--- NOTE | 2022-11-01 01:35 | EDPHYS ---
Physician Documentation [facility] Name: Virgie Silveira Age: 57 yrs Sex: Female : 1965 Arrival Date: 10/31/2022 Time: 22:35 Bed 5 Private MD: ED Physician Dayron Holloway HPI: 11/01 00:16 This 57 yrs old Unknown Female presents to ER via Ambulatory with complaints of bs3 Dizziness, Shortness Of Breath. 00:16 hx of chf, hypothryoid, pacemaker, htn presents with chest pressure. Intermittent bs3 today, has had similar symptoms in the past, pt notes an ef of 15%. Historical: - Allergies: 10/31 22:59 Cipro; kd3 22:59 Morphine; kd3 22:59 Lisinopril; kd3 22:59 Codeine; kd3 - Home Meds: 22:59 Entresto Oral [Active]; Norvasc Oral [Active]; furosemide 40 mg Oral tab 1 tab once kd3 daily [Active]; Potassium Chloride Oral [Active]; levothyroxine oral [Active]; - PMHx: 22:59 Congestive heart failure; Hypothyroidism; Pacemaker; defib; Hypertension; kd3 - PSHx: 22:59 section; hysterectomy; kd3 - Immunization history:: Adult Immunizations up to date. - Social history:: Smoking status: Patient reports the use of cigarette tobacco products, 2 a day . ROS: 11/01 00:16 Constitutional: Negative for fever, chills bs3 All other systems are negative. Exam: 00:16 Constitutional: This is a well developed, well nourished patient who is awake, alert, bs3 and in no acute distress. Head/Face: Normocephalic, atraumatic. Eyes: Pupils equal round and reactive to light, extra-ocular motions intact. Lids and lashes normal. ENT: mmm, no posterior phyarngeal erythema Neck: Trachea midline, no thyromegaly, no neck stiffness Chest/axilla: Normal chest wall appearance and motion. Nontender with no deformity. No lesions are appreciated. Cardiovascular: Regular rate and rhythm with a normal S1 and S2. symmetric pulses in upper extremities Respiratory: Lungs have equal breath sounds bilaterally, clear to auscultation, no respiratory distress Abdomen/GI: Soft, non-tender, no rebound or guarding MS/ Extremity: Pulses equal, no cyanosis. Neurovascular intact. Full, normal range of motion. Neuro: Awake and alert, GCS 15, oriented to person, place, time, and situation. Cranial nerves II-XII grossly intact. Motor strength 5/5 in all extremities. Sensory grossly intact. Psych: Awake, alert, with orientation to person, place and time. Behavior, mood, and affect are within normal limits. Vital Signs: 10/31 22:56 BP 135 / 82; Pulse 63; Resp 19; Temp 98(O); Pulse Ox 100% ; Weight 71.67 kg; Height 5 kd3 ft. 2 in. ; 11/01 00:11 BP 129 / 85; Pulse 77; Resp 21; Pulse Ox 97% on R/A; jb4 01:09 BP 131 / 86; Pulse 79; Resp 23; Pulse Ox 97% on R/A; jb4 02:40 BP 122 / 62; Pulse 72; Resp 16; Pulse Ox 96% on R/A; jb4 10/31 22:56 Body Mass Index 28.90 (71.67 kg, 157.48 cm) kd3 MDM: 10/31 23:03 Patient medically screened. bs3 11/01 00:16 Differential diagnosis: cardiac arrhythmia, generalized weakness, near-syncope, mi, pe. bs3 Data reviewed: vital signs, nurses notes. ED course: EKG is normal sinus rhythm [address] elevations she has diffuse flat T waves QTc is 457 as interpreted by myself. ED course: Labs notable for elevated D-dimer will rule out PE positive troponin however just over the upper limit we will give aspirin will admit for acute coronary syndrome rule out and serial exams patient does not have cardiology follow-up and has a high risk of Mace within 30 days her heart score is 5. 01:34 ED course: trop elevated, will admit for acs r/o. 3 10/31 23:18 Order name: Basic Metabolic Panel; Complete Time: 00:14 3 10/31 23:18 Order name: CBC with Diff; Complete Time: 00:03 [facility] 10/31 23:18 Order name: D-Dimer; Complete Time: 00:03 3 10/31 23:18 Order name: NT PRO-BNP; Complete Time: 00:14 [facility] 10/31 23:18 Order name: Troponin HS; Complete Time: 00:14 bs3 10/31 23:18 Order name: XRAY Chest (1 view) bs3 11/01 00:03 Order name: CT Chest For PE Angio bs3 10/31 23:18 Order name: EKG; Complete Time: 23: bs3 10/31 23:18 Order name: Cardiac monitoring; Complete Time: 23:27 bs3 10/31 23:18 Order name: EKG - Nurse/Tech; Complete Time: : bs3 10/31 23:18 Order name: IV Saline Lock; Complete Time: : bs3 10/31 23:18 Order name: Labs collected and sent; Complete Time: : bs3 10/31 23:18 Order name: O2 Per Protocol; Complete Time: : bs3 10/31 23:18 Order name: O2 Sat Monitoring; Complete Time: : bs3 Administered Medications: 00:25 Drug: Aspirin PO Chewable Tablet 324 mg Route: PO; jb4 Disposition Summary: 11/01/22 01:35 Hospitalization Ordered Hospitalization Status: Observation bs3 Provider: Chandler Shepherd bs3 Location: Telemetry/MedSurg (observation) bs3 Condition: Stable bs3 Problem: new bs3 Symptoms: are unchanged bs3 Bed/Room Type: Standard bs3 Room Assignment: 410(11/01/22 02:08) mw Diagnosis - Chest pain, unspecified bs3 - Subsequent non-ST elevation (NSTEMI) myocardial infarction bs3 Forms: - Medication Reconciliation Form bs3 - SBAR form bs3 Signatures: Dispatcher [employer] EDMS Cherie Zepeda RN RN mw Andrea Keith RN RN jb4 Karen Orellana RN RN kd3 Dayron Holloway MD MD bs3 Corrections: (The following items were deleted from the chart) 02:08 01:35 bs3 mw
--- NOTE | 2022-11-01 02:09 | P.HP ---
Certification for Inpatient Patient admitted to: Observation With expected LOS: <2 Midnights Patient will require the following post-hospital care: None Practitioner: I am a practitioner with admitting privileges, knowledge of patient current condition, hospital course, and medical plan of care. Services: Services provided to patient in accordance with Admission requirements found in Title 42 Section 412.3 of the Code of Federal Regulations Patient History Date of Service: 11/01/22 Reason for admission: NSTEMI History of Present Illness: Ms. Silveira is a 57-year-old female with past medical history of chronic systolic congestive heart failure, hypertension, hyperlipidemia, and hypothyroidism who presented to the emergency department with complaints of chest pain, shortness of breath, and syncopal episode SAMPLE P[employer]. [place] she [place] uphill and started to feel light headed and passed out. Following that, she has had chest pain and shortness of breath. Her labs were significant for troponin 93.4 and Ddimer 738. EKG without STEMI criteria. Chest CTA negative. She was given 324 mg aspirin in the ED. Her pain resolved at this time. ED provider wishes to admit patient for observation for ACS rule out. Allergies lisinopril Allergy (Verified 05/06/22 13:25) Hives/Rash morphine Allergy (Verified 05/06/22 13:25) Hives/Rash Home medications list reviewed: Yes Home Medications: Furosemide [Lasix*] 40 mg PO DAILY #30 tab 06/07/19 Levothyroxine Sodium 25 mcg PO DAILY #30 tablet 06/07/19 Sacubitril/Valsartan [Entresto 24 mg-26 mg Tablet] 1 tab PO BID 09/11/21 Spironolactone 25 mg PO DAILY 09/11/21 Potassium Chloride 1 tab PO DAILY 03/17/22 Amox/Clavulanate [Augmentin 875-125 Tab] 875 mg PO BID 5 Days #10 tab 05/08/22 Hydrocodone 5/APAP 325 [Krypton 5/325] 1 tab PO Q6H PRN 3 Days #12 tab 05/08/22 - Past Medical/Surgical History Diabetic: No -: Hypothyroidism -: Hypertension -: Systolic CHF -: Hyperlipidemia -: Hysterectomy -: Elbow Surgery -: C section -: Pacemaker 2020 Psychosocial/ Personal History: Employed, lives with family - Family History Mother -: Cancer Notes: Colon CA Father -: Hypertension Notes: HTN, spinal issue - Social History Smoking Status: Never smoker Alcohol use: Yes CD- Drugs: No Caffeine use: Yes Place of Residence: Home Review of Systems Respiratory: Shortness of Breath Cardiovascular: Chest Pain Physical Examination - Vital Signs Temperature: 98 F Blood Pressure: 131/86 Pulse: 79 Respirations: 20 Pulse Ox (%): 97 - Physical Exam General: Alert, In no apparent distress HEENT: Atraumatic, EOMI, Sclerae nonicteric Neck: Supple, 2+ carotid pulse no bruit Respiratory: Clear to auscultation bilaterally, Normal air movement Cardiovascular: Regular rate/rhythm, Normal S1 S2 Gastrointestinal: Normal bowel sounds, No tenderness Musculoskeletal: No tenderness Integumentary: No rashes Neurological: Normal speech, Normal affect - Studies Laboratory Data (last 24 hrs) 10/31/22 23:31: WBC 7.60, Hgb 13.0, Hct 39.9, Plt Count 270 10/31/22 23:31: Sodium 136, Potassium 3.4 L, BUN 18, Creatinine 0.94, Glucose 89 Assessment and Plan - Problems (Diagnosis) (1) NSTEMI (non-ST elevated myocardial infarction) Current Visit: Yes Status: Acute (2) Hypothyroidism Current Visit: Yes Status: Chronic Qualifiers: Hypothyroidism type: acquired Qualified Code(s): E03.9 - Hypothyroidism, unspecified (3) Hypertension Current Visit: Yes Status: Chronic Qualifiers: Hypertension type: primary hypertension Qualified Code(s): I10 - Essential (primary) hypertension (4) Congestive heart failure Current Visit: Yes Status: Acute Qualifiers: Heart failure type: systolic Heart failure chronicity: chronic Qualified Code(s): I50.22 - Chronic systolic (congestive) heart failure - Plan Patient is admitted for observation for NSTEMI. Troponin elevated at 93 although has been on prior admissions. Trend. Therapeutic lovenox q12h. Chest pain and shortness of breath have resolved. Monitor on telemetry. Consult cardiology. Obtain echocardiogram. She states her last echo was done 1 year ago and she had an EF of 19%. Check lipid panel. Aspirin and atorvastatin daily. Continue home entresto, lasix. She reports compliance. Monitor and replete electrolytes per protocol. Discharge Plan: Home Plan to discharge in: 24 Hours - Advance Directives Does patient have a Living Will: No Does patient have a Durable POA for Healthcare: No - Code Status/Comfort Care Code Status Assessed: Yes Code Status: Full Code Physician Review: Patient Assessed, Agree with Above Assessment and Plan Critical Care: No Time Spent Managing Pts Care (In Minutes): 50
[2022-11-01] MEDS ORDERED: ACETAMINOPHEN 500 MG TAB PO PRN (03:11)
[2022-11-01] MEDS ORDERED: ONDANSETRON 4 MG/2 ML VIAL IV PRN (03:11)
[2022-11-01] MEDS ORDERED: ENOXAPARIN 80 MG/0.8 ML SQ ONE (04:00)
[2022-11-01 05:04] LABS: Troponin High Sensitivity 93.2 pg/mL (<58.9)
[2022-11-01 05:30] LABS: Potassium 3.9 mEq/L (3.5-5.1)
[2022-11-01] MEDS: ASPIRIN 81 MG CHEWABLE TABLET PO SCH (08:12)
[2022-11-01] MEDS ORDERED: POTASSIUM CL SA 10 MEQ TAB PO ONE (09:00)
[2022-11-01] MEDS ORDERED: ENOXAPARIN 80 MG/0.8 ML SQ SCH (09:00)
--- NOTE | 2022-11-01 13:29 | P.PN ---
Date of Service: 11/01/22 Patient seen and examined. She denies any complaint. Most recent echo showed EF of 30 to 35%. Presence of AICD. Old medical records suggest history of medication induced hypotension. Patient blood pressure has been stable since presentation. AICD interrogated and no significant arrhythmia reported. Troponin mildly elevated but trended. Elevated troponin likely secondary to demand ischemia. Check orthostatic vitals. Cardiology consulted.
--- NOTE | 2022-11-01 14:52 | CON ---
Date of Consultation: 11/01/2022 Reason For Consultation: Elevated troponin. History Of Present Illness: A 57-year-old female, history of chronic systolic heart failure. She sa id her ejection fraction is around 15%. Has hypertension, dyslipidemia, hypothyroidism, presented to the emergency room with chest pain, shortness of breath, orthopnea, and lower extremity edema. The troponin was elevated and D-dimer as well was elevated. She did the CTA, did not show a PE. Since h ospitalization, she has been feeling better. No further chest pain. Past Medical History: As outlined above in the HPI. Medications: Refer to reconciliation sheet for detailed list. Allergies: LISINOPRIL AND MORPHINE. Family History: No premature coronary artery disease or cancer. Social History: She is an ex-smoker. Does not drink, use any drugs. Review of Systems: All systems reviewed and they were negative except as mentioned in the HPI. Physical Examination: Vital Signs: Reviewed. Head and Neck: Pupils are equal, reactive to light. Intact eye movements. No cervical lymphadenopa thy. Neck is supple. Thyroid is not enlarged. Lungs: Clear to auscultation bilaterally. No rhonchi, rales, or crackles. No accessory muscle use. Heart: Regular rate and rhythm. No extra sounds. Abdomen: Soft, nontender. Bowel sounds positive. No organomegaly. No masses or hernia. No rigidi ty or rebound. Extremities: No clubbing, cyanosis. Intact pulses. Skin: No rash noted. Neurologic: Alert, awake, oriented x3. No acute focal defect appreciated. Investigations: Troponin is 98. BUN 16, creatinine 0.92, and hemoglobin is 13. Assessment And Recommendation: 1.Chest pain with positive troponin, possible coronary artery disease. She said she had a coronary angiogram about 10 years ago that was normal. Given that she has very low ejection fraction. This c ould be demand. However, given that there is chest pain, I recommend to proceed with coronary angiog qasim. We will do it on Thursday morning and if there is no coronary artery disease that is reversible, then aggressive medical management trying to introduce Entresto and beta-agnieszka and titrate up to th e max tolerated per the blood pressure. To continue Lovenox for now until we obtain the coronary ang iogram and continue aspirin. 2.Dyslipidemia. Continue statin. 3.Congestive heart failure. Unknown exact ejection fraction. Obtain echo on Thursday. SR/MODL Voice ID: [id number] Report ID: [id number]
[2022-11-01] MEDS: ENOXAPARIN 80 MG/0.8 ML SQ SCH (17:16)
--- NOTE | 2022-11-01 20:07 | RAD REPORT ---
EXAM DESCRIPTION: RAD - Chest Single View - 10/31/2022 11:57 pm CLINICAL HISTORY: The patient is 57 years old and is Female; CHEST PAIN TECHNIQUE: Frontal view of the chest. COMPARISON: XR Chest dated January 29 2022 FINDINGS: LUNGS: Unremarkable. No consolidation. PLEURAL SPACE: Unremarkable. No pneumothorax. HEART: Unremarkable. No cardiomegaly. MEDIASTINUM: Unremarkable. BONES/JOINTS: Unremarkable. TUBES, LINES AND DEVICES: A left-sided pacemaker is present. UPPER ABDOMEN: Unremarkable as visualized. IMPRESSION: No acute cardiopulmonary process. Electronically signed by: Sondra Sommers MD 11/01/2022 1:55 AM CDT Due to temporary technical issues with the PACS/Fluency reporting system, reports are being signed by the in house radiologists without review as a courtesy to insure prompt reporting. The interpreting radiologist is fully responsible for the content of the report.
--- NOTE | 2022-11-01 20:18 | RAD REPORT ---
EXAM DESCRIPTION: CT - Chest For Pe Angio - 11/01/2022 6:00 am CLINICAL HISTORY: The patient is 57 years old and is Female; CHEST PAIN TECHNIQUE: Axial computed tomographic angiography images of the chest with intravenous contrast. S agittal and coronal reformatted images were created and reviewed. This CT exam was performed using one or more of the following dose reduction techniques: automated exposure control, adjustment of t he mA and/or kV according to patient size, and/or use of iterative reconstruction technique. MIP reconstructed images were created and reviewed. COMPARISON: No relevant prior studies available. FINDINGS: PULMONARY ARTERIES: There are no obvious filling defects identified within the pulmonary arteries to suggest pulmonary embolism. AORTA: No acute findings. No thoracic aortic aneurysm. LUNGS: Unremarkable. No mass. No consolidation. PLEURAL SPACE: Unremarkable. No significant effusion. No pneumothorax. HEART: Unremarkable. No cardiomegaly. No significant pericardial effusion. No evidence of R V dysfunction. BONES/JOINTS: No acute fracture. No dislocation. SOFT TISSUES: Unremarkable. LYMPH NODES: Unremarkable. No enlarged lymph nodes. GALLBLADDER AND BILE DUCTS: Surgical clips are present in the right upper quadrant, consistent wi th previous cholecystectomy. STOMACH AND BOWEL: The stomach is well distended with food contents. TUBES, LINES AND DEVICES: A single lead left-sided pacemaker is present with the lead in the righ t ventricle. IMPRESSION: 1. No evidence of pulmonary embolism. 2. No acute findings. Electronically signed by: Sondra Sommers MD 11/01/2022 1:57 AM CDT Due to temporary technical issues with the PACS/Fluency reporting system, reports are being signed by the in house radiologists without review as a courtesy to insure prompt reporting. The interpreting radiologist is fully responsible for the content of the report.
[2022-11-01] MEDS: ATORVASTATIN 40 MG TAB PO SCH (20:54)
[2022-11-01] MEDS: SACUBITRIL/VALSARTAN 24/26 MG TAB PO SCH (20:54)
[2022-11-01] MEDS: HYDROCODONE/APAP 5/325 MG TAB PO PRN (22:48)
[2022-11-02 02:38] VITALS: BMI 29.2
[2022-11-02 04:38] LABS: Magnesium 2.1 mg/dL (1.6-2.4); Phosphorus 3.5 mg/dL (2.5-4.9); Potassium 4.1 mEq/L (3.5-5.1)
[2022-11-02] MEDS: HYDROCODONE/APAP 5/325 MG TAB PO PRN ×3 (06:28→21:45)
[2022-11-02] MEDS: ENOXAPARIN 80 MG/0.8 ML SQ SCH ×2 (06:29→16:39)
[2022-11-02] MEDS: ASPIRIN 81 MG CHEWABLE TABLET PO SCH (08:39)
[2022-11-02] MEDS: SPIRONOLACTONE 25 MG TABLET PO SCH (08:39)
[2022-11-02] MEDS: SACUBITRIL/VALSARTAN 24/26 MG TAB PO SCH ×2 (08:39→20:18)
[2022-11-02] MEDS: LEVOTHYROXINE SOD 0.025 MG TAB PO SCH (08:39)
[2022-11-02] MEDS: NICOTINE 14 MG/PAT TD SCH (12:00)
--- NOTE | 2022-11-02 14:25 | P.PN ---
Subjective Date of Service: 11/02/22 Chief Complaint: NSTEMI Patient has no complaint today. She denies chest pain or dizziness. Physical Examination - Vital Signs Temperature: 98.0 F Blood Pressure: 112/56 Pulse: 72 Respirations: 16 Pulse Ox (%): 93 - Studies Laboratory Data (last 24 hrs) 11/02/22 03:35: Sodium 135 L, Potassium 4.1, BUN 16, Creatinine 0.89, Glucose 99, Phosphorus 3.5, Magnesium 2.1 Assessment And Plan - Current Problems (Diagnosis) (1) Syncope Current Visit: Yes Status: Acute (2) Chronic systolic heart failure Current Visit: Yes Status: Acute (3) NSTEMI (non-ST elevated myocardial infarction) Current Visit: Yes Status: Acute (4) Hypothyroidism Current Visit: Yes Status: Chronic Qualifiers: Hypothyroidism type: acquired Qualified Code(s): E03.9 - Hypothyroidism, unspecified - Plan Patient seen and evaluated by cardiology Dr. Humphries. Dr. Humphries is planning cardiac catheterization tomorrow. AICD interrogated and showed no arrhythmia. Troponin trended flat. Continue full anticoagulation. Continue aspirin, Entresto and Aldactone. Echocardiogram is pending.
--- NOTE | 2022-11-02 17:35 | EKG ---
Test Date: 2022-10-31 Test Time: 23:12:25 Director Biology: MEASUREMENT RESULTS: Intervals: Rate: 72 WY: 150 QRSD: 88 QT: 418 QTc: 457 [place]: P: 59 WY: 150 QRS: 52 T: -10 INTERPRETIVE STATEMENTS: Normal sinus rhythm Nonspecific T wave abnormality Abnormal ECG Compared to ECG 05/06/2022 08:37:06 T-wave abnormality now present ST (T wave) deviation no longer present Prolonged QT interval no longer present Electronically Signed On 11-02-22 17:33:42 CDT by Guille Humphries
--- NOTE | 2022-11-02 18:58 | PN ---
Date of Progress Note: 11/02/2022 Subjective: Seen by bedside. Doing clinically well. No further chest pain. Review of Systems: No chest pain, shortness of breath, orthopnea, cough. No nausea, vomiting, diarrhea. All other syst ems reviewed and they were negative. Physical Examination: Vital Signs: Reviewed. Head and Neck: Pupils are equal, reactive to light. Intact eye movements. No JVD. No cervical lym phadenopathy. Neck is supple. Thyroid is not enlarged. Lungs: Clear to auscultation bilaterally. No rhonchi, wheezing, or crackles. No accessory muscle u se. Heart: Regular rate and rhythm. No extra sounds. Abdomen: Soft, nontender. Bowel sounds positive. No organomegaly. No masses or hernia. No rigidi ty or rebound. Extremities: No edema, clubbing, or cyanosis. Intact pulses. Skin: No rash. Neurologic: Alert, awake, oriented x3. No acute focal deficits appreciated. Lymph Nodes: No cervical or axillary lymphadenopathy. Investigations: Labs were reviewed. Assessment And Recommendations: 1.Elevated troponin with chest pain. Keep n.p.o. past midnight. Obtain coronary angiogram tomorrow , plan accordingly. Hold of Lovenox after tonight's dose. 2.Dyslipidemia. Continue statin. 3.Congestive heart failure. Obtain echo tomorrow and further plan accordingly. /GERARDO Voice ID: [id number] Report ID: [id number]
[2022-11-02] MEDS: ATORVASTATIN 40 MG TAB PO SCH (20:19)
[2022-11-02] MEDS ORDERED: FENTANYL CITR 100 MCG/2 ML IV ONE (23:08)
[2022-11-03] MEDS: HYDROCODONE/APAP 5/325 MG TAB PO PRN (03:00)
[2022-11-03 04:52] LABS: Potassium 4.3 mEq/L (3.5-5.1)
[2022-11-03] MEDS: ENOXAPARIN 80 MG/0.8 ML SQ SCH (05:00)
[2022-11-03] MEDS ORDERED: TRAMADOL HCL 50 MG TAB PO ONE (05:47)
[2022-11-03] MEDS: ASPIRIN 81 MG CHEWABLE TABLET PO SCH (06:19)
[2022-11-03] MEDS: NICOTINE 14 MG/PAT TD SCH (08:02)
[2022-11-03] MEDS: LEVOTHYROXINE SOD 0.025 MG TAB PO SCH (08:07)
[2022-11-03] MEDS: SACUBITRIL/VALSARTAN 24/26 MG TAB PO SCH (08:07)
[2022-11-03] MEDS: SPIRONOLACTONE 25 MG TABLET PO SCH (08:07)
[2022-11-03 08:15] VITALS: TEMP 97.1
[2022-11-03] MEDS ORDERED: HEPA 1000U/500MLS 2,000 UNIT/1,000 ML BAG IV ONE (10:48)
[2022-11-03] MEDS ORDERED: HEPARIN 5000 UNIT/ML 1 ML VIAL ONE (10:55)
[2022-11-03] MEDS ORDERED: MIDAZOLAM HCL 2 MG/2 ML INJ ONE (10:55)
[2022-11-03] MEDS ORDERED: FENTANYL CITR 100 MCG/2 ML ONE (10:55)
[2022-11-03] MEDS ORDERED: VERAPAMIL HCL 10 MG/4 ML VIAL IV ONE (10:55)
[2022-11-03] MEDS ORDERED: TICAGRELOR 90 MG TABLET PO ONE (10:56)
[2022-11-03] MEDS ORDERED: ATROPINE SULF 1 MG/10 ML SYR IV ONE (10:56)
[2022-11-03] MEDS ORDERED: CLOPIDOGREL 75 MG TABLET ONE (10:56)
[2022-11-03] MEDS ORDERED: HEPARIN 10,000 UNIT/10 ML VIAL IV ONE (10:56)
[2022-11-03] MEDS ORDERED: ASPIRIN 325 MG TAB ONE (10:56)
[2022-11-03] MEDS ORDERED: NA CHLORIDE 0.9% 500 ML ONE (11:22)
[2022-11-03] MEDS ORDERED: LIDOCAINE 1% 20 ML MDV ONE (11:24)
--- NOTE | 2022-11-03 13:37 | P.DS ---
Admission Date: 11/02/22 Discharge Date: 11/03/22 Disposition: ROUTINE DISCHARGE Discharge Condition: FAIR Reason for Admission: NSTEMI - Problems (1) Syncope Current Visit: Yes Status: Acute (2) Chronic systolic heart failure Current Visit: Yes Status: Acute (3) NSTEMI (non-ST elevated myocardial infarction) Current Visit: Yes Status: Acute (4) Hypothyroidism Current Visit: Yes Status: Chronic Qualifiers: Hypothyroidism type: acquired Qualified Code(s): E03.9 - Hypothyroidism, unspecified Brief History of Present Illness: Ms. Silveira is a 57-year-old female with past medical history of chronic systolic congestive heart failure, hypertension, hyperlipidemia, and hypothyroidism who presented to the emergency department with complaints of chest pain, shortness of breath, and syncopal episode [employer]. [place] and started t o feel light headed and passed out. Following that, she had chest pain and shortness of breath. Her labs were significant for troponin 93.4 and Ddimer 738. EKG without STEMI criteria. Chest CTA negative. She was given 324 mg aspirin in the ED. She was chest pain-free during examination in the ED. Patient was admitted for further management. Hospital Course: Patient admitted to the medical floor and treated with full dose Lovenox. Troponin was slightly elevated but trended flat. She has a history of systolic heart failure with low EF. Patient reports recent EF of 19% but most recent echocardiogram done 03/2022 reviewed [facility] the [facility] showed EF of 35%. AICD was interrogated which did not show any significant arrhythmia. She was seen and evaluated by cardiology who recommended cardiac catheterization. No significant coronary artery occlusion noted during cardiac cath, no cardiac intervention. Patient is deemed clinically stable for discharge per cardiology. All heart failure home medications-Entresto, Lasix, Aldactone resumed on discharge. Noted patient is not on a beta-agnieszka. Her blood pressure is intermittently borderline low and would not tolerate addition of a beta-agnieszka. Vital Signs/Physical Exam: Temp Pulse Resp BP Pulse Ox 97.1 F 80 14 119/65 99 11/03/22 08:00 11/03/22 08:00 11/03/22 08:00 11/03/22 08:00 11/03/22 08:00 General: Alert, In no apparent distress, Oriented x3 HEENT: Mucous membr. moist/pink Neck: Supple, JVD not distended Respiratory: Clear to auscultation bilaterally, Normal air movement Cardiovascular: No edema, Regular rate/rhythm, Normal S1 S2 Gastrointestinal: Normal bowel sounds, Soft and benign, Non-distended, No tenderness Musculoskeletal: No swelling Integumentary: No rashes, No cyanosis Neurological: Normal strength at 5/5 x4 extr Laboratory Data at Discharge: WBC 7.60 thou/uL (4.3-10.9) 10/31/22 23:31 Hgb 13.0 g/dL (12.0-15.0) 10/31/22 23:31 Hct 39.9 % (36.0-45.0) 10/31/22 23:31 Plt Count 270 thou/uL (152-406) 10/31/22 23:31 Sodium 134 mEq/L (136-145) L 11/03/22 04:13 Potassium 4.3 mEq/L (3.5-5.1) 11/03/22 04:13 BUN 18 mg/dL (7-18) 11/03/22 04:13 Creatinine 0.83 mg/dL (0.55-1.02) 11/03/22 04:13 Glucose 101 mg/dL (74-106) 11/03/22 04:13 Phosphorus 3.5 mg/dL (2.5-4.9) 11/02/22 03:35 Magnesium 2.1 mg/dL (1.6-2.4) 11/02/22 03:35 Triglycerides 79 mg/dL (<150) 11/01/22 04:24 Cholesterol 133 mg/dL (<200) 11/01/22 04:24 HDL Cholesterol 58 mg/dL (40-60) 11/01/22 04:24 Cholesterol/HDL Ratio 2.29 11/01/22 04:24 Home Medications: Furosemide [Lasix*] 40 mg PO DAILY #30 tab 06/07/19 Levothyroxine Sodium 25 mcg PO DAILY #30 tablet 06/07/19 Sacubitril/Valsartan [Entresto 24 mg-26 mg Tablet] 1 tab PO BID 09/11/21 Spironolactone 25 mg PO DAILY 09/11/21 Hydrocodone 5/APAP 325 [[place] 5/325*] 1 tab PO Q6H PRN 3 Days #12 tab 05/08/22 Aspirin Chewable [Aspirin Chewable*] 81 mg PO DAILY #30 tab.chew 11/03/22 New Medications: Aspirin Chewable [Aspirin Chewable*] 81 mg PO DAILY #30 tab.chew Diet: AHA Activity: Ad christie Followup: NIYA NÚÑEZ [Primary Care Provider] - 1-2 Weeks Guille Humphries MD [ACTIVE - CAN ADMIT] - (within 1 month) Time spent managing pt's care (in minutes): 35
[2022-11-03 13:55] VITALS: BP 90/56; O2SAT 95
--- NOTE | 2022-11-03 14:10 | PN ---
Date of Progress Note: 11/03/2022 Subjective: Seen by bedside. Doing well. No further chest pain. Review of Systems: No chest pain, shortness of breath, orthopnea, cough. No nausea, vomiting, diarrhea. All other syst ems reviewed and they were negative. Physical Examination: Vital Signs: Reviewed. Head and Neck: Pupils are equal, reactive to light. Intact eye movements. Lungs: Clear to auscultation bilaterally. No rhonchi, wheezing, or crackles. No accessory muscle u se. Heart: Regular rate and rhythm. No extra sounds. Abdomen: Soft, nontender. Bowel sounds positive. No organomegaly. No masses or hernia. Extremities: No edema, clubbing, or cyanosis. Intact pulses. Skin: No rash. Neurologic: Alert, awake. No acute focal deficits appreciated. Lymph Nodes: No cervical or axillary lymphadenopathy. Investigations: Troponin peaked at 98. Assessment And Recommendations: 1.Elevated troponin suggestive of non-ST elevation myocardial infarction. Coronary angiogram was do ne and it was normal. This is likely demand ischemia, noncardiac. From Cardiology standpoint, this patient can be released to follow up as an outpatient. 2.Congestive heart failure, status post ICD. I will obtain an echo for her as an outpatient. The patient appears to be euvolemic. 3.Dyslipidemia. Continue statin. SR/MODL Voice ID: [id number] Report ID: [id number]
--- NOTE | 2022-11-05 14:31 | OP ---
Date of Procedure: 11/03/2022 Surgeon: MIKAELA DELANEY Procedure Performed: Selective coronary angiogram. Indication: Non-ST elevation myocardial infarction. Access: Right radial artery 6-Japanese closed with TR band. Complications: None. Bleeding: Less than 10 mL. Description Of Procedure: After risks, benefits, alternatives explained, the patient agreed to proce dure and signed informed consent. The patient was brought into the cardiac catheterization laborator y, prepped and draped in the usual sterile fashion. Then, I accessed right radial artery using pedia tric micropuncture kit, placed 6-Japanese sheath and took 5-Japanese [place] 4.0 catheter into the aortic r oot, engaged left main and then right coronary artery, took standard views, and then removed the cath eter and sheath, placed TR band with good hemostasis. Findings: 1.Left main; large and normal. 2.LAD; normal, normal diagonal branches. 3.Left circumflex; normal with normal OM branches. 4.RCA; normal with normal branches, PDA and PLP. Conclusion: Normal coronary arteries. Plan: Medical management. /MODL Voice ID: [id number] Report ID: [id number]
== END 2022-11-03 15:04 | disposition home or self-care (01) | DRG 281 ==
LOC: ER 22:35 → 4TH 11-01 02:47 → OBSVTOIN 11-02 12:13
PROVIDERS: ADMIT Internal Medicine; ATTEND Internal Medicine
PROC: 4A023N7 Measurement of Cardiac Sampling and Pressure, Left Heart, Percutaneous Approach (ICD-10-PCS; principal; 2022-11-03)
PROC: B2111ZZ Fluoroscopy of Multiple Coronary Arteries using Low Osmolar Contrast (ICD-10-PCS; 2022-11-03)
DX: I21.4 Non-ST elevation (NSTEMI) myocardial infarction (principal); I50.22 Chronic systolic (congestive) heart failure; I11.0 Hypertensive heart disease with heart failure; E03.9 Hypothyroidism, unspecified; E78.5 Hyperlipidemia, unspecified; F17.210 Nicotine dependence, cigarettes, uncomplicated; I25.10 Atherosclerotic heart disease of native coronary artery without angina pectoris; Z88.5 Allergy status to narcotic agent; Z88.1 Allergy status to other antibiotic agents; Z88.8 Allergy status to other drugs, medicaments and biological substances; Z79.82 Long term (current) use of aspirin; Z79.890 Hormone replacement therapy; Z79.899 Other long term (current) drug therapy; Z95.810 Presence of automatic (implantable) cardiac defibrillator; Z90.710 Acquired absence of both cervix and uterus
CPT/HCPCS: 36415; 71045; 71275; 76937; 80048; 80061; 83735; 83880; 84100; 84484; 85025; 85379; 93005; 93454; C1893; G0378; J0461; J1644; J2001; J2250; J3010; J7040; Q9966; Q9967

== ENCOUNTER 2022-11-10 01:05 | Emergency (ER) | payer OTHER ==
--- OUTSIDE RECORDS SUMMARY | 2022-11-10 01:09 | XMS REPORT | Continuity of Care Document ---
:1965 Author Organization [facility] t Address [address] [facility] 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 00:00:00 94 ON STAND HIM AMBETTER [id number] 2020 FROM [facility] 00:00:00 HEALTH Ambetter from [id number] 2020 Common Spi rit [facility] 00:00:00 [facility] Ambetter from [id number] 2020 Common [facility] 00:00:00 [facility] Ambetter from [id number] 2020 [facility] 00:00:00 [facility] Problems Condition Condition Condition Status Onset Resolution Last Treating Co mments Source Name Details Category Date Date Treatment Clinician Date CHF CHF Disease Active Hilda (congestiv (congestiv 10-10 Se ybold e heart e heart 00:00: - failure) failure) 00 Resource Coordinator a l History of History of Disease Active K elsey placement placement 10-10 Seyb old of of 00:00: - internal internal 00 Resource Coordinator a cardiac cardiac l defibrilla defibrilla tor tor COPD COPD Disease Active Hilda (chronic (chronic 10-10 Seybol d obstructiv obstructiv 00:00: - e e 00 Externa pulmonary pulmonary l disease) disease) No known No known Disease Unive rs active active ity of problems problems [facility] [id number] Hypokalemi Problem Active Com mon a [facility] [id number] Tachycardi Problem Active Comm on a [facility] Smoker Smoker Problem Active Common [facility] [id number] Acquired Problem Active Comm on hypothyroi [facility] [id number] Screening Problem Active Com mon mammogram, [facility] [id number] Peripheral Problem Active Co mmon edema [facility] [id number] Cervical Problem Active Commo n radiculopa Spirit thy at [address] [id number] Lumbar Problem Active Common radiculopa Spirit thy, - [facility] Allergies, Adverse Reactions, Alerts Allergy Allergy [...] al-Asa-C adverse Vomiting 00:00: [place] aff reaction [facility] morphine morphine Active Unknown Commo n [facility] lisinopr lisinopr Active Unknown Commo n [facility] morphine Drug Active [facility] lisinopr Drug Active [facility] morphine Drug Active [facility] lisinopr Drug Active [facility] morphine Drug Active [facility] lisinopr Drug Active [facility] morphine Drug Active [facility] lisinopr Drug Active [facility] morphine Drug Active [facility] lisinopr Drug Active [facility] morphine Drug Active [facility] lisinopr Drug Active [facility] morphine Drug Active [facility] lisinopr Drug Active [facility] morphine Drug Active [facility] lisinopr Drug Active [facility] morphine Drug Active [facility] lisinopr Drug Active [facility] morphine Drug Active [facility] lisinopr Drug Active [facility] morphine Drug Active [facility] lisinopr Drug Active [facility] morphine Drug Active [facility] lisinopr Drug Active [facility] morphine Drug Active [facility] lisinopr Drug Active [facility] morphine Drug Active [facility] lisinopr Drug Active [facility] Social History Social Habit Start Date Stop [...] Univers ity of SARS-CoV-2 (event) 00:00:00 10:21:00 [facility] Sex Assigned At [birth year] Hilda sanchezmert - 00:00:00 00:00:00 External Smoking Status Start Date Stop Date Source Smokes tobacco daily 2022-10-09 00:00:00 Hilda Flores - External Former Smoker 2021-03-11 00:00:00 2021-03-11 00:00:00 Common S pirit - [facility] nter Medications Ordered Filled Start Stop [...] by mouth Externa daily l Fluticasone Yes [id number] 1{puff} Inhale 1 Hilda -Salmeterol 4-28 puff into Sey bold (Advair 00:00: the lungs - Diskus) 00 2 times Externa 250-50 daily l MCG/ACT inhalation AEROSOL POWDER, BREATH ACTIVATED Levalbutero Yes [id number] 2{puff} Q.[id number] Inhale 2 Hilda l Tartrate -28 [id number] puffs into Seybold (Xopenex 00:00: 3D the lungs - HFA) 45 00 every 8 Externa MCG/ACT hours as l inhalation needed for Aerosol wheezing or shortness of breath albuterol Yes [id number] 2{puff} Inhale 2 Univers 90 6-22 Puffs [...] Clavulanate 00:00: 00:00 - [facility]I 00 :00 [facility] acetaminoph Yes 1{tbl} Take 1 Un otny en-codeine 4-06 tablet by ity of 300-30 [...] Furosemide Yes Awilda 1 tablet Common Millender [facility] Aspirin 81 Aspirin 81 Yes Awilda 1 tablet Common Millender [facility] Levothyroxi Levothyroxi Yes Awilda 1 tablet Common ne Sodium ne Sodium Millender in the [facility] morning on - [facility]I an empty [facility] Naproxen Naproxen Yes Awilda 1 tablet Co mmon Millender [facility] Hydrochloro Hydrochloro Yes Awilda 1 tablet Common thiazide thiazide Millender in the [facility] Daily Multi Daily Multi Yes Awilda as Common Vitamin/Min Vitamin/Min Millender [facility] Spiron[facility]act Spironolact No Spironolac one 25 [...] Comm on Spirit - Vaccine Vaccine 11:37:00 [facility] Pfizer COVID-19 Pfizer COVID-19 2021-02-12 Completed Comm on Spirit - Vaccine Vaccine 16:27:00 [facility] Influenza Virus 2019-07-31 Completed Hilda Rodriguez ybold [...] 15:36:00 125 mm[Hg] Univer sity of pressure [facility] Diastolic blood 2021-12-04 15:36:00 53 mm[Hg] Unive rsity of pressure [facility] Heart rate 2021-12-04 15:36:00 93 /min [facility] Body temperature 2021-12-04 15:36:00 36.78 [facility] Respiratory rate 2021-12-04 15:36:00 20 /min [facility] Body height 2021-12-04 15:36:00 160 [facility] Body weight 2021-12-04 15:36:00 75.751 kg Universi ty [facility] BMI 2021-12-04 15:36:00 29.58 kg/m2 [facility] Oxygen saturation in 2021-12-04 15:36:00 97 /min [facility] Arterial blood by [facility] Pulse oximetry Branch height 2020-12-10 09:00:00 61 [in_i] [facility] weight 2020-12-10 09:00:00 160 [lb_av] [facility] temperature 2020-12-10 09:00:00 97.2 [degF] [facility] bmi 2020-12-10 09:00:00 30.23 kg/m2 [facility] oximetry 2020-12-10 09:00:00 100 % [facility] respiratory rate 2020-12-10 09:00:00 20 /min Comm on [facility] blood pressure 2020-12-10 09:00:00 110 mm[Hg] Common [facility] - systolic [facility] blood pressure 2020-12-10 09:00:00 64 mm[Hg] Common [facility] - diastolic [facility] Height/Length 2021-07-02 12:51:42 158 cm Measured [...] CHEST 1 VW 2021-12-04 16:35:48 Aaliyah Mason [facility] RAPID INFLUENZA A/B 2021-12-04 15:50:00 Aaliyah Mason [facility] COVID-19 (ID NOW 2021-12-04 15:50:00 Aaliyah Mason [facility] RAPID TESTING) [facility] NOTICE OF PRIVACY 2021-12-04 15:23:47 Doctor Unassigned, No [facility] PRACTICES Name [facility] CONSENT/REFUSAL FOR 2021-12-04 15:23:25 Doctor Unassigned, No [facility] DIAGNOSIS AND Name [facility] Branch TREATMENT Encounters Start End Encounter Admission Attending Care Care Encounter Source Date/Time Date/Time Type Type Clinicians Facility Department ID 2022-01-08 Outpatient Steuben, STLMLC STLMLC [id number] Common 08:37:00 Steph [id number] [facility] 2021-07-10 Outpatient Steuben, STLMLC STLMLC [id number] Common 13:02:37 Steph [id number] [facility] 2021-07-10 Outpatient Millender, STLMLC STLMLC [id number] Common 11:34:12 Awilda [id number] [facility] 2021-07-10 Outpatient Millender, STLMLC STLMLC [id number] Common 11:34:01 Awilda [id number] [facility] 2021-07-10 Outpatient Millender, STLMLC STLMLC [id number] Common 10:59:36 Awilda [id number] [facility] 2021-07-10 Outpatient HERMAN Daniels [facility] [id number] Common 10:59:25 Awilda [id number] [facility] 2021-07-10 Outpatient HERMAN Daniels [facility] [id number] Common 10:59:02 Awilda [id number] [facility] 2019-10-27 Inpatient 1 Oscar Arceo [facility] [address] [id number] 15:41:00 Oscar Arceo -[id number] [facility] 2019-08-09 Inpatient Stanford Gaston [facility] ST[id number] 13:06:00 Stanford Gaston [facility] 2023-01-14 2023-01-14 Outpatient HILDA GARCIA [id number] Hilda 14:30:00 14:30:00 TERI Seybol d 2023-01-02 2023-01-02 Outpatient TG MOJICA [id number] Hilda 15:20:00 15:20:00 Seybol d 2022-11-11 2022-11-11 Outpatient HILDA VIDALES [id number] Hilda 15:30:00 15:30:00 MAXIMILIAN Seybol d 2022-11-04 2022-11-04 Outpatient HILDA FORREST [id number] Hilda 00:00:00 00:00:00 Seybol d 2022-11-04 2022-11-04 Outpatient HILDA FORREST [id number] Hilda 00:00:00 00:00:00 Seybol d 2022-11-03 2022-11-03 Outpatient HILDA FORREST [id number] Hilda 00:00:00 00:00:00 Seybol d 2022-10-24 2022-10-24 Outpatient HILDA VIDALES [id number] Hilda 00:00:00 00:00:00 MAXIMILIAN Seybol d 2022-10-20 2022-10-20 Outpatient HILDA VIDALES [id number] Hilda 00:00:00 00:00:00 MAXIMILIAN Seybol d 2022-10-10 2022-10-10 Outpatient HILDA VIDALES [id number] Hilda 16:15:00 16:15:00 MAXIMILIAN metzger 2021-12-04 2021-12-04 Emergency X RIDDLE, [facility] ERT [id number] Univers 10:40:00 12:16:00 AALIYAH it y [facility] 2021-12-04 2021-12-04 Emergency Pickerel, [facility] [id number] Univers 10:40:00 12:16:00 Aaliyah VICTORIA [id number] ity [facility] [id number] [facility] [id number] [place] [id number] Branch 2021-05-10 2021-05-10 (TEL) STLMLC STLMLC [id number] Co mmon 00:00:00 00:00:00 [facility] 2021-01-20 2021-01-20 (WEB) STLMLC STLMLC [id number] Co mmon 00:00:00 00:00:00 [facility] 2021-01-14 2021-01-14 Emergency X [facility] ERT [id number] Univers 14:30:00 14:30:00 ity [facility] 2020-12-10 2020-12-10 OFFICE STLMLC STLMLC [id number] Co mmon 00:00:00 00:00:00 VISIT Spirit [facility] PT - [facility]I LEVEL 4 [facility] 2020-01-13 2020-01-13 Out[facility] [id number] Common 14:40:00 14:40:00 [facility] [address] Family [facility] 2020-01-13 2020-01-13 Outpatient [facility] [id number] Common 11:40:00 11:40:00 [facility] [address] [facility] 2019-12-21 2019-12-21 Outpatient [facility] [id number] Common 16:33:00 16:33:00 [facility] [address] Family [facility] Family [facility] 2019-10-27 2019-10-28 Inpatient 1 Oscar Arceo [facility] TEL [id number] 15:41:00 20:02:00 Oscar Arceo Wilfr[facility] 2019-09-05 2019-09-05 [facility] [id number] Common 13:11:00 13:11:[address] [facility] [address] [facility] 2019-08-15 2019-08-20 Inpatient DIDIER BRAGG [facility] MED [id number] Memoria 19:48:00 12:33:00 l [facility] 2019-07-07 2019-07-07 Outpatient [facility] [id number] Common 15:26:00 15:26:[address] [facility] [address] [facility] 2019-06-23 2019-06-23 Outpatient [facility] [id number] Common 14:00:00 14:00:[address] [facility] [address] [facility] 2018-02-04 2018-02-04 Outpatient [facility] [id number] Common 15:00:00 15:00:[address] [facility] [address] [facility] Results Test Description Test Time Test Comments Results Result Comments Source Lipid Panel 2019-10-28 06:52:53 Test Item Value Reference Range Interpretation Comme nts Cholesterol Total (test code = 147 mg/dL 0-200 RISK OF HEART DISEASEPublished by Cholesterol Total) [place] [employer] Analyte Optimal Borderl ine Increased [...] i s LDL/HDL Ratio=LDL Calc/HDL Chol Troponin [id number] 21:47:02 Test Item Value Reference Range Interpretation [...] diagnosis of chronic myoc ardial injury. Troponin [id number] 19:26:34 Test Item Value Reference Range Interpretation [...] diagnosis of chronic myoc ardial injury. Troponin [id number] 17:01:59 Test Item Value Reference Range Interpretation [...] of chronic myoc ardial injury. Comprehensive Metabolic [id number] 16:46:40 Test Item Value Reference Range Interpretation [...] the National Kidney Foundation, http://nkdep.ni h.gov Creatine [id number] 16:46:40 Test Item Value Reference Range Interpretation Comments CK (test code = CK) 224 U/L 26-192 H Comprehensive Metabolic [id number] 16:46:40 Test Item Value Reference Range Interpretation [...] ag e have not been validated by [facility] MDRD study and should be interpreted [...] ag e have not been validated by [facility] MDRD study and should be interpreted wit h caution. eGFR R esult Interpretation: eGFR > or = 60 is in the Normal RangeeGF R < 60 may mean kid ibrahima diseaseeGFR < 1 5 may mean kidney failure Rang es recommended by the National Kidney Foundation, http://nkdep.ni h.gov Comprehensive Metabolic [id number] 16:46:40 Test Item Value Reference Range Interpretation [...] ag e have not been validated by [facility] MDRD study and should be interpreted [...] ag e have not been validated by [facility] MDRD study and should be interpreted wit h caution. eGFR R esult Interpretation: eGFR > or = 60 is in the Normal RangeeGF R < 60 may mean kid ibrahima diseaseeGFR < 1 5 may mean kidney failure Rang es recommended by the National Kidney Foundation, http://nkdep.ni h.gov Pro B Natriuretic [id number] 16:43:50 Test Item Value Reference Range Interpretation Comments NT-proBNP (test code = NT-proBNP) 513 pg/mL 0-124 H Automated [id number] 16:24:33 Test Item Value Reference Range Interpretation Comments Neutro Auto (test code = Neutro 53.0 % 36.0-70.0 Auto) Lymph Auto (test code = Lymph Auto) 39.3 % 12.0-44.0 [facility] Auto (test code = [facility] Auto) 6.6 % 0.0-11.0 Eos, Auto (test code = Eos, Auto) 0.0 % 0.0-7.0 Basophil Auto (test code = Basophil 0.8 % 0.0-2.0 Auto) Neutro Absolute (test code = Neutro 4.0 x10 1.6-7.4 Absolute) Lymph Absolute (test code = Lymph 2.97 x10 .50-4.60 Absolute) [facility] Absolute (test code = [facility] .50 x10 .00-1.20 Absolute) Eos Absolute (test code = Eos 0.00 x10 0.00-0.74 Absolute) Baso Absolute (test code = Baso 0.06 x10 0.00-0.21 Absolute) IG [id number] 16:24:33 Test Item Value Reference Range Interpretation Comments IG (test code = IG) 0.3 % 0.0-5.0 IG Abs (test code = IG Abs) 0 x10 N Complete Blood Count with [id number] 16:24:32 Test Item Value Reference Range Interpretation [...] 0 % N XR Chest 1 View [id number] 16:11:29Patient: SHEFALI JOYNER Date/Time10/27/2019 16:05 CDTReason for ExamChest pain ReportDICTATION LOCATION: [id number]: Female, 54 years of age with Chest [...]
--- NOTE | 2022-11-10 01:43 | ER ---
Nurse's Notes [facility] Name: Virgie Silveira Age: 57 yrs Sex: Female : 1965 Arrival Date: 11/10/2022 Time: 01:05 Bed 15 Private MD: Diagnosis: Post operative bruising Presentation: 11/10 01:20 Chief complaint: Patient states: Patient C/O right wrist/forearm contusion,onset 3 pf1 days, S/P heart catheterization on 11/03/22. 01:20 Coronavirus screen: Vaccine status: Patient reports receiving the 2nd dose of the covid pf1 vaccine. BrandFiesta Client denies travel out of the [place] in the last 14 days. At this time, the client does not indicate any symptoms associated with coronavirus-19. Ebola Screen: Patient negative for fever greater than or equal to 101.5 degrees Fahrenheit, and additional compatible Ebola Virus Disease symptoms. Initial Sepsis Screen: Does the patient meet any 2 criteria? No. Patient's initial sepsis screen is negative. Does the patient have a suspected source of infection? No. Patient's initial sepsis screen is negative. Risk Assessment: Do you want to hurt yourself or someone else? Patient reports no desire to harm self or others. 01:20 Method Of Arrival: Ambulatory pf1 01:20 Acuity: TOÑITO 5 pf1 Historical: - Allergies: 01:56 Cipro; pf1 01:56 Codeine; pf1 01:56 Lisinopril; pf1 01:56 Morphine; pf1 - PMHx: 01:56 Congestive heart failure; Hypertension; Hypothyroidism; Pacemaker; defib; pf1 - PSHx: 01:56 section; hysterectomy; heart cath; right elbow surgery; pf1 - Immunization history:: Adult Immunizations up to date, Client reports receiving the 2nd dose of the Covid vaccine, Last tetanus immunization: < 5 years ago Flu vaccine is not up to date. - Social history:: Smoking status: Patient reports the use of cigarette tobacco products, 2 cigarettes per day, Patient/guardian denies using alcohol, the patient reports quitting approximately [address] drugs, the patient reports quitting approximately 38 years ago. Screenin:01 [facility] ED Fall Risk Assessment (Adult) History of falling in the last 3 months, pf1 including since admission No falls in past 3 months (0 pts) Confusion or Disorientation No (0 pts) Intoxicated or Sedated No (0 pts) Impaired Gait No (0 pts) Mobility Assist Device Used No (0 pt) Altered Elimination No (0 pt) Score/Fall Risk Level 0 - 2 = Low Risk Oriented to surroundings, Maintained a safe environment, Educated pt \T\ family on fall prevention, incl call for assistance when getting out of bed, Assessed \T\ reinforced patient's understanding of fall precautions, Provided non-skid footwear, Hourly rounding (assess needs \T\ fall precautionary measures) done, Used ambulatory aids as needed (educated on \T\ assisted with), Used gait belt as appropriate. Abuse screen: Denies threats or abuse. Nutritional screening: No deficits noted. Tuberculosis screening: No symptoms or risk factors identified. Assessment: 01:25 General: Appears in no apparent distress. comfortable, well groomed, well developed, pf1 Behavior is calm, cooperative, appropriate for age, quiet. 01:25 Pain: Pain currently is 5 out of 10 on a pain scale. Neuro: No deficits noted. Level of pf1 Consciousness is awake, alert, obeys commands, Oriented to person, place, time, situation. Cardiovascular: No deficits noted. Capillary refill < 3 seconds Patient's skin is warm and dry. Respiratory: No deficits noted. Airway is patent Trachea midline Respiratory effort is even, unlabored, Respiratory pattern is regular, symmetrical. GI: No deficits noted. No signs and/or symptoms were reported involving the gastrointestinal system. : No deficits noted. No signs and/or symptoms were reported regarding the genitourinary system. EENT: No deficits noted. No signs and/or symptoms were reported regarding the EENT system. Derm: Bruising that is dark purple, on right arm. Vital Signs: 01:26 BP 115 / 77; Pulse 92; Resp 18; Temp 98.3; Pulse Ox 100% on R/A; Weight 73.03 kg; pf1 Height 5 ft. 2 in. ; Pain 7/10; 01:26 Body Mass Index 29.45 (73.03 kg, 157.48 cm) pf1 01:26 Pain Scale: Adult pf1 ED Course: 01:08 Patient arrived in ED. ja2 01:08 Ty Santiago MD is Attending Physician. rt 01:20 Patient has correct armband on for positive identification. Bed in low position. Call pf1 light in reach. 01:20 Arm band placed on right wrist. pf1 01:41 Guille Humphries MD is Referral Physician. rt 01:56 Triage completed. pf1 02:01 No provider procedures requiring assistance completed. Patient did not have IV access pf1 during this emergency room visit. Administered Medications: No medications were administered Medication: 02:02 VIS not applicable for this client. pf1 Outcome: 01:42 Discharge ordered by . rt 02:01 Discharged to home ambulatory. pf1 02:01 Condition: stable 02:01 Discharge instructions given to patient, Instructed on discharge instructions, follow up and referral plans. Demonstrated understanding of instructions, follow-up care. 02:02 Patient left the ED. pf1 Signatures: Diane Reynoso Ryan, MD MD rt Dianna Freitas, RN RN pf1
--- NOTE | 2022-11-10 01:43 | EDPHYS ---
Physician Documentation [facility] Name: Virgie Silveira Age: 57 yrs Sex: Female : 1965 Arrival Date: 11/10/2022 Time: 01:05 Bed 15 Private MD: ED Physician Ty Santiago HPI: 11/10 03:49 This 57 yrs old Female presents to ER via Ambulatory with complaints of Brusing on rt Wirst. 03:49 Patient presents to the ED with about 3 days of bruising on the right wrist. This rt occurred after having a radial approach cardiac catheterization. The patient denies worsening of the symptoms overnight. She denies other acute complaints at this time. 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 Symptoms are mild in severity, no other aggravating or alleviating factors.. Historical: - Allergies: 01:56 Cipro; pf1 01:56 Codeine; pf1 01:56 Lisinopril; pf1 01:56 Morphine; pf1 - PMHx: 01:56 Congestive heart failure; Hypertension; Hypothyroidism; Pacemaker; defib; pf1 - PSHx: 01:56 section; hysterectomy; heart cath; right elbow surgery; pf1 - Immunization history:: Adult Immunizations up to date, Client reports receiving the 2nd dose of the Covid vaccine, Last tetanus immunization: < 5 years ago Flu vaccine is not up to date. - Social history:: Smoking status: Patient reports the use of cigarette tobacco products, 2 cigarettes per day, Patient/guardian denies using alcohol, the patient reports quitting approximately [address], [address] drugs, the patient reports quitting approximately 38 years ago. ROS: 03:49 Constitutional: Negative for fever, chills, and weight loss, Cardiovascular: Negative rt for chest pain, palpitations, and edema, Respiratory: Negative for shortness of breath, cough, wheezing, and pleuritic chest pain, Abdomen/GI: Negative for abdominal pain, nausea, vomiting, diarrhea, and constipation, Neuro: Negative for headache, weakness, numbness, tingling, and seizure, Psych: Negative for depression, anxiety, suicide ideation, homicidal ideation, and hallucinations. 03:49 MS/extremity: Positive for contusion, pain. Exam: 03:49 Constitutional: This is a well developed, well nourished patient who is awake, alert, rt and in no acute distress. Head/Face: Normocephalic, atraumatic. Skin: Warm, dry with normal turgor. Normal color with no rashes, no lesions, and no evidence of cellulitis. Neuro: Awake and alert, GCS 15, oriented to person, place, time, and situation. Cranial nerves II-XII grossly intact. Motor strength 5/5 in all extremities. Sensory grossly intact. Cerebellar exam normal. Normal gait. Psych: Awake, alert, with orientation to person, place and time. Behavior, mood, and affect are within normal limits. 03:49 Musculoskeletal/extremity: Small amount of bruising to the right wrist, radial pulse is strong, no hematomas noted, compartments are soft. Motor and sensation are intact. Vital Signs: 01:26 BP 115 / 77; Pulse 92; Resp 18; Temp 98.3; Pulse Ox 100% on R/A; Weight 73.03 kg; pf1 Height 5 ft. 2 in. ; Pain 7/10; 01:26 Body Mass Index 29.45 (73.03 kg, 157.48 cm) pf1 01:26 Pain Scale: Adult pf1 MDM: 01:32 Patient medically screened. rt 03:49 Differential diagnosis: Simple contusion, pseudoaneurysm, arterial occlusion. Data rt reviewed: vital signs, nurses notes, old medical records. Test considered but Not performed: Ultrasound Good pulses, no evidence of hematoma, CT or ultrasound are not indicated. Counseling: I had a detailed discussion with the patient and/or guardian regarding: the historical points, exam findings, and any diagnostic results supporting the discharge/admit diagnosis, the need for outpatient follow up, to return to the emergency department if symptoms worsen or persist or if there are any questions or concerns that arise at home. ED course: Presentation is consistent with simple uncomplicated postoperative bruising, no evidence of hematoma, pseudoaneurysm, other significant complication. 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 Administered Medications: No medications were administered Disposition Summary: 11/10/22 01:42 Discharge Ordered Location: Home rt Problem: new rt Symptoms: are unchanged rt Condition: Stable rt Diagnosis - Post operative bruising rt Followup: rt - With: Guille Humphries MD - When: 2 - 3 days - Reason: Discharge Instructions: - Discharge Summary Sheet rt - Contusion rt Forms: - Medication Reconciliation Form rt - Thank You Letter rt - Antibiotic Education rt - Prescription Opioid Use rt Signatures: Ty Santiago MD MD rt Dianna Freitas, RN RN pf1
[2022-11-10 02:07] VITALS: BP 115/77; TEMP 98.3; O2SAT 100
== END 2022-11-10 02:02 | disposition home or self-care (01) ==
LOC: ER 01:05
DX: L76.32 Postprocedural hematoma of skin and subcutaneous tissue following other procedure (principal); Z98.61 Coronary angioplasty status
CPT/HCPCS: 99282

== ENCOUNTER 2023-09-05 00:04 | Observation (INO) | payer OTHER ==
--- OUTSIDE RECORDS SUMMARY | 2023-09-05 00:10 | XMS REPORT | Continuity of Care Document ---
Author Name Unknown Address [address] [facility] [place] [address] [facility] thconnect Address [address] [facility] [address] [place] [address] Care Team Providers Care Nurse Epidemiologist Name Role Phone STEPH OSWALD Primary Care Physician Unavaila Steph Glaser Attending Clinician Unavailable Awilda Daniels Attending Clinician Unavailable Oscar Arceo Attending Clinician Unavailable Varghese Gaston Attending Clinician Unavailable Varghese Gaston Attending Clinician Unavailable VARGHESE MEDINA Attending Clinician Unav ailable PACE53 Attending Clinician Unavailable RAISA KIMBROUGH Attending Clinician Unavailable LAB90 Attending Clinician Unavailable NOLVIA VANG Attending Clinician Unavailable MD MYA Attending Clinician Unavailab MAXIMILIAN Umaña Attending Clinician Unavailable MIGUEL ÁNGEL DANGELO Attending Clinician Unavailable TRED47 Attending Clinician Unavailable TERI GARCIA Attending Clinician Unavailable TG MOJICA Attending Clinician Unavailable AALIYAH MASON Attending Clinician Unavaila ble Aaliyah Morrison Attending Clinician [phone] DIDIER ARGUETA Attending Clinician Unavailable Oscar Arceo Admitting Clinician Unavailable Varghese Gaston Admitting Clinician Unavailable AALIYAH MASON Admitting Clinician UnavailDIDIER Gorman Admitting Clinician Unavailable Payers Payer Name Policy Type Policy Number Effective Date Expirati on Date Source DODIEREED VEGA SILVER: O PATIENT INTAKE REPRESENTATIVE 94 ON STAND 9 [id number] 2022 00:00:00 HIM AMBETTER FROM [facility] [id number] 2020 00:00:00 Ambetter from [facility] [id number] 2020 00:00:00 [facility] from [facility] [id number] 2020 00:00:00 [facility] from [facility] [id number] 2020 00:00:00 [facility] Problems Condition Name Condition Details Condition Category Status Onset Date Resolution Date Last Treatment Date Treating Clinician Comments Source Class 1 obesity due to excess calories with serious comorbidit y and body mass index (BMI) of 30.0 to 30.9 in adult Class 1 obesity due to excess calories with serious comorbidit y and body mass index (BMI) of 30.0 to 30.9 in adult Disease Active 03-03 00:00: 00 Hilda rothman Screening for colon cancer Screening for colon cancer Disease Active 03-03 00:00: 00 Hilda rothman Family history of colon cancer in mother Family history of colon cancer in mother Disease Active 03-03 00:00: 00 Hilda rothman Class 1 obesity due to excess calories with serious comorbidit y and body mass index (BMI) of 30.0 to 30.9 in adult Class 1 obesity due to excess calories with serious comorbidit y and body mass index (BMI) of 30.0 to 30.9 in adult Disease Active 03-03 00:00: 00 Hilda rothman CHF (congestiv e heart failure) (multi HCC) CHF (congestiv e heart failure) (multi HCC) Disease Active 4-28 00:00: 00 Hilda rothman History of placement of internal cardiac defibrilla tor History of placement of internal cardiac defibrilla tor Disease Active 10-10 00:00: 00 Hilda rothman COPD (chronic obstructiv e pulmonary disease) (multi HCC) COPD (chronic obstructiv e pulmonary disease) (multi HCC) Disease Active 10-10 00:00: 00 Hilda rothman No known active problems No known active problems Disease [facility] [id number] Hypokalemi a Problem Active [facility] [place] [id number] Tachycardi a Problem Active [facility] Smoker Smoker Problem Active [facility] [id number] Acquired hypothyroi dism Problem Active [facility] [id number] Peripheral edema Problem Active [facility] [id number] Cervical radiculopa thy at C5 Problem Active [facility] [id number] Lumbar radiculopa thy, chronic Problem Active [facility] Allergies, Adverse Reactions, Alerts Allergy Name Allergy Type Status Severity Reaction(s) Onset Date Inactive Date Treating Clinician Comments Source Lisinopr il Propensi ty to adverse reaction s Active Rash 10-09 00:00: 00 Hilda Flores - Externa l Morphine Propensi ty to adverse reaction s Active Other 10-09 00:00: 00 Hilda Phillipsa l LISINOPR IL DRUG INGREDI Active Rash 01-14 00:00: 00 [facility] Lisinopr il Propensi ty to adverse reaction s Active Rash 01-14 00:00: 00 [facility] MORPHINE DRUG INGREDI Active Unknown-Cmnt 2009-06 00:00: 00 [facility] Morphine Propensi ty to adverse reaction s Active Unknown - See comments 2009-06 00:00: 00 [facility] CODEINE- BUTALBIT AL-ASA-C AFF DRUG Active N/V 2006-06 00:00: 00 [facility] Codeine- Butalbit al-Asa-C aff Propensi ty to adverse reaction s Active Nausea and/or Vomiting 2006-06 00:00: 00 Nieves jaquez [facility] morphine Drug Active [facility] lisinopr il Drug Active [facility] morphine Drug Active [facility] lisinopr il Drug Active [facility] morphine Drug Active [facility] lisinopr il Drug Active [facility] morphine Drug Active [facility] lisinopr il Drug Active [facility] morphine Drug Active [facility] lisinopr il Drug Active [facility] morphine Drug Active [facility] lisinopr il Drug Active [facility] morphine Drug Active [facility] lisinopr il Drug Active [facility] morphine Drug Active [facility] lisinopr il Drug Active [facility] morphine Drug Active [facility] lisinopr il Drug Active [facility] morphine Drug Active [facility] lisinopr il Drug Active [facility] morphine Drug Active [facility] lisinopr il Drug Active [facility] morphine Drug Active [facility] lisinopr il Drug Active [facility] morphine Drug Active [facility] lisinopr il Drug Active [facility] morphine Drug Active [facility] lisinopr il Drug Active [facility] morphine morphine Active Unknown [facility] lisinopr il lisinopr tx Active Unknown [facility] Social History Social Habit Start Date Stop Date Quantity Comments Source Gender identity Deb Florse - External Sexual orientation Srikanth Flores - External History of tobacco use Cigarette Smoker Hilda painting - External Alcohol intake 2023-03-11 00:00:00 2023-03-11 00:00:00 Ex-drinker (finding) Hilda Flores - External History of Social function 2023-03-11 00:00:00 2023-03-11 00:00:00 Hilda Flores - External Cigarettes smoked current (pack per day) - Reported 2023-03-03 00:00:00 2023-03-03 00:00:00 Hilda Flores - External Cigarette pack-years 2023-03-03 00:00:00 2023-03-03 00:00:00 Hilda Flores - External Tobacco use and exposure 2023-03-03 00:00:00 2023-03-03 00:00:00 Smokeless tobacco non-user Hilda Flores - External Education - What is the highest level of school you have completed or the highest degree you have received? 2022-10-10 00:00:00 2022-10-10 00:00:00 11th grade Hilda Flores - External Alcohol Comment 2022-10-09 00:00:00 2022-10-09 00:00:00 stopped in 2007 Hilda Muniz External Exposure to SARS-CoV-2 (event) 2021-11-24 00:00:00 2021-12-04 10:21:00 Unable to assess [facility] Sex Assigned At 1965 00:00:00 1965 00:00:00 Hilda Flores - External Smoking Status Start Date Stop Date Source Ex-smoker 2023-03-03 00:00:00 2023-03-03 00:00:00 Srikanth arriola Mark - External Smokes tobacco daily 2022-10-09 00:00:00 Hilda Flores - External Medications Ordered Medication Name Filled Medication Name Start Date Stop Date Current Medication? Ordering Clinician Indication Dosage Frequency Signature (SIG) Comments Components Source PEG-KCl-NaC l-NaSulf-Na Asc-C (MOVIPREP) 100 g oral Recon Soln 07-02 00:00: 00 Yes [id number] Instructio ns provided to patient. Follow instructio ns provided by provider.. Hilda rothman Sacubitril- Valsartan (Entresto) 24-26 MG oral Tablet 03-11 00:00: 00 Yes 24mg Take 24-26 mg by mouth 2 times daily. Hilda rothman Spironolact one 25 MG oral Tablet 03-11 00:00: 00 Yes 25mg Take 1 tablet (25 mg total) by mouth daily. Hilda rothman FUROSEMIDE OR 03-03 16:51: 12 03-03 00:00 :00 No 40mg Take 40 mg by mouth daily Hilda rothamn Sacubitril- Valsartan 24-26 MG oral Tablet 03-03 16:51: 06 03-03 00:00 :00 No 1{tbl} Take 1 tablet by mouth 2 times daily Hilda rothman Spironolact one 25 MG oral Tablet 03-03 16:51: 03 03-03 00:00 :00 No 25mg Take 1 tablet (25 mg total) by mouth daily Hilda rothman Varenicline Tartrate (Chantix Continuing Month Jaleel) 1 MG oral Tablet 03-03 16:44: 40 03-03 00:00 :00 No 1mg 1 tablet (1 mg total) every 12 hours Hilda rothman POTASSIUM OR 10-10 16:36: 15 10-10 00:00 :00 No Take by mouth Hilda rothman Spironolact one 25 MG oral Tablet 10-10 16:35: 59 Yes 25mg Take 1 tablet (25 mg total) by mouth daily Hilda rothman Sacubitril- Valsartan 24-26 MG oral Tablet 10-10 16:16: 39 Yes 1{tbl} Take 1 tablet by mouth 2 times daily Hilda rothman FUROSEMIDE OR 10-10 16:16: 39 Yes 40mg Take 40 mg by mouth daily Hilda rothman Spironolact one 25 MG oral Tablet 10-10 16:16: 39 10-10 00:00 :00 No 25mg Take 1 tablet (25 mg total) by mouth daily Hilda rothman Fluticasone -Salmeterol (Advair Diskus) 250-50 MCG/ACT inhalation AEROSOL POWDER, BREATH ACTIVATED 10-10 00:00: 00 Yes [id number] 1{puff} Inhale 1 puff into the lungs 2 times daily Hilda rothman Levalbutero l Tartrate (Xopenex HFA) 45 MCG/ACT inhalation Aerosol 10-10 00:00: 00 Yes [id number] 2{puff} [id number] 3D Inhale 2 puffs into the lungs every 8 hours as needed for wheezing or shortness of breath Hilda rothman Fluticasone -Salmeterol (Advair Diskus) 250-50 MCG/ACT inhalation AEROSOL POWDER, BREATH ACTIVATED 10-10 00:00: 00 03-03 00:00 :00 No [id number] 1{puff} Inhale 1 puff into the lungs 2 times daily Hilda rothman Levalbutero l Tartrate (Xopenex HFA) 45 MCG/ACT inhalation Aerosol 10-10 00:00: 00 03-03 00:00 :00 No [id number] 2{puff} Q.[id number] 3D Inhale 2 puffs into the lungs every 8 hours as needed for wheezing or shortness of breath Hilda rothman Furosemide 40 MG oral Tablet 10-06 00:00: 00 03-03 00:00 :00 No 40mg Take 1 tablet (40 mg total) by mouth daily Hilda rothman albuterol 90 mcg/actuati on inhaler 12-04 00:00: 00 Yes [id number] 2{puff} Inhale 2 Puffs every 6 (six) hours as needed for Wheezing or Shortness of Breath. [facility] Chantix Continuing Month Jaleel 1 MG Chantix Continuing Month Jaleel 1 MG 01-21 00:00: 00 04-21 00:00 :00 No BID Chantix Continuing Month Jaleel 1 MG Amoxicillin -Pot Clavulanate Amoxicillin -Pot Clavulanate 7- 00:00: 00 01-19 00:00 :00 No Awilda Millender 1 tablet [facility] [place] acetaminoph en-codeine 300-30 mg tablet 09-18 00:00: 00 Yes 1{tbl} Take 1 tablet by mouth every 4 (four) hours as needed for Pain (scale 4-6). [facility] ibuprofen 600 mg tablet 09-18 00:00: 00 Yes 600mg Take 1 tablet by mouth every 6 (six) hours as needed for Pain (scale 4-6). [facility] sulfamethox azole-trime thoprim (BACTRIM DS) 800-160 mg tablet 2009-06 00:00: 00 Yes 1{tbl} Take 1 Tab by mouth 2 (two) times daily. [facility] hydrochloro thiazide (ESIDRIX) 25 mg tablet 2009-06 00:00: 00 Yes 12.5mg Take 0.5 Tabs by mouth daily. [facility] hydrocodone -acetaminop hen (NORCO 5) 5-325 mg tablet 2009-06 00:00: 00 Yes 1{tbl} Take 1 Tab by mouth every 6 (six) hours as needed for Pain. [facility] Furosemide Furosemide Yes Awilda Millender 1 tablet [facility] Aspirin 81 Aspirin 81 Yes Awilda Millender 1 tablet [facility] Levothyroxi ne Sodium Levothyroxi ne Sodium Yes Awilda Millender 1 tablet in the morning on an empty stomach [facility] Naproxen Naproxen Yes Awilda Millender 1 tablet [facility] Hydrochloro thiazide Hydrochloro thiazide Yes Awilda Millender 1 tablet in the morning [facility] Daily Multi Vitamin/Min erals Daily Multi Vitamin/Min erals Yes Awilda Millender as directed [facility] Spironolact one 25 MG Spironolact one 25 MG No Spironolac tone 25 MG Chantix Starting Month Jaleel 0.5 MG X 11 & 1 MG X 42 Chantix Starting Month Jaleel 0.5 MG X 11 & 1 MG X 42 No Chantix Starting Month Jaleel 0.5 MG X 11 & 1 MG X 42 Furosemide 40 MG Furosemide 40 MG No 1{table t} QD Furosemide 40 MG Potassium Chloride ER 20 MEQ Potassium Chloride ER 20 MEQ No 1{table t_with_ food} QD Potassium Chloride ER 20 MEQ Levothyroxi ne Sodium 25 MCG Levothyroxi ne Sodium 25 MCG No QD Levothyrox ine Sodium 25 MCG Atorvastati n Calcium 40 MG Atorvastati n Calcium 40 MG No 1{table t} QD Atorvastat in Calcium 40 MG Entresto 24-26 MG Entresto 24-26 MG No Entresto 24-26 MG Spironolact one 25 MG Spironolact one 25 MG No Spironolac tone 25 MG Furosemide 40 MG Furosemide 40 MG No 1{table t} QD Furosemide 40 MG Entresto 24-26 MG Entresto 24-26 MG No Entresto 24-26 MG Potassium Chloride ER 20 MEQ Potassium Chloride ER 20 MEQ No 1{table t_with_ food} QD Potassium Chloride ER 20 MEQ Levothyroxi ne Sodium 25 MCG Levothyroxi ne Sodium 25 MCG No QD Levothyrox ine Sodium 25 MCG Atorvastati n Calcium 40 MG Atorvastati n Calcium 40 MG No 1{table t} QD Atorvastat in Calcium 40 MG Chantix Starting Month Jaleel 0.5 MG X 11 & 1 MG X 42 Chantix Starting Month Jaleel 0.5 MG X 11 & 1 MG X 42 No Chantix Starting Month Jaleel 0.5 MG X 11 & 1 MG X 42 Chantix 1 MG Chantix 1 MG No 1{table t} BID Chantix 1 MG Entresto 24-26 MG Entresto 24-26 MG No Entresto 24-26 MG Potassium Chloride ER 20 MEQ Potassium Chloride ER 20 MEQ No 1{table t_with_ food} QD Potassium Chloride ER 20 MEQ Furosemide 40 MG Furosemide 40 MG No 1{table t} QD Furosemide 40 MG Atorvastati n Calcium 40 MG Atorvastati n Calcium 40 MG No 1{table t} QD Atorvastat in Calcium 40 MG Spironolact one 25 MG Spironolact one 25 MG No Spironolac tone 25 MG Levothyroxi ne Sodium 25 MCG Levothyroxi ne Sodium 25 MCG No QD Levothyrox ine Sodium 25 MCG Immunizations Ordered Immunization Name Filled Immunization Name Date Status Comments Source [facility] COVID-19 Vaccine Pfizer COVID-19 Vaccine 2021-03-13 11:37:00 Completed [facility] Covid-19 Vaccine (Pfizer), Mrna-lnp, Garth Protein, Pf, 30mcg/0.3ml,IM 2021-03-13 00:00:00 Completed Hilda Meadold - External Pfizer COVID-19 Vaccine Pfizer COVID-19 Vaccine 2021-02-12 16:27:00 Completed [facility] Covid-19 Vaccine (Pfizer), Mrna-lnp, Garth Protein, Pf, 30mcg/0.3ml,IM 2021-02-12 00:00:00 Completed Hilda Meadold - External Influenza Virus Vaccine, No Preserv, age 6 months and up 2019-07-31 00:00:00 Completed Hilda Rodriguezybold - External Influenza Virus Vaccine, No Preserv, age 6 months and up 2019-07-31 00:00:00 Completed Hilda Rodriguezybold - External Influenza Virus Vaccine, No Preserv, age 6 months and up Unknown Completed Hilda Meadold - External Covid-19 Vaccine (Pfizer), Mrna-lnp, Garth Protein, Pf, 30mcg/0.3ml,IM Unknown Completed Hilda Rodriguezybol d - External Covid-19 Vaccine (Pfizer), Mrna-lnp, Garth Protein, Pf, 30mcg/0.3ml,IM Unknown Completed Hilda Rodriguezybol d - External Vital Signs Vital Name Observation Time Observation Value Comments S ource Height/Length Measured 2019-10-27 21:50:43 Systolic blood pressure 2023-03-03 21:43:00 137 mm[Hg] Hilda Meado ld - External Diastolic blood pressure 2023-03-03 21:43:00 84 mm[Hg] Hilda Meado ld - External Heart rate 2023-03-03 21:43:00 91 /min Andressa Flores - External Body temperature 2023-03-03 21:43:00 37.06 Monalisa Hilda Flores - External Body height 2023-03-03 21:43:00 157.5 cm Deb brewer Seybold - External Body weight 2023-03-03 21:43:00 74.844 kg Deb brewer Seybold - External BMI 2023-03-03 21:43:00 30.18 kg/m2 Deb brewer Seybold - External Systolic blood pressure 2022-10-10 21:14:00 101 mm[Hg] Hilda Mathis ld - External Diastolic blood pressure 2022-10-10 21:14:00 74 mm[Hg] Hilda Meado ld - External Heart rate 2022-10-10 21:14:00 85 /min Andressa clark Seybold - External Body temperature 2022-10-10 21:14:00 36.33 Monalisa Hilda Rodriguezybold - External Respiratory rate 2022-10-10 21:14:00 14 /min Hilda Rodriguezybold - External Body height 2022-10-10 21:14:00 157.5 cm Deb brewer Seybold - External Body weight 2022-10-10 21:14:00 119.75 kg Deb brewer Seybold - External BMI 2022-10-10 21:14:00 48.29 kg/m2 Deb brewer Seybold - External Oxygen saturation in Arterial blood by Pulse oximetry 2022-10-10 21:14:00 99 /min Hilda Mathis ld - External Systolic blood pressure 2021-12-04 15:36:00 125 mm[Hg] [facility] Diastolic blood pressure 2021-12-04 15:36:00 53 mm[Hg] [facility] Heart rate 2021-12-04 15:36:00 93 /min [facility] Body temperature 2021-12-04 15:36:00 36.78 Monalisa [facility] Respiratory rate 2021-12-04 15:36:00 20 /min [facility] Body height 2021-12-04 15:36:00 160 cm [facility] Body weight 2021-12-04 15:36:00 75.751 kg [facility] BMI 2021-12-04 15:36:00 29.58 kg/m2 [facility] Oxygen saturation in Arterial blood by Pulse oximetry 2021-12-04 15:36:00 97 /min [facility] height 2020-12-10 09:00:00 61 [in_i] [facility] weight 2020-12-10 09:00:00 160 [lb_av] [facility] temperature 2020-12-10 09:00:00 97.2 [degF] Com mon [facility] bmi 2020-12-10 09:00:00 30.23 kg/m2 [facility] oximetry 2020-12-10 09:00:00 100 % [facility] respiratory rate 2020-12-10 09:00:00 20 /min [facility] blood pressure systolic 2020-12-10 09:00:00 110 mm[Hg] [facility] blood pressure diastolic 2020-12-10 09:00:00 64 mm[Hg] [facility] Height/Length Measured 2021-07-02 12:51:42 158 cm Weight [...] Procedures Procedure Date / Time Performed Performing Clinicia n Source XR CHEST 1 VW 2021-12-04 16:35:48 Aaliyah Mason [facility] RAPID INFLUENZA A/B 2021-12-04 15:50:00 Aleksnadr Mason [facility] COVID-19 (ID NOW RAPID TESTING) 2021-12-04 15:50:00 Aaliyah Mason [facility] NOTICE OF PRIVACY PRACTICES 2021-12-04 15:23:47 Doctor Unassigned, Xenia [facility] CONSENT/REFUSAL FOR DIAGNOSIS AND TREATMENT 2021-12-04 15:23:25 Doctor Unassigned, Xenia [facility] Encounters Start Date/Time End Date/Time Encounter Type Admission Type Attending [email or web address] Care Department Encounter ID Source 2022-01-08 08:37:00 [id number] [place] 2021-07-10 13:02:37 [facility] [id number] [facility] [place] 2021-07-10 11:34:12 [facility] [id number] [facility] [place] 2021-07-10 11:34:01 [facility] [id number] [facility] [place] 2021-07-10 10:59:36 [facility] [id number] [facility] 2021-07-10 10:59:25 Outpatient Awilda Daniels [facility] [id number] [facility] [place] 2021-07-10 10:59:02 [facility] [id number] [facility] 2019-10-27 15:41:00 Inpatient 1 Oscar Arceo Min [facility] TEL [id number] [facility] 2019-08-09 13:06:00 Inpatient Varghese Gaston George [facility] STEFANI [id number] [facility] 2023-09-09 13:40:00 2023-09-09 13:40:00 Outpatient VARGHESE MEDINA [id number] Hilda Flores 2023-09-01 12:00:00 2023-09-01 12:00:00 Outpatient PACE53 HILDA HILDA [id number] Hilda Rodriguezybmert 2023-08-26 00:00:00 2023-08-26 00:00:00 Outpatient ADAMVARGHESE HILDA FORREST [id number] Hilda ybmert 2023-08-16 00:00:00 2023-08-16 00:00:00 Outpatient SIDIQ, RAISA HILDA FORREST [id number] Hilda Rodriguezybmert 2023-08-10 09:00:00 2023-08-10 09:00:00 Outpatient SIDIQ, RAISA HILDA FORREST [id number] Hilda Rodriguezybmert 2023-08-06 12:55:00 2023-08-06 12:55:00 Outpatient LAB90 HILDA FORREST [id number] Hilda Rodriguezybmert 2023-08-04 00:00:00 2023-08-04 00:00:00 Outpatient SIDIQ, RAISA HILDA FORREST [id number] [facility] 2023-07-20 00:00:00 2023-07-20 00:00:00 Outpatient SIDIQ, RAISA HILDA FORREST [id number] Hilda Seybold 2023-07-20 00:00:00 2023-07-20 00:00:00 Outpatient HILDA FORREST [id number] Hilda Seybold 2023-07-18 00:00:00 2023-07-18 00:00:00 Outpatient SIDIQ, RAISA HILDA FORREST [id number] Hilda Seybold 2023-07-18 00:00:00 2023-07-18 00:00:00 Outpatient SIDIQ, CLARISSAGUY FORREST [id number] Hilda Seybold 2023-07-15 00:00:00 2023-07-15 00:00:00 Outpatient VANG, NOLVIA FORREST [id number] Hilda Seybold 2023-07-02 13:30:00 2023-07-02 13:30:00 Outpatient SIDIQ, RAISA HILDA FORREST [id number] Hilda Seybold 2023-07-02 12:00:00 2023-07-02 12:00:00 Outpatient PACE53 HILDA HILDA [id number] [facility] 2023-07-02 00:00:00 2023-07-02 00:00:00 Outpatient MD HILDA LOWRY [id number] [facility] 2023-07-02 00:00:00 2023-07-02 00:00:00 Outpatient HILDA FORREST [id number] [facility] 2023-06-02 09:30:00 2023-06-02 09:30:00 Outpatient PRESAIDAMAXIMILIAN HILDA FORREST [id number] [facility] 2023-05-04 15:20:00 2023-05-04 15:20:00 Outpatient MIGUEL ÁNGEL DANGELO [id number] Hilda [facility] 2023-05-01 00:00:00 2023-05-01 00:00:00 Outpatient MAXIMILIAN VIDALES [id number] [facility] 2023-04-30 10:45:00 2023-04-30 10:45:00 Outpatient PACE53 HILDA FORREST [id number] [facility] 2023-04-28 00:00:00 2023-04-28 00:00:00 Outpatient VARGHESE MEDINA [id number] [facility] 2023-03-17 00:00:00 2023-03-17 00:00:00 Outpatient PRESAIDA MAXIMILIAN HILDA FORREST [id number] [facility] 2023-03-12 00:00:00 2023-03-12 00:00:00 Outpatient PRESAIDA MAXIMILIAN FORREST [id number] [facility] 2023-03-11 11:30:00 2023-03-11 11:30:00 Outpatient TRED47 HILDA FORREST [id number] [facility] 2023-03-11 09:10:00 2023-03-11 09:10:00 Outpatient VARGHESE MEDINA [id number] [facility] 2023-03-11 00:00:00 2023-03-11 00:00:00 Outpatient VARGHESE MEDINA [id number] [facility] 2023-03-10 00:00:00 2023-03-10 00:00:00 Outpatient VARGHESE MEDINA HILDA FORREST [id number] [facility] 2023-03-05 00:00:00 2023-03-05 00:00:00 Outpatient MD HILDA LOWRY [id number] [facility] 2023-03-03 16:30:00 2023-03-03 16:30:00 Outpatient PREMAXIMILIAN CINTRON [id number] [facility] 2023-03-03 00:00:00 2023-03-03 00:00:00 Outpatient HILDA FORREST [id number] Hilda [facility] 2023-02-24 00:00:00 2023-02-24 00:00:00 Outpatient MAXIMILIAN VIDALES [id number] [facility] 2023-02-23 00:00:00 2023-02-23 00:00:00 [facility] [id number] [facility]23-02-18 15:50:00 2023-02-18 15:50:00 Outpatient TERI GARCIA [id number] [facility] 2023-01-14 14:30:00 2023-01-14 14:30:00 Outpatient RADHA TERI HILDA FORREST [id number] [facility] 2023-01-14 00:00:00 2023-01-14 00:00:00 Outpatient MD HILDA LOWRY [id number] [facility] 2023-01-02 15:20:00 2023-01-02 15:20:00 Outpatient YUNIOR TGJun FORREST [id number] [facility] 2022-12-03 15:15:00 2022-12-03 15:15:00 Outpatient MAXIMILIAN VIDALES [id number] [facility] 2022-11-24 00:00:00 2022-11-24 00:00:00 Outpatient MAXIMILIAN VIDALES [id number] [facility] 2022-11-11 15:30:00 2022-11-11 15:30:00 Outpatient PREZAMAXIMILIAN Roamno [id number] Hilda Rodriguezmert 2022-11-04 00:00:00 2022-11-04 00:00:00 Outpatient HILDA FORREST [id number] Hilda Rodriguezmert 2022-11-04 00:00:00 2022-11-04 00:00:00 Outpatient HILDA FORREST [id number] [facility] 2022-11-03 00:00:00 2022-11-03 00:00:00 Outpatient HILDA FORREST [id number] [facility] 2022-10-24 00:00:00 2022-10-24 00:00:00 Outpatient PREZAMAXIMILIAN Romano [id number] [facility] 2022-10-20 00:00:00 2022-10-20 00:00:00 Outpatient PREZASMAXIMILIAN [id number] Hilda [facility] 2022-10-10 16:15:00 2022-10-10 16:15:00 Outpatient PREZAMAXIMILIAN Romano [id number] Hilda [facility] 2021-12-04 10:40:00 2021-12-04 12:16:00 Emergency X AALIYAH MASON [facility] ERT [id number] [facility] 2021-12-04 10:40:00 2021-12-04 12:16:00 Emergency Aaliyah Mason [facility] [id number] [facility] 2021-05-10 00:00:00 2021-05-10 00:00:00 (TEL) STLMLC STLMLC [id number] [facility] 2021-01-20 00:00:00 2021-01-20 00:00:00 (WEB) STLMLC STLMLC [id number] [facility] 2021-01-14 14:30:00 2021-01-14 14:30:00 Emergency X [facility] ERT [id number] [facility] 2020-12-10 00:00:00 2020-12-10 00:00:00 OFFICE VISIT ESTAB PT LEVEL 4 STLMLC STLMLC [id number] [facility] [place] 2020-01-13 14:40:00 2020-01-13 14:40:00 [facility] [id number] [facility] 2020-01-13 11:40:00 2020-01-13 11:40:00 [facility] [id number] [facility] [place] 2019-12-21 16:33:00 2019-12-21 16:33:00 [facility] [id number] [facility] [place] 2019-10-27 15:41:00 2019-10-28 20:02:00 Inpatient 1 Oscar Arceo Min [facility] TEL [id number] [facility] 2019-09-05 13:11:00 2019-09-05 13:11:00 Outpatient [facility] Medicine [id number] [facility] [place] 2019-08-15 19:48:00 2019-08-20 12:33:00 Inpatient E DIDIER ARGUETA [facility] [id number] [facility] 2019-07-07 15:26:00 2019-07-07 15:26:00 [facility] [place] [facility] [id number] [facility] 2019-06-23 14:00:00 2019-06-23 14:00:00 [facility] [id number] [facility] [place] 2018-02-04 15:00:00 2018-02-04 15:00:00 [facility]patient [facility] [id number] [facility] [place] Results Test Description Test Time Test Comments Results Result Co mments Source Troponin [id number] 21:47:02* Test Item Value Reference Range Interpretation Comme nts Troponin-T (test code = Troponin-T) 7.950 ng/L 0.000-14.000 The CV of the assay at 99th percentile for both male and female patient population is < 10%. A rise and fall in REJI with at least one value above the 99th percentile with clinical evidence of myocardial ischemia would support a diagnosis of AMI. A delta of at least 20% is recommended to assess acute changes in results above the 99th percentile in serial measurements. Stable REJI levels (<20%) delta above the 99th percentile URL would support a diagnosis of chronic myocardial injury. Troponin [id number] 19:26:34* Test Item Value Reference Range Interpretation Comme nts Troponin-T (test code = Troponin-T) 8.060 ng/L 0.000-14.000 The CV of the assay at 99th percentile for both male and female patient population is < 10%. A rise and fall in REJI with at least one value above the 99th percentile with clinical evidence of myocardial ischemia would support a diagnosis of AMI. A delta of at least 20% is recommended to assess acute changes in results above the 99th percentile in serial measurements. Stable REJI levels (<20%) delta above the 99th percentile URL would support a diagnosis of chronic myocardial injury. Troponin [id number] 17:01:59* Test Item Value Reference Range Interpretation Comme nts Troponin-T (test code = Troponin-T) 8.150 ng/L 0.000-14.000 The CV of the assay at 99th percentile for both male and female patient population is < 10%. A rise and fall in REJI with at least one value above the 99th percentile with clinical evidence of myocardial ischemia would support a diagnosis of AMI. A delta of at least 20% is recommended to assess acute changes in results above the 99th percentile in serial measurements. Stable REJI levels (<20%) delta above the 99th percentile URL would support a diagnosis of chronic myocardial injury. Comprehensive Metabolic [id number] 16:46:40* Test Item Value Reference Range Interpretation Comme nts Sodium Level (test code = Sodium Level) 137.0 mmol/L 135.0-145.0 Potassium Level (test code = Potassium Level) 4.0 mmol/L 3.5-5.1 Chloride Level (test code = Chloride Level) 103 mmol/L 98-105 CO2 (test code = CO2) 24 mmol/L 22-29 Anion Gap (test code = Anion Gap) 10 mmol/L 7-16 BUN (test code = BUN) 18.20 mg/dL 6.00-20.00 Creatinine Level (test code = Creatinine Level) 0.90 mg/dL 0.50-0.90 BUN/Creat Ratio (test code = BUN/Creat Ratio) 20 N Glucose Level (test code = Glucose Level) 132 mg/dL 70-115 H Calcium Level (test code = Calcium Level) 9.5 mg/dL 8.3-10.5 Alk Phos (test code = Alk Phos) 73 U/L 35-104 Bilirubin Total (test code = Bilirubin Total) 0.4 mg/dL 0.1-0.9 Albumin Level (test code = Albumin Level) 4.3 g/dL 3.5-5.2 Protein Total (test code = Protein Total) 6.5 g/dL 6.4-8.3 ALT (test code = ALT) 24 U/L 1-33 AST (test code = AST) 19 U/L 1-32 Globulin (test code = Globulin) 2.2 g/dL 2.9-3.1 L A/G Ratio (test code = A/G Ratio) 2.0 ratio N eGFR AA (test code = eGFR AA) >60 mL/min/1.73 m2 N eGFR (estimated Glomerular Filtration Rate) is an estimated value, calculated from the patient's serum creatinine using the MDRD equation. It is NOT the patient's actual GFR. The eGFR provides a more clinically useful measure of kidney disease than serum creatinine alone.This calculation takes sex and race into account, if the information is provided. If the race is not provided, and the patient is -Wel[place], multiply by 1.212. If sex is not provided, and the patient is female, multiply by 0.742. Results for patients <18 years of age have not been validated by the MDRD study and should be interpreted with caution. eGFR Result Interpretation:eGFR > or = 60 is in the Normal RangeeGFR < 60 may mean kidney diseaseeGFR < 15 may mean kidney failure Ranges recommended by the National Kidney Foundation, http://nkdep.nih.gov Creatine [id number] 16:46:40* Test Item Value Reference Range Interpretation Comme nts CK (test code = CK) 224 U/L 26-192 H Comprehensive Metabolic [id number] 16:46:40* Test Item Value Reference Range Interpretation Comme nts Sodium Level (test code = Sodium Level) 137.0 mmol/L 135.0-145.0 Potassium Level (test code = Potassium Level) 4.0 mmol/L 3.5-5.1 Chloride Level (test code = Chloride Level) 103 mmol/L 98-105 CO2 (test code = CO2) 24 mmol/L 22-29 Anion Gap (test code = Anion Gap) 10 mmol/L 7-16 BUN (test code = BUN) 18.20 mg/dL 6.00-20.00 Creatinine Level (test code = Creatinine Level) 0.90 mg/dL 0.50-0.90 BUN/Creat Ratio (test code = BUN/Creat Ratio) 20 N Glucose Level (test code = Glucose Level) 132 mg/dL 70-115 H Calcium Level (test code = Calcium Level) 9.5 mg/dL 8.3-10.5 Alk Phos (test code = Alk Phos) 73 U/L 35-104 Bilirubin Total (test code = Bilirubin Total) 0.4 mg/dL 0.1-0.9 Albumin Level (test code = Albumin Level) 4.3 g/dL 3.5-5.2 Protein Total (test code = Protein Total) 6.5 g/dL 6.4-8.3 ALT (test code = ALT) 24 U/L 1-33 AST (test code = AST) 19 U/L 1-32 Globulin (test code = Globulin) 2.2 g/dL 2.9-3.1 L A/G Ratio (test code = A/G Ratio) 2.0 ratio N eGFR AA (test code = eGFR AA) >60 mL/min/1.73 m2 N eGFR (estimated Glomerular Filtration Rate) is an estimated value, calculated from the patient's serum creatinine using the MDRD equation. It is NOT the patient's actual GFR. The eGFR provides a more clinically useful measure of kidney disease than serum creatinine alone.This calculation takes sex and race into account, if the information is provided. If the race is not provided, and the patient is -Wel[place], multiply by 1.212. If sex is not provided, and the patient is female, multiply by 0.742. Results for patients <18 years of age have not been validated by the MDRD study and should be interpreted with caution. eGFR Result Interpretation:eGFR > or = 60 is in the Normal RangeeGFR < 60 may mean kidney diseaseeGFR < 15 may mean kidney failure Ranges recommended by the National Kidney Foundation, http://nkdep.nih.gov eGFR Non-AA (test code = eGFR Non-AA) >60.00 mL/min/1.73 m2 N eGFR (estimated Glomerular Filtration Rate) is an estimated value, calculated from the patient's serum creatinine using the MDRD equation. It is NOT the patient's actual GFR. The eGFR provides a more clinically useful measure of kidney disease than serum creatinine alone.This calculation takes sex and race into account, if the information is provided. If the race is not provided, and the patient is -Wel[place], multiply by 1.212. If sex is not provided, and the patient is female, multiply by 0.742. Results for patients <18 years of age have not been validated by the MDRD study and should be interpreted with caution. eGFR Result Interpretation:eGFR > or = 60 is in the Normal RangeeGFR < 60 may mean kidney diseaseeGFR < 15 may mean kidney failure Ranges recommended by the National Kidney Foundation, http://nkdep.nih.gov Comprehensive Metabolic [id number] 16:46:40* Test Item Value Reference Range Interpretation Comme nts Sodium Level (test code = Sodium Level) 137.0 mmol/L 135.0-145.0 Potassium Level (test code = Potassium Level) 4.0 mmol/L 3.5-5.1 Chloride Level (test code = Chloride Level) 103 mmol/L 98-105 CO2 (test code = CO2) 24 mmol/L 22-29 Anion Gap (test code = Anion Gap) 10 mmol/L 7-16 BUN (test code = BUN) 18.20 mg/dL 6.00-20.00 Creatinine Level (test code = Creatinine Level) 0.90 mg/dL 0.50-0.90 BUN/Creat Ratio (test code = BUN/Creat Ratio) 20 N Glucose Level (test code = Glucose Level) 132 mg/dL 70-115 H Calcium Level (test code = Calcium Level) 9.5 mg/dL 8.3-10.5 Alk Phos (test code = Alk Phos) 73 U/L 35-104 Bilirubin Total (test code = Bilirubin Total) 0.4 mg/dL 0.1-0.9 Albumin Level (test code = Albumin Level) 4.3 g/dL 3.5-5.2 Protein Total (test code = Protein Total) 6.5 g/dL 6.4-8.3 ALT (test code = ALT) 24 U/L 1-33 AST (test code = AST) 19 U/L 1-32 Globulin (test code = Globulin) 2.2 g/dL 2.9-3.1 L A/G Ratio (test code = A/G Ratio) 2.0 ratio N eGFR AA (test code = eGFR AA) >60 mL/min/1.73 m2 N eGFR (estimated Glomerular Filtration Rate) is an estimated value, calculated from the patient's serum creatinine using the MDRD equation. It is NOT the patient's actual GFR. The eGFR provides a more clinically useful measure of kidney disease than serum creatinine alone.This calculation takes sex and race into account, if the information is provided. If the race is not provided, and the patient is -[place]el[place], multiply by 1.212. If sex is not provided, and the patient is female, multiply by 0.742. Results for patients <18 years of age have not been validated by the MDRD study and should be interpreted with caution. eGFR Result Interpretation:eGFR > or = 60 is in the Normal RangeeGFR < 60 may mean kidney diseaseeGFR < 15 may mean kidney failure Ranges recommended by the National Kidney Foundation, http://nkdep.nih.gov eGFR Non-AA (test code = eGFR Non-AA) >60.00 mL/min/1.73 m2 N eGFR (estimated Glomerular Filtration Rate) is an estimated value, calculated from the patient's serum creatinine using the MDRD equation. It is NOT the patient's actual GFR. The eGFR provides a more clinically useful measure of kidney disease than serum creatinine alone.This calculation takes sex and race into account, if the information is provided. If the race is not provided, and the patient is -Wel[place], multiply by 1.212. If sex is not provided, and the patient is female, multiply by 0.742. Results for patients <18 years of age have not been validated by the MDRD study and should be interpreted with caution. eGFR Result Interpretation:eGFR > or = 60 is in the Normal RangeeGFR < 60 may mean kidney diseaseeGFR < 15 may mean kidney failure Ranges recommended by the National Kidney Foundation, http://nkdep.nih.gov Pro B Natriuretic [id number] 16:43:50* Test Item Value Reference Range Interpretation Comme nts NT-proBNP (test code = NT-proBNP) 513 pg/mL 0-124 H Automated [id number] 16:24:33* Test Item Value Reference Range Interpretation Comme nts Neutro Auto (test code = Liliya tro Auto) 53.0 % 36.0-70.0 Lymph Auto (test code = Lymph Auto) 39.3 % 12.0-44.0 Arenac Auto (test code = Arenac Auto) 6.6 % 0.0-11.0 Eos, Auto (test code = Eos, Auto) 0.0 % 0.0-7.0 Basophil Auto (test code = B asophil Auto) 0.8 % 0.0-2.0 Neutro Absolute (test code = Neutro Absolute) 4.0 x10 1.6-7.4 Lymph Absolute (test code = Lymph Absolute) 2.97 x10 .50-4.60 Arenac Absolute (test code = M donna Absolute) .50 x10 .00-1.20 Eos Absolute (test code = Eo s Absolute) 0.00 x10 0.00-0.74 Baso Absolute (test code = B aso Absolute) 0.06 x10 0.00-0.21 IG [id number] 16:24:33* Test Item Value Reference Range Interpretation Comme nts IG (test code = IG) 0.3 % 0.0-5.0 IG Abs (test code = IG Abs) 0 x10 N Complete Blood Count with [id number] 16:24:32* Test Item Value Reference Range Interpretation Comme nts WBC (test code = WBC) 7.6 x10 4.4-10.5 RBC (test code = RBC) 4.42 x10 3.75-5.20 Hgb (test code = Hgb) 12.7 g/dL 12.2-14.8 Hct (test code = Hct) 40.2 % 36.5-44.4 MCV (test code = MCV) 91.00 fL 80.00-100.00 MCHC (test code = MCHC) 31.60 g/dL 32.00-37.50 L RDW CV (test code = RDW CV) 14.4 % 11.5-14.5 MCH (test code = MCH) 28.7 pg 27.0-32.5 Platelets (test code = Platelets) 301.0 x10 140.0-440.0 MPV (test code = MPV) 10.9 fL N Slide Review (test code = Slide Review) Auto Auto Result crea spenser by GL_SJM_SLIDE_REV_AUTO nRBC (test code = nRBC) 0 N NRBC Abs (test code = NRBC Abs) 0.00 x10 N IPF (test code = IPF) 0 % N XR Chest 1 View [id number] 16:11:29Patient: SHEFALI JOYNER Date/Time10/27/2019 16:05 CDTReason for [facility] inReportDICTATION LOCATION: [id number]: Female, 54 years of age with Chest painEXAM: CHEST X-RAY, ONE VIEWCOMPARISON: NoneCOMMENT: Frontal view of the chest is provided. No focal infiltrate, consolidation, mass lesion, or effusion is seen. Cardiac silhouette is within normal limits. No acute bony ab normalities.IMPRESSION: No acute cardiopulmonary disease. Final Dictated by: Nicolle Davis DT/TM: 10/27/2019 4:11 pmSigned by: Fanny Davis LSigned (Electronic Signature): 10/27/2019 4:11 pm History and Physical Notes Date/Time Note Provider Source 2023-07-02 13:26:30 [id number] [id number] 69uGRI1zHmDYFzuPf0eG+[id number]:26 :30 Reason for consultation: Colon cancer screeningHPIPatient here for colon cancer screening. Denies nausea, vomiting, abdominal pain or diarrhea. No melena or blood in stool.She had CT scan in Mar 2023, had esophageal thickening. Does not have report. No dysphagia or reflux.Family History of Colon Cancer: mother in her 60's.Prior colonoscopy: 7 years ago. Had polyps.Past Medical History:Past Medical History:Diagnosis DateCHF (congestive heart failure) (multi HCC)COPD (chronic obstructive pulmonary disease) (multi HCC)Do not defibrillateFamily history of colon cancer in motherHistory of placement of internal cardiac defibrillatorThyroid diseasePast Surgical History:Past Surgical History:Procedure Laterality DateAPPENDECTOMYDEFIBRILLATOR IMPLANTED 2019ELBOW SURGERY RightLAPAROSCOPIC CHOLECYSTECTOMYPARTIAL HYSTERECTOMYhas one ovary stillFamily History:Family HistoryProblem Relation Name Age of OnsetColon Cancer MotherHypertension MotherDiabetes Mellitus FatherHypertension FatherHypertension SisterHypertension BrotherHeart attack Maternal GrandmotherSocial History:Social HistorySocioeconomic HistoryMarital status: SingleSpouse name: Not on fileNumber of children: 3Years of education: Not on fileHighest education level: 11th gradeOccupational HistoryOccupation: Property managerTobacco UseSmoking status: FormerPacks/day: 0.25Years: 22.00Additional pack years: 0.00Total pack years: 5.50Types: CigarettesQuit date: since quittin.0Smokeless tobacco: NeverVaping UseVaping Use: Never usedSubstance and Sexual ActivityAlcohol use: Not CurrentlyComment: stopped in 2007Drug use: Not CurrentlyComment: marijuana and cocaine-Years ago. Last used 3 years agoSexual activity: YesPartners: MaleOther Topics ConcernNot on fileSocial History NarrativeNot on fileSocial Determinants of HealthFinancial Resource Strain: Not on fileFood Insecurity: Not on fileTransportation Needs: Not on filePhysical Activity: Not on fileStress: Not on fileSocial Connections: Not on fileIntimate Partner Violence: Not on fileHousing Stability: Not on fileROSCONSTITUTIONAL: No weight loss or fever.CARDIOVASCULAR: No chest pain or palpitationsGASTROINTESTINAL: As per HPIPULMONARY: No dyspnea or coughPE:LMP (LMP Unknown)GENERAL APPEARANCE: In no distressAssessment/Plan:Patient seen via video visit for colon cancer screening.-schedule colonoscopy.-Risks associated with colonoscopy including perforation requiring surgery, bleeding, reaction to medications and missed lesions discussed. Patient understands and agrees.-request report of CT scan.Diagnoses and all orders for this visit:Colon cancer screening- BASIC METABOLIC PANEL (8); Future- GI CASE REQUEST; Standing- sodium chloride 0.9 % infusion 500 mL- NURSE COMM 3; Standing- GNF-HIa-KmGm-NaSulf-Na Asc-C (MOVIPREP) 100 g oral Recon Soln; Instructions provided to patient. Follow instructions provided by provider.. [id number] and physical nylbQH6079-48-40H05:31:46History and physical [id number] 879|[id number] for patient tmim95951-1Flqkian and physical noteLNNARRATIVEFormatted C-CDA narrative JackieTri[facility] [facility].[id number] 09-13-173:31:[id number] |1.2.84[id number] [facility]"
[2023-09-05] MEDS ORDERED: ALBUTEROL 2.5 MG/3 ML NEB SOL ONE (00:52)
[2023-09-05] MEDS ORDERED: METHYLPREDNISOLONE 125 MG INJ ONE (00:53)
[2023-09-05] MEDS ORDERED: IPRATROPIUM BROM 0.5MG/2.5ML ONE (00:53)
[2023-09-05] MEDS ORDERED: MAGNESIUM SULFATE 1 gm IVPB 1 GM/100 ML BAG IV ONE (00:53)
[2023-09-05 00:57] LABS: Absolute Basophils 0.1 K/uL (0-0.5); Absolute Eosinophils 0.1 K/uL (0-0.5); Absolute Lymphocytes (CBC) 2.6 K/uL (0.7-4.9); Absolute Monocytes 0.9 K/uL (0.1-1.3); Absolute Neutrophil 8.3 K/uL (1.8-8.0); Basophils % 0.6 % (0-1.3); Eosinophils % 0.6 % (0-4.4); Hematocrit 39.1 % (36.0-45.0); Lymphocytes % 21.4 % (15.3-44.8); MCH 29.1 pg (27.0-35.0); MCHC 33.2 g/dL (32.0-36.0); MCV 87.6 fL (80-100); Monocytes % 7.8 % (3.3-12.3); Neutrophils % 69.6 % (41.7-73.7); Platelets 262 thou/uL (152-406); RBC Red Blood Cell Count 4.47 M/uL (3.86-4.86); Red Cell Distribution Width 14.3 % (12.1-15.2)
[2023-09-05 01:18] LABS: Albumin 3.7 g/dL (3.4-5.0); Albumin/Globulin Ratio 0.9 (1.1-1.8); Anion Gap 10.6 mEq/L (5.0-15.0); Bilirubin Total 0.4 mg/dL (0.2-1.0); Globulin 3.9 g/dL (2.3-3.5); Potassium 3.6 mEq/L (3.5-5.1); Protein, Total 7.6 g/dL (6.4-8.2)
[2023-09-05 01:23] LABS: Troponin High Sensitivity 103.2 pg/mL (<58.9)
[2023-09-05 01:25] LABS: PT Prothrombin Time 12.2 SECONDS (9.5-12.5); PTT, Activated Partial Thromb 28.3 SECONDS (24.3-36.9); Protime INR 1.11
[2023-09-05] MEDS ORDERED: FUROSEMIDE 40 MG/4 ML VIAL ONE (02:53)
--- NOTE | 2023-09-05 02:55 | ER ---
Nurse's Notes [facility] Name: Virgie Silveira Age: 58 yrs Sex: Female : 1965 Arrival Date: 09/05/2023 Time: 00:04 Bed 19 Private MD: Ulysses Julien Diagnosis: CHF exacerbation;Elevated troponin Presentation: 09/04 00:18 Chief complaint: Patient states: Diagnosed with bronchitis 2 weeks ago and has been cm10 having a cough and shortness of breath that has not been getting better. Coronavirus screen: Client denies travel out of the [place] in the last 14 days. cough unrelated to allergies, shortness of breath. Ebola Screen: Patient denies travel to an Ebola-affected area in the 21 days before illness onset. No symptoms or risks identified at this time. Initial Sepsis Screen: Does the patient meet any 2 criteria? RR > 20 per min. HR > 90 bpm. Does the patient have a suspected source of infection? No. Patient's initial sepsis screen is negative. Risk Assessment: Do you want to hurt yourself or someone else? Patient reports no desire to harm self or others. Onset of symptoms was September 05, 2023. 00:18 Method Of Arrival: Ambulatory cm10 00:18 Acuity: TOÑITO 3 cm10 Triage Assessment: 00:18 General: Appears in no apparent distress. comfortable, Behavior is calm, cooperative, jb4 appropriate for age. Pain: Denies pain. EENT: No signs and/or symptoms were reported regarding the EENT system. Neuro: Level of Consciousness is awake, alert, obeys commands, Oriented to person, place, time, situation. Cardiovascular: Patient's skin is warm and dry. Respiratory: Reports shortness of breath at rest on exertion the patient has mild shortness of breath. GI: No signs and/or symptoms were reported involving the gastrointestinal system. : No signs and/or symptoms were reported regarding the genitourinary system. Derm: Skin is intact, Skin is pink, warm \T\ dry. Musculoskeletal: Circulation, motion, and sensation intact. Range of motion: intact in all extremities. Historical: - Allergies: 00:19 Cipro; cm10 00:19 Codeine; cm10 00:19 Lisinopril; cm10 00:19 Morphine; cm10 - PMHx: 00:19 Congestive heart failure; Hypertension; Hypothyroidism; Pacemaker; defib; cm10 - PSHx: 00:19 section; heart cath; hysterectomy; right elbow surgery; cm10 - Immunization history:: Adult Immunizations up to date. - Social history:: Smoking status: Patient reports the use of cigarette tobacco products, denies chronic smoking, but will smoke occasionally. Assessment: 00:18 Reassessment: see triage note. jb4 01:49 Reassessment: Patient appears in no apparent distress at this time. Patient and/or jb4 family updated on plan of care and expected duration. Pain level reassessed. Patient is alert, oriented x 3, equal unlabored respirations, skin warm/dry/pink. 03:16 Reassessment: Patient appears in no apparent distress at this time. Patient and/or jb4 family updated on plan of care and expected duration. Pain level reassessed. Patient is alert, oriented x 3, equal unlabored respirations, skin warm/dry/pink. 04:15 Reassessment: Patient appears in no apparent distress at this time. Patient and/or jb4 family updated on plan of care and expected duration. Pain level reassessed. Patient is alert, oriented x 3, equal unlabored respirations, skin warm/dry/pink. 05:22 Reassessment: Patient appears in no apparent distress at this time. Patient and/or jb4 family updated on plan of care and expected duration. Pain level reassessed. Patient is alert, oriented x 3, equal unlabored respirations, skin warm/dry/pink. Vital Signs: 00:18 BP 140 / 81; Pulse 98; Resp 22; Temp 97.8; Pulse Ox 100% on R/A; Weight 72.57 kg; cm10 Height 5 ft. 2 in. ; 01:30 BP 134 / 82; Pulse 89; Resp 19; Pulse Ox 100% on R/A; jb4 03:16 BP 133 / 88; Pulse 88; Resp 21; Pulse Ox 94% on R/A; jb4 05:22 BP 121 / 85; Pulse 87; Resp 14; Temp 97.4(TE); Pulse Ox 95% on R/A; jb4 00:18 Body Mass Index 29.26 (72.57 kg, 157.48 cm) cm10 ED Course: 00:07 Patient arrived in ED. mr 00:08 Ulysses Julien DO is Private Physician. mr 00:11 Radha Messer FNP-C [facility]. kb 00:11 Ty Santiago MD is Attending Physician. kb 00:19 Triage completed. cm10 00:20 Arm band placed on Patient placed in an exam room, on a stretcher, on pulse oximetry. cm10 00:30 Chest Single View XRAY In Process Unspecified. EDMS 00:30 First set of blood cultures drawn by me. jr12 00:45 Second set of blood cultures drawn by me. jr12 01:11 Inserted saline lock: 20 gauge in right antecubital area, using aseptic technique. jr12 Blood collected. 01:12 Initial lab(s) drawn, by me, sent to lab. jr12 01:13 Lights dimmed. jr12 01:22 Notified ED physician of a critical lab result(s). Troponin 103.2. cm10 02:54 Chandler Shepherd is Hospitalizing Provider. rt Administered Medications: 01:04 Drug: Albuterol Inhalation 2.5 mg Inhalation once Route: Inhalation; jb4 01:04 Drug: Ipratropium Inhalation Aerosol 0.5 mg Inhalation once Route: Inhalation; jb4 01:04 Drug: MethylPrednisoLONE IVP 125 mg IVP once Route: IVP; Site: right antecubital; jb4 01:04 Drug: Magnesium Sulfate IVPB 1 grams IVPB once over 1 hrs Route: IVPB; Infused Over: 1 jb4 hrs; Site: right antecubital; 03:15 Drug: Furosemide IVP 40 mg IVP once; give over 2 minutes Route: IVP; Site: right jb4 antecubital; Outcome: 02:54 Decision to Hospitalize by Provider. rt 06:10 Patient left the ED. cm10 Signatures: Dispatcher [employer] EDMS Radha Messer FNP-C HEALTH SERVICE WORKER-Ckb DickeyFaby, Reg Reg mr Andrea Keith, RN RN jb4 Ty Santiago MD MD rt Jenny Humphries RN RN cm10 Ashanti Meraz jr12
--- NOTE | 2023-09-05 02:55 | EDPHYS ---
Physician Documentation [facility] Name: Virgie Silveira Age: 58 yrs Sex: Female : 1965 Arrival Date: 09/05/2023 Time: 00:04 Bed 19 Private MD: Ulysses Julien ED Physician Ty Santiago HPI: 09/04 00:17 This 58 yrs old Female presents to ER via Unassigned with complaints of Cough, kb Breathing Difficulty. 00:17 Pt is a 58 year old female who presents for cough and shortness of breath that started kb 2 weeks ago and has progressively gotten worse. Reports fever up to 101. Was seen at [facility] at onset of symptoms and diagnosed with bronchitis, but states it doesn't feel like bronchitis. Reports chest pain due to coughing. . Historical: - Allergies: 00:19 Cipro; cm10 00:19 Codeine; cm10 00:19 Lisinopril; cm10 00:19 Morphine; cm10 - PMHx: 00:19 Congestive heart failure; Hypertension; Hypothyroidism; Pacemaker; defib; cm10 - PSHx: 00:19 section; heart cath; hysterectomy; right elbow surgery; cm10 - Immunization history:: Adult Immunizations up to date. - Social history:: Smoking status: Patient reports the use of cigarette tobacco products, denies chronic smoking, but will smoke occasionally. ROS: 00:17 Constitutional: As per HPI kb Exam: 00:17 Constitutional: This is a well developed, well nourished patient who is awake, alert, kb and in no acute distress. Head/Face: Normocephalic, atraumatic. ENT: Moist Mucous membranes Cardiovascular: Regular rate Abdomen/GI: Soft, non-tender. No distention Skin: Warm, dry with normal turgor. Normal color. MS/ Extremity: Pulses equal, no cyanosis. Neurovascular intact. Full, normal range of motion. Neuro: Awake and alert, GCS 15, oriented to person, place, time, and situation. Moves all extremities. Normal gait. 00:17 Respiratory: mild respiratory distress is noted, Respirations: labored breathing, Breath sounds: wheezing: expiratory that is moderate, is heard diffusely, 01:38 ECG was reviewed by the Attending Physician. rt Vital Signs: 00:18 BP 140 / 81; Pulse 98; Resp 22; Temp 97.8; Pulse Ox 100% on R/A; Weight 72.57 kg; cm10 Height 5 ft. 2 in. ; 01:30 BP 134 / 82; Pulse 89; Resp 19; Pulse Ox 100% on R/A; jb4 03:16 BP 133 / 88; Pulse 88; Resp 21; Pulse Ox 94% on R/A; jb4 05:22 BP 121 / 85; Pulse 87; Resp 14; Temp 97.4(TE); Pulse Ox 95% on R/A; jb4 00:18 Body Mass Index 29.26 (72.57 kg, 157.48 cm) cm10 MDM: 00:11 Patient medically screened. kb 00:17 Data reviewed: vital signs, nurses notes. kb 00:33 Transition of care: After a detail discussion of the patient's case, care is kb transferred to Ty Santiago MD. 09/04 00:14 Order name: Blood Culture Adult (2) kb 09/04 00:14 Order name: CBC with Diff; Complete Time: 01:25 kb 09/04 00:14 Order name: CMP; Complete Time: 01:25 kb 09/04 00:14 Order name: Lactate w/ 2H reflex if indic.; Complete Time: 01:25 kb 09/04 00:14 Order name: Protime (+inr); Complete Time: 01:26 kb 09/04 00:14 Order name: Ptt, Activated; Complete Time: 01:26 kb 09/04 00:14 Order name: Troponin High Sensitivity; Complete Time: 01:25 kb 09/04 02:47 Order name: BNP; Complete Time: 03:18 rt 09/04 04:21 Order name: Urinalysis w/ reflexes EDMS 09/04 04:21 Order name: Basic Metabolic Panel EDMS 09/04 04:21 Order name: Basic Metabolic Panel EDMS 09/04 04:21 Order name: CBC with Automated Diff EDMS 09/04 04:21 Order name: CBC with Automated Diff EDMS 09/04 04:21 Order name: Lipid Profile EDMS 09/04 04:21 Order name: Lipid Profile EDMS 09/04 04:21 Order name: Magnesium EDMS 09/04 04:21 Order name: Magnesium EDMS 09/04 04:21 Order name: Phosphorus EDMS 09/04 04:21 Order name: Phosphorus EDMS 09/04 04:21 Order name: Troponin High Sensitivity EDMS 09/04 04:21 Order name: Troponin High Sensitivity EDMS 09/04 04:21 Order name: Troponin High Sensitivity EDMS 09/04 04:21 Order name: Troponin High Sensitivity EDAZ 09/04 06:03 Order name: Lipid Profile EDAZ 09/04 00:14 Order name: Chest Single View XRAY kb 09/04 04:21 Order name: Echo with Doppler EDMS 09/04 00:14 Order name: EKG; Complete Time: 00:15 kb 09/04 00:14 Order name: Accucheck; Complete Time: 01:10 kb 09/04 00:14 Order name: Cardiac monitoring; Complete Time: 01:10 kb 09/04 00:14 Order name: EKG - Nurse/Tech; Complete Time: 01:10 kb 09/04 00:14 Order name: IV Saline Lock - Large Bore; Complete Time: 00:55 kb 09/04 00:14 Order name: Labs collected and sent; Complete Time: 00:54 kb 09/04 00:14 Order name: O2 Per Protocol; Complete Time: 00:54 kb 09/04 00:14 Order name: O2 Sat Monitoring; Complete Time: 00:54 kb 09/04 00:14 Order name: Vital Signs; Complete Time: 00:54 kb EC:38 Rate is 77 beats/min. Rhythm is regular, Normal Sinus Rhythm with No ectopy. QRS [place] rt is Normal. [place] interval is normal. QRS interval is normal. QT interval is normal. No Q waves. T waves are Normal. No ST changes noted. Interpreted by me. Administered Medications: : Drug: Albuterol Inhalation 2.5 mg Inhalation once Route: Inhalation; : Drug: Ipratropium Inhalation Aerosol 0.5 mg Inhalation once Route: Inhalation; : Drug: MethylPrednisoLONE IVP 125 mg IVP once Route: IVP; Site: right antecubital; : Drug: Magnesium Sulfate IVPB 1 grams IVPB once over 1 hrs Route: IVPB; Infused Over: 1 jb4 hrs; Site: right antecubital; 03:15 Drug: Furosemide IVP 40 mg IVP once; give over 2 minutes Route: IVP; Site: right jb4 antecubital; Disposition: 03:49 Co-signature as Attending Physician, Ty Santiago MD I reviewed the patient's care rt provided by Advanced Practice Provider \T\ agree w/ the diagnosis \T\ care plan. I personally saw the pt \T\ performed a substantive portion of the visit, incldng all aspects of the (History/Exam/Medical Decision Making). Disposition Summary: 09/05/23 02:54 Hospitalization Ordered Notes: Hospitalization Status: Observation rt Provider: Chandler Shepherd rt Condition: Stable rt Problem: new rt Symptoms: have improved rt Bed/Room Type: Standard rt Location: Telemetry/MedSurg (observation)(09/05/23 05:23) rv1 Room Assignment: 410(09/05/23 05:23) rv1 Diagnosis - CHF exacerbation rt - Elevated troponin rt Forms: - Medication Reconciliation Form rt - SBAR form rt - Leadership Thank You Letter rt Signatures: Dispatcher [employer] Radha Ochoa, MANAGER BALANCE-C SUJEY-Andrea Lucio RN RN jb4 Ty Santiago MD MD rt Nahomi Trimble rv1 Jenny Humphries, RN RN cm10 Corrections: (The following items were deleted from the chart) 03:17 02:54 Telemetry/MedSurg (observation) rt rv1 03:17 02:54 rt rv1 05:23 03:17 [facility] ER HOLD rv1 rv1 05:23 03:17 ERHOLD- rv1 rv1
[2023-09-05] MEDS ORDERED: ONDANSETRON 4 MG/2 ML VIAL IV PRN (03:59)
[2023-09-05] MEDS ORDERED: ACETAMINOPHEN 325 MG TABLET PO PRN (03:59)
--- NOTE | 2023-09-05 04:26 | P.HP ---
Certification for Inpatient Patient admitted to: Observation With expected LOS: <2 Midnights Practitioner: I am a practitioner with admitting privileges, knowledge of patient current condition, hospital course, and medical plan of care. Services: Services provided to patient in accordance with Admission requirements found in Title 42 Section 412.3 of the Code of Federal Regulations Patient History Date of Service: 09/05/23 Reason for admission: Shortness of breath and cough History of Present Illness: 58-year-old woman with history of chronic systolic heart failure status post AICD presented to the emergency department with a complaint of 2-week history of progressive shortness of breath and cough. Symptoms associated with fever and headache. Patient reported to urgent care and being diagnosed with acute bronchitis. She states that she was prescribed antibiotics which she took without improvement. Chest x-ray done in the emergency department demonstrated increased interstitial opacity, patient has mild leukocytosis. Atypical pneumonia versus viral infection suspected. No fever recorded since presentation and patient does not meet criteria for sepsis. Ppatient stated that her family member-son is also sick with similar symptoms. Initial troponin mildly elevated to 100 in the ED. Patient is hospitalized for further management. Allergies lisinopril Allergy (Verified 11/01/22 03:38) Hives/Rash morphine Allergy (Verified 11/01/22 03:38) Hives/Rash Home Medications: Furosemide [Lasix*] 40 mg PO DAILY #30 tab 06/07/19 Levothyroxine Sodium 25 mcg PO DAILY #30 tablet 06/07/19 Hydrocodone 5/APAP 325 [[place] 5/325*] 1 tab PO Q6H PRN 3 Days #12 tab 05/08/22 Aspirin Chewable [Aspirin Chewable*] 81 mg PO DAILY #30 tab.chew 11/03/22 Midodrine HCl [Proamatine*] 5 mg PO TIDWM #90 tab 02/23/23 - Past Medical/Surgical History Diabetic: No -: Hypothyroidism -: Hypertension -: Systolic CHF -: Hyperlipidemia -: Hysterectomy -: Elbow Surgery -: C section -: Pacemaker 2020 Psychosocial/ Personal History: Employed, lives with family - Family History Mother -: Cancer Notes: Colon CA Father -: Hypertension Notes: HTN, spinal issue - Social History Alcohol use: No CD- Drugs: No Caffeine use: Yes Review of Systems Other: Except as documented, all other systems reviewed and negative. Physical Examination - Physical Exam General: Alert, In no apparent distress, Oriented x3 HEENT: Atraumatic, Normocephalic, Mucous membr. moist/pink, Sclerae nonicteric Neck: Supple, JVD not distended Respiratory: Crackles/rales (Mild bilateral crackles), Other (No rhonchi or wheezes.) Cardiovascular: No edema, Regular rate/rhythm, Normal S1 S2 Gastrointestinal: Normal bowel sounds, Soft and benign, Non-distended, No tenderness Musculoskeletal: No swelling, No tenderness Integumentary: No rashes, No cyanosis Neurological: Normal speech, Normal strength at 5/5 x4 extr, Cranial nerves 3-12 intact Lymphatics: No axilla or inguinal lymphadenopathy - Studies Laboratory Data (last 24 hrs) 09/05/23 09/05/23 09/05/23 00:30 00:30 00:30 WBC 11.90 H Hgb 13.0 Hct 39.1 Plt Count 262 PT 12.2 INR 1.11 APTT 28.3 Sodium 137 Potassium 3.6 BUN 15 Creatinine 0.96 Glucose 107 H Total Bilirubin 0.4 AST 27 ALT 49 Alkaline Phosphatase 110 Assessment and Plan - Problems (Diagnosis) (1) Acute bronchitis due to infection Current Visit: Yes Status: Acute (2) Acute on chronic systolic heart failure Current Visit: Yes Status: Acute (3) NSTEMI (non-ST elevated myocardial infarction) Current Visit: No Status: Acute (4) Hypertension Current Visit: No Status: Chronic Qualifiers: Hypertension type: primary hypertension Qualified Code(s): I10 - Essential (primary) hypertension (5) Hypothyroidism Current Visit: No Status: Chronic Qualifiers: Hypothyroidism type: acquired Qualified Code(s): E03.9 - Hypothyroidism, unspecified - Plan Acute on chronic systolic heart failure Place patient under observation Treat CHF exacerbation with IV Lasix. Obtain echocardiogram Cardiology consult. NSTEMI Likely NSTEMI type II secondary to demand ischemia Patient denies any chest pain Continue to trend troponin Obtain echocardiogram Cardiology consult. Acute infective bronchitis Suspected viral infection versus atypical pneumonia. Treated with IV Levaquin IV steroid Bronchodilators. DVT prophylaxis: Heparin subQ - Advance Directives Does patient have a Living Will: No Does patient have a Durable POA for Healthcare: No
[2023-09-05] MEDS: levoFLOXacin 750 MG TAB PO SCH (04:36)
[2023-09-05] MEDS ORDERED: levoFLOXacin 750 MG TAB ONE (05:40)
[2023-09-05 06:02] LABS: Troponin High Sensitivity 91.3 pg/mL (<58.9)
[2023-09-05 06:39] VITALS: O2SAT 95
--- NOTE | 2023-09-05 07:36 | P.PN ---
Subjective Date of Service: 09/05/23 Chief Complaint: Shortness of breath and cough Cardiology consulted CHF exacerbation, echo ordered elevated troponin heparin subcu every 8 hours, - Physical Exam General: Alert, In no apparent distress, Oriented x3 HEENT: Atraumatic, Normocephalic, Mucous membr. moist/pink, Sclerae nonicteric Neck: Supple, JVD not distended Respiratory: Crackles/rales (Mild bilateral crackles), Other (No rhonchi or wheezes.) Cardiovascular: No edema, Regular rate/rhythm, Normal S1 S2 Gastrointestinal: Normal bowel sounds, Soft and benign, Non-distended, No tenderness Musculoskeletal: No swelling, No tenderness Integumentary: No rashes, No cyanosis Neurological: Normal speech, Normal strength at 5/5 x4 extr, Cranial nerves 3-12 intact Lymphatics: No axilla or inguinal lymphadenopathy Review of Systems Per HPI Physical Examination - Vital Signs Temperature: 97.4 F Blood Pressure: 121/85 Pulse: 87 Respirations: 14 Pulse Ox (%): 97 - Studies Laboratory Data (last 24 hrs) 09/05/23 09/05/23 09/05/23 00:30 00:30 00:30 WBC 11.90 H Hgb 13.0 Hct 39.1 Plt Count 262 PT 12.2 INR 1.11 APTT 28.3 Sodium 137 Potassium 3.6 BUN 15 Creatinine 0.96 Glucose 107 H Total Bilirubin 0.4 AST 27 ALT 49 Alkaline Phosphatase 110 Assessment And Plan - Plan -Assessment plan Acute on chronic systolic heart failure Place patient under observation Treat CHF exacerbation with IV Lasix. Obtain echocardiogram Cardiology consult. NSTEMI Likely NSTEMI type II secondary to demand ischemia Patient denies any chest pain Continue to trend troponin Obtain echocardiogram Cardiology consult. Acute infective bronchitis Suspected viral infection versus atypical pneumonia. Treated with IV Levaquin IV steroid Bronchodilators. DVT prophylaxis: Heparin subQ Discharge Plan: Home - Code Status/Comfort Care Code Status: Full Code Critical Care: No Time Spent Managing PTS Care (In Minutes): 35
[2023-09-05] MEDS: ALBUTEROL 2.5 MG/3 ML NEB SOL NEB SCH (08:13)
[2023-09-05] MEDS: IPRATROPIUM BROM 0.5MG/2.5ML NEB SCH (08:13)
[2023-09-05] MEDS: HEPARIN 5000 UNIT/ML 1 ML VIAL SQ SCH (09:00)
[2023-09-05] MEDS: METHYLPREDNISOLONE 40 MG INJ IV SCH (09:42)
[2023-09-05] MEDS: FUROSEMIDE 40 MG/4 ML VIAL IV SCH (09:42)
[2023-09-05] MEDS ORDERED: CODEINE 30MG/APAP 300MG TAB PO PRN (11:00)
--- NOTE | 2023-09-05 11:05 | P.DS ---
Admission Date: 09/05/23 Discharge Date: 09/05/23 Reason for Admission: Shortness of breath and cough Brief History of Present Illness: 58-year-old woman with history of chronic systolic heart failure status post AICD presented to the emergency department with a complaint of 2-week history of progressive shortness of breath and cough. Symptoms associated with fever and headache. Patient reported to urgent care and being diagnosed with acute bronchitis. She states that she was prescribed antibiotics which she took without improvement. Chest x-ray done in the emergency department demonstrated increased interstitial opacity, patient has mild leukocytosis. Atypical pneumonia versus viral infection suspected. No fever recorded since presentation and patient does not meet criteria for sepsis. Ppatient stated that her family member-son is also sick with similar symptoms. Initial troponin mildly elevated to 100 in the ED. Patient is hospitalized for further management. - Physical Exam General: Alert, In no apparent distress, Oriented x3 HEENT: Atraumatic, Normocephalic, Mucous membr. moist/pink, Sclerae nonicteric Neck: Supple, JVD not distended Respiratory: Crackles/rales (Mild bilateral crackles), Other (No rhonchi or wheezes.) Cardiovascular: No edema, Regular rate/rhythm, Normal S1 S2 Gastrointestinal: Normal bowel sounds, Soft and benign, Non-distended, No tenderness Musculoskeletal: No swelling, No tenderness Integumentary: No rashes, No cyanosis Neurological: Normal speech, Normal strength at 5/5 x4 extr, Cranial nerves 3-12 intact Lymphatics: No axilla or inguinal lymphadenopathy Hospital Course: 58 year-old female patient presented with cough, shortness of breath. Was noted to have acute heart failure, bronchitis. Condition improved with diuretics, nebulizers, antibiotics. Oxygen. Patient tolerating diet, stable for discharge to home with follow-up appointment with primary care physician. Follow-up with cardiology after discharge. PROBLEM: Acute on chronic heart failure Acute bronchitis Elevated troponin Discharge home with steroids, albuterol inhaler, continue diuretics as previously Cardiac diet, low-sodium Daily weight. Continue home medicines as previously prescribed GOAL: Clear understanding of disease process INSTRUCTIONS: Physician Discharge Instructions: -Follow-up with PCP in 1 to 2 weeks -Please call if any questions regarding hospital stay -Please call nursing station at [phone] if any nursing or medication questions -Return to the emergency room if symptoms worsen Diet: ADA, low sodium Activity: Fall precautions <Jeanie Louis - Last Filed: 09/05/23 15:52> Admission Date: 09/05/23 Discharge Date: 09/05/23 Hospital Course: Pt seen and examined. I agree with the note by the FOUR H AGENT. Will continue levaquin and prednisone taper. Ok to discharge pt. <Fiona Jules Hunter - Last Filed: 09/05/23 17:21> Disposition: ROUTINE DISCHARGE Discharge Condition: FAIR Vital Signs/Physical Exam: Temp Pulse Resp BP Pulse Ox 98.4 F 87 19 108/58 L 94 09/05/23 08:00 09/05/23 09:42 09/05/23 08:00 09/05/23 09:42 09/05/23 08:00 Laboratory Data at Discharge: WBC 11.90 thou/uL (4.3-10.9) H 09/05/23 00:30 Hgb 13.0 g/dL (12.0-15.0) 09/05/23 00:30 Hct 39.1 % (36.0-45.0) 09/05/23 00:30 Plt Count 262 thou/uL (152-406) 09/05/23 00:30 PT 12.2 SECONDS (9.5-12.5) 09/05/23 00:30 INR 1.11 09/05/23 00:30 APTT 28.3 SECONDS (24.3-36.9) 09/05/23 00:30 Sodium 137 mEq/L (136-145) 09/05/23 00:30 Potassium 3.6 mEq/L (3.5-5.1) 09/05/23 00:30 BUN 15 mg/dL (7-18) 09/05/23 00:30 Creatinine 0.96 mg/dL (0.55-1.02) 09/05/23 00:30 Glucose 107 mg/dL (74-106) H 09/05/23 00:30 Total Bilirubin 0.4 mg/dL (0.2-1.0) 09/05/23 00:30 AST 27 U/L (15-37) 09/05/23 00:30 ALT 49 U/L (13-56) 09/05/23 00:30 Alkaline Phosphatase 110 U/L (45-117) 09/05/23 00:30 Triglycerides 33 mg/dL (<150) 09/05/23 05:30 Cholesterol 152 mg/dL (<200) 09/05/23 05:30 HDL Cholesterol 72 mg/dL (40-60) H 09/05/23 05:30 Cholesterol/HDL Ratio 2.11 09/05/23 05:30 <Jeanie Louis - Last Filed: 09/05/23 15:52> Vital Signs/Physical Exam: Temp Pulse Resp BP Pulse Ox 97 F 95 H 20 106/59 L 90 L 09/05/23 12:00 09/05/23 12:00 09/05/23 12:00 09/05/23 12:00 09/05/23 12:00 Laboratory Data at Discharge: WBC 11.90 thou/uL (4.3-10.9) H 09/05/23 00:30 Hgb 13.0 g/dL (12.0-15.0) 09/05/23 00:30 Hct 39.1 % (36.0-45.0) 09/05/23 00:30 Plt Count 262 thou/uL (152-406) 09/05/23 00:30 PT 12.2 SECONDS (9.5-12.5) 09/05/23 00:30 INR 1.11 09/05/23 00:30 APTT 28.3 SECONDS (24.3-36.9) 09/05/23 00:30 Sodium 137 mEq/L (136-145) 09/05/23 00:30 Potassium 3.6 mEq/L (3.5-5.1) 09/05/23 00:30 BUN 15 mg/dL (7-18) 09/05/23 00:30 Creatinine 0.96 mg/dL (0.55-1.02) 09/05/23 00:30 Glucose 107 mg/dL (74-106) H 09/05/23 00:30 Total Bilirubin 0.4 mg/dL (0.2-1.0) 09/05/23 00:30 AST 27 U/L (15-37) 09/05/23 00:30 ALT 49 U/L (13-56) 09/05/23 00:30 Alkaline Phosphatase 110 U/L (45-117) 09/05/23 00:30 Triglycerides 33 mg/dL (<150) 09/05/23 05:30 Cholesterol 152 mg/dL (<200) 09/05/23 05:30 HDL Cholesterol 72 mg/dL (40-60) H 09/05/23 05:30 Cholesterol/HDL Ratio 2.11 09/05/23 05:30 <Fiona Jules - Last Filed: 09/05/23 17:21> Diet: AHA Activity: Fall precautions Time spent managing pt's care (in minutes): 55 <Jeanie Louis - Last Filed: 09/05/23 15:52> <Fiona Jules - Last Filed: 09/05/23 17:21> Home Medications: Furosemide [Lasix*] 40 mg PO DAILY #30 tab 06/07/19 Levothyroxine Sodium 25 mcg PO DAILY #30 tablet 06/07/19 Hydrocodone 5/APAP 325 [[place] 5/325*] 1 tab PO Q6H PRN 3 Days #12 tab 05/08/22 Aspirin Chewable [Aspirin Chewable*] 81 mg PO DAILY #30 tab.chew 11/03/22 Midodrine HCl [Proamatine*] 5 mg PO TIDWM #90 tab 02/23/23 levoFLOXacin [Levaquin*] 750 mg PO DAILY 6 Days #6 tab 09/05/23 predniSONE [Deltasone*] 10 mg PO DAILY 3 Days #3 tab 09/05/23 predniSONE [Deltasone] 40 mg PO 1X 3 Days #3 tab 09/05/23 predniSONE [Prednisone] 20 mg PO DAILY 3 Days #3 tab 09/05/23 New Medications: predniSONE [Deltasone*] 10 mg PO DAILY 3 Days #3 tab levoFLOXacin [Levaquin*] 750 mg PO DAILY 6 Days #6 tab predniSONE [Prednisone] 20 mg PO DAILY 3 Days #3 tab predniSONE [Deltasone] 40 mg PO 1X 3 Days #3 tab Physician Discharge Instructions: Continue ad christie activity. Take Prednisone taper and levaquin as prescribed. Continue other home meds. Follow up with PCP and Cardiology within 2 weeks Followup: Ulysses Julien DO [Primary Care Provider] -
[2023-09-05 12:44] VITALS: BP 106/59; TEMP 97
[2023-09-05] MEDS ORDERED: HYDROCODONE/APAP 5/325 MG TAB PO PRN (13:56)
--- NOTE | 2023-09-05 14:04 | P.CNS ---
Date of Consult: 09/05/23 Chief Complaint: Shortness of breath and cough History of Present Illness: Patient with PMH of chronic heart failure, mainly diastolic at this time as she had low systolic function before s/p ICD placement and her EF is now recovered presented with acute bronchitis that she has been having for one week, got worse overnight, she was getting treated with Z Pack and medrol pack but it did not help, denies any chest pain, no palpitations, no lower extremity swelling, no syncope. Allergies lisinopril Allergy (Verified 11/01/22 03:38) Hives/Rash morphine Allergy (Verified 11/01/22 03:38) Hives/Rash Home Medications: Furosemide [Lasix*] 40 mg PO DAILY #30 tab 06/07/19 Levothyroxine Sodium 25 mcg PO DAILY #30 tablet 06/07/19 Hydrocodone 5/APAP 325 [[place] 5/325*] 1 tab PO Q6H PRN 3 Days #12 tab 05/08/22 Aspirin Chewable [Aspirin Chewable*] 81 mg PO DAILY #30 tab.chew 11/03/22 Midodrine HCl [Proamatine*] 5 mg PO TIDWM #90 tab 02/23/23 - Past Medical/Surgical History Diabetic: No -: Hypothyroidism -: Hypertension -: Systolic CHF -: Hyperlipidemia -: Hysterectomy -: Elbow Surgery -: C section -: Pacemaker 2020 Psychosocial/ Personal History: Employed, lives with family - Family History Mother Medical History: Cancer Notes: Colon CA Father Medical History: Hypertension Notes: HTN, spinal issue - Social History Smoking Status: Current some day smoker Alcohol use: No CD- Drugs: No Caffeine use: Yes Review of Systems 10-point ROS is otherwise unremarkable Physical Examination Temp Pulse Resp BP Pulse Ox 97 F 95 H 20 106/59 L 90 L 09/05/23 12:00 09/05/23 12:00 09/05/23 12:00 09/05/23 12:00 09/05/23 12:00 General: Alert, Oriented x3 HEENT: Atraumatic Neck: Supple Respiratory: Expiratory wheezes, Rhonchi/gurgles Cardiovascular: No edema, Normal S1 S2 Laboratory Data (last 24 hrs) 09/05/23 09/05/23 09/05/23 00:30 00:30 00:30 WBC 11.90 H Hgb 13.0 Hct 39.1 Plt Count 262 PT 12.2 INR 1.11 APTT 28.3 Sodium 137 Potassium 3.6 BUN 15 Creatinine 0.96 Glucose 107 H Total Bilirubin 0.4 AST 27 ALT 49 Alkaline Phosphatase 110 - Problems (1) Congestive heart failure Current Visit: No Status: Acute Plan: Patient is currently euvolemic on exam, continue her home medications. Qualifiers: Heart failure type: systolic Heart failure chronicity: chronic Qualified Code(s): I50.22 - Chronic systolic (congestive) heart failure (2) NSTEMI (non-ST elevated myocardial infarction) Current Visit: No Status: Acute Plan: most likely type 2 [place] from COPD and acute bronchitis, eli had a recent coronary angiogram that shown normal coronaries. (3) Hypertension Current Visit: No Status: Chronic Plan: continue patient home medications of midodrine and lasix. 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 Qualifiers: Hypertension type: primary hypertension Qualified Code(s): I10 - Essential (primary) hypertension
--- NOTE | 2023-09-05 20:39 | RAD REPORT ---
EXAM DESCRIPTION: RAD - Chest Single View - 09/05/2023 12:28 am CLINICAL HISTORY: The patient is 58 years old and is Female; COUGH TECHNIQUE: Frontal view of the chest. COMPARISON: No relevant prior studies available. FINDINGS: Lungs: Mildly prominent interstitial markings. No consolidation. Pleural space: Unremarkable. No pneumothorax. Heart: Unremarkable. Mediastinum: Unremarkable. Normal mediastinal contour. Bones/joints: No acute findings. Tubes, lines and devices: Left-sided AICD. IMPRESSION: No acute findings in the chest. Electronically signed by: Eren Deleon MD 09/05/2023 12:55 AM CDT Due to temporary technical issues with the PACS/Fluency reporting system, reports are being signed by the in house radiologists without review as a courtesy to insure prompt reporting. The interpreting radiologist is fully responsible for the content of the report.
--- NOTE | 2023-09-07 14:22 | EKG ---
Test Date: 2023-09-05 Test Time: 00:06:11 Assistant Professor Of Sociology: MAE MEASUREMENT RESULTS: Intervals: Rate: 77 UT: 138 QRSD: 92 QT: 416 QTc: 470 [place]: P: 62 UT: 138 QRS: 47 T: 14 INTERPRETIVE STATEMENTS: Sinus rhythm Prolonged QT Abnormal ECG Compared to ECG 02/21/2023 16:26:20 Prolonged QT interval now present Electronically Signed On 09-07-23 14:15:28 CDT by Guille Humphries
== END 2023-09-05 15:00 | disposition home or self-care (01) ==
LOC: ER 00:04 → ERHOLD 03:57 → 4TH 06:05
PROVIDERS: ADMIT Internal Medicine; ATTEND Hospitalist
DX: I50.22 Chronic systolic (congestive) heart failure (principal); I21.4 Non-ST elevation (NSTEMI) myocardial infarction; J20.9 Acute bronchitis, unspecified; R06.02 Shortness of breath; R79.89 Other specified abnormal findings of blood chemistry; R05.9 Cough, unspecified; D72.829 Elevated white blood cell count, unspecified; I10 Essential (primary) hypertension; E03.9 Hypothyroidism, unspecified; Z88.5 Allergy status to narcotic agent; Z88.8 Allergy status to other drugs, medicaments and biological substances; Z95.0 Presence of cardiac pacemaker
CPT/HCPCS: 93005; 87040 ×2; 85025; 36415; 85610; 80061; 83605; 85730; 84484 ×4; 80053; 83880; 71045; 94640 ×2; 96375; 96374; 99284; J3475; J1940 ×2; J7613 ×3; J7644 ×3; J2930; J2920; G0378 ×3; J1644

== ENCOUNTER 2023-12-11 12:15 | Emergency (ER) | payer OTHER ==
--- OUTSIDE RECORDS SUMMARY | 2023-12-11 12:20 | XMS REPORT | Continuity of Care Document ---
Author Name Unknown Address [address] [facility]. [address] [place] [address] [facility] thconnect Address [address] [facility] [address] [place] [address] Care Team Providers Care Home Health Attendant Name Role Phone STEPH OSWALD Primary Care Physician Unavaila Steph Glaser Attending Clinician Unavailable Awilda Daniels Attending Clinician Unavailable Oscar Arceo Attending Clinician Unavailable Varghese Gaston Attending Clinician Unavailable Varghese Gaston Attending Clinician Unavailable VARGHESE MEDINA Attending Clinician Unav ailable [id number] Attending Clinician Unavailable MAXIMILIAN VIDALES Attending Clinician Unavailable [id number] Attending Clinician Unavailable RAISA KIMBROUGH Attending Clinician Unavailable LAB90 Attending Clinician Unavailable NOLVIA VANG Attending Clinician Unavailable MD MYA Attending Clinician Unavailab MIGUEL ÁNGEL Monreal Attending Clinician Unavailable [id number] Attending Clinician Unavailable TERI GARCIA Attending Clinician Unavailable TG MOJICA Attending Clinician Unavailable AALIYAH MASON Attending Clinician Unavaila ble Aaliyah Morrison Attending Clinician [phone] DIDIER ARGUETA Attending Clinician Unavailable Oscar Arceo Admitting Clinician Unavailable Varghese Gaston Admitting Clinician Unavailable AALIYAH MASON Admitting Clinician UnavailDIDIER Gorman Admitting Clinician Unavailable Payers Payer Name Policy Type Policy Number Effective Date Expirati on Date Source YESIKA VALENZUELA 5 [facility] APPOINTMENT COORDINATOR 94 ON 9 [id number] 2023 00:00:00 HIM AMBETTER FROM [facility] [id number] 2020 00:00:00 Ambetter from [facility] [id number] 2020 00:00:00 [facility] Ambetter from [facility] [id number] 2020 00:00:00 [facility] Ambetter from [facility] [id number] 2020 00:00:00 [facility] Problems Condition Name Condition Details Condition Category [...] tor Disease Active 10-10 00:00: 00 Hilda Flores - Externa lorna COPD (chronic obstructiv e pulmonary disease) (multi HCC) COPD (chronic obstructiv e pulmonary disease) (multi HCC) Disease Active 10-10 00:00: 00 Hilda Flores - Externa l [id number] Hypokalemi a Problem Active [facility] [id number] Tachycardi a Problem Active [facility] Smoker Smoker Problem Active [facility] [id number] Acquired hypothyroi dism Problem Active [facility] [id number] Peripheral edema Problem Active [facility] [id number] Cervical radiculopa thy at C5 Problem Active [facility] [id number] Lumbar radiculopa thy, chronic Problem Active [facility] No known active problems No known active problems Disease [facility] Allergies, Adverse Reactions, Alerts Allergy Name Allergy Type Status Severity Reaction(s) Onset Date Inactive Date Treating Clinician Comments Source Lisinopr il Propensi ty to adverse reaction s Active Rash 10-09 00:00: 00 Hilda Flores - Externa l Morphine Propensi ty to adverse reaction s Active Other 10-09 00:00: 00 Hilda Flores - Externa l LISINOPR IL DRUG INGREDI Active Rash 01-14 00:00: 00 [facility] Lisinopr il Propensi ty to adverse reaction s Active Rash 01-14 00:00: 00 [facility] MORPHINE DRUG INGREDI Active Unknown-Cmnt 2009-06 00:00: 00 [facility] Morphine Propensi ty to adverse reaction s Active Unknown - See comments 2009-06 00:00: 00 [facility] CODEINE- BUTALBIT AL-ASA-C AFF DRUG Active N/V 2006-06 00:00: 00 [facility] Codeine- Butalbit al-Asa-C aff Propensi ty to adverse reaction s Active Nausea and/or Vomiting 2006-06 00:00: 00 Nieves jaquez [facility] morphine Drug Active [facility] lisinopr il Drug Active [facility] morphine Drug Active [facility] lisinopr il Drug Active [facility] morphine Drug Active [facility] lisinopr il Drug Active [facility] morphine Drug Active [facility] lisinopr il Drug Active [facility] morphine Drug Active [facility] lisinopr il Drug Active [facility] morphine Drug Active [facility] lisinopr il Drug Active [facility] morphine Drug Active [facility] lisinopr il Drug Active [facility] morphine Drug Active [facility] lisinopr il Drug Active [facility] morphine Drug Active [facility] lisinopr il Drug Active [facility] morphine Drug Active [facility] lisinopr il Drug Active [facility] morphine Drug Active [facility] lisinopr il Drug Active [facility] morphine Drug Active [facility] lisinopr il Drug Active [facility] morphine Drug Active [facility] lisinopr il Drug Active [facility] morphine Drug Active [facility] lisinopr il Drug Active [facility] morphine morphine Active Unknown [facility] lisinopr il lisinopr il Active Unknown [facility] Social History Social Habit Start Date Stop Date Quantity Comments Source Gender identity Deb Flores - External Sexual orientation Srikanth Flores - External History of tobacco use Cigarette Smoker Hilda painting - External Alcohol intake 2023-03-11 00:00:00 2023-03-11 00:00:00 Ex-drinker (finding) Hilda Flores - External History of Social function 2023-03-11 00:00:00 2023-03-11 00:00:00 Hilda Flores - External Cigarettes smoked current (pack per day) - Reported 2023-03-03 00:00:00 2023-03-03 00:00:00 Hilda Stephenson Cigarette pack-years 2023-03-03 00:00:00 2023-03-03 00:00:00 Hilda Flores - External Tobacco use and exposure 2023-03-03 00:00:00 2023-03-03 00:00:00 Smokeless tobacco non-user Hilda Muniz External Education - What is the highest level of school you have completed or the highest degree you have received? 2022-10-10 00:00:00 2022-10-10 00:00:00 11th grade Hilda Flores - External Alcohol Comment 2022-10-09 00:00:00 2022-10-09 00:00:00 stopped in 2007 Hilda Muniz External Exposure to SARS-CoV-2 (event) 2021-11-24 00:00:00 2021-12-04 10:21:00 Unable to assess [facility] Sex Assigned At 1965 00:00:00 1965 00:00:00 Hilda Muniz External Smoking Status Start Date Stop Date Source Ex-smoker 2023-03-03 00:00:00 2023-03-03 00:00:00 Srikanth Flores - External Smokes tobacco daily 2022-10-09 00:00:00 Hilda Muniz External Medications Ordered Medication Name Filled Medication Name Start Date Stop Date Current Medication? Ordering Clinician Indication Dosage Frequency Signature (SIG) Comments Components Source PEG-KCl-NaC l-NaSulf-Na Asc-C (MOVIPREP) 100 g oral Recon Soln 18 00:00: 00 Yes [id number] Instructio ns provided to patient. Follow instructio [...] 40 mg by mouth daily Hilda rothman Sacubitril- Valsartan 24-26 MG oral Tablet 03-03 [...] POWDER, BREATH ACTIVATED 10-10 00:00: 00 Yes [id number] 1{puff} Inhale 1 puff into the lungs 2 times daily Hilda rothman Levalbutero l Tartrate (Xopenex HFA) 45 MCG/ACT inhalation Aerosol 10-10 00:00: 00 Yes [id number] 2{puff} [id number] 3D Inhale 2 puffs into the lungs every 8 hours as needed for wheezing or shortness of breath Hilda rothman Furosemide 40 MG oral Tablet 10-06 00:00: 00 03-03 00:00 :00 No 40mg Take 1 tablet (40 mg total) by mouth daily Hilda rothman albuterol 90 mcg/actuati on inhaler 12-04 00:00: 00 Yes [id number] 2{puff} Inhale 2 Puffs every 6 (six) hours as needed for Wheezing or Shortness of Breath. [facility] Chantix Continuing Month Jaleel 1 MG Chantix Continuing Month Jaleel 1 MG 01-21 00:00: 00 04-21 00:00 :00 No BID Chantix Continuing Month Jaleel 1 MG Amoxicillin -Pot Clavulanate Amoxicillin -Pot Clavulanate 01-12 00:00: 00 01-19 00:00 :00 No Awilda Millender 1 tablet [facility] acetaminoph en-codeine 300-30 mg tablet 09-18 00:00: 00 Yes 1{tbl} Take 1 tablet by mouth every 4 (four) hours as needed for Pain (scale 4-6). [facility] ibuprofen 600 mg tablet 09-18 00:00: 00 Yes 600mg Take 1 tablet by mouth every 6 (six) hours as needed for Pain (scale 4-6). [facility] sulfamethox azole-trime thoprim (BACTRIM DS) 800-160 mg tablet 2009-06 00:00: 00 Yes 1{tbl} Take 1 Tab by mouth 2 (two) times daily. [facility] hydrochloro thiazide (ESIDRIX) 25 mg tablet 2009-06 00:00: 00 Yes 12.5mg Take 0.5 Tabs by mouth daily. [facility] hydrocodone -acetaminop hen (NORCO 5) 5-325 mg tablet 2009-06 00:00: 00 Yes 1{tbl} Take 1 Tab by mouth every 6 (six) hours as needed for Pain. [facility] Furosemide Furosemide Yes Awilda Millender 1 tablet [facility] Aspirin 81 Aspirin 81 Yes Awilda Millender 1 tablet [facility] Levothyroxi ne Sodium Levothyroxi ne Sodium Yes Awilda Millender 1 tablet in the morning on an empty stomach [facility] Naproxen Naproxen Yes Awilda Millender 1 tablet [facility] Hydrochloro thiazide Hydrochloro thiazide Yes Awilda Millender 1 tablet in the morning [facility] Daily Multi Vitamin/Min erals Daily Multi Vitamin/Min erals Yes Awilda Millender as directed [facility] Chantix Starting Month Jaleel 0.5 MG X [...] QD Atorvastat in Calcium 40 MG Chantix 1 MG Chantix 1 MG No 1{table t} BID Chantix 1 MG Immunizations Ordered Immunization Name Filled Immunization Name Date Status Comments Source to be COVID-19 Vaccine to be COVID-19 Vaccine 2021-03-13 11:37:00 Completed [facility] Covid-19 Vaccine (to be), Mrna-lnp, Garth Protein, Pf, 30mcg/0.3ml,IM 2021-03-13 00:00:00 Completed Hilda Seybold - External Pfizer COVID-19 Vaccine Pfizer COVID-19 Vaccine 2021-02-12 16:27:00 Completed [facility] Covid-19 Vaccine (Pfizer), Mrna-lnp, Garth Protein, Pf, 30mcg/0.3ml,IM 2021-02-12 00:00:00 Completed Hilda Rodriguezybold - External Influenza Virus Vaccine, No Preserv, age 6 months and up 2019-07-31 00:00:00 Completed Hilda Seybold - External Influenza Virus Vaccine, No Preserv, age 6 months and up 2019-07-31 00:00:00 Completed Hilda Seybold - External Influenza Virus Vaccine, No Preserv, age 6 months and up Unknown Completed Hilda Seybold - External Covid-19 Vaccine (Pfizer), Mrna-lnp, Garth Protein, Pf, 30mcg/0.3ml,IM Unknown Completed Hilda Rodriguezybol d - External Covid-19 Vaccine (Pfizer), Mrna-lnp, Garth Protein, Pf, 30mcg/0.3ml,IM Unknown Completed Hilda Rodriguezybol d - External Vital Signs Vital Name Observation Time Observation Value Comments S ource Height/Length Measured 2019-10-27 21:50:43 Systolic blood pressure 2023-03-03 21:43:00 137 mm[Hg] Hilda Seybo ld - External Diastolic blood pressure 2023-03-03 21:43:00 84 mm[Hg] Hilda Seybo ld - External Heart rate 2023-03-03 21:43:00 91 /min Andressa y Seybold - External Body temperature 2023-03-03 21:43:00 37.06 Monalisa Hilda Rodriguezybold - External Body height 2023-03-03 21:43:00 157.5 cm Deb brewer Seybold - External Body weight 2023-03-03 21:43:00 74.844 kg Deb brewer Seybold - External BMI 2023-03-03 21:43:00 30.18 kg/m2 Deb ey Seybold - External Systolic blood pressure 2022-10-10 21:14:00 101 mm[Hg] Hilda Seybo ld - External Diastolic blood pressure 2022-10-10 21:14:00 74 mm[Hg] Hilda Seybo ld - External Heart rate 2022-10-10 21:14:00 85 /min Andressa clark Seybold - External Body temperature 2022-10-10 21:14:00 36.33 Monalisa Hilda Seybold - External Respiratory rate 2022-10-10 21:14:00 14 /min Hilda Rodriguezybold - External Body height 2022-10-10 21:14:00 157.5 cm Deb ey Seybold - External Body weight 2022-10-10 21:14:00 119.75 kg Deb ey Seybold - External BMI 2022-10-10 21:14:00 48.29 kg/m2 Deb brewer Seybold - External Oxygen saturation in Arterial blood by Pulse oximetry 2022-10-10 21:14:00 99 /min Hilda Meado ld - External Systolic blood pressure 2021-12-04 15:36:00 125 mm[Hg] [facility] Diastolic blood pressure 2021-12-04 15:36:00 53 mm[Hg] [facility] Heart rate 2021-12-04 15:36:00 93 /min [facility] Body temperature 2021-12-04 15:36:00 36.78 Monalisa [facility] Respiratory rate 2021-12-04 15:36:00 20 /min [facility] Body height 2021-12-04 15:36:00 160 cm [facility] Body weight 2021-12-04 15:36:00 75.751 kg [facility] BMI 2021-12-04 15:36:00 29.58 kg/m2 [facility] Oxygen saturation in Arterial blood by Pulse oximetry 2021-12-04 15:36:00 97 /min [facility] height 2020-12-10 09:00:00 61 [in_i] Commo n [facility] weight 2020-12-10 09:00:00 160 [lb_av] Comm on [facility] temperature 2020-12-10 09:00:00 97.2 [degF] Com mon [facility] bmi 2020-12-10 09:00:00 30.23 kg/m2 Comm on [facility] oximetry 2020-12-10 09:00:00 100 % Commo n [facility] respiratory rate 2020-12-10 09:00:00 20 /min Common [facility] blood pressure systolic 2020-12-10 09:00:00 110 mm[Hg] [facility] blood pressure diastolic 2020-12-10 09:00:00 64 mm[Hg] [facility] Height/Length Measured 2021-07-02 12:51:42 158 cm Weight [...] Source XR CHEST 1 VW 2021-12-04 16:35:48 [facility] RAPID INFLUENZA A/B 2021-12-04 15:50:[address] [facility] COVID-19 (ID NOW RAPID TESTING) 2021-12-04 15:50:00 [facility] NOTICE OF PRIVACY PRACTICES 2021-12-04 15:23:47 Doctor Unassigned, [place] [facility] CONSENT/REFUSAL FOR DIAGNOSIS AND TREATMENT 2021-12-04 15:23:25 Doctor Unassigned, [place] [facility] Encounters Start Date/Time End Date/Time Encounter Type Admission Type Attending [facility] Care Department Encounter ID Source 2022-01-08 08:37:00 [facility] [id number] [facility] 2021-07-10 13:02:37 Outpatient Steph Oswald ST[facility] [id number] [facility] 2021-07-10 11:34:12 [facility] [id number] [facility] 2021-07-10 11:34:01 Outpatient Awilda Daniels STLC STLC [id number] [facility] 2021-07-10 10:59:36 Outpatient Awilda Daniels STLC [id number] [facility] 2021-07-10 10:59:25 Outpatient Awilda Daniels ST[facility] [id number] [facility] 2021-07-10 10:59:02 Outpatient Awilda Daniels STLC STLC [id number] [facility] 2019-10-27 15:41:00 Inpatient 1 Adis Oscar Mckeon [facility] TEL [id number] [facility] 2019-08-09 13:06:00 Inpatient Varghese Gaston George [facility] STEFANI [id number] [facility] 2024-04-25 13:55:00 2024-04-25 13:55:00 Outpatient VARGHESE MEDINA [id number] Hilda Flores 2023-11-18 07:15:00 2023-11-18 07:15:00 Outpatient HILDA FORREST [id number] Hilda Flores 2023-11-16 14:45:00 2023-11-16 14:45:00 Outpatient TRED53 HILDA FORREST [id number] Hilda Seybold 2023-11-16 14:25:00 2023-11-16 14:25:00 Outpatient ADAM, VARGHESE [facility] FOR[facility] [id number] [facility] 2023-10-26 00:00:00 2023-10-26 00:00:00 Outpatient PREZAS, MAXIMILIAN HILDA FORREST [id number] [facility] 2023-10-25 00:00:00 2023-10-25 00:00:00 Outpatient PREZAS, MAXIMILIAN HILDA FORREST [id number] [facility] 2023-10-23 00:00:00 2023-10-23 00:00:00 Outpatient ADAM, VARGHESE HILDA FORREST [id number] [facility] 2023-10-23 00:00:00 2023-10-23 00:00:00 Outpatient ADAM, VARGHESE HILDA FORREST [id number] [facility] 2023-10-23 00:00:00 2023-10-23 00:00:00 Outpatient ADAM, VARGHESE HILDA FORREST [id number] [facility] 2023-10-17 00:00:00 2023-10-17 00:00:00 Outpatient PREZAS, MAXIMILIAN TARIQJACQUE FORREST [id number] [facility] 2023-09-15 00:00:00 2023-09-15 00:00:00 Outpatient ADAM, VARGHESE HILDA FORREST [id number] [facility] 2023-09-09 13:40:00 2023-09-09 13:40:00 Outpatient ADAM, VARGHESE HILDA FORREST [id number] Hilda Seybold 2023-09-01 12:00:00 2023-09-01 12:00:00 Outpatient PACE53 HILDA FORREST [id number] [facility] 2023-08-26 00:00:00 2023-08-26 00:00:00 Outpatient ADAM, VARGHESE FORREST [id number] Hilda Seybold 2023-08-16 00:00:00 2023-08-16 00:00:00 Outpatient SIDIQ, RAISA FORREST HILDA [id number] Hilda Seybold 2023-08-10 09:00:00 2023-08-10 09:00:00 Outpatient SIDIQ, RAISA FORREST HILDA [id number] Hilda Seybold 2023-08-06 12:55:00 2023-08-06 12:55:00 Outpatient LAB90 HILDA FORREST [id number] Hilda Seybold 2023-08-04 00:00:00 2023-08-04 00:00:00 Outpatient SIDIQ, RAISA FORREST HILDA [id number] Hilda Seybold 2023-07-20 00:00:00 2023-07-20 00:00:00 Outpatient SIDIQ, RAISA HILDA FORREST [id number] Hilda Seybold 2023-07-20 00:00:00 2023-07-20 00:00:00 Outpatient HILDA FORREST [id number] Hilda Seybold 2023-07-18 00:00:00 2023-07-18 00:00:00 Outpatient SIDIQ, RAISA FORREST HILDA [id number] Hilda Seybold 2023-07-18 00:00:00 2023-07-18 00:00:00 Outpatient SIDIQ, RAISA HILDA FORREST [id number] Hilda Seybold 2023-07-15 00:00:00 2023-07-15 00:00:00 Outpatient VANG, NOLVIA HILDA FORREST [id number] Hilda Seybold 2023-07-02 13:30:00 2023-07-02 13:30:00 Outpatient SIDIQ, RAISA HILDA FORREST [id number] Hilda Seybold 2023-07-02 12:00:00 2023-07-02 12:00:00 Outpatient PACE53 HILDA FORREST [id number] Hilda Seybold 2023-07-02 00:00:00 2023-07-02 00:00:00 Outpatient MD HILDA LOWRY [id number] Hilda Seybold 2023-07-02 00:00:00 2023-07-02 00:00:00 Outpatient HILDA FORREST [id number] [facility] 2023-06-02 09:30:00 2023-06-02 09:30:00 Outpatient MAXIMILIAN VIDALES [id number] [facility] 15:20:00 2023-05-04 15:20:00 Outpatient MIGUEL ÁNGEL DANGELO HILDA FORREST [id number] [facility] 2023-05-01 00:00:00 2023-05-01 00:00:00 Outpatient MAXIMILIAN VIDALES HILDA HILDA [id number] [facility]ilda [facility] 2023-04-30 10:45:00 2023-04-30 10:45:00 Outpatient PACE53 HILDA FORREST [id number] [facility] 2023-04-28 00:00:00 2023-04-28 00:00:00 Outpatient ADAMVARGHESE GO HILDA FORREST [id number] [facility] 2023-03-17 00:00:00 2023-03-17 00:00:00 Outpatient MAXIMILIAN VIDALES HILDA FORREST [id number] [facility] 2023-03-12 00:00:00 2023-03-12 00:00:00 Outpatient PREMAXIMILIAN CINTRON HILDA FORREST [id number] [facility] 2023-03-11 11:30:00 2023-03-11 11:30:00 Outpatient TREJossue7 HILDA FORREST [id number] [facility] 2023-03-11 09:10:00 2023-03-11 09:10:00 Outpatient ADAMVARGHESE HILDA FORREST [id number] [facility] 2023-03-11 00:00:00 2023-03-11 00:00:00 Outpatient ADAM, VARGHESE FORREST [id number] [facility] 2023-03-10 00:00:00 2023-03-10 00:00:00 Outpatient ADAMVARGHESE Grijalva [id number] [facility] 2023-03-05 00:00:00 2023-03-05 00:00:00 Outpatient MD HILDA LOWRY [id number] [facility] 2023-03-03 16:30:00 2023-03-03 16:30:00 Outpatient PREMAXIMILIAN CINTRON HILDA FORREST [id number] [facility] 2023-03-03 00:00:00 2023-03-03 00:00:00 Outpatient HILDA FORREST [id number] [facility] 2023-02-24 00:00:00 2023-02-24 00:00:00 Outpatient PREMAXIMILIAN CINTRON HILDA FORREST [id number] [facility] 2023-02-23 00:00:00 2023-02-23 00:00:00 Outpatient HILDA FORREST [id number] [facility] 2023-02-18 15:50:00 2023-02-18 15:50:00 Outpatient RADHA TERI HILDA FORREST [id number] [facility] 2023-01-14 14:30:00 2023-01-14 14:30:00 Outpatient TERI GARCIA [id number] [facility] 2023-01-14 00:00:00 2023-01-14 00:00:00 Outpatient MD HILDA LOWRY [id number] [facility] 2023-01-02 15:20:00 2023-01-02 15:20:00 [facility] TG MOJICA [id number] [facility]22-12-03 15:15:00 2022-12-03 15:15:00 Outpatient PREMAXIMILIAN CINTRON HILDA FORREST [id number] [facility] 2022-11-24 00:00:00 2022-11-24 00:00:00 Outpatient PREGEORGIE CINTRONCRISTIANO FORREST [id number] [facility] 2022-11-11 15:30:00 2022-11-11 15:30:00 Outpatient SOBEIDA MAXIMILIAN FORREST [id number] [facility] 2022-11-04 00:00:00 2022-11-04 00:00:00 Outpatient HILDA FORREST [id number] [facility] 2022-11-04 00:00:00 2022-11-04 00:00:00 Outpatient HILDA FORREST [id number] [facility] 2022-11-03 00:00:00 2022-11-03 00:00:00 Outpatient HILDA FORREST [id number] [facility] 2022-10-24 00:00:00 2022-10-24 00:00:00 Outpatient MAXIMILIAN VIDALES [id number] [facility] 2022-10-20 00:00:00 2022-10-20 00:00:00 Outpatient MAXIMILIAN VIDALES [id number] [facility] 2022-10-10 16:15:00 2022-10-10 16:15:00 Outpatient MAXIMILIAN VIDALES [id number] [facility] 2021-12-04 10:40:00 2021-12-04 12:16:00 [facility] [id number] 2021-12-04 10:40:00 2021-12-04 12:16:00 Emergency Aaliyah Mason [facility] [id number] [facility] 2021-05-10 00:00:00 2021-05-10 00:00:00 (TEL) STLMLC STLMLC [id number] [facility] 2021-01-20 00:00:00 2021-01-20 00:00:00 (WEB) STLMLC STLMLC [id number] [facility] 2021-01-14 14:30:00 2021-01-14 14:30:00 Emergency X [facility] ERT [id number] [facility] 2020-12-10 00:00:00 2020-12-10 00:00:00 OFFICE VISIT ESTAB PT LEVEL 4 STLMLC STLMLC [id number] [facility] 2020-01-13 14:40:00 2020-01-13 14:40:00 [facility]patient [facility] [id number] 2020-01-13 11:40:00 2020-01-13 11:40:00 Outpatient [facility] [id number] [facility] 2019-12-21 16:33:00 2019-12-21 16:33:00 Outpatient [facility] [id number] [facility] 2019-10-27 15:41:00 2019-10-28 20:02:00 Inpatient 1 Oscar Arceo Oscar Arceo [facility] TEL [id number] [facility] 2019-09-05 13:11:00 2019-09-05 13:11:00 Outpatient [facility] [id number] [facility] 2019-08-15 19:48:00 2019-08-20 12:33:00 Inpatient E DIDIER ARGUETA [facility] 2019-07-07 15:26:00 2019-07-07 15:26:00 Outpatient [facility] [id number] [facility] 2019-06-23 14:00:00 2019-06-23 14:00:00 Outpatient [facility] [id number] [facility] 2018-02-04 15:00:00 2018-02-04 15:00:00 [facility]patient [facility] [facility] [id number] [facility] Results Test Description Test Time Test Comments Results Result Co mments Source Troponin [id number] 21:47:02* Test Item Value Reference Range Interpretation [...] a diagnosis of chronic myocardial injury. Troponin [id number] 19:26:34* Test Item Value Reference Range Interpretation Comme [facility] Troponin-T (test code = Troponin-T) 8.060 ng/L [...] a diagnosis of chronic myocardial injury. Troponin [id number] 17:01:59* Test Item Value Reference Range Interpretation Comme [facility] Troponin-T (test code = Troponin-T) 8.150 ng/L [...] diagnosis of chronic myocardial injury. Comprehensive Metabolic [id number] 16:46:40* Test Item Value Reference Range Interpretation [...] is not provided, and the patient is -[place], multiply by 1.212. If sex is not [...] by the National Kidney Foundation, http://nkdep.nih.gov Creatine [id number] 16:46:40* Test Item Value Reference Range Interpretation Comme nts CK (test code = CK) 224 U/L 26-192 H Comprehensive Metabolic [id number] 16:46:40* Test Item Value Reference Range Interpretation [...] is not provided, and the patient is -[place], multiply by 1.212. If sex is not [...] is not provided, and the patient is -[place], multiply by 1.212. If sex is not [...] the National Kidney Foundation, http://nkdep.nih.gov Comprehensive Metabolic [id number] 16:46:40* Test Item Value Reference Range Interpretation [...] is not provided, and the patient is -[place], multiply by 1.212. If sex is not [...] is not provided, and the patient is -[place], multiply by 1.212. If sex is not [...] National Kidney Foundation, http://nkdep.nih.gov Pro B Natriuretic [id number] 16:43:50* Test Item Value Reference Range Interpretation Comme nts NT-proBNP (test code = NT-proBNP) 513 pg/mL 0-124 H Automated [id number] 16:24:33* Test Item Value Reference Range Interpretation Comme nts Neutro Auto (test code = Liliya tro Auto) 53.0 % 36.0-70.0 Lymph Auto (test code = Lymph Auto) 39.3 % 12.0-44.0 Stanton Auto (test code = Stanton Auto) 6.6 % 0.0-11.0 Eos, Auto (test code = Eos, Auto) 0.0 % 0.0-7.0 Basophil Auto (test code = B asophil Auto) 0.8 % 0.0-2.0 Neutro Absolute (test code = Neutro Absolute) 4.0 x10 1.6-7.4 Lymph Absolute (test code = Lymph Absolute) 2.97 x10 .50-4.60 Stanton Absolute (test code = M donna Absolute) .50 x10 .00-1.20 Eos Absolute (test code = Eo s Absolute) 0.00 x10 0.00-0.74 Baso Absolute (test code = B aso Absolute) 0.06 x10 0.00-0.21 IG [id number] 16:24:33* Test Item Value Reference Range Interpretation Comme nts IG (test code = IG) 0.3 % 0.0-5.0 IG Abs (test code = IG Abs) 0 x10 N Complete Blood Count with [id number] 16:24:32* Test Item Value Reference Range Interpretation [...] 0 % N XR Chest 1 View [id number] 16:11:29Patient: SHEFALI JOYNER Date/Time10/27/2019 16:05 CDTReason for ExamChest nany nReportDICTATION LOCATION: [id number]: Female, 54 years of age with Chest painEXAM: CHEST X-RAY, ONE VIEWCOMPARISON: NoneCOMMENT: Frontal view of the chest is provided. No focal infiltrate, consolidation, mass lesion, or effusion is seen. Cardiac silhouette is within normal limits. No acute bony abn ormalities.IMPRESSION: No acute cardiopulmonary disease. Final Dictated by: Fanny Davis LDictated DT/TM: 10/27/2019 4:11 pmSigned by: Fanny Davis LSigned (Electronic Signature): 10/27/2019 4:11 pm History and Physical Notes Date/Time Note Provider Source 2023-07-02 13:26:30 [id number]:26:30F ormatting of this note is different from the original.Reason for consultation: Colon cancer screeningHPIPatient here for [...] years: 0.00Total pack years: 5.50Types: CigarettesQuit date: 2021Ye since quittin.0Smokeless tobacco: NeverVaping UseVaping Use: Never [...] infusion 500 mL- NURSE COMM 3; Standing- TDK-JWf-UaZf-NaSulf-Na Asc-C (MOVIPREP) 100 g oral Recon Soln; Instructions provided to patient. Follow instructions provided by provider.. 60380-5Fijajqw and physical [id number]:31:46History and physical [id number]. [id number] for patient muar11342-9[place] and physical noteLNNARRATIVEFormatted C-CDA narrative [facility] [facility].[id number] [id number] 2.3.15|[id number]. [id number] [facility]"
[2023-12-11 12:45] LABS: Absolute Basophils 0.1 K/uL (0-0.5); Absolute Eosinophils 0.1 K/uL (0-0.5); Absolute Lymphocytes (CBC) 2.4 K/uL (0.7-4.9); Absolute Monocytes 0.5 K/uL (0.1-1.3); Basophils % 0.8 % (0-1.3); Eosinophils % 1.6 % (0-4.4); Hemoglobin 12.9 g/dL (12.0-15.0); Lymphocytes % 33.8 % (15.3-44.8); MCH 29.1 pg (27.0-35.0); MCHC 33.2 g/dL (32.0-36.0); MCV 87.6 fL (80-100); MPV 8.8 fL (7.6-11.3); Monocytes % 6.8 % (3.3-12.3); Nucleated Red Blood Cells % 0.2 % (0-0); Platelets 269 thou/uL (152-406); RBC Red Blood Cell Count 4.45 M/uL (3.86-4.86); Red Cell Distribution Width 14.4 % (12.1-15.2)
[2023-12-11 12:48] LABS: PT Prothrombin Time 11.4 SECONDS (9.4-12.5); PTT, Activated Partial Thromb 29.1 SECONDS (24.3-36.9); Protime INR 1.04
[2023-12-11 12:54] LABS: ALT/SGPT 43 U/L (13-56); AST/SGOT 19 U/L (15-37); Albumin 3.6 g/dL (3.4-5.0); Albumin/Globulin Ratio 1.1 (1.1-1.8); Alkaline Phosphatase 98 U/L (45-117); Anion Gap 7.5 mEq/L (5.0-15.0); BUN Blood Urea Nitrogen 13 mg/dL (7-18); Bicarbonate 28 mEq/L (21-32); Bilirubin Total 0.4 mg/dL (0.2-1.0); Globulin 3.3 g/dL (2.3-3.5); Glomerular Filtration Rate 76 ml/min (=/>90); Glucose Level 111 mg/dL (74-106); Magnesium 2.1 mg/dL (1.6-2.4); NT PRO-BNP 301 pg/mL (<125); Potassium 3.5 mEq/L (3.5-5.1); Protein, Total 6.9 g/dL (6.4-8.2); Sodium Level 139 mEq/L (136-145)
[2023-12-11 13:02] LABS: Bilirubin Direct < 0.2 mg/dL (0-0.2); Bilirubin Indirect, Calculated 0.2 mg/dL (0.2-0.8)
[2023-12-11 13:03] LABS: Troponin High Sensitivity 114.5 pg/mL (<58.9)
[2023-12-11 13:03] LABS: Arterial Blood Carboxyhemoglob 2.4 % (0-1.5); Blood Gas Oxyhemoglobin 92.7 % (94-97); Blood Gas THB 12.8 g/dl (12-18); Blood O2 Saturation 96.8 % (92-98.5)
--- NOTE | 2023-12-11 13:12 | RAD REPORT ---
EXAM DESCRIPTION: CT - Head Brain Wo Cont - 12/11/2023 12:51 pm CLINICAL HISTORY: Syncope COMPARISON: 2020 TECHNIQUE: Computed axial tomography of the head was obtained. IV contrast was not requested. All CT scans are performed using dose optimization technique as appropriate and may include automated exposure control or mA/KV adjustment according to patient size. FINDINGS: An intracranial bleed is not seen The ventricles are normal in caliber No significant hypodense areas within the brain visualized No extra-axial fluid collection is noted. Fluid within the sinuses/ mastoids is not seen IMPRESSION: No acute intracranial abnormality is seen If patient's symptoms persist MRI of the brain would be recommended
--- NOTE | 2023-12-11 14:07 | RAD REPORT ---
EXAM DESCRIPTION: Nancy Single View12/11/2023 1:33 pm CLINICAL HISTORY: Seizure COMPARISON: August 2023 FINDINGS: The lungs appear clear of acute infiltrate. The heart is mildly enlarged. Pacemaker leads are in place. IMPRESSION: No acute abnormalities displayed
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
[2023-12-11 15:46] VITALS: BP 105/65; O2SAT 99
--- NOTE | 2023-12-12 14:06 | EKG ---
Test Date: 2023-12-11 Test Time: 12:39:01 Buyer Intern: JENNIFER MEASUREMENT RESULTS: Intervals: Rate: 83 NH: 144 QRSD: 88 QT: 406 QTc: 477 Watson: P: 72 NH: 144 QRS: 93 T: -34 INTERPRETIVE STATEMENTS: Normal sinus rhythm Rightward axis T wave abnormality, consider inferior ischemia Prolonged QT Abnormal ECG Compared to ECG 09/05/2023 00:06:11 Right-axis deviation now present T-wave abnormality now present Possible ischemia now present Electronically Signed On 12-12-23 14:05:05 CDT by Connor Perez
== END 2023-12-11 15:05 | disposition home or self-care (01) ==
LOC: ER 12:15
DX: R55 Syncope and collapse (principal); X02.1XXA Exposure to smoke in controlled fire in building or structure, initial encounter; Z95.810 Presence of automatic (implantable) cardiac defibrillator; Z88.1 Allergy status to other antibiotic agents; Z88.5 Allergy status to narcotic agent; Z88.8 Allergy status to other drugs, medicaments and biological substances
CPT/HCPCS: 36415; 36600; 70450; 71045; 80048; 80076; 82805; 83735; 83880; 84484; 85025; 85610; 85730; 93005; 99284

== ENCOUNTER 2024-01-31 19:46 | Emergency (ER) | payer OTHER ==
--- NOTE | 2024-01-31 20:36 | RAD REPORT ---
EXAM DESCRIPTION: RAD - Chest Single View - 01/31/2024 8:30 pm CLINICAL HISTORY: DYSPNEA COMPARISON: Chest Single View dated 12/11/2023; Chest Single View dated 09/05/2023; Chest Single View dated 02/21/2023; Chest Single View dated 10/31/2022 FINDINGS: Lines: ICD. Lungs: No evidence of edema or pneumonia. Pleural: No significant pleural effusions or pneumothorax. Cardiac: Cardiomegaly. Mediastinum: Within normal limits. Bones: No acute fractures. Other: None IMPRESSION: No acute cardiopulmonary disease.
--- NOTE | 2024-01-31 21:14 | RAD REPORT ---
EXAM DESCRIPTION: CTAbdomen Pelvis Wo Contrast - 01/31/2024 8:45 pm CLINICAL HISTORY: RUQ abd pain, no gallbladder COMPARISON: Stone Protocol dated 05/06/2022; Stone Protocol dated 10/29/2016 TECHNIQUE: CT of the abdomen and pelvis was performed. All CT scans are performed using dose optimization technique as appropriate and may include automated exposure control or mA/KV adjustment according to patient size. FINDINGS: Lower chest: ICD. Mild circumferential thickened distal esophagus. Liver: No acute abnormality or suspicious lesions. Biliary: No biliary ductal dilatation. Cholecystectomy . Stomach: No significant focal abnormality. Duodenum: No significant focal abnormality. Pancreas: No significant abnormality. Spleen: No significant abnormality. Adrenal: No suspicious lesions. Kidney/ureter: No hydronephrosis. No renal calculi. Horseshoe kidney. Low-density right renal lesion which is likely a cyst. Retroperitoneum: No retroperitoneal adenopathy. Vascular: No aneurysm. Bowel: No significant focal abnormality. Appendectomy. Peritoneum: No ascites or free air. Mild ventral abdominal wall laxity. Bladder: Grossly unremarkable. Reproductive: Hysterectomy. Bones: No acute fracture. Moderate disc height loss L5-S1. Mild disc height loss at L4-5. Other: n/a IMPRESSION: No acute intra-abdominal or pelvic finding. Moderately thickened distal esophagus concer jordan for esophagitis. Endoscopy could further evaluate. Cholecystectomy and appendectomy.
[2024-01-31 22:16] LABS: PT Prothrombin Time 12.8 SECONDS (9.4-12.5); Protime INR 1.15
[2024-01-31 22:18] LABS: Absolute Lymphocytes (CBC) 0.8 K/uL (0.7-4.9); Absolute Monocytes 0.8 K/uL (0.1-1.3); Absolute Neutrophil 6.2 K/uL (1.8-8.0); Basophils % 0.6 % (0-1.3); Eosinophils % 0.5 % (0-4.4); Hematocrit 39.8 % (36.0-45.0); Hemoglobin 13.3 g/dL (12.0-15.0); Lymphocytes % 9.7 % (15.3-44.8); MCH 29.2 pg (27.0-35.0); MCHC 33.4 g/dL (32.0-36.0); MCV 87.5 fL (80-100); MPV 8.9 fL (7.6-11.3); Monocytes % 10.3 % (3.3-12.3); Neutrophils % 78.9 % (41.7-73.7); Nucleated Red Blood Cells % 0.1 % (0-0); Platelets 247 thou/uL (152-406); RBC Red Blood Cell Count 4.55 M/uL (3.86-4.86); Red Cell Distribution Width 14.6 % (12.1-15.2)
[2024-01-31] MEDS ORDERED: FAMOTIDINE 20 MG/2 ML VIAL IV ONE (22:22)
[2024-01-31] MEDS ORDERED: FENTANYL CITR 100 MCG/2 ML ONE (22:22)
[2024-01-31 22:28] LABS: ALT/SGPT 79 U/L (13-56); AST/SGOT 42 U/L (15-37); Albumin/Globulin Ratio 1.1 (1.1-1.8); Alkaline Phosphatase 120 U/L (45-117); Anion Gap 11.6 mEq/L (5.0-15.0); BUN Blood Urea Nitrogen 10 mg/dL (7-18); Bicarbonate 24 mEq/L (21-32); Bilirubin Total 0.5 mg/dL (0.2-1.0); Globulin 3.8 g/dL (2.3-3.5); Glomerular Filtration Rate 73 ml/min (=/>90); Glucose Level 122 mg/dL (74-106); NT PRO-BNP 634 pg/mL (<125); Potassium 3.6 mEq/L (3.5-5.1); Protein, Total 7.8 g/dL (6.4-8.2); Sodium Level 133 mEq/L (136-145)
[2024-01-31 22:29] LABS: Renal Epithelial <5 /HPF (None Seen); Specific Gravity 1.022 (1.005-1.030); Sqamous Epithelial <5 /HPF (None Seen); Urine Bacteria None Seen /HPF (<20); Urine Bilirubin NEGATIVE (Negative); Urine Blood 2+ (Negative); Urine Clarity Clear (Clear); Urine Color Light-Yellow (Yellow); Urine Culture Reflex Order NOT NEEDED; Urine Glucose NEGATIVE (Negative); Urine Ketones NEGATIVE (Negative); Urine Microscopic Reflex YN ORDER UMIC; Urine Mucus Slight /HPF (None Seen); Urine Nitrite NEGATIVE (Negative); Urine Protein NEGATIVE (Negative); Urine Urobilinogen Normal (Normal); Urine WBC <5 /HPF (<5); Urine pH 5.5 (5.0-7.0)
[2024-01-31 22:30] LABS: Bilirubin Direct < 0.2 mg/dL (0-0.2); Bilirubin Indirect, Calculated 0.3 mg/dL (0.2-0.8)
[2024-01-31 22:31] LABS: Troponin High Sensitivity 136.5 pg/mL (<58.9)
[2024-01-31 23:17] LABS: SARS-CoV-2 Antigen CONTROL BLUE LINE VIS/BG OK; SARS-CoV-2 Antigen Rapid Res Positive (Negative)
--- NOTE | 2024-02-01 00:50 | ER ---
Nurse's Notes [facility] Name: Virgie Silveira Age: 58 yrs Sex: Female : 1965 Arrival Date: 01/31/2024 Time: 19:46 Bed 3 Private MD: Diagnosis: SARS-associated coronavirus as the cause of diseases classified elsewhere Presentation: 01/30 20:18 Chief complaint: Patient states: Low back pain, abdominal pain and shortness of breath cm10 onset today. PT states that when she falls asleep she wakes up "gasping for air.". Coronavirus screen: Client denies travel out of the [place] in the last 14 days. Ebola Screen: Patient denies travel to an Ebola-affected area in the 21 days before illness onset. No symptoms or risks identified at this time. Initial Sepsis Screen: Does the patient meet any 2 criteria? HR > 90 bpm. No. Patient's initial sepsis screen is negative. Does the patient have a suspected source of infection? No. Patient's initial sepsis screen is negative. Risk Assessment: Do you want to hurt yourself or someone else? Patient reports no desire to harm self or others. Onset of symptoms was January 31, 2024. 20:18 Method Of Arrival: Wheelchair cm10 20:18 Acuity: TOÑITO 3 cm10 Triage Assessment: 20:19 General: Appears in no apparent distress. uncomfortable, Behavior is calm, cooperative. cm10 Neuro: No deficits noted. Level of Consciousness is awake, alert, obeys commands, Oriented to person, place, time, situation, Appropriate for age. Respiratory: No deficits noted. Airway is patent Respiratory effort is even, unlabored, Respiratory pattern is regular, symmetrical. 23:21 Respiratory: Reports shortness of breath Onset: The symptoms/episode began/occurred vc1 gradually, the patient has mild shortness of breath. Historical: - Allergies: 20:19 Cipro; cm10 20:19 Codeine; cm10 20:19 Lisinopril; cm10 20:19 Morphine; cm10 - PMHx: 20:19 Congestive heart failure; Hypertension; Hypothyroidism; Pacemaker; defib; cm10 - PSHx: 20:19 section; heart cath; hysterectomy; right elbow surgery; cm10 - Immunization history:: Adult Immunizations up to date. - Infectious Disease History:: Denies. - Social history:: Smoking status: Patient reports the use of cigarette tobacco products, denies chronic smoking, but will smoke occasionally. - Family history:: not pertinent. - Hospitalizations: : No recent hospitalization is reported. Screenin:30 [facility] ED Fall Risk Assessment (Adult) History of falling in the last 3 months, vc1 including since admission No falls in past 3 months (0 pts) Confusion or Disorientation No (0 pts) Intoxicated or Sedated No (0 pts) Impaired Gait No (0 pts) Mobility Assist Device Used No (0 pt) Altered Elimination No (0 pt) Score/Fall Risk Level 0 - 2 = Low Risk Oriented to surroundings, Maintained a safe environment, Educated pt \\T\\ family on fall prevention, incl call for assistance when getting out of bed. 21:56 Abuse screen: Denies threats or abuse. Nutritional screening: No deficits noted. vc1 Tuberculosis screening: No symptoms or risk factors identified. Assessment: 21:30 General: Appears in no apparent distress. uncomfortable, slender, Behavior is vc1 cooperative, anxious. Pain: Complains of pain in low back area Pain does not radiate. Pain currently is 7 out of 10 on a pain scale. Quality of pain is described as sharp. Neuro: Level of Consciousness is awake, alert, obeys commands, Oriented to person, place, time, situation, Appropriate for age. Cardiovascular: Capillary refill < 3 seconds Patient's skin is warm and dry. Rhythm is regular. Respiratory: Airway is patent Respiratory effort is even, unlabored, Respiratory pattern is regular, symmetrical, Ventilator assessment: Breath sounds are clear bilaterally. GI: No deficits noted. No signs and/or symptoms were reported involving the gastrointestinal system. : No deficits noted. No signs and/or symptoms were reported regarding the genitourinary system. EENT: No deficits noted. No signs and/or symptoms were reported regarding the EENT system. Derm: Skin is intact, is healthy with good turgor, Skin is dry. Musculoskeletal: Circulation, motion, and sensation intact. Range of motion: intact in all extremities. 22:44 Reassessment: Patient and/or family updated on plan of care and expected duration. Pain vc1 level reassessed. Patient is alert, oriented x 3, equal unlabored respirations, skin warm/dry/pink. Patient states feeling better. Patient states symptoms have improved. 01/31 01:00 General: Pt discharge pending; waiting on son to pick her up. vc1 01:47 Reassessment: Patient appears in no apparent distress at this time. No changes from vc1 previously documented assessment. Patient and/or family updated on plan of care and expected duration. Pain level reassessed. Patient is alert, oriented x 3, equal unlabored respirations, skin warm/dry/pink. Vital Signs: 01/30 20:18 BP 125 / 70; Pulse 94; Resp 18; Temp 100.7(O); Pulse Ox 95% ; Weight 73.48 kg; Height 5 cm10 ft. 3 in. ; Pain 8/10; 22:42 BP 121 / 66; Pulse 90; Resp 14; Temp 98.1(O); Pulse Ox 93% on 2 lpm NC; vc1 01/31 01:47 BP 123 / 63; Pulse 89; Resp 12; Pulse Ox 100% ; vc1 01/30 20:18 Body Mass Index 28.70 (73.48 kg, 160.02 cm) cm10 01/30 20:18 Pain Scale: Adult cm10 ED Course: 01/30 19:50 Patient arrived in ED. jj6 20:10 Anival Casarez MD is Attending Physician. rn 20:19 Triage completed. cm10 20:20 Arm band placed on Patient placed in waiting room. cm10 20:32 XRAY Chest (1 view) In Process Unspecified. EDMS 20:47 CT Abd/Pelvis - Without Contrast In Process Unspecified. EDMS 21:30 Patient has correct armband on for positive identification. Bed in low position. Call vc1 light in reach. Pulse ox on. NIBP on. 21:38 Clementine Bella is Primary Nurse. cp4 21:56 Initial lab(s) drawn, by dc, sent to lab. Urine collected: EKG done, by ED staff. vc1 Inserted saline lock: 22 gauge in right upper arm, using aseptic technique. Blood collected. Flushed with 10 mL NS. 01/31 01:48 No provider procedures requiring assistance completed. IV discontinued, intact, vc1 bleeding controlled, No redness/swelling at site. Pressure dressing applied. 01:49 Provided Education on: treat symptoms for covid. vc1 Administered Medications: 01/30 22:04 Not Given (Duplicate Order): ondansetron 4 mg IVP once; over 2 minutes rn 22:38 Drug: fentaNYL (PF) IVP 50 mcg IVP once Route: IVP; Site: right antecubital; vc1 23:00 Follow up: Response: No adverse reaction; Pain is decreased; RASS: Light sedation (-2); vc1 Pain is decreased; Pt is sleeping, responding to name 22:38 Drug: Famotidine IVP 20 mg IVP once; dilute with 10 mL 0.9% NaCl; give over 2 minutes vc1 Route: IVP; Site: right antecubital; 01/31 01:46 Follow up: Response: No adverse reaction; Marked relief of symptoms vc1 01:15 Drug: Promethazine IVP 12.5 mg IVP once Route: IVP; Site: right antecubital; vc1 01:46 Follow up: Response: No adverse reaction; Marked relief of symptoms vc1 Medication: 01/30 23:20 VIS not applicable for this client. vc1 Outcome: 01/31 00:50 Discharge ordered by . rn 01:49 Discharged to home ambulatory, with son vc1 01:49 Condition: good 01:49 Discharge instructions given to patient, Instructed on discharge instructions, follow up and referral plans. medication usage, Demonstrated understanding of instructions, follow-up care, medications, Prescriptions given X 2, 01:57 Patient left the ED. vc1 Signatures: Dispatcher [employer] EDMS Anival Casarez MD MD rn Jeffries, Jennifer [id number] Norma Melara RN RN vc1 Jenny Humphries RN RN cm10 Clementine Bella cp4 Corrections: (The following items were deleted from the chart) 01/30 22:44 22:42 BP 121 / 66; Pulse 51bpm; Resp 14bpm; Pulse Ox 92% 4 lpm Nasal Cannula; vc1 vc1
--- NOTE | 2024-02-01 00:50 | EDPHYS ---
Physician Documentation [facility] Name: Virgie Silveira Age: 58 yrs Sex: Female : 1965 Arrival Date: 01/31/2024 Time: 19:46 Bed 3 Private MD: ED Physician Anival Casarez HPI: 01/30 20:30 This 58 yrs old Female presents to ER via Wheelchair with complaints of Shortness Of rn Breath, Low Back Pain, Pelvic Pain. 20:30 The patient has shortness of breath at rest, with light activity. Onset: The rn symptoms/episode began/occurred today. Duration: The symptoms are continuous. The patient's shortness of breath is aggravated by nothing, is alleviated by nothing. Severity of symptoms: At their worst the symptoms were mild in the emergency department the symptoms are unchanged. The patient has not experienced similar symptoms in the past. Patient reports not feeling well, low-grade temperature at home, cough right flank pain that is worse with deep inspiration and coughing. Denies hemoptysis, reports right upper quadrant abdominal pain that is worse with inspiration as well. No vomiting or diarrhea. No trauma. Reports subjective swelling to bilateral legs.. Historical: - Allergies: 20:19 Cipro; cm10 20:19 Codeine; cm10 20:19 Lisinopril; cm10 20:19 Morphine; cm10 - PMHx: 20:19 Congestive heart failure; Hypertension; Hypothyroidism; Pacemaker; defib; cm10 - PSHx: 20:19 section; heart cath; hysterectomy; right elbow surgery; cm10 - Immunization history:: Adult Immunizations up to date. - Infectious Disease History:: Denies. - Social history:: Smoking status: Patient reports the use of cigarette tobacco products, denies chronic smoking, but will smoke occasionally. - Family history:: not pertinent. - Hospitalizations: : No recent hospitalization is reported. ROS: 20:30 Constitutional: Positive for fever and chills Eyes: Negative for injury, pain, redness, rn and discharge, Cardiovascular: Negative for chest pain, palpitations Respiratory: Positive for cough and shortness of breath Abdomen/GI: Positive for right upper abdominal and flank pain. Negative for vomiting or diarrhea : Negative for injury, bleeding, discharge, and swelling, MS/Extremity: Negative for injury and deformity, Neuro: Reports generalized weakness and malaise Exam: 20:30 Constitutional: This is a well developed, well nourished patient who is awake, alert, rn and in no acute distress. Head/Face: Normocephalic, atraumatic. ENT: Dry mucous membranes, no stridor Cardiovascular: Regular rate and rhythm. No pulse deficits. Respiratory: Mild tachypnea, diminished at bases Abdomen/GI: Soft, no focal tenderness MS/ Extremity: 1+ edema bilateral lower extremities. No cyanosis. Neurovascular intact. Neuro: Awake and alert, GCS 15 23:01 ECG was reviewed by the Attending Physician. rn Vital Signs: 20:18 BP 125 / 70; Pulse 94; Resp 18; Temp 100.7(O); Pulse Ox 95% ; Weight 73.48 kg; Height 5 cm10 ft. 3 in. ; Pain 8/10; 22:42 BP 121 / 66; Pulse 90; Resp 14; Temp 98.1(O); Pulse Ox 93% on 2 lpm NC; vc1 01/31 01:47 BP 123 / 63; Pulse 89; Resp 12; Pulse Ox 100% ; vc1 01/30 20:18 Body Mass Index 28.70 (73.48 kg, 160.02 cm) cm10 01/30 20:18 Pain Scale: Adult cm10 MDM: 01/30 20:10 Patient medically screened. rn 01/31 00:48 Differential diagnosis: Anxiety Reaction CHF exacerbation, Myocardial Infarction rn pneumonia, Pneumothorax Psychogenic pulmonary edema. Data reviewed: vital signs, nurses notes, lab test result(s), EKG, radiologic studies, plain films, and as a result, I will discharge patient. Consideration of Admission/Observation Escalation of care including admission/observation considered. Observation considered but repeat troponin came down. No other acute findings and labs. No oxygen requirement. Patient resting comfortably.. Care significantly affected by the following chronic conditions: Hypertension, Congestive Heart Failure. Counseling: I had a detailed discussion with the patient and/or guardian regarding the historical points, exam findings, and any diagnostic results supporting the discharge/admit diagnosis, lab results, radiology results, the need for outpatient follow up, to return to the emergency department if symptoms worsen or persist or if there are any questions or concerns that arise at home. Response to treatment: the patient's symptoms have mildly improved after treatment, and as a result, I will discharge patient. Special discussion: I discussed with the patient/guardian in detail that at this point there is no indication for admission to the hospital. It is understood, however, that if the symptoms persist or worsen the patient needs to return immediately for re-evaluation. 01/30 20:10 Order name: Basic Metabolic Panel; Complete Time: 22:50 rn 01/30 20:10 Order name: CBC with Diff; Complete Time: 22:50 rn 01/30 20:10 Order name: LFT's; Complete Time: 22:50 rn 01/30 20:10 Order name: NT PRO-BNP; Complete Time: 22:50 rn 01/30 20:10 Order name: PT-INR; Complete Time: 22:17 rn 01/30 20:10 Order name: Troponin HS; Complete Time: 22:50 rn 01/30 20:10 Order name: Urinalysis w/ reflexes; Complete Time: 22:50 rn 01/30 20:22 Order name: SARS RAPID; Complete Time: 23:18 rn 01/30 20:22 Order name: Flu; Complete Time: 00:02 rn 01/30 23:19 Order name: Troponin High Sensitivity; Complete Time: 00:45 rn 01/30 20:10 Order name: XRAY Chest (1 view); Complete Time: 21:09 rn 01/30 20:22 Order name: CT Abd/Pelvis - Without Contrast; Complete Time: 21:23 rn 01/30 20:10 Order name: Cardiac monitoring; Complete Time: 21:38 rn 01/30 20:10 Order name: EKG - Nurse/Tech; Complete Time: 22:40 rn 01/30 20:10 Order name: IV Saline Lock; Complete Time: 22:40 rn 01/30 20:10 Order name: Labs collected and sent; Complete Time: 22:40 rn 01/30 20:10 Order name: O2 Per Protocol; Complete Time: 21:38 rn 01/30 20:10 Order name: O2 Sat Monitoring; Complete Time: 21:38 rn EC/18 23:01 Rate is 89 beats/min. Rhythm is regular. QRS [place] is Normal. MI interval is normal. No rn Q waves. T waves are Normal. No ST changes noted. Clinical impression: NSR w/ Non-specific ST/T Changes. Interpreted by me. Reviewed by me. Administered Medications: 22:04 Not Given (Duplicate Order): ondansetron 4 mg IVP once; over 2 minutes rn 22:38 Drug: fentaNYL (PF) IVP 50 mcg IVP once Route: IVP; Site: right antecubital; vc1 23:00 Follow up: Response: No adverse reaction; Pain is decreased; RASS: Light sedation (-2); vc1 Pain is decreased; Pt is sleeping, responding to name 22:38 Drug: Famotidine IVP 20 mg IVP once; dilute with 10 mL 0.9% NaCl; give over 2 minutes vc1 Route: IVP; Site: right antecubital; 01/31 01:46 Follow up: Response: No adverse reaction; Marked relief of symptoms vc1 01:15 Drug: Promethazine IVP 12.5 mg IVP once Route: IVP; Site: right antecubital; vc1 01:46 Follow up: Response: No adverse reaction; Marked relief of symptoms vc1 Disposition Summary: 02/01/24 00:50 Discharge Ordered Notes: Location: Home rn Problem: new rn Symptoms: have improved rn Condition: Stable rn Diagnosis - SARS-associated coronavirus as the cause of diseases classified elsewhere rn Followup: rn - With: Private Physician - When: As needed - Reason: Recheck today's complaints, Re-evaluation by your physician Discharge Instructions: - Discharge Summary Sheet rn - COVID-19 rn - 10 Things You Can Do to Manage Your COVID-19 Symptoms at Home - [facility] (12/28/2020) rn - Viral Illness, Adult rn Forms: - Medication Reconciliation Form rn - Antibiotic fitter and turner - Prescription Opioid Use rn - Patient Portal Instructions rn - Leadership Thank You Letter rn Prescriptions: - Paxlovid 300 mg (150 mg x 2)-100 mg Oral Tablet, Dose Pack - take 1 dose pack ORAL route per package directions; 1 packet; Refills: 0, rn Product Selection Permitted - promethazine 25 mg Oral Tablet - take 1 tablet ORAL route every 6 hours As needed; 20 tablet; Refills: 0, rn Product Selection Permitted Signatures: Dispatcher [employer] Anival Mcallister MD MD rn Calcote, Vanessa, RN RN vc1 Jenny Humphries RN RN cm10 Corrections: (The following items were deleted from the chart) 01/30 20:22 20:22 SARS-COV-2 Antigen Rapid+I.LAB.BRZ ordered. YADIEL EDMS 20:22 Influenza Screen (A \T\ B)+BA.LAB.BRZ ordered. EDMS EDMS 20:22 Abdomen Pelvis Wo Con+CT.RAD.BRZ ordered. EDMS EDMS
[2024-02-01] MEDS ORDERED: PROMETHAZINE INJ 25 MG/ML AMP ONE (01:03)
[2024-02-01 02:21] VITALS: TEMP 98.1
[2024-02-01 02:22] VITALS: BP 123/63; O2SAT 100
--- OUTSIDE RECORDS SUMMARY | 2024-02-02 13:19 | XMS REPORT | Continuity of Care Document ---
Author Name Unknown Address [address] [facility] [place] [address] [facility] thconnect Address [address] [facility] [address] [place] [address] Care Team Providers Care Customer Service Representative Name Role Phone STEPH OSWALD Primary Care Physician Unavaila Steph Glaser Attending Clinician Unavailable Awilda Daniels Attending Clinician Unavailable Oscar Arceo Attending Clinician Unavailable Varghese Gaston Attending Clinician Unavailable Varghese Gaston Attending Clinician Unavailable VARGHESE MEDINA Attending Clinician Unav ailable LAB90 Attending Clinician Unavailable PROVIDER, EVISIT Attending Clinician Unavailable MAXIMILIAN VIDALES Attending Clinician Unavailable TRED53 Attending Clinician Unavailable PACE53 Attending Clinician Unavailable RAISA KIMBROUGH Attending Clinician Unavailable NOLVIA VANG Attending Clinician Unavailable MD MYA Attending Clinician Unavailab MIGUEL ÁNGEL Monreal Attending Clinician Unavailable TRED47 Attending Clinician Unavailable TERI GARCIA Attending Clinician Unavailable TG MOJICA Attending Clinician Unavailable AALIYAH MASON Attending Clinician Unavaila ble Aaliyah Morrison Attending Clinician [phone] DIDIER ARGUETA Attending Clinician Unavailable Oscar Arceo Admitting Clinician Unavailable Varghese Gaston Admitting Clinician Unavailable AALIYAH MASON Admitting Clinician UnavailDIDIER Gorman Admitting Clinician Unavailable Payers Payer Name Policy Type Policy Number Effective Date Expirati on Date Source YESIKA VALENZUELA 5 [facility] 94 ON 9 [id number] 2023 00:00:00 HIM [facility] [id number] 2020 00:00:00 [facility] from [facility] [id number] 2020 00:00:00 [facility] from [facility] [id number] 2020 00:00:00 [facility] from [facility] [id number] 2020 00:00:00 [facility] Problems Condition Name Condition Details Condition [...] e heart failure) (multi HCC) Disease Active - 00:00: 00 Hilda Seybold - Externa l History of placement of internal cardiac defibrilla tor History of placement of internal cardiac defibrilla tor Disease Active 10-10 00:00: 00 Hilda rothman COPD (chronic obstructiv e pulmonary disease) (multi HCC) COPD (chronic obstructiv e pulmonary disease) (multi HCC) Disease Active 10-10 00:00: 00 Hilda rothman [id number] Hypokalemi a Problem Active [facility] [id number] Tachycardi a Problem Active [facility] Smoker Smoker Problem Active [facility] [id number] Acquired hypothyroi dism Problem Active [facility] [id number] Peripheral edema Problem Active [facility] [id number] Cervical radiculopa thy at C5 Problem Active [facility] [id number] Lumbar radiculopa thy, chronic Problem Active [facility] No known active problems No known active problems Disease [facility] Allergies, Adverse Reactions, Alerts Allergy Name Allergy Type Status Severity Reaction(s) Onset Date Inactive Date Treating Clinician Comments Source Lisinopr il Propensi ty to adverse reaction s Active Rash 10-09 00:00: 00 Hilda Phillipsa lorna Morphine Propensi ty to adverse reaction s Active Other 10-09 00:00: 00 Hilda rothman LISINOPR IL DRUG INGREDI Active Rash 01-14 00:00: 00 [facility] Lisinopr il Propensi ty to adverse reaction s Active Rash 01-14 00:00: 00 [facility] MORPHINE DRUG INGREDI Active Unknown-Cmnt 2009-06 00:00: 00 [facility] Morphine Propensi ty to adverse reaction s Active Unknown - See comments 2009-06 00:00: 00 [facility] CODEINE- BUTALBIT AL-ASA-C AFF DRUG Active N/V 2006-06 00:00: 00 [facility] Codeine- Butalbit al-Asa-C aff Propensi ty to adverse reaction s Active Nausea and/or Vomiting 2006-06 00:00: 00 [facility] morphine morphine Active Unknown [facility] lisinopr il lisinopr il Active Unknown [facility] morphine Drug Active [facility] lisinopr il Drug Active [facility] morphine Drug Active [facility] lisinopr il Drug Active [facility] morphine Drug Active [facility] lisinopr il Drug Active [facility] morphine Drug Active [facility] lisinopr il Drug Active [facility] morphine Drug Active [facility] lisinopr il Drug Active [facility] morphine Drug Active [facility] lisinopr il Drug Active [facility] morphine Drug Active [facility] lisinopr il Drug Active [facility] morphine Drug Active [facility] lisinopr il Drug Active [facility] morphine Drug Active [facility] lisinopr il Drug Active [facility] morphine Drug Active [facility] lisinopr il Drug Active [facility] morphine Drug Active [facility] lisinopr il Drug Active [facility] morphine Drug Active [facility] lisinopr il Drug Active [facility] morphine Drug Active [facility] lisinopr il Drug Active [facility] morphine Drug Active [facility] lisinopr il Drug Active [facility] Social History Social Habit Start [...] - Reported 2023-03-03 00:00:00 2023-03-03 00:00:00 Hilda Muniz External Cigarette pack-years 2023-03-03 00:00:00 2023-03-03 00:00:00 Hilda Flores - External Tobacco use and exposure 2023-03-03 00:00:00 2023-03-03 00:00:00 Smokeless tobacco non-user Hilda Flores - External Education - What is the highest level of school you have completed or the highest degree you have received? 2022-10-10 00:00:00 2022-10-10 00:00:00 11th grade Hilda Stephenson Alcohol Comment 2022-10-09 00:00:00 2022-10-09 00:00:00 stopped in 2007 Hilda Muniz External Exposure to SARS-CoV-2 (event) 2021-11-24 00:00:00 2021-12-04 10:21:00 Unable to assess [facility] Sex Assigned At 1965 00:00:00 1965 00:00:00 [...] oral Recon Soln 18 00:00: 00 Yes [id number] Instructio ns provided to patient. Follow instructio [...] POWDER, BREATH ACTIVATED 10-10 00:00: 00 Yes [id number] 1{puff} Inhale 1 puff into the lungs 2 times daily Hilda rothman Levalbutero l Tartrate (Xopenex HFA) 45 MCG/ACT inhalation Aerosol 10-10 00:00: 00 Yes [id number] 2{puff} [id number] 3D Inhale 2 puffs into the lungs every 8 hours as needed for wheezing or shortness of breath Hilda rothman Furosemide 40 MG oral Tablet 10-06 00:00: 00 03-03 00:00 :00 No 40mg Take 1 tablet (40 mg total) by mouth daily Hilda rothman albuterol 90 mcg/actuati on inhaler 12-04 00:00: 00 Yes [id number] 2{puff} Inhale 2 Puffs every 6 (six) hours as needed for Wheezing or Shortness of Breath. [facility] Chantix Continuing Month Jaleel 1 MG Chantix Continuing Month Jaleel 1 MG 01-21 00:00: 00 04-21 00:00 :00 No BID Chantix Continuing Month Jaleel 1 MG Amoxicillin -Pot Clavulanate Amoxicillin -Pot Clavulanate 01-12 00:00: 00 01-19 00:00 :00 No Awilda Millender 1 tablet [facility] acetaminoph en-codeine 300-30 mg tablet 09-18 00:00: 00 Yes 1{tbl} Take 1 tablet by mouth every 4 (four) hours as needed for Pain (scale 4-6). [facility] ibuprofen 600 mg tablet 09-18 00:00: 00 Yes 600mg Take 1 tablet by mouth every 6 (six) hours as needed for Pain (scale 4-6). [facility] sulfamethox azole-trime thoprim (BACTRIM DS) 800-160 mg tablet 2009-06 00:00: 00 Yes 1{tbl} Take 1 Tab by mouth 2 (two) times daily. [facility] hydrochloro thiazide (ESIDRIX) 25 mg tablet 2009-06 00:00: 00 Yes 12.5mg Take 0.5 Tabs by mouth daily. [facility] hydrocodone -acetaminop hen (NORCO 5) 5-325 mg tablet 2009-06 00:00: 00 Yes 1{tbl} Take 1 Tab by mouth every 6 (six) hours as needed for Pain. [facility] Furosemide Furosemide Yes Awilda Millender 1 tablet [facility] Aspirin 81 Aspirin 81 Yes Awilda Millender 1 tablet [facility] Levothyroxi ne Sodium Levothyroxi ne Sodium Yes Awilda Millender 1 tablet in the morning on an empty stomach [facility] Naproxen Naproxen Yes Awilda Millender 1 tablet [facility] Hydrochloro thiazide Hydrochloro thiazide Yes Awilda Millender 1 tablet in the morning [facility] Daily Multi Vitamin/Min erals Daily Multi Vitamin/Min erals Yes Awilda Millender as directed [facility] Chantix Starting Month Jaleel 0.5 MG [...] Filled Immunization Name Date Status Comments Source [employer] COVID-19 Vaccine Pfizer COVID-19 Vaccine 2021-03-13 11:37:00 Completed [facility] Covid-19 Vaccine ([employer]), Mrna-lnp, Garth Protein, Pf, 30mcg/0.3ml,IM 2021-03-13 00:00:00 Completed Hilda Seybold - External Pfizer COVID-19 Vaccine Pfizer COVID-19 Vaccine 2021-02-12 16:27:00 Completed [facility] Covid-19 Vaccine (Pfizer), Mrna-lnp, Garth Protein, [...] Garth Protein, Pf, 30mcg/0.3ml,IM Unknown Completed Hilda Seybol d - External Covid-19 Vaccine (Pfizer), Mrna-lnp, Garth Protein, Pf, 30mcg/0.3ml,IM Unknown Completed Hilda ybol d - External Vital Signs Vital Name [...] Body height 2023-03-03 21:43:00 157.5 cm Deb osman Seybold - External Body weight 2023-03-03 21:43:00 74.844 kg Deb brewer Seybold - External BMI 2023-03-03 21:43:00 30.18 kg/m2 Deb ey Seybold - External Systolic blood pressure 2022-10-10 21:14:00 101 mm[Hg] Hilda ybo ld - External Diastolic blood pressure 2022-10-10 21:14:00 74 mm[Hg] Hilda Meado ld - External Heart rate 2022-10-10 21:14:00 85 /min Andressa y Seybold - External Body temperature 2022-10-10 21:14:00 36.33 Monalisa Hilda Meadold - External Respiratory rate 2022-10-10 21:14:00 14 /min Hilda Meadold - External Body height 2022-10-10 21:14:00 157.5 cm Deb brewer Seybold - External Body weight 2022-10-10 21:14:00 119.75 kg Deb ey Seybold - External BMI 2022-10-10 21:14:00 48.29 kg/m2 Deb brewer Seybold - External Oxygen saturation in Arterial blood by Pulse oximetry 2022-10-10 21:14:00 99 /min Hilda Mathis ld - External Systolic blood pressure 2021-12-04 15:36:00 125 mm[Hg] [facility] Diastolic blood pressure 2021-12-04 15:36:00 53 mm[Hg] [facility] Heart rate 2021-12-04 15:36:00 93 /min [facility] Body temperature 2021-12-04 15:36:00 36.78 Monalisa [facility] Respiratory rate 2021-12-04 15:36:00 20 /min [facility] Body height 2021-12-04 15:36:00 160 cm [facility] Body weight 2021-12-04 15:36:00 75.751 kg [facility] BMI 2021-12-04 15:36:00 29.58 kg/m2 [facility] Oxygen saturation in Arterial blood by Pulse oximetry 2021-12-04 15:36:00 97 /min [facility] height 2020-12-10 09:00:00 61 [in_i] Commo n [facility] weight 2020-12-10 09:00:00 160 [lb_av] Comm on [facility] temperature 2020-12-10 09:00:00 97.2 [degF] Com mon [facility] bmi 2020-12-10 09:00:00 30.23 kg/m2 Comm on [facility] oximetry 2020-12-10 09:00:00 100 % Commo n [facility] respiratory rate 2020-12-10 09:00:00 20 /min [facility] blood pressure systolic 2020-12-10 09:00:00 110 mm[Hg] [facility] blood pressure diastolic 2020-12-10 09:00:00 64 mm[Hg] [facility] Height/Length Measured 2021-07-02 12:51:42 158 cm [...] XR CHEST 1 VW 2021-12-04 16:35:48 [facility] RAPID INFLUENZA A/B 2021-12-04 15:50:00 Ashlee [facility] COVID-19 (ID NOW RAPID TESTING) 2021-12-04 15:50:00 Yeso, [facility] NOTICE OF PRIVACY PRACTICES 2021-12-04 15:23:47 Doctor Unassigned, [place] [facility] CONSENT/REFUSAL FOR DIAGNOSIS AND TREATMENT 2021-12-04 15:23:25 Doctor Unassigned, [place] [facility] Encounters Start Date/Time End Date/Time Encounter Type Admission Type Attending [facility] Care Department Encounter ID Source 2022-01-08 08:37:[address] [facility] [id number] [facility] 2021-07-10 13:02:[address] [facility] [id number] [facility] 2021-07-10 11:34:[address] [facility] [id number] [facility] 2021-07-10 11:34:[address] [facility] [id number] [facility] 2021-07-10 10:59:36 Out[facility] [id number] [facility] 2021-07-10 10:59:25 Outpatient [facility] [id number] [facility] 2021-07-10 10:59:02 Out[facility] [id number] [facility] 2019-10-27 15:41:00 Inpatient 1 Oscar Arceo Oscar Arceo [facility] TEL [id number] [facility] 2019-08-09 13:06:00 Inpatient Varghese Gaston George [facility] STEFANI [id number] [facility] 2024-04-26 14:40:00 2024-04-26 14:40:00 Outpatient VARGHESE MEDINA [id number] Hilda chelsy 2024-04-25 13:55:00 2024-04-25 13:55:00 Outpatient VARGHESE MEDINA [id number] [facility]24-[facility]-25 00:00:00 2024-01-25 00:00:00 Outpatient ADAMVARGHESE Grijalva HILDA FORREST [id number] [facility] 2024-01-20 15:10:00 2024-01-20 15:10:00 Outpatient LAB90 HILDA FORREST [id number] [facility] 2024-01-12 00:00:00 2024-01-12 00:00:00 Outpatient ADAMVARGHESE GO HILDA FORREST [id number] [facility] 2024-01-06 15:30:00 2024-01-06 15:30:00 Outpatient HILDA FORREST [id number] [facility] 2024-01-01 21:15:00 2024-01-01 21:15:00 Outpatient QUAN ANG [id number] Hilda [facility] 2023-12-11 00:00:00 2023-12-11 00:00:00 Outpatient PREZAS MAXIMILIAN HILDA FORREST [id number] Hilda [facility] 2023-11-18 07:15:00 2023-11-18 07:15:00 Outpatient HILDA FORREST [id number] Hilda [facility] 2023-11-16 14:45:00 2023-11-16 14:45:00 Outpatient TREDSamreen FORREST [id number] Hilda [facility] 2023-11-16 14:25:00 2023-11-16 14:25:00 Outpatient ADAMVARGHESE HILDA FORREST [id number] Hilda [facility] 2023-10-26 00:00:00 2023-10-26 00:00:00 Outpatient PREZASMAXIMILIAN [id number] Hilda [facility] 2023-10-25 00:00:00 2023-10-25 00:00:00 Outpatient PREZASMAXIMILIAN [id number] [facility] 2023-10-23 00:00:00 2023-10-23 00:00:00 Outpatient ADAM VARGHESE [facility] [id number] [facility]23-[facility]-23 00:00:00 2023-10-23 00:00:00 Outpatient ADAMVARGHESE HILDA FORREST [id number] Ihlda Seybold 2023-10-23 00:00:00 2023-10-23 00:00:00 Outpatient ADAMVARGHESE HILDA FORREST [id number] Hilda Seybold 2023-10-17 00:00:00 2023-10-17 00:00:00 Outpatient PREZAMAXIMILIAN Romano HILDA FORREST [id number] [facility] 2023-09-15 00:00:00 2023-09-15 00:00:00 Outpatient ADAMVARGHESE Grijalva HILDA FORREST [id number] Hilda Rodriguezybmert 2023-09-09 13:40:00 2023-09-09 13:40:00 Outpatient ADAMVARGHESE HILDA FORREST [id number] [facility] 2023-09-01 12:00:00 2023-09-01 12:00:00 Outpatient PACE53 HILDA FORREST [id number] [facility] 2023-08-26 00:00:00 2023-08-26 00:00:00 Outpatient ADAMVARGHESE Grijalva HILDA FORREST [id number] [facility] 2023-08-16 00:00:00 2023-08-16 00:00:00 Outpatient SIDIQ, CLARISSAGUY FORREST [id number] [facility] 2023-08-10 09:00:00 2023-08-10 09:00:00 Outpatient SIDIQ, RAISA FORREST [id number] Hilda Seybold 2023-08-06 12:55:00 2023-08-06 12:55:00 Outpatient LAB90 HILDA FORREST [id number] Hilda Seybold 2023-08-04 00:00:00 2023-08-04 00:00:00 Outpatient SIDIQ, RAISA FORREST [id number] Hilda Seybold 2023-07-20 00:00:00 2023-07-20 00:00:00 Outpatient SIDIQ, RAISA FORREST [id number] Hilda Seybold 2023-07-20 00:00:00 2023-07-20 00:00:00 Outpatient HILDA FORREST [id number] Hilda Seybold 2023-07-18 00:00:00 2023-07-18 00:00:00 Outpatient SIDIQ, RAISA HILDA FORREST [id number] Hilda Seybold 2023-07-18 00:00:00 2023-07-18 00:00:00 Outpatient SIDIQ, RAISA HILDA FORREST [id number] Hilda Seybold 2023-07-15 00:00:00 2023-07-15 00:00:00 Outpatient VANGNOLVIA HILDA FORREST [id number] Hilda Seybold 2023-07-02 13:30:00 2023-07-02 13:30:00 Outpatient SIDIQ, RAISA HILDA FORREST [id number] Hilda Seybmert 2023-07-02 12:00:00 2023-07-02 12:00:00 Outpatient FISH53 HILDA FORREST [id number] [facility] 2023-07-02 00:00:00 2023-07-02 00:00:00 Outpatient MD HILDA LOWRY [id number] [facility] 2023-07-02 00:00:00 2023-07-02 00:00:00 Outpatient HILDA FORREST [id number] [facility] 2023-06-02 09:30:00 2023-06-02 09:30:00 Outpatient SOBEIDAMAXIMILIAN HILDA FORREST [id number] [facility] 2023-05-04 15:20:00 2023-05-04 15:20:00 Outpatient MIGUEL ÁNGEL DANGELO [id number] [facility] 2023-05-01 00:00:00 2023-05-01 00:00:00 Outpatient PREZAGEORGIE RomanoAND HILDA FORREST [id number] Hilda Seybold 2023-04-30 10:45:00 2023-04-30 10:45:00 Outpatient KIRSTIE FORREST [id number] Hilda Seybold 2023-04-28 00:00:00 2023-04-28 00:00:00 Outpatient VARGHESE MEDINA [id number] Hilda Seybold 2023-03-17 00:00:00 2023-03-17 00:00:00 Outpatient PREZAMAXIMILIAN Romano HILDA [id number] [facility] 2023-03-12 00:00:00 2023-03-12 00:00:00 Outpatient MAXIMILIAN VIDALES HILDA [id number] [facility] 2023-03-11 11:30:00 2023-03-11 11:30:00 Outpatient TRED47 HILDA FORREST [id number] [facility] 2023-03-11 09:10:00 2023-03-11 09:10:00 Outpatient ADAMVARGHESE Grijalva HILDA FORREST [id number] [facility] 2023-03-11 00:00:00 2023-03-11 00:00:00 Outpatient ADAMVARGHESE Grijalva HILDA FORREST [id number] [facility] 2023-03-10 00:00:00 2023-03-10 00:00:00 Outpatient ADAM VARGHESE FORREST [id number] [facility] 2023-03-05 00:00:00 2023-03-05 00:00:00 Outpatient MD HILDA LOWRY [id number] [facility] 2023-03-03 16:30:00 2023-03-03 16:30:00 Outpatient MAXIMILIAN VIDALES HILDA FORREST [id number] [facility] 2023-03-03 00:00:00 2023-03-03 00:00:00 Outpatient HILDA FORREST [id number] [facility] 2023-02-24 00:00:00 2023-02-24 00:00:00 Outpatient PREZAMAXIMILIAN Romano HILDA FORREST [id number] [facility] 2023-02-23 00:00:00 2023-02-23 00:00:00 Outpatient HILDA FORREST [id number] [facility] 2023-02-18 15:50:00 2023-02-18 15:50:00 Outpatient TERI GARCIA [id number] [facility] 2023-01-14 14:30:00 2023-01-14 14:30:00 Outpatient TERI GARCIA HILDA [id number] Hilda Mark 2023-01-14 00:00:00 2023-01-14 00:00:00 Outpatient MD HILDA LOWRY [id number] Hilda Mark 2023-01-02 15:20:00 2023-01-02 15:20:00 Outpatient TG MOJICA HILDA FORREST [id number] Hilda Mark 2022-12-03 15:15:00 2022-12-03 15:15:00 Outpatient MAXIMILIAN VIDALES HILDA FORREST [id number] Hilda Mark 2022-11-24 00:00:00 2022-11-24 00:00:00 Outpatient GEORGIE VIDALESCRISTIANO FORREST [id number] Hilda Mark 2022-11-11 15:30:00 2022-11-11 15:30:00 Outpatient GEORGIE VIDALESCRISTIANO FORREST [id number] Hilda Flores 2022-11-04 00:00:00 2022-11-04 00:00:00 Outpatient HILDA FORREST [id number] Hilda Flores 2022-11-04 00:00:00 2022-11-04 00:00:00 Outpatient HILDA FORREST [id number] Hilda Flores 2022-11-03 00:00:00 2022-11-03 00:00:00 Outpatient HILDA FORREST [id number] Hilda Mark 2022-10-24 00:00:00 2022-10-24 00:00:00 Outpatient SOBEIDA MAXIMILIAN FORREST [id number] Hilda mert 2022-10-20 00:00:00 2022-10-20 00:00:00 Outpatient PRESAIDA MAXIMILIAN FORREST [id number] Hilda mert 2022-10-10 16:15:00 2022-10-10 16:15:00 Outpatient PREZARosalina MAXIMILIAN FORREST [id number] Hilda ybmert 2021-12-04 10:40:00 2021-12-04 12:16:00 Emergency X AALIYAH MASON [facility] [id number] [facility] 2021-12-04 10:40:00 2021-12-04 12:16:00 Emergency YesoAaliyah [facility] [id number] [facility] 2021-05-10 00:00:00 2021-05-10 00:00:00 (TEL) STLMLC STLMLC [id number] [facility] 2021-01-20 00:00:00 2021-01-20 00:00:00 (WEB) STLMLC STLMLC [id number] [facility] 2021-01-14 14:30:00 2021-01-14 14:30:00 Emergency X [facility] ERT [id number] [facility] 2020-12-10 00:00:00 2020-12-10 00:00:00 OFFICE VISIT ESTAB PT LEVEL 4 STLMLC STLMLC [id number] [facility] 2020-01-13 14:40:00 2020-01-13 14:40:[address] [facility] [id number] [facility] 2020-01-13 11:40:00 2020-01-13 11:40:[address] [facility] [id number] [facility] 2019-12-21 16:33:00 2019-12-21 16:33:00 Out[facility] [id number] [facility] 2019-10-27 15:41:00 2019-10-28 20:02:00 Inpatient 1 Oscar Arceo Min [facility] TEL [id number] [facility] 2019-09-05 13:11:00 2019-09-05 13:11:00 [facility] [id number] [facility] 2019-08-15 19:48:00 2019-08-20 12:33:00 Inpatient DIDIER BRAGG [facility] [id number] [facility] 2019-07-07 15:26:00 2019-07-07 15:26:00 Outpatient [facility] [id number] [facility] 2019-06-23 14:00:00 2019-06-23 14:00:00 Outpatient [facility] [id number] [facility] 2018-02-04 15:00:00 2018-02-04 15:00:00 Outpatient [facility] [id number] [facility] Results Test Description Test Time Test Comments Results Result Co mments Source Troponin [id number] 21:47:02* Test Item Value Reference Range Interpretation [...] a diagnosis of chronic myocardial injury. Troponin [id number] 19:26:34* Test Item Value Reference Range Interpretation [...] a diagnosis of chronic myocardial injury. Troponin [id number] 17:01:59* Test Item Value Reference Range Interpretation [...] diagnosis of chronic myocardial injury. Comprehensive Metabolic [id number] 16:46:40* Test Item Value Reference Range Interpretation [...] is not provided, and the patient is -Liberian, multiply by 1.212. If sex is not [...] by the [employer] Foundation, http://nkdep.nih.gov Creatine [id number] 16:46:40* Test Item Value Reference Range Interpretation Comme nts CK (test code = CK) 224 U/L 26-192 H Comprehensive Metabolic [id number] 16:46:40* Test Item Value Reference Range Interpretation [...] is not provided, and the patient is -Liberian, multiply by 1.212. If sex is not [...] is not provided, and the patient is -Liberian, multiply by 1.212. If sex is not [...] the National [employer] Foundation, http://nkdep.nih.gov Comprehensive Metabolic [id number] 16:46:40* Test Item Value Reference Range Interpretation [...] is not provided, and the patient is -Liberian, multiply by 1.212. If sex is not [...] is not provided, and the patient is -[place], multiply by 1.212. If sex is not [...] [employer] Foundation, http://nkdep.nih.gov Pro B Natriuretic [id number] 16:43:50* Test Item Value Reference Range Interpretation Comme nts NT-proBNP (test code = NT-proBNP) 513 pg/mL 0-124 H Automated [id number] 16:24:33* Test Item Value Reference Range Interpretation Comme nts Neutro Auto (test code = Liliya tro Auto) 53.0 % 36.0-70.0 Lymph Auto (test code = Lymph Auto) 39.3 % 12.0-44.0 Lamar Auto (test code = Lamar Auto) 6.6 % 0.0-11.0 Eos, Auto (test code = Eos, Auto) 0.0 % 0.0-7.0 Basophil Auto (test code = B asophil Auto) 0.8 % 0.0-2.0 Neutro Absolute (test code = Neutro Absolute) 4.0 x10 1.6-7.4 Lymph Absolute (test code = Lymph Absolute) 2.97 x10 .50-4.60 Lamar Absolute (test code = M donna Absolute) .50 x10 .00-1.20 Eos Absolute (test code = Eo s Absolute) 0.00 x10 0.00-0.74 Baso Absolute (test code = B aso Absolute) 0.06 x10 0.00-0.21 IG [id number] 16:24:33* Test Item Value Reference Range Interpretation Comme nts IG (test code = IG) 0.3 % 0.0-5.0 IG Abs (test code = IG Abs) 0 x10 N Complete Blood Count with [id number] 16:24:32* Test Item Value Reference Range Interpretation [...] 0 % N XR Chest 1 View [id number] 16:11:29Patient: SHEFALI JOYNER Date/Time10/27/2019 16:05 CDTReason for ExamV[facility] inReportDICTATION LOCATION: [id number]: Female, 54 years of age with Chest [...] Notes Date/Time Note Provider Source 2023-07-02 13:26:30 Reason for consultation: Colon cancer screening HPI Patient here for colon cancer screening. Denies nausea, vomiting, abdominal pain or diarrhea. No melena or blood in stool. She had CT scan in Mar 2023, had esophageal thickening. Does not have report. No dysphagia or reflux. Family History of Colon Cancer: mother in her 60's. Prior colonoscopy: 7 years ago. Had polyps. Past Medical History: Past Medical History: Diagnosis Date CHF (congestive heart failure) (multi HCC) COPD (chronic obstructive pulmonary disease) (multi HCC) Do not defibrillate Family history of colon cancer in mother History of placement of internal cardiac defibrillator Thyroid disease Past Surgical History: Past Surgical History: Procedure Laterality Date APPENDECTOMY DEFIBRILLATOR IMPLANTED 2018 ELBOW SURGERY Right LAPAROSCOPIC CHOLECYSTECTOMY PARTIAL HYSTERECTOMY has one ovary still Family History: Family History Problem Relation Name Age of Onset Colon Cancer Mother Hypertension Mother Diabetes Mellitus Father Hypertension Father Hypertension Sister Hypertension Brother Heart attack Maternal Grandmother Social History: Social History Socioeconomic History Marital status: Single Spouse name: Not on file Number of children: 3 Years of education: Not on file Highest education level: 11th grade Occupational History 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 Last used 3 years ago Sexual activity: Yes Partners: Male Other Topics Concern Not on file Social History Narrative Not on file Social Determinants of Health Financial Resource Strain: Not on file Food Insecurity: Not on file Transportation Needs: Not on file Physical Activity: Not on file Stress: Not on file Social Connections: Not on file Intimate Partner Violence: Not on file Housing Stability: Not on file ROS CONSTITUTIONAL: No weight loss or fever. CARDIOVASCULAR: No chest pain or palpitations GASTROINTESTINAL: As per HPI PULMONARY: No dyspnea or cough PE: LMP (LMP Unknown) GENERAL APPEARANCE: In no distress Assessment/Plan: Patient seen via video visit for colon cancer screening. -schedule colonoscopy. -Risks associated with colonoscopy including perforation requiring surgery, bleeding, reaction to medications and missed lesions discussed. Patient understands and agrees. -request report of CT scan. Diagnoses and all orders for this visit: Colon cancer screening - BASIC METABOLIC PANEL (8); Future - GI CASE REQUEST; Standing - sodium chloride 0.9 % infusion 500 mL - NURSE COMM 3; Standing - CFP-CFe-CpIz-NaSulf-Na Asc-C (MOVIPREP) 100 g oral Recon Soln; Instructions provided to patient. Follow instructions provided by provider.. [facility]
--- NOTE | 2024-02-02 17:49 | EKG ---
Test Date: 2024-01-31 Test Time: 21:46:54 Animal Pathologist: PIA MEASUREMENT RESULTS: Intervals: Rate: 89 MO: 154 QRSD: 98 QT: 396 QTc: 481 [place]: P: 61 MO: 154 QRS: 45 T: -4 INTERPRETIVE STATEMENTS: Sinus rhythm with occasional premature ventricular complexes Prolonged QT Abnormal ECG Compared to ECG 12/11/2023 12:39:01 Ventricular premature complex(es) now present Right-axis deviation no longer present T-wave abnormality no longer present Possible ischemia no longer present Electronically Signed On 02-02-24 17:46:20 CDT by Connor Perez
== END 2024-02-01 01:57 | disposition home or self-care (01) ==
LOC: ER 19:46
DX: U07.1 COVID-19 (principal); I10 Essential (primary) hypertension; I50.9 Heart failure, unspecified; F17.210 Nicotine dependence, cigarettes, uncomplicated; Z95.810 Presence of automatic (implantable) cardiac defibrillator; Z98.61 Coronary angioplasty status
CPT/HCPCS: 93005; 85025; 81001; 80048; 36415; 85610; 80076; 84484 ×2; 83880; 87804 ×2; 74176; 71045; 87811; J2550; J3010

== ENCOUNTER 2024-04-14 13:15 | Emergency (ER) | payer OTHER ==
--- OUTSIDE RECORDS SUMMARY | 2024-04-14 13:19 | XMS REPORT | Continuity of Care Document ---
Author Name Unknown Address [address] [facility] [place] [address] [facility] thconnect Address [address] [facility] [address] [place] [address] Care Team Providers Care Tape Weaver Name Role Phone STEPH OSWALD Primary Care Physician Unavaila Steph Glaser Attending Clinician Unavailable Awilda Daniels Attending Clinician Unavailable Oscar Arceo Attending Clinician Unavailable Varghese Gaston Attending Clinician Unavailable Varghese Gaston Attending Clinician Unavailable VARGHESE MEDINA Attending Clinician Unav ailable MD MYA Attending Clinician Unavailab saurabh [id number] Attending Clinician Unavailable LAB90 Attending Clinician Unavailable QUAN ANG Attending Clinician Unavailable MAXIMILIAN VIDALES Attending Clinician Unavailable TRED53 Attending Clinician Unavailable RAISA KIMBROUGH Attending Clinician Unavailable NOLVIA VANG Attending Clinician Unavailable MIGUEL ÁNGEL DANGELO Attending Clinician Unavailable TRED47 Attending Clinician Unavailable TERI GARCIA Attending Clinician Unavailable TG MOJICA Attending Clinician Unavailable AALIYAH MASON Attending Clinician Unavaila ble Aaliyah Morrison Attending Clinician [phone] DIDIER ARGUETA Attending Clinician Unavailable Oscar Arceo Admitting Clinician Unavailable Varghese Gaston Admitting Clinician Unavailable AALIYAH MASON Admitting Clinician UnavailDIDIER Gorman Admitting Clinician Unavailable Payers Payer Name Policy Type Policy Number Effective Date Expirati on Date Source YESIKA VALENZUELA 5 [facility] [place] ON 9 [id number] 2023 00:00:00 HIM AM[facility]ETTER FROM [facility] [id number] 2020 00:00:00 Ambetter from [facility] [id number] 2020 00:00:00 [facility] Ambetter from [facility] [id number] 2020 00:00:00 [facility] Ambetter from [facility] [id number] 2020 00:00:00 [facility] Problems Condition Name Condition Details Condition Category [...] HCC) Disease Active - 00:00: 00 Hilda rothman History of placement of internal cardiac defibrilla tor History of placement of internal cardiac defibrilla tor Disease Active 10-10 00:00: 00 Hilda rothman COPD (chronic obstructiv e pulmonary disease) (multi HCC) COPD (chronic obstructiv e pulmonary disease) (multi HCC) Disease Active 10-10 00:00: 00 Hilda rothman No known active problems No known active problems Disease [facility] [id number] Hypokalemi a Problem Active [facility] [id number] Tachycardi a Problem Active [facility] Smoker Smoker Problem Active [facility] [id number] Acquired hypothyroi dism Problem Active [facility] [id number] Peripheral edema Problem Active [facility] [id number] Cervical radiculopa thy at C5 Problem Active [facility] [id number] Lumbar radiculopa thy, chronic Problem Active [facility] Allergies, Adverse Reactions, Alerts Allergy Name Allergy Type Status Severity Reaction(s) Onset Date Inactive Date Treating Clinician Comments Source Lisinopr il Propensi ty to adverse reaction s Active Rash 10-09 00:00: 00 Hilda Phillipsa lorna Morphine Propensi ty to adverse reaction s Active Other 10-09 00:00: 00 Hilda rothman LISINOPR IL DRUG INGREDI Active Rash 01-14 00:00: 00 [facility] Lisinopr il Propensi ty to adverse reaction s Active Rash 01-14 00:00: 00 [facility] MORPHINE DRUG INGREDI Active Unknown-Cmnt 2009-06 00:00: 00 [facility] Morphine Propensi ty to adverse reaction s Active Unknown - See comments 2009-06 00:00: 00 [facility] CODEINE- BUTALBIT AL-ASA-C AFF DRUG Active N/V 2006-06 00:00: 00 [facility] Codeine- Butalbit al-Asa-C aff Propensi ty to adverse reaction s Active Nausea and/or Vomiting 2006-06 00:00: 00 [facility] lisinopr il lisinopr il Active Unknown [facility] morphine Drug Active [facility] lisinopr il Drug Active [facility] morphine Drug Active [facility] lisinopr il Drug Active [facility] morphine Drug Active [facility] lisinopr il Drug Active [facility] morphine Drug Active [facility] lisinopr il Drug Active [facility] morphine Drug Active [facility] lisinopr il Drug Active [facility] morphine Drug Active [facility] lisinopr il Drug Active [facility] morphine Drug Active [facility] lisinopr il Drug Active [facility] morphine Drug Active [facility] lisinopr il Drug Active [facility] morphine Drug Active [facility] lisinopr il Drug Active [facility] morphine Drug Active [facility] lisinopr il Drug Active [facility] morphine Drug Active [facility] lisinopr il Drug Active [facility] morphine Drug Active [facility] lisinopr il Drug Active [facility] morphine Drug Active [facility] lisinopr il Drug Active [facility] morphine Drug Active [facility] lisinopr ky Drug Active [facility] morphine morphine Active Unknown Commo n [facility] Social History Social Habit Start Date Stop [...] 00:00:00 2023-03-03 00:00:00 Smokeless tobacco non-user Hilda Florse - External Education - What is the highest level of school you have completed or the highest degree you have received? 2022-10-10 00:00:00 2022-10-10 00:00:00 11th grade Hilda Stephenson Alcohol Comment 2022-10-09 00:00:00 2022-10-09 00:00:00 stopped in 2007 Hilda Muniz External Exposure to SARS-CoV-2 (event) 2021-11-24 00:00:00 2021-12-04 10:21:00 Unable to assess [facility] Sex Assigned At 1965 00:00:00 1965 00:00:00 [...] oral Recon Soln 18 00:00: 00 Yes [id number] Instructio ns provided to patient. Follow instructio [...] POWDER, BREATH ACTIVATED 10-10 00:00: 00 Yes [id number] 1{puff} Inhale 1 puff into the lungs 2 times daily Hilda rothman Levalbutero l Tartrate (Xopenex HFA) 45 MCG/ACT inhalation Aerosol 10-10 00:00: 00 Yes [id number] 2{puff} [id number] 3D Inhale 2 puffs into the lungs every 8 hours as needed for wheezing or shortness of breath Hilda rothman Furosemide 40 MG oral Tablet 10-06 00:00: 00 03-03 00:00 :00 No 40mg Take 1 tablet (40 mg total) by mouth daily Hilda rothman albuterol 90 mcg/actuati on inhaler 12-04 00:00: 00 Yes [id number] 2{puff} Inhale 2 Puffs every 6 (six) hours as needed for Wheezing or Shortness of Breath. [facility] Chantix Continuing Month Jaleel 1 MG Chantix Continuing Month Jaleel 1 MG 01-21 00:00: 00 04-21 00:00 :00 No BID Chantix Continuing Month Jaleel 1 MG Amoxicillin -Pot Clavulanate Amoxicillin -Pot Clavulanate 01-12 00:00: 00 01-19 00:00 :00 No Awilda Millender 1 tablet [facility] acetaminoph en-codeine 300-30 mg tablet 09-18 00:00: 00 Yes 1{tbl} Take 1 tablet by mouth every 4 (four) hours as needed for Pain (scale 4-6). [facility] ibuprofen 600 mg tablet 09-18 00:00: 00 Yes 600mg Take 1 tablet by mouth every 6 (six) hours as needed for Pain (scale 4-6). [facility] sulfamethox azole-trime thoprim (BACTRIM DS) 800-160 mg tablet 2009-06 00:00: 00 Yes 1{tbl} Take 1 Tab by mouth 2 (two) times daily. [facility] hydrochloro thiazide (ESIDRIX) 25 mg tablet 2009-06 00:00: 00 Yes 12.5mg Take 0.5 Tabs by mouth daily. [facility] hydrocodone -acetaminop hen (NORCO 5) 5-325 mg tablet 2009-06 00:00: 00 Yes 1{tbl} Take 1 Tab by mouth every 6 (six) hours as needed for Pain. [facility] Furosemide Furosemide Yes Awilda Millender 1 tablet [facility] Aspirin 81 Aspirin 81 Yes Awilda Millender 1 tablet [facility] Levothyroxi ne Sodium Levothyroxi ne Sodium Yes Awilda Millender 1 tablet in the morning on an empty stomach [facility] Naproxen Naproxen Yes Awilda Millender 1 tablet [facility] Hydrochloro thiazide Hydrochloro thiazide Yes Awilda Millender 1 tablet in the morning [facility] Daily Multi Vitamin/Min erals Daily Multi Vitamin/Min erals Yes Awilda Millender as directed [facility] Chantix Starting Month Jaleel 0.5 MG X [...] Filled Immunization Name Date Status Comments Source [employer] COVID-19 Vaccine Pfizer COVID-19 Vaccine 2021-03-13 11:37:00 Completed [facility] Covid-19 Vaccine ([employer]), Mrna-lnp, Garth Protein, Pf, 30mcg/0.3ml,IM 2021-03-13 00:00:00 Completed Hilda Seybold - External Pfizer COVID-19 Vaccine Pfizer COVID-19 Vaccine 2021-02-12 16:27:00 Completed [facility] Covid-19 Vaccine (Pfizer), Mrna-lnp, Garth Protein, [...] Garth Protein, Pf, 30mcg/0.3ml,IM Unknown Completed Hilda Meadol d - External Vital Signs Vital Name Observation Time Observation Value Comments S ource Height/Length Measured 2019-10-27 21:50:43 Systolic blood pressure 2023-03-03 21:43:00 137 mm[Hg] Hilda Seybo ld - External Diastolic blood pressure 2023-03-03 21:43:00 84 mm[Hg] Hilda Seybo ld - External Heart rate 2023-03-03 21:43:00 91 /min Ravise y Seybold - External Body temperature 2023-03-03 21:43:00 37.06 Monalisa Hilda ybold - External Body height 2023-03-03 21:43:00 157.5 cm Deb ey Seybold - External Body weight 2023-03-03 21:43:00 74.844 kg Deb brewer Seybold - External BMI 2023-03-03 21:43:00 30.18 kg/m2 Deb ey Seybold - External Systolic blood pressure 2022-10-10 21:14:00 101 mm[Hg] Hilda Seybo ld - External Diastolic blood pressure 2022-10-10 21:14:00 74 mm[Hg] Hilda Seybo ld - External Heart rate 2022-10-10 21:14:00 85 /min Kelse y Seybold - External Body temperature 2022-10-10 21:14:00 36.33 Monalisa Hilda Flores - External Respiratory rate 2022-10-10 21:14:00 14 /min Hilda Flores - External Body height 2022-10-10 21:14:00 157.5 cm Deb Flores - External Body weight 2022-10-10 21:14:00 119.75 kg Deb Flores - External BMI 2022-10-10 21:14:00 48.29 kg/m2 Deb Flores - External Oxygen saturation in Arterial blood by Pulse oximetry 2022-10-10 21:14:00 99 /min Hilda Mathis ld - External Respiratory rate 2021-12-04 15:36:00 20 /min [facility] Body height 2021-12-04 15:36:[address] [facility] Body weight 2021-12-04 15:36:[address] [facility] BMI 2021-12-04 15:36:00 29.58 kg/m2 [facility] Oxygen saturation in Arterial blood by Pulse oximetry 2021-12-04 15:36:00 97 /min [facility] Systolic blood pressure 2021-12-04 15:36:00 125 mm[Hg] [facility] Diastolic blood pressure 2021-12-04 15:36:00 53 mm[Hg] [facility] Heart rate 2021-12-04 15:36:00 93 /min [facility] Body temperature 2021-12-04 15:36:00 36.78 Monalisa [facility] height 2020-12-10 09:00:00 61 [in_i] Commo n [facility] weight 2020-12-10 09:00:00 160 [lb_av] Comm on [facility] temperature 2020-12-10 09:00:00 97.2 [degF] Com mon [facility] bmi 2020-12-10 09:00:00 30.23 kg/m2 Comm on [facility] oximetry 2020-12-10 09:00:00 100 % Commo n [facility] respiratory rate 2020-12-10 09:00:00 20 /min Common [facility] blood pressure systolic 2020-12-10 09:00:00 110 mm[Hg] [facility] blood pressure diastolic 2020-12-10 09:00:00 64 mm[Hg] [facility] Height/Length Measured 2021-07-02 12:51:42 158 [...] XR CHEST 1 VW 2021-12-04 16:35:48 Ashlee [facility] RAPID INFLUENZA A/B 2021-12-04 15:50:[address] [facility] COVID-19 (ID NOW RAPID TESTING) 2021-12-04 15:50:00 [facility] NOTICE OF PRIVACY PRACTICES 2021-12-04 15:23:47 Doctor Unassigned, [place] [facility] CONSENT/REFUSAL FOR DIAGNOSIS AND TREATMENT 2021-12-04 15:23:25 Doctor Unassigned, [place] [facility] Encounters Start Date/Time End Date/Time Encounter Type Admission Type Attending [facility] Care Facility Care Department Encounter ID Source 2022-01-08 08:37:00 Out[facility] [id number] [facility] 2021-07-10 13:02:37 Outpatient Ste[facility] Osw[facility] [id number] [facility] 2021-07-10 11:34:12 Outpatient Awilda Daniels [facility] [id number] [facility] 2021-07-10 11:34:01 Outpatient Awilda Daniels [facility] [id number] [facility] 2021-07-10 10:59:36 [facility] [id number] [facility] 2021-07-10 10:59:25 Outpatient Awilda Daniels [facility] [id number] [facility] 2021-07-10 10:59:02 [facility] [id number] [facility] 2019-10-27 15:41:00 Inpatient 1 Oscar Arceo Adis Oscar [facility] TEL [id number] [facility] 2019-08-09 13:06:00 Inpatient Varghese Gaston George [facility] STEFANI [id number] [facility] 2024-04-26 14:40:00 2024-04-26 14:40:00 Outpatient VARGHESE MEDINA [id number] Hilda Flores 2024-04-25 13:55:00 2024-04-25 13:55:00 Outpatient VARGHESE MEDINA [id number] Hilda Flores 2024-03-23 00:00:00 2024-03-23 00:00:00 Outpatient MD HILDA LOWRY [id number] [facility] 2024-02-16 11:30:00 2024-02-16 11:30:00 Outpatient PACE53 [facility] FORREST [id number] [facility] 2024-02-11 00:00:00 2024-02-11 00:00:00 Outpatient ADAMVARGHESE GO HILDA FORREST [id number] Hilda [facility] 2024-01-25 00:00:00 2024-01-25 00:00:00 Outpatient ADAMVARGHESE GO HILDA FORREST [id number] Hilda [facility] 2024-01-20 15:10:00 2024-01-20 15:10:00 Outpatient LAB90 HILDA FORREST [id number] [facility] 2024-01-12 00:00:00 2024-01-12 00:00:00 Outpatient ADAM VARGHESE [facility]ILDA FORREST [id number] [facility] 2024-01-06 15:30:00 2024-01-06 15:30:00 Outpatient HILDA FORREST [id number] [facility] 2024-01-01 21:15:00 2024-01-01 21:15:00 Outpatient QUAN ANG [id number] [facility] 2023-12-11 00:00:00 2023-12-11 00:00:00 Outpatient MAXIMILIAN VIDALES [id number] Hilda [facility] 2023-11-18 07:15:00 2023-11-18 07:15:00 Outpatient HILDA FORREST [id number] Hilda [facility] 2023-11-16 14:45:00 2023-11-16 14:45:00 Outpatient TRED53 HILDA FORREST [id number] [facility] 2023-11-16 14:25:00 2023-11-16 14:25:00 Outpatient VARGHESE MEDINA [id number] [facility] 2023-10-26 00:00:00 2023-10-26 00:00:00 Outpatient MAXIMILIAN VIDALES [id number] [facility] 2023-10-25 00:00:00 2023-10-25 00:00:00 Outpatient PREZASMAXIMILIAN HILDA FORREST [id number] Hilda Seybold 2023-10-23 00:00:00 2023-10-23 00:00:00 Outpatient ADAM, VARGHESE HILDA FORREST [id number] Hilda Rodriguezybold 2023-10-23 00:00:00 2023-10-23 00:00:00 Outpatient ADAM, VARGHESE HILDA FORREST [id number] Hilda Rodriguezybold 2023-10-23 00:00:00 2023-10-23 00:00:00 Outpatient ADAM, VARGHESE HILDA FORREST [id number] Hilda Rodriguezybold 2023-10-17 00:00:00 2023-10-17 00:00:00 Outpatient PREZAS, MAXIMILIAN HILDA FORREST [id number] [facility] 2023-09-15 00:00:00 2023-09-15 00:00:00 Outpatient ADAM, VARGHESE HILDA FORREST [id number] [facility] 2023-09-09 13:40:00 2023-09-09 13:40:00 Outpatient ADAM, VARGHESE HILDA FORREST [id number] [facility] 2023-09-01 12:00:00 2023-09-01 12:00:00 Outpatient PACESamreen FORREST [id number] [facility] 2023-08-26 00:00:00 2023-08-26 00:00:00 Outpatient ADAM, VARGHESE FORREST [id number] Hilda Seybold 2023-08-16 00:00:00 2023-08-16 00:00:00 Outpatient SIDIQ, RAISA FORREST [id number] Hilda Seybold 2023-08-10 09:00:00 2023-08-10 09:00:00 Outpatient SIDIQ, RAISA FORREST [id number] Hilda Seybold 2023-08-06 12:55:00 2023-08-06 12:55:00 Outpatient LABLynda FORREST [id number] Hilda Seybold 2023-08-04 00:00:00 2023-08-04 00:00:00 Outpatient SIDIQ, RAISA FORREST [id number] Hilda Seybold 2023-07-20 00:00:00 2023-07-20 00:00:00 Outpatient SIDIQ, RAISA HILDA FORREST [id number] Hilda Seybold 2023-07-20 00:00:00 2023-07-20 00:00:00 Outpatient HILDA FORREST [id number] Hilda Seybold 2023-07-18 00:00:00 2023-07-18 00:00:00 Outpatient SIDIQ, RAISA HILDA FORREST [id number] Hilda Seybold 2023-07-18 00:00:00 2023-07-18 00:00:00 Outpatient SIDIQ, RAISA HILDA FORREST [id number] Hilda Seybold 2023-07-15 00:00:00 2023-07-15 00:00:00 Outpatient VANGNOLVIA [id number] Hilda Seybold 2023-07-02 13:30:00 2023-07-02 13:30:00 Outpatient SIDIQ, RAISA HILDA FORREST [id number] Hilda Seybold 2023-07-02 12:00:00 2023-07-02 12:00:00 Outpatient PACE53 HILDA FORREST [id number] Hilda Seybold 2023-07-02 00:00:00 2023-07-02 00:00:00 Outpatient MD HILDA LOWRY [id number] Hilda Seybold 2023-07-02 00:00:00 2023-07-02 00:00:00 Outpatient HILDA FORREST [id number] Hilda Seybold 2023-06-02 09:30:00 2023-06-02 09:30:00 Outpatient KRUNALZAMAXIMILIAN Romano [id number] Hilda Seybold 2023-05-04 15:20:00 2023-05-04 15:20:00 Outpatient MIGUEL ÁNGEL DANGELO [id number] Hilda Seybold 2023-05-01 00:00:00 2023-05-01 00:00:00 Outpatient MAXIMILIAN VIDALES [id number] Hilda Seybold 2023-04-30 10:45:00 2023-04-30 10:45:00 Outpatient PACE53 HILDA HILDA [id number] [facility] 2023-04-28 00:00:00 2023-04-28 00:00:00 Outpatient VARGHESE MEDINA HILDA FORREST [id number] [facility] 2023-03-17 00:00:00 2023-03-17 00:00:00 Outpatient PREZASMAXIMILIAN HILDA FORREST [id number] [facility] 2023-03-12 00:00:00 2023-03-12 00:00:00 Outpatient PREZASMAXIMILIAN [facility] FORREST [id number] [facility] 2023-03-11 11:30:00 2023-03-11 11:30:00 Outpatient TRED47 HILDA FORREST [id number] [facility] 2023-03-11 09:10:00 2023-03-11 09:10:00 Outpatient ADAMVARGHESE GO HILDA FORREST [id number] [facility] 2023-03-11 00:00:00 2023-03-11 00:00:00 Outpatient VARGHESE MEDINA HILDA FORREST [id number] [facility] 2023-03-10 00:00:00 2023-03-10 00:00:00 Outpatient VARGHESE MEDINA HILDA FORREST [id number] [facility] 2023-03-05 00:00:00 2023-03-05 00:00:00 Outpatient MD [facility]ILDA LOWRY [id number] [facility] 2023-03-03 16:30:00 2023-03-03 16:30:00 Outpatient PREZAMAXIMILIAN Romano HILDA FORREST [id number] [facility] 2023-03-03 00:00:00 2023-03-03 00:00:00 Outpatient HILDA FORREST [id number] [facility] 2023-02-24 00:00:00 2023-02-24 00:00:00 Outpatient PREZASMXAIMILIAN HILDA FORREST [id number] [facility] 2023-02-23 00:00:00 2023-02-23 00:00:00 Outpatient HILDA FORREST [id number] Hilda Mark 2023-02-18 15:50:00 2023-02-18 15:50:00 Outpatient TERI GARCIA HILDA FORREST [id number] Hilda [facility] 2023-01-14 14:30:00 2023-01-14 14:30:00 Outpatient TERI GARCIA HILDA FORREST [id number] Hilda Rodriguezybmert 2023-01-14 00:00:00 2023-01-14 00:00:00 Outpatient MD HILDA LOWRY [id number] [facility] 2023-01-02 15:20:00 2023-01-02 15:20:00 Outpatient YUNIORTG Hollingsworth HILDA FORREST [id number] [facility] 2022-12-03 15:15:00 2022-12-03 15:15:00 Outpatient MAXIMILIAN VIDALES HILDA FORREST [id number] [facility] 2022-11-24 00:00:00 2022-11-24 00:00:00 Outpatient PREZAMAXIMILIAN Romano HILDA FORREST [id number] [facility] 2022-11-11 15:30:00 2022-11-11 15:30:00 Outpatient PREGEORGIE CINTRONCRISTIANO FORREST [id number] Hilda [facility] 2022-11-04 00:00:00 2022-11-04 00:00:00 Outpatient HILDA FORREST [id number] [facility] 2022-11-04 00:00:00 2022-11-04 00:00:00 Outpatient HILDA FORREST [id number] [facility] 2022-11-03 00:00:00 2022-11-03 00:00:00 Outpatient HILDA FORREST [id number] [facility] 2022-10-24 00:00:00 2022-10-24 00:00:00 Outpatient GEORGIE VIDALESCRISTIANO FORREST [id number] [facility] 2022-10-20 00:00:00 2022-10-20 00:00:00 Outpatient SOBEIDA MAXIMILIAN FORREST [id number] Hilda Flores 2022-10-10 16:15:00 2022-10-10 16:15:00 Outpatient MAXIMILIAN VIDALES [id number] Hilda Flores 2021-12-04 10:40:00 2021-12-04 12:16:00 Emergency X AALIYAH MASON [facility] ERT [id number] [facility] 2021-12-04 10:40:00 2021-12-04 12:16:00 [place] [facility] [id number] [facility] 2021-05-10 00:00:00 2021-05-10 00:00:00 (TEL) STLMLC STLMLC [id number] [facility] 2021-01-20 00:00:00 2021-01-20 00:00:00 (WEB) STLMLC STLMLC [id number] [facility] 2021-01-14 14:30:00 2021-01-14 14:30:00 Emergency X [facility] ERT [id number] [facility] 2020-12-10 00:00:00 2020-12-10 00:00:00 OFFICE VISIT ESTAB PT LEVEL 4 STLMLC STLMLC [id number] [facility] 2020-01-13 14:40:00 2020-01-13 14:40:00 [facility] [id number] [facility] 2020-01-13 11:40:00 2020-01-13 11:40:00 Out[facility] [id number] [facility] 2019-12-21 16:33:00 2019-12-21 16:33:00 Out[facility] [id number] [facility] 2019-10-27 15:41:00 2019-10-28 20:02:00 Inpatient 1 Oscar Arceo Min [facility] TEL [id number] [facility] 2019-09-05 13:11:00 2019-09-05 13:11:00 Outpatient [facility] [id number] [facility] 2019-08-15 19:48:00 2019-08-20 12:33:00 Inpatient E DIDIER ARGUETA [facility] MED [id number] [facility] 2019-07-07 15:26:00 2019-07-07 15:26:00 Outpatient [facility] [id number] [facility] 2019-06-23 14:00:00 2019-06-23 14:00:00 Outpatient [facility] [id number] [facility] 2018-02-04 15:00:00 2018-02-04 15:00:00 Outpatient [facility] [id number] [facility] Results Test Description Test Time Test Comments Results Result Co mments Source Troponin [id number] 21:47:02* Test Item Value Reference Range Interpretation [...] a diagnosis of chronic myocardial injury. Troponin [id number] 19:26:34* Test Item Value Reference Range Interpretation [...] a diagnosis of chronic myocardial injury. Troponin [id number] 17:01:59* Test Item Value Reference Range Interpretation [...] diagnosis of chronic myocardial injury. Comprehensive Metabolic [id number] 16:46:40* Test Item Value Reference Range Interpretation [...] is not provided, and the patient is -Malagasy, multiply by 1.212. If sex is not [...] by the [employer] Foundation, http://nkdep.nih.gov Creatine [id number] 16:46:40* Test Item Value Reference Range Interpretation Comme nts CK (test code = CK) 224 U/L 26-192 H Comprehensive Metabolic [id number] 16:46:40* Test Item Value Reference Range Interpretation [...] is not provided, and the patient is -Malagasy, multiply by 1.212. If sex is not [...] is not provided, and the patient is -Malagasy, multiply by 1.212. If sex is not [...] the National Kid[employer] Foundation, http://nkdep.nih.gov Comprehensive Metabolic [id number] 16:46:40* Test Item Value Reference Range Interpretation [...] is not provided, and the patient is -Malagasy, multiply by 1.212. If sex is not [...] is not provided, and the patient is -Malagasy, multiply by 1.212. If sex is not [...] National Kid[employer] Foundation, http://nkdep.nih.gov Pro B Natriuretic [id number] 16:43:50* Test Item Value Reference Range Interpretation Comme nts NT-proBNP (test code = NT-proBNP) 513 pg/mL 0-124 H Automated [id number] 16:24:33* Test Item Value Reference Range Interpretation Comme nts Neutro Auto (test code = Liliya tro Auto) 53.0 % 36.0-70.0 Lymph Auto (test code = Lymph Auto) 39.3 % 12.0-44.0 Spink Auto (test code = Spink Auto) 6.6 % 0.0-11.0 Eos, Auto (test code = Eos, Auto) 0.0 % 0.0-7.0 Basophil Auto (test code = B asophil Auto) 0.8 % 0.0-2.0 Neutro Absolute (test code = Neutro Absolute) 4.0 x10 1.6-7.4 Lymph Absolute (test code = Lymph Absolute) 2.97 x10 .50-4.60 Spink Absolute (test code = M donna Absolute) .50 x10 .00-1.20 Eos Absolute (test code = Eo s Absolute) 0.00 x10 0.00-0.74 Baso Absolute (test code = B aso Absolute) 0.06 x10 0.00-0.21 IG [id number] 16:24:33* Test Item Value Reference Range Interpretation Comme nts IG (test code = IG) 0.3 % 0.0-5.0 IG Abs (test code = IG Abs) 0 x10 N Complete Blood Count with [id number] 16:24:32* Test Item Value Reference Range Interpretation [...] 0 % N XR Chest 1 View [id number] 16:11:29Patient: SHEFALI JOYNER Date/Time10/27/2019 16:05 CDTReason for ExamChest nany nReportDICTATION LOCATION: [id number]: Female, 54 years of age with Chest [...] History: Procedure Laterality Date APPENDECTOMY DEFIBRILLATOR IMPLANTED 2019 ELBOW SURGERY Right LAPAROSCOPIC CHOLECYSTECTOMY PARTIAL HYSTERECTOMY [...] education level: 11th grade Occupational History 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 Follow instructions provided by provider.. [facility]
[2024-04-14] MEDS ORDERED: IPRATROPIUM BROM 0.5MG/2.5ML ONE (13:49)
[2024-04-14] MEDS ORDERED: ALBUTEROL 2.5 MG/3 ML NEB SOL ONE (13:49)
[2024-04-14] MEDS ORDERED: HYDROCODONE/CHLORPHEN 5 ML/OSYR ONE (14:14)
[2024-04-14 14:15] LABS: SARS-CoV-2 Antigen CONTROL BLUE LINE VIS/BG OK; SARS-CoV-2 Antigen Rapid Res Negative (Negative)
--- NOTE | 2024-04-14 15:22 | RAD REPORT ---
Procedure: Chest Pa And Lat (2 Views) HISTORY: Cough COMPARISON: January 2024 FINDINGS: The lungs appear clear of acute infiltrate. No significant pleural effusion noted. The heart is normal size. Pacemaker leads in place IMPRESSION: No acute abnormality is displayed.
--- NOTE | 2024-04-14 15:27 | ER ---
Nurse's Notes [facility] Name: Virgie Silveira Age: 58 yrs Sex: Female : 1965 Arrival Date: 04/14/2024 Time: 13:15 Bed 5 Private MD: Diagnosis: Acute upper respiratory infection, unspecified Presentation: 04/14 13:23 Chief complaint: Patient states: having cough, congestion for 4 days, chest hurts when ko1 coughing, it is NOT my CHF it is from cough/congestion. Now coughing up green stuff. Coronavirus screen: Client presents with at least one sign or symptom that may indicate coronavirus-19. Standard/surgical mask placed on the client. Coronavirus screen: chills, congestion, cough unrelated to allergies, diarrhea, fever. Ebola Screen: No symptoms or risks identified at this time. Initial Sepsis Screen: Does the patient meet any 2 criteria? No. Patient's initial sepsis screen is negative. Does the patient have a suspected source of infection? No. Patient's initial sepsis screen is negative. Risk Assessment: Do you want to hurt yourself or someone else? Patient reports no desire to harm self or others. Onset of symptoms is unknown. 13:23 Method Of Arrival: Ambulatory ko1 13:23 Acuity: TOÑITO 3 ko1 Triage Assessment: 13:27 General: Appears in no apparent distress. ill, Behavior is calm, cooperative, ko1 appropriate for age. Pain: Complains of pain in chest. Cardiovascular: Reports congestion. Historical: - Allergies: 13:27 Cipro; ko1 13:27 Codeine; ko1 13:27 Lisinopril; ko1 13:27 Morphine; ko1 - Home Meds: 13:27 Metoprolol Tartrate Oral [Active]; Entresto Oral [Active]; furosemide 40 mg Oral tab 1 ko1 tab once daily [Active]; levothyroxine oral [Active]; Norvasc Oral [Active]; Potassium Chloride Oral [Active]; - PMHx: 13:27 Congestive heart failure; Hypertension; Hypothyroidism; Pacemaker; defib; tachycardia ko1 (right elbow surgery); - PSHx: 13:27 section; heart cath; hysterectomy; right elbow surgery; ko1 - Immunization history:: Adult Immunizations up to date. - Infectious Disease History:: Denies. - Social history:: Smoking status: Patient/guardian denies using tobacco, but has a distant history of tobacco abuse. Screenin:32 [facility] ED Fall Risk Assessment (Adult) History of falling in the last 3 months, tm6 including since admission No falls in past 3 months (0 pts) Confusion or Disorientation No (0 pts) Intoxicated or Sedated No (0 pts) Impaired Gait No (0 pts) Mobility Assist Device Used No (0 pt) Altered Elimination No (0 pt) Score/Fall Risk Level 0 - 2 = Low Risk Oriented to surroundings, Maintained a safe environment, Educated pt \T\ family on fall prevention, incl call for assistance when getting out of bed. Abuse screen: Denies threats or abuse. Denies injuries from another. Nutritional screening: No deficits noted. Tuberculosis screening: No symptoms or risk factors identified. Assessment: 13:32 General: Appears in no apparent distress. uncomfortable, Behavior is calm, cooperative. tm6 Pain: Complains of pain in chest Pain does not radiate. Pain began 2-3 days ago. Neuro: Level of Consciousness is awake, alert, obeys commands, Oriented to person, place, time, situation. Cardiovascular: Patient's skin is warm and dry. Respiratory: Reports cough that is productive. GI: No signs and/or symptoms were reported involving the gastrointestinal system. Abdomen is flat, non-distended. : No signs and/or symptoms were reported regarding the genitourinary system. EENT: No signs and/or symptoms were reported regarding the EENT system. Derm: No signs and/or symptoms reported regarding the dermatologic system. Musculoskeletal: No signs and/or symptoms reported regarding the musculoskeletal system. 15:16 Reassessment: Patient and/or family updated on plan of care and expected duration. Pain tm6 level reassessed. Patient is alert, oriented x 3, equal unlabored respirations, skin warm/dry/pink. 15:47 Reassessment: Patient and/or family updated on plan of care and expected duration. Pain tm6 level reassessed. Patient is alert, oriented x 3, equal unlabored respirations, skin warm/dry/pink. Vital Signs: 13:23 BP 117 / 83; Pulse 95; Resp 20; Temp 97; Pulse Ox 98% on R/A; ko1 15:16 BP 117 / 77; Pulse 86; Pulse Ox 100% on R/A; MAP 88 mmHg; tm6 15:33 BP 130 / 78; Pulse 82; Resp 19; Temp 97.3; Pulse Ox 96% on R/A; MAP 92 mmHg; Pain 0/10; tm6 15:33 Pain Scale: Adult tm6 ED Course: 13:22 Patient arrived in ED. mg5 13:22 Yanci Bruce PA-C is PHCP. sb4 13:22 Jad Amaya MD is Attending Physician. sb4 13:27 Triage completed. ko1 13:27 Arm band placed on right wrist. Patient placed in an exam room, on a stretcher, on ko1 pulse oximetry, Patient notified of wait time. 13:32 Patient has correct armband on for positive identification. Bed in low position. Call tm6 light in reach. Side rails up X 1. Provided Education on: use of call acuna. Client placed on continuous cardiac and pulse oximetry monitoring. NIBP monitoring applied. Pulse ox on. NIBP on. Door closed. Noise minimized. Warm blanket given. 13:32 Patient maintains SpO2 saturation greater than 95% on room air. tm6 13:36 Katharine Maradiaga, RN is Primary Nurse. tm6 13:57 Flu Sent. tm6 13:57 SARS RAPID Sent. tm6 14:37 Chest Pa And Lat (2 Views) XRAY In Process Unspecified. EDMS 15:47 No provider procedures requiring assistance completed. Patient did not have IV access tm6 during this emergency room visit. Administered Medications: 13:57 Drug: DuoNeb Nebulize (3:1) (2.5 mg - 0.5 mg) 3 ml Nebulizer once Route: Nebulizer; tm6 15:48 Follow up: Response: No adverse reaction tm6 14:16 Drug: Tussionex Pennkinetic ER PO Suspension 5 ml PO once Route: PO; bp 15:48 Follow up: Response: No adverse reaction tm6 Medication: 13:32 VIS not applicable for this client. tm6 Outcome: 15:27 Discharge ordered by . sb4 15:47 Discharged to home ambulatory, tm6 15:47 Condition: stable 15:47 Discharge instructions given to patient, Instructed on discharge instructions, follow up and referral plans. medication usage, Demonstrated understanding of instructions, follow-up care, medications, Prescriptions given X 4, 15:48 Patient left the ED. aa5 Signatures: Dispatcher [employer] EDMS Reyna Carson, RN RN aa5 Jonh Ibarra RN RN bp Ana M Cowan RN RN ko1 Yanci Bruce, PAEyal PAEyal sb4 Salome Bear mg5 Katharine Maradiaga RN RN tm6 Corrections: (The following items were deleted from the chart) 13:32 13:23 Acuity: TOÑITO 4 ko1 ko1
--- NOTE | 2024-04-14 15:27 | EDPHYS ---
Physician Documentation [facility] Name: Virgie Silveira Age: 58 yrs Sex: Female : 1965 Arrival Date: 04/14/2024 Time: 13:15 Bed 5 Private MD: ED Physician Jad Amaya HPI: 04/14 13:38 This 58 yrs old Female presents to ER via Ambulatory with complaints of cough, sb4 congestion, sob. 13:44 Patient reports congestion and painful cough x 3 days. States that her cough became sb4 productive this morning with green sputum. States that her significant other has similar symptoms. She does endorse some shortness of breath. Does not believe any of this is related to her CHF, is not wanting any cardiac workup done at this time, just want to make sure she does not have pneumonia. Is unsure of a fever, states she has had some chills. Denies any swelling in her legs. She does not use any breathing treatments or inhalers at home. Historical: - Allergies: 13:27 Cipro; ko1 13:27 Codeine; ko1 13:27 Lisinopril; ko1 13:27 Morphine; ko1 - Home Meds: 13:27 Metoprolol Tartrate Oral [Active]; Entresto Oral [Active]; furosemide 40 mg Oral tab 1 ko1 tab once daily [Active]; levothyroxine oral [Active]; Norvasc Oral [Active]; Potassium Chloride Oral [Active]; - PMHx: 13:27 Congestive heart failure; Hypertension; Hypothyroidism; Pacemaker; defib; tachycardia ko1 (right elbow surgery); - PSHx: 13:27 section; heart cath; hysterectomy; right elbow surgery; ko1 - Immunization history:: Adult Immunizations up to date. - Infectious Disease History:: Denies. - Social history:: Smoking status: Patient/guardian denies using tobacco, but has a distant history of tobacco abuse. ROS: 13:44 Skin: Negative for injury, rash, and discoloration, sb4 13:44 Constitutional: Positive for chills, 13:44 ENT: Positive for sinus congestion, 13:44 Cardiovascular: Positive for chest pain, with cough, 13:44 Respiratory: Positive for cough, with green sputum, dyspnea on exertion, shortness of breath, on exertion. 13:44 All other systems are negative, Exam: 13:44 Constitutional: This is a well developed, well nourished patient who is awake, alert, sb4 and in no acute distress. Head/Face: Normocephalic, atraumatic. Eyes: Extra-ocular motions intact. Periorbital areas with no swelling, redness, or edema. ENT: Mucous membranes moist. Cardiovascular: Regular rate and rhythm with a normal S1 and S2. Skin: Warm, dry with normal turgor. Normal color with no rashes, no lesions, and no evidence of cellulitis. 13:44 Respiratory: the patient does not display signs of respiratory distress, Respirations: normal, Breath sounds: rhonchi, that are moderate, are scattered, Vital Signs: 13:23 BP 117 / 83; Pulse 95; Resp 20; Temp 97; Pulse Ox 98% on R/A; ko1 15:16 BP 117 / 77; Pulse 86; Pulse Ox 100% on R/A; MAP 88 mmHg; tm6 15:33 BP 130 / 78; Pulse 82; Resp 19; Temp 97.3; Pulse Ox 96% on R/A; MAP 92 mmHg; Pain 0/10; tm6 15:33 Pain Scale: Adult tm6 MDM: 13:30 Medical Screening Exam initiated sb4 14:56 Data reviewed: vital signs, nurses notes, lab test result(s), radiologic studies, and sb4 as a result, I will discharge patient. Consideration of Admission/Observation Escalation of care including admission/observation considered. Counseling: I had a detailed discussion with the patient and/or guardian regarding the historical points, exam findings, and any diagnostic results supporting the discharge/admit diagnosis, lab results, radiology results, to return to the emergency department if symptoms worsen or persist or if there are any questions or concerns that arise at home. 04/14 13:38 Order name: SARS RAPID; Complete Time: 14:16 sb4 04/14 13:38 Order name: Flu; Complete Time: 14:37 sb4 04/14 13:38 Order name: Chest Pa And Lat (2 Views) XRAY; Complete Time: 15:23 sb4 Administered Medications: 13:57 Drug: DuoNeb Nebulize (3:1) (2.5 mg - 0.5 mg) 3 ml Nebulizer once Route: Nebulizer; tm6 15:48 Follow up: Response: No adverse reaction tm6 14:16 Drug: Tussionex Pennkinetic ER PO Suspension 5 ml PO once Route: PO; bp 15:48 Follow up: Response: No adverse reaction tm6 Disposition Summary: 04/14/24 15:27 Discharge Ordered Notes: Location: Home sb4 Problem: new sb4 Symptoms: have improved sb4 Condition: Stable sb4 Diagnosis - Acute upper respiratory infection, unspecified sb4 Followup: sb4 - With: Emergency Department - When: As needed - Reason: Trouble breathing, Worsening of condition Discharge Instructions: - Discharge Summary Sheet sb4 - Upper Respiratory Infection, Adult, Yofv-os-Aeyo sb4 Forms: - Antibiotic Education sb4 - Patient Portal Instructions sb4 - Leadership Thank You Letter sb4 Prescriptions: - azithromycin 250 mg Oral tablet - take 1 dose pack ORAL route as directed on dose pack For 250 mg dose pack: take sb4 500 mg today (day 1), then 250 mg for 4 days (days 2-5); 1 Pack; Refills: 0, Product Selection Permitted - budesonide 90 mcg/actuation Inhalation Aerosol Powder, Breath Activated - administer 2 inhalation INHALATION route every 12 hours; 1 Applicator; Refills: sb4 0, Product Selection Permitted - Tessalon Perles 100 mg Oral Capsule - take 1 capsule ORAL route every 8 hours As needed; 15 capsule; Refills: 0, sb4 Product Selection Permitted - Prednisone 20 mg Oral Tablet - take 1 tablet ORAL route every 12 hours for 5 days; 10 tablet; Refills: 0, sb4 Product Selection Permitted Addendum: 04/16/2024 17:37 I was immediately available for consultation during this patient's visit. I did not e c2 personally see the patient or discuss the patient with the CARLOS. . Signatures: Dispatcher [employer] EDJonh Ospina RN RN Ana M Carvajal RN RN koYanci More PAEyal PA-C sb4 Jad Amaya MD MD ec2 Katharine Maradiaga RN RN tm6 Corrections: (The following items were deleted from the chart) 04/14 13:38 13:38 Chest Pa And Lat (2 Views)+RAD.RAD.BRZ ordered. EDMS EDMS 13:38 13:38 SARS-COV-2 Antigen Rapid+I.LAB.BRZ ordered. EDMS EDMS 13:38 13:38 Influenza Screen (A \T\ B)+BA.LAB.BRZ ordered. EDMS EDMS
[2024-04-14 15:56] VITALS: BP 130/78; TEMP 97.3; O2SAT 96
== END 2024-04-14 15:48 | disposition home or self-care (01) ==
LOC: ER 13:15
DX: J06.9 Acute upper respiratory infection, unspecified (principal); Z11.52 Encounter for screening for COVID-19; I10 Essential (primary) hypertension; I50.9 Heart failure, unspecified; Z95.810 Presence of automatic (implantable) cardiac defibrillator
CPT/HCPCS: 36415; 87804 ×2; 71046; 99284; 87811; J7613; J7644

== ENCOUNTER 2024-07-02 12:27 | Emergency (ER) | payer OTHER ==
--- OUTSIDE RECORDS SUMMARY | 2024-07-02 12:31 | XMS REPORT | Continuity of Care Document ---
Author Name Unknown Address [address] [facility]. [address] [place] [address] [facility] thconnect Address [address] [facility] [address] [place] [address] Care Team Providers Care Modern Dancer Name Role Phone STEPH OSWALD Primary Care [...] Unavaila ble Aaliyah Morrison Attending Clinician [phone] DIDIER ARGUETA Attending Clinician Unavailable Oscar Arceo Admitting Clinician Unavailable Varghese Gaston Admitting Clinician Unavailable AALIYAH MASON Admitting Clinician UnavailDIDIER Gorman Admitting Clinician Unavailable Payers Payer Name Policy Type Policy Number Effective Date Expirati on Date Source YESIKA VALENZUELA 5 [facility] 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 [id number] 2020 00:00:00 Ambetter from [facility] [id number] 2020 00:00:00 [facility] Ambetter from [facility] [id number] 2020 00:00:00 [facility] Ambetter from [facility] [id number] 2020 00:00:00 [facility] Problems Condition Name Condition Details [...] adult Disease Active 03-03 00:00: 00 Hilda rohtman Screening for colon cancer Screening for colon [...] active problems No known active problems Disease [facility] [id number] Hypokalemi a Problem Active [facility] [id number] Tachycardi a Problem Active [facility] Smoker Smoker Problem Active [facility] [id number] Acquired hypothyroi dism Problem Active [facility] [id number] Peripheral edema Problem Active [facility] [id number] Cervical radiculopa thy at C5 Problem Active [facility] [id number] Lumbar radiculopa thy, chronic Problem Active [facility] Allergies, Adverse Reactions, Alerts Allergy Name Allergy Type Status Severity Reaction(s) Onset Date Inactive Date Treating Clinician Comments Source Lisinopr il Propensi ty to adverse reaction s Active Rash 10-09 00:00: 00 Hilda Phillipsa lorna Morphine Propensi ty to adverse reaction s Active Other 10-09 00:00: 00 Hilda rothman LISINOPR IL DRUG INGREDI Active Rash 01-14 00:00: 00 [facility] Lisinopr il Propensi ty to adverse reaction s Active Rash 01-14 00:00: 00 [facility] MORPHINE DRUG INGREDI Active Unknown-Cmnt 2009-06 00:00: 00 [facility] Morphine Propensi ty to adverse reaction s Active Unknown - See comments 2009-06 00:00: 00 [facility] CODEINE- BUTALBIT AL-ASA-C AFF DRUG Active N/V 2006-06 00:00: 00 [facility] Codeine- Butalbit al-Asa-C aff Propensi ty to adverse reaction s Active Nausea and/or Vomiting 2006-06 00:00: 00 [facility] morphine Drug Active [facility] lisinopr il Drug Active [facility] morphine Drug Active [facility] lisinopr il Drug Active [facility] morphine Drug Active [facility] lisinopr il Drug Active [facility] morphine Drug Active [facility] lisinopr il Drug Active [facility] morphine Drug Active [facility] lisinopr il Drug Active [facility] morphine Drug Active [facility] lisinopr il Drug Active [facility] morphine Drug Active [facility] lisinopr il Drug Active [facility] morphine Drug Active [facility] lisinopr il Drug Active [facility] morphine Drug Active [facility] lisinopr il Drug Active [facility] morphine Drug Active [facility] lisinopr il Drug Active [facility] morphine Drug Active [facility] lisinopr il Drug Active [facility] morphine Drug Active [facility] lisinopr il Drug Active [facility] morphine Drug Active [facility] lisinopr il Drug Active [facility] morphine Drug Active [facility] lisinopr il Drug Active [facility] morphine morphine Active Unknown [facility] lisinopr il lisinopr il Active Unknown [facility] Social History Social Habit Start Date [...] 2021-11-24 00:00:00 2021-12-04 10:21:00 Unable to assess [facility] Sex Assigned At 1965 00:00:00 [...] oral Recon Soln 18 00:00: 00 Yes [id number] Instructio ns provided to patient. Follow instructio [...] POWDER, BREATH ACTIVATED 10-10 00:00: 00 Yes [id number] 1{puff} Inhale 1 puff into the lungs 2 times daily Hilda rothman Levalbutero l Tartrate (Xopenex HFA) 45 MCG/ACT inhalation Aerosol 10-10 00:00: 00 Yes [id number] 2{puff} Q.[id number] 3D Inhale 2 puffs into the lungs every 8 hours as needed for wheezing or shortness of breath Hilda rothman Furosemide 40 MG oral Tablet 10-06 00:00: 00 03-03 00:00 :00 No 40mg Take 1 tablet (40 mg total) by mouth daily Hilda rothman albuterol 90 mcg/actuati on inhaler 12-04 00:00: 00 Yes [id number] 2{puff} Inhale 2 Puffs every 6 (six) hours as needed for Wheezing or Shortness of Breath. [facility] Chantix Continuing Month Jaleel 1 MG Chantix Continuing Month Jaleel 1 MG 01-21 00:00: 00 04-21 00:00 :00 No BID Chantix Continuing Month Jaleel 1 MG Amoxicillin -Pot Clavulanate Amoxicillin -Pot Clavulanate 01-12 00:00: 00 01-19 00:00 :00 No Awilda Millender 1 tablet [facility] acetaminoph en-codeine 300-30 mg tablet 09-18 00:00: 00 Yes 1{tbl} Take 1 tablet by mouth every 4 (four) hours as needed for Pain (scale 4-6). [facility] ibuprofen 600 mg tablet 09-18 00:00: 00 Yes 600mg Take 1 tablet by mouth every 6 (six) hours as needed for Pain (scale 4-6). [facility] sulfamethox azole-trime thoprim (BACTRIM DS) 800-160 mg tablet 2009-06 00:00: 00 Yes 1{tbl} Take 1 Tab by mouth 2 (two) times daily. [facility] hydrochloro thiazide (ESIDRIX) 25 mg tablet 2009-06 00:00: 00 Yes 12.5mg Take 0.5 Tabs by mouth daily. [facility] hydrocodone -acetaminop hen (NORCO 5) 5-325 mg tablet 2009-06 00:00: 00 Yes 1{tbl} Take 1 Tab by mouth every 6 (six) hours as needed for Pain. [facility] Furosemide Furosemide Yes Awilda Millender 1 tablet [facility] Aspirin 81 Aspirin 81 Yes Awilda Millender 1 tablet [facility] Levothyroxi ne Sodium Levothyroxi ne Sodium Yes Awilda Millender 1 tablet in the morning on an empty stomach [facility] Naproxen Naproxen Yes Awilda Millender 1 tablet [facility] Hydrochloro thiazide Hydrochloro thiazide Yes Awilda Millender 1 tablet in the morning [facility] Daily Multi Vitamin/Min erals Daily Multi Vitamin/Min erals Yes Awilda Millender as directed [facility] Chantix Starting Month Jaleel 0.5 [...] Filled Immunization Name Date Status Comments Source tok tok tok COVID-19 Vaccine Pfizer COVID-19 Vaccine 2021-03-13 11:37:00 Completed [facility] Covid-19 Vaccine (tok tok tok), Mrna-lnp, Garth Protein, Pf, 30mcg/0.3ml,IM 2021-03-13 00:00:00 Completed Hilda Seybold - External Pfizer COVID-19 Vaccine Pfizer COVID-19 Vaccine 2021-02-12 16:27:00 Completed [facility] Covid-19 Vaccine (Pfizer), Mrna-lnp, Garth [...] Systolic blood pressure 2021-12-04 15:36:00 125 mm[Hg] [facility] Diastolic blood pressure 2021-12-04 15:36:00 53 mm[Hg] [facility] Heart rate 2021-12-04 15:36:00 93 /min [facility] Body temperature 2021-12-04 15:36:00 36.78 Monalisa [facility] Respiratory rate 2021-12-04 15:36:00 20 /min [facility] Body height 2021-12-04 15:36:00 160 cm [facility] Body weight 2021-12-04 15:36:00 75.751 kg [facility] BMI 2021-12-04 15:36:00 29.58 kg/m2 [facility] Oxygen saturation in Arterial blood by Pulse oximetry 2021-12-04 15:36:00 97 /min [facility] height 2020-12-10 09:00:00 61 [in_i] [facility] weight 2020-12-10 09:00:00 160 [lb_av] Comm on [facility] temperature 2020-12-10 09:00:00 97.2 [degF] Com mon [facility] bmi 2020-12-10 09:00:00 30.23 kg/m2 Comm on [facility] oximetry 2020-12-10 09:00:00 100 % [facility] respiratory rate 2020-12-10 09:00:00 20 /min [facility] blood pressure systolic 2020-12-10 09:00:00 110 mm[Hg] [facility] blood pressure diastolic 2020-12-10 09:00:00 64 mm[Hg] [facility] Height/Length Measured 2021-07-02 12:51:42 158 [...] XR CHEST 1 VW 2021-12-04 16:35:48 Ashlee [facility] RAPID INFLUENZA A/B 2021-12-04 15:50:00 Ashlee [facility] COVID-19 (ID NOW RAPID TESTING) 2021-12-04 15:50:00 [facility] NOTICE OF PRIVACY PRACTICES 2021-12-04 15:23:47 Doctor Unassigned, [place] [facility] CONSENT/REFUSAL FOR DIAGNOSIS AND TREATMENT 2021-12-04 15:23:25 Doctor Unassigned, [place] [facility] Encounters Start Date/Time End Date/Time Encounter Type Admission Type Attending [facility] Facility Care Department Encounter ID Source 2022-01-08 08:37:00 Outpatient Steph Oswald [facility] [id number] [facility] 2021-07-10 13:02:37 Outpatient Steph Oswald [facility] [id number] [facility] 2021-07-10 11:34:12 Outpatient Awilda Daniels [facility] [id number] [facility] 2021-07-10 11:34:01 Outpatient Awilda Daniels [facility] [id number] [facility] 2021-07-10 10:59:36 [facility] [id number] [facility] 2021-07-10 10:59:25 Outpatient Awilda Daniels [facility] [id number] [facility] 2021-07-10 10:59:02 [facility] [id number] [facility] 2019-10-27 15:41:00 Inpatient 1 Oscar Arceo Adis Oscar [facility] TEL [id number] [facility] 2019-08-09 13:06:00 Inpatient Varghese Gaston George [facility] STEFANI [id number] [facility] 2024-04-26 14:40:00 2024-04-26 14:40:00 Outpatient VARGHESE MEDINA [id number] Hilda Flores 2024-04-25 13:55:00 2024-04-25 13:55:00 Outpatient VARGHESE MEDINA [id number] Hilda Flores 2024-04-24 00:00:00 2024-04-24 00:00:00 Outpatient VARGHESE MEDINA [id number] Hilda Flores 2024-03-23 00:00:00 2024-03-23 00:00:00 Outpatient MD HILDA LOWRY [id number] Hilda [facility] 2024-02-16 11:30:00 2024-02-16 11:30:00 Outpatient PACE53 HILDA FORREST [id number] [facility] 2024-02-11 00:00:00 2024-02-11 00:00:00 Outpatient VARGHESE MEDINA [id number] Hilda [facility] 2024-01-25 00:00:00 2024-01-25 00:00:00 Outpatient VARGHESE MEDINA [id number] Hilda [facility] 2024-01-20 15:10:00 2024-01-20 15:10:00 Outpatient LAB90 HILDA FORREST [id number] [facility] 2024-01-12 00:00:00 2024-01-12 00:00:00 Outpatient VARGHESE MEDINA [id number] Hilda [facility] 2024-01-06 15:30:00 2024-01-06 15:30:00 Outpatient HILDA FORREST [id number] Hilda [facility] 2024-01-01 21:15:00 2024-01-01 21:15:00 Outpatient QUAN ANG [id number] Hilda [facility] 2023-12-11 00:00:00 2023-12-11 00:00:00 Outpatient MAXIMILIAN VIDALES [id number] Hilda [facility] 2023-11-18 07:15:00 2023-11-18 07:15:00 Outpatient [facility]DA FORREST [id number] [facility] 2023-11-16 14:45:00 2023-11-16 14:45:00 Outpatient TRED53 HILDA FORREST [id number] [facility] 2023-11-16 14:25:00 2023-11-16 14:25:00 Outpatient VARGHESE MEDINA [id number] [facility] 2023-10-26 00:00:00 2023-10-26 00:00:00 Outpatient PREZASMAXIMILIAN HILDA FORREST [id number] [facility] 2023-10-25 00:00:00 2023-10-25 00:00:00 Outpatient PREZAS, MAXIMILIAN HILDA FORREST [id number] Hilda Rodriguezybold 2023-10-23 00:00:00 2023-10-23 00:00:00 Outpatient ADAM, VARGHESE HILDA FORREST [id number] [facility] 2023-10-23 00:00:00 2023-10-23 00:00:00 Outpatient ADAM, VARGHESE FORREST [id number] [facility] 2023-10-23 00:00:00 2023-10-23 00:00:00 Outpatient ADAM, VARGHESE FORREST [id number] [facility] 2023-10-17 00:00:00 2023-10-17 00:00:00 Outpatient PREZAS, MAXIMILIAN HILDA FORREST [id number] [facility] 2023-09-15 00:00:00 2023-09-15 00:00:00 Outpatient ADAM, VARGHESE HILDA FORREST [id number] [facility] 2023-09-09 13:40:00 2023-09-09 13:40:00 Outpatient ADAM, VARGHESE HILDA FORREST [id number] [facility] 2023-09-01 12:00:00 2023-09-01 12:00:00 Outpatient PACE53 HILDA FORREST [id number] [facility] 2023-08-26 00:00:00 2023-08-26 00:00:00 Outpatient ADAM, VARGHESE HILDA FORREST [id number] Hilda Seybold 2023-08-16 00:00:00 2023-08-16 00:00:00 Outpatient SIDIQ, RAISA FORREST [id number] Hilda Seybold 2023-08-10 09:00:00 2023-08-10 09:00:00 Outpatient SIDIQ, RAISA FORREST [id number] Hilda Seybold 2023-08-06 12:55:00 2023-08-06 12:55:00 Outpatient LAB90 HILDA FORREST [id number] Hilda Seybold 2023-08-04 00:00:00 2023-08-04 00:00:00 Outpatient SIDIQ, RAISA HILDA FORREST [id number] Hilda Seybold 2023-07-20 00:00:00 2023-07-20 00:00:00 Outpatient SIDIQ, RAISA HILDA FORREST [id number] Hilda Seybold 2023-07-20 00:00:00 2023-07-20 00:00:00 Outpatient HILDA FORREST [id number] Hilda Seybold 2023-07-18 00:00:00 2023-07-18 00:00:00 Outpatient SIDIQ, RAISA HILDA FORREST [id number] Hilda Seybold 2023-07-18 00:00:00 2023-07-18 00:00:00 Outpatient SIDIQ, RAISA HILDA FORREST [id number] Hilda Seybold 2023-07-15 00:00:00 2023-07-15 00:00:00 Outpatient NOLVIA VANG [id number] Hilda Seybold 2023-07-02 13:30:00 2023-07-02 13:30:00 Outpatient SIDIQ, RAISA HILDA FORREST [id number] Hilda Seybold 2023-07-02 12:00:00 2023-07-02 12:00:00 Outpatient PACE53 HILDA FORREST [id number] Hilda Seybold 2023-07-02 00:00:00 2023-07-02 00:00:00 Outpatient MD HILDA LOWRY [id number] Hilda Seybold 2023-07-02 00:00:00 2023-07-02 00:00:00 Outpatient HILDA FORREST [id number] Hilda Seybold 2023-06-02 09:30:00 2023-06-02 09:30:00 Outpatient MAXIMILIAN VIDALES [id number] Hilda Seybold 2023-05-04 15:20:00 2023-05-04 15:20:00 Outpatient MIGUEL ÁNGEL DANGELO [id number] Hilda Seybold 2023-05-01 00:00:00 2023-05-01 00:00:00 Outpatient PREZASMAXIMILIAN HILDA [id number] [facility] 2023-04-30 10:45:00 2023-04-30 10:45:00 Outpatient PACE53 HILDA HILDA [id number] Hilda Seybold 2023-04-28 00:00:00 2023-04-28 00:00:00 Outpatient ADAMVARGHESE Grijalva HILDA FORREST [id number] [facility] 2023-03-17 00:00:00 2023-03-17 00:00:00 Outpatient PREZASMAXIMILIAN HILDA FORREST [id number] [facility] 2023-03-12 00:00:00 2023-03-12 00:00:00 Outpatient PREZAS, MAXIMILIAN HILDA FORREST [id number] [facility] 2023-03-11 11:30:00 2023-03-11 11:30:00 Outpatient TRED47 HILDA FORREST [id number] [facility] 2023-03-11 09:10:00 2023-03-11 09:10:00 Outpatient ADAMVARGHESE HILDA FORREST [id number] [facility] 2023-03-11 00:00:00 2023-03-11 00:00:00 Outpatient ADAMVARGHESE Grijalva HILDA FORREST [id number] [facility] 2023-03-10 00:00:00 2023-03-10 00:00:00 Outpatient ADAMVARGHESE Grijalva HILDA FORREST [id number] [facility] 2023-03-05 00:00:00 2023-03-05 00:00:00 Outpatient MD HILDA LOWRY [id number] Hilda Seybold 2023-03-03 16:30:00 2023-03-03 16:30:00 Outpatient PREZASMAXIMILIAN HILDA FORREST [id number] [facility] 2023-03-03 00:00:00 2023-03-03 00:00:00 Outpatient HILDA FORREST [id number] [facility] 2023-02-24 00:00:00 2023-02-24 00:00:00 Outpatient PREZAS, MAXIMILIAN HILDA FORREST [id number] Hilda Rodriguezmert 2023-02-23 00:00:00 2023-02-23 00:00:00 Outpatient HILDA FORREST [id number] Hilda Mark 2023-02-18 15:50:00 2023-02-18 15:50:00 Outpatient TERI GARCIA HILDA FORREST [id number] Hilda Mark 2023-01-14 14:30:00 2023-01-14 14:30:00 Outpatient TERI GARCIA HILDA FORREST [id number] Hilda ybmert 2023-01-14 00:00:00 2023-01-14 00:00:00 Outpatient MD HILDA LOWRY [id number] [facility] 2023-01-02 15:20:00 2023-01-02 15:20:00 Outpatient TG MOJICA [id number] [facility] 2022-12-03 15:15:00 2022-12-03 15:15:00 Outpatient MAXIMILIAN VIDALES HILDA FORREST [id number] [facility] 2022-11-24 00:00:00 2022-11-24 00:00:00 Outpatient MAXIMILIAN VIDALES HILDA FORREST [id number] Hilda [facility] 2022-11-11 15:30:00 2022-11-11 15:30:00 Outpatient MAXIMILIAN VIDALES HILDA FORREST [id number] [facility] 2022-11-04 00:00:00 2022-11-04 00:00:00 Outpatient HILDA FORREST [id number] Hilda ybmert 2022-11-04 00:00:00 2022-11-04 00:00:00 Outpatient HILDA FORREST [id number] [facility] 2022-11-03 00:00:00 2022-11-03 00:00:00 Outpatient HILDA FORREST [id number] Hilda ybmert 2022-10-24 00:00:00 2022-10-24 00:00:00 Outpatient GEORGIE VIDALESCRISTIANO FORREST [id number] Hilda Flores 2022-10-20 00:00:00 2022-10-20 00:00:00 Outpatient MAXIMILIAN VIDALES HILDA [id number] Hilda Flores 2022-10-10 16:15:00 2022-10-10 16:15:00 Outpatient MAXIMILIAN VIDALES HILDA [id number] Hilda Flores 2021-12-04 10:40:00 2021-12-04 12:16:00 Emergency X RIDYAN, STEVEER [facility] ERT [id number] [facility] 2021-12-04 10:40:00 2021-12-04 12:16:00 [facility] [place] [id number] [facility] 2021-05-10 00:00:00 2021-05-10 00:00:00 (TEL) STLMLC STLMLC [id number] [facility] 2021-01-20 00:00:00 2021-01-20 00:00:00 (WEB) STLMLC STLMLC [id number] [facility] 2021-01-14 14:30:00 2021-01-14 14:30:00 Emergency X [facility] ERT [id number] [facility] 2020-12-10 00:00:00 2020-12-10 00:00:00 OFFICE VISIT ESTAB PT LEVEL 4 STLMLC STLMLC [id number] [facility] 2020-01-13 14:40:00 2020-01-13 14:40:00 Outpatient [facility] Medicine [id number] [facility] 2020-01-13 11:40:00 2020-01-13 11:40:00 Outpatient [facility] Medicine [id number] [facility] 2019-12-21 16:33:00 2019-12-21 16:33:[address] [facility] [id number] [facility] 2019-10-27 15:41:00 2019-10-28 20:02:00 Inpatient 1 [facility] [id number] [facility] 2019-09-05 13:11:00 2019-09-05 13:11:00 Outpatient [facility] [id number] [facility] 2019-08-15 19:48:00 2019-08-20 12:33:00 Inpatient E [facility] [id number] [facility] 2019-07-07 15:26:00 2019-07-07 15:26:00 Outpatient [facility] [id number] [facility] 2019-06-23 14:00:00 2019-06-23 14:00:00 Outpatient [facility] [id number] [facility] 2018-02-04 15:00:00 2018-02-04 15:00:00 Outpatient [facility] [id number] [facility] Results Test Description Test Time Test Comments Results Result Co mments Source Troponin [id number] 21:47:02* Test Item Value Reference Range Interpretation [...] a diagnosis of chronic myocardial injury. Troponin [id number] 19:26:34* Test Item Value Reference Range Interpretation [...] a diagnosis of chronic myocardial injury. Troponin [id number] 17:01:59* Test Item Value Reference Range Interpretation [...] diagnosis of chronic myocardial injury. Comprehensive Metabolic [id number] 16:46:40* Test Item Value Reference Range Interpretation [...] is not provided, and the patient is -[place], multiply by 1.212. If sex is not [...] by the National Kidney Foundation, http://nkdep.nih.gov Creatine [id number] 16:46:40* Test Item Value Reference Range Interpretation Comme nts CK (test code = CK) 224 U/L 26-192 H Comprehensive Metabolic [id number] 16:46:40* Test Item Value Reference Range Interpretation [...] is not provided, and the patient is -[place], multiply by 1.212. If sex is not [...] is not provided, and the patient is -[place], multiply by 1.212. If sex is not [...] the National Kidney Foundation, http://nkdep.nih.gov Comprehensive Metabolic [id number] 16:46:40* Test Item Value Reference Range Interpretation [...] is not provided, and the patient is -[place], multiply by 1.212. If sex is not [...] is not provided, and the patient is -[place], multiply by 1.212. If sex is not [...] National Kidney Foundation, http://nkdep.nih.gov Pro B Natriuretic [id number] 16:43:50* Test Item Value Reference Range Interpretation Comme nts NT-proBNP (test code = NT-proBNP) 513 pg/mL 0-124 H Automated [id number] 16:24:33* Test Item Value Reference Range Interpretation Comme nts Neutro Auto (test code = Liliya tro Auto) 53.0 % 36.0-70.0 Lymph Auto (test code = Lymph Auto) 39.3 % 12.0-44.0 [place] Auto (test code = Colleton Auto) 6.6 % 0.0-11.0 Eos, Auto (test code = Eos, Auto) 0.0 % 0.0-7.0 Basophil Auto (test code = B asophil Auto) 0.8 % 0.0-2.0 Neutro Absolute (test code = Neutro Absolute) 4.0 x10 1.6-7.4 Lymph Absolute (test code = Lymph Absolute) 2.97 x10 .50-4.60 [place] Absolute (test code = M donna Absolute) .50 x10 .00-1.20 Eos Absolute (test code = Eo s Absolute) 0.00 x10 0.00-0.74 Baso Absolute (test code = B aso Absolute) 0.06 x10 0.00-0.21 IG [id number] 16:24:33* Test Item Value Reference Range Interpretation Comme nts IG (test code = IG) 0.3 % 0.0-5.0 IG Abs (test code = IG Abs) 0 x10 N Complete Blood Count with [id number] 16:24:32* Test Item Value Reference Range Interpretation [...] 0 % N XR Chest 1 View [id number] 16:11:29Patient: SHEFALI JOYNER Date/Time10/27/2019 16:05 CDTReason for ExamChest nany nReportDICTATION LOCATION: [id number]: Female, 54 years of age with Chest [...] level: 11th grade Occupational History 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 Follow instructions provided by provider.. [facility]
--- NOTE | 2024-07-02 13:48 | RAD REPORT ---
EXAMINATION: Hip Right 2 View CLINICAL INDICATION: Female, 58 years old. PAIN RIGHT COMPARISON: No prior exam. FINDINGS: No acute fracture. No malalignment/dislocation. No significant focal degenerative change. Other: n/a IMPRESSION: No acute osseous abnormality.
--- NOTE | 2024-07-02 13:49 | RAD REPORT ---
EXAMINATION: Pelvis CLINICAL INDICATION: Female, 58 years old. PAIN COMPARISON: No prior exam. FINDINGS: No acute fracture. Partially imaged scoliotic changes in the spine. The femoral heads appear located. No significant focal degenerative change. Other: n/a IMPRESSION: No acute osseous abnormality.
--- NOTE | 2024-07-02 14:55 | RAD REPORT ---
EXAMINATION: CT LUMBAR SPINE WITHOUT CONTRAST CLINICAL INDICATION: Female, 58 years old. PAIN TECHNIQUE: Axial CT images were obtained through the lumbar spine in soft tissue and bone windows wit hout intravenous contrast. Coronal and Sagittal reformatted images were created from the data set. One or more of the following dose reduction techniques were used: Automated exposure control, adjustm ent of the mA and/ or kV according to patient size, and/or iterative reconstruction. Unless otherwise specified, incidental findings do not require dedicated imaging follow-up. [id number]. COMPARISON: No prior exam. FINDINGS: For purposes of this dictation, it is assumed that there are 5 non rib-bearing lumbar type vertebrae, and the most caudal fully segmented lumbar vertebra is labeled L5. ALIGNMENT: The lumbar spine demonstrates normal alignment without scoliosis or spondylolisthesis. BONES: No significant soft tissue abnormalities. No aggressive osseous lesions. DISCS: Moderate to severe disc height loss at L5-S1 and mild to moderate disc height loss at L4-5. Fa cet degenerative changes are present bilaterally. LEVELS: Broad-based disc bulge present at multiple levels including L2-3 where there is at least mild central spinal stenosis as well as at L3-4. No high-grade central spinal stenosis identified. SOFT TISSUE: Cholecystomy. Horseshoe kidney. Diverticulosis. Appendectomy. IMPRESSION: No acute lumbar spine abnormalities.
--- NOTE | 2024-07-02 14:58 | RAD REPORT ---
EXAMINATION: Pelvis Wo Cont CLINICAL INDICATION: Female, 58 years old. right hip pain TECHNIQUE: CT pelvis was performed, without IV contrast, as per department protocol. Axial, sagittal and coronal reconstructions were obtained. One or more of the following dose reduction techniques were used: Automated exposure control, adjustment of the mA and/or kV according to patient size, and/ or iterative reconstruction. Unless otherwise specified, incidental findings do not require dedicated imaging follow-up. [id number]. IV CONTRAST: Not administered. COMPARISON: Same-day radiographs FINDINGS: SMALL BOWEL/COLON: Small bowel has normal course and caliber. No colonic wall thickening or pericolon ic inflammatory changes.Appendix absent. LYMPH NODES: No lymphadenopathy. ABDOMINAL AORTA AND OTHER VESSELS: Normal caliber aorta and IVC. PERITONEUM: No abnormal free fluid. No free air. ABDOMINAL WALL: No significant abnormality. REPRODUCTIVE ORGANS: No pathologic process. URINARY BLADDER: Underdistended but grossly unremarkable. MUSCULOSKELETAL: No acute or suspicious osseous abnormality. ADDITIONAL FINDINGS: None. IMPRESSION: No pelvic or hip fracture identified.
[2024-07-02] MEDS ORDERED: HYDROCODONE/APAP 10/325 TAB ONE (15:18)
[2024-07-02] MEDS ORDERED: KETOROLAC 30 MG/ML INJ ONE (15:49)
[2024-07-02] MEDS ORDERED: DIAZEPAM 10 MG/2 ML INJ SYRINGE ONE (15:49)
[2024-07-02] MEDS ORDERED: dexAMETHasone 10 MG/ML VIAL ONE (15:49)
--- NOTE | 2024-07-02 16:17 | EDPHYS ---
Physician Documentation [facility] Name: Virgie Silveira Age: 58 yrs Sex: Female : 1965 Arrival Date: 07/02/2024 Time: 12:27 Bed 10 Private MD: Alejandro Funk HPI: 07/02 13:05 This 58 yrs old Female presents to ER via Ambulatory with complaints of Hip Pain. cp 13:05 The patient or guardian reports pain. cp 13:05 sustained from unknown reason, There is no obvious deformity, The patient is able to cp ambulate with assistance. The patient is able to bear partial body weight. The patient's discomfort radiates to the right leg. The complaints affect the right hip. Associated signs and symptoms: Pertinent positives: right low back pain. 13:05 Onset: The symptoms/episode began/occurred 3 day(s) ago, and became worse today. cp Modifying factors: the symptoms are aggravated by any movement, weight bearing. Historical: - Allergies: 12:53 Cipro; kl 12:53 Codeine; kl 12:53 Lisinopril; kl 12:53 Morphine; kl - Home Meds: 12:53 Entresto Oral [Active]; furosemide 40 mg Oral tab 1 tab once daily [Active]; kl levothyroxine 20 mcg/mL oral solution [Active]; Metoprolol Tartrate Oral [Active]; Norvasc Oral [Active]; Potassium Chloride Oral [Active]; - PMHx: 12:53 Congestive heart failure; Hypertension; Hypothyroidism; Pacemaker; defib; Tachycardia kl (right elbow surgery); - PSHx: 12:53 section; heart cath; hysterectomy; right elbow surgery; kl - Immunization history:: Adult Immunizations not immunized. - Infectious Disease History:: Denies. - Social history:: Smoking status: Patient reports the use of cigarette tobacco products, smokes one pack cigarettes per day. ROS: 13:10 Eyes: Negative for injury, pain, redness, and discharge, cp 13:10 Constitutional: Negative for body aches, chills, fever, poor PO intake, 13:10 Neck: Negative for pain with movement, pain at rest, stiffness, 13:10 Cardiovascular: Negative for chest pain, 13:10 Abdomen/GI: Negative for abdominal pain, vomiting, diarrhea, constipation, bowel incontinence, 13:10 Back: Positive for pain at rest, pain with movement, of the right low back, Negative for injury or acute deformity, 13:10 : Negative for urinary symptoms, hematuria, bladder incontinence, testicular pain cp 13:10 Neuro: Negative for altered mental status, dizziness, headache, numbness, weakness, 13:10 All other systems are negative, Exam: 13:15 Constitutional: The patient appears in no acute distress, alert, awake, cp non-diaphoretic, non-toxic, well developed, well nourished, uncomfortable, 13:15 Head/Face: Normocephalic, atraumatic. cp 13:15 Eyes: Periorbital structures: appear normal, Conjunctiva: normal, no exudate, no injection, Sclera: no appreciated abnormality, Lids and lashes: appear normal, bilaterally, 13:15 ENT: External ear(s): are unremarkable, Nose: is normal, Mouth: Lips: moist, Oral mucosa: moist, Posterior pharynx: Airway: no evidence of obstruction, patent, 13:15 Neck: ROM/movement: is normal, is supple, without pain, no range of motions limitations, 13:15 Chest/axilla: Inspection: normal, 13:15 Cardiovascular: Rate: normal, Rhythm: regular, 13:15 Respiratory: the patient does not display signs of respiratory distress, Respirations: normal, no use of accessory muscles, no retractions, labored breathing, Breath sounds: are clear throughout, no decreased breath sounds, no stridor, no wheezing, 13:15 Abdomen/GI: Inspection: obese Bowel sounds: active, all quadrants, Palpation: abdomen is soft and non-tender, in all quadrants, 13:15 Back: pain, that is moderate, of the right low back, ROM is painful, with all movement, vertebral tenderness, is not appreciated, 13:15 Musculoskeletal/extremity: Extremities: noted in the right hip: pain, ROM: limited passive range of motion due to pain, in the right hip, Perfusion: the extremity is normally perfused throughout, the right leg Sensation intact. 13:15 Neuro: Orientation: to person, place \T\ time. Mentation: is normal, Vital Signs: 12:48 BP 129 / 85; Pulse 88; Resp 16; Temp 97.7(TE); Pulse Ox 100% on R/A; Weight 73.48 kg kl (R); Height 5 ft. 1 in. ; Pain 10/10; 12:48 Body Mass Index 30.61 (73.48 kg, 154.94 cm) kl 12:48 Pain Scale: Adult kl MDM: 12:59 Medical Screening Exam initiated adela 16:15 Data reviewed: vital signs, nurses notes, lab test result(s), radiologic studies, CT cp scan, plain films, and as a result, I will discharge patient. 16:15 I considered the following discharge prescriptions or medication management in the emergency department Medications were administered in the Emergency Department. See MAR. Counseling: I had a detailed discussion with the patient and/or guardian regarding the historical points, exam findings, and any diagnostic results supporting the discharge/admit diagnosis, lab results, radiology results, the need for outpatient follow up, a family practitioner, to return to the emergency department if symptoms worsen or persist or if there are any questions or concerns that arise at home. Response to treatment: the patient's symptoms have markedly improved after treatment, and as a result, I will discharge patient. 07/02 12:58 Order name: XRAY Pelvis; Complete Time: 14:16 07/02 14:16 Interpretation: Report reviewed. 07/02 12:58 Order name: XRAY Hip RIGHT 2 view; Complete Time: 14:16 07/02 14:21 Interpretation: Report reviewed. 07/02 14:22 Order name: CT Lumbar Spine Wo Con; Complete Time: 15:23 07/02 14:22 Order name: CT Pelvis wo Cont; Complete Time: 15:23 cp Administered Medications: 15:20 Drug: HYDROcodone-acetaminophen PO 10 mg-325 mg 1 tabs PO once Route: PO; ap3 15:20 Follow up: Response: No adverse reaction ap3 15:55 Drug: Dexamethasone IM 10 mg IM once Route: IM; Site: right gluteus; ap3 16:41 Follow up: Response: No adverse reaction ap3 15:55 Drug: Ketorolac IM 30 mg IM once Route: IM; Site: right gluteus; ap3 16:41 Follow up: Response: No adverse reaction ap3 15:55 Drug: Diazepam IM 5 mg IM once Route: IM; Site: right gluteus; ap3 16:41 Follow up: Response: No adverse reaction ap3 Disposition Summary: 07/02/24 16:17 Discharge Ordered Notes: Location: Home cp Problem: new cp Symptoms: have improved cp Condition: Stable cp Diagnosis - Sciatica, right side cp Followup: cp - With: Private Physician - When: 2 - 3 days - Reason: Recheck today's complaints Discharge Instructions: - Discharge Summary Sheet cp - Sciatica cp - Back Exercises cp Forms: - Medication Reconciliation Form cp - Antibiotic Education cp - Prescription Opioid Use cp - Patient Portal Instructions cp - Leadership Thank You Letter cp Prescriptions: - Tramadol 50 mg Oral Tablet - take 1 tablet ORAL route every 8 hours as needed; 12 tablet; Refills: 0, cp Product Selection Permitted - Medrol (Jaleel) 4 mg Oral Tablets, Dose Pack - take 1 tablet ORAL route as directed - follow package instructions; 1 packet; cp Refills: 0, Product Selection Permitted - methocarbamol 750 mg Oral tablet - take 1 tablet ORAL route 3 times per day; 30 tablet; Refills: 0, Product cp Selection Permitted Addendum: 07/06/2024 07:26 Co-signature as Attending Physician, Alejandro Jenkins MD I agree with the assessment and c riley plan of care. Signatures: Dispatcher [employer] EDID Carley Jensen RN RN kl Anderson, Corey, MD MD cha Page, Corey, PA PA Vani Ahn RN RN ap3 Corrections: (The following items were deleted from the chart) 07/02 12:59 12:59 Hip Right 2 View+RAD.RAD.BRZ ordered. EDID EDID 12:59 12:59 Urinalysis+U.LAB.BRZ ordered. EDID EDID 14:22 14:22 Pelvis Wo Cont+CT.RAD.BRZ ordered. EDID EDID 07/03 12:36 12:33 Back: Positive for pain at rest, pain with movement, of the right low back, cp Negative for injury or acute deformity, cp 12:36 12:33 Cardiovascular: Negative for chest pain, cp cp 12:36 12:33 Constitutional: Negative for body aches, chills, fever, poor PO intake, cp cp 12:36 12:33 Neck: Negative for pain with movement, pain at rest, stiffness, cp cp 12:36 12:33 Abdomen/GI: Negative for abdominal pain, vomiting, diarrhea, constipation, bowel cp incontinence, cp 12:36 12:33 Eyes: Negative for injury, pain, redness, and discharge, cp cp
--- NOTE | 2024-07-02 16:17 | ER ---
Nurse's Notes [facility] Name: Virgie Silveira Age: 58 yrs Sex: Female : 1965 Arrival Date: 07/02/2024 Time: 12:27 Bed 10 Private MD: Diagnosis: Sciatica, right side Presentation: 07/02 12:48 Chief complaint: Patient states: right hip and groin pain x 3 days reports difficulty kl ambulating denies injury or heavy lifting. Coronavirus screen: Vaccine status: Patient reports being unvaccinated. Ebola Screen: Patient negative for fever greater than or equal to 101.5 degrees Fahrenheit, and additional compatible Ebola Virus Disease symptoms. Initial Sepsis Screen: Does the patient meet any 2 criteria? No. Patient's initial sepsis screen is negative. Does the patient have a suspected source of infection? No. Patient's initial sepsis screen is negative. Risk Assessment: Do you want to hurt yourself or someone else? Patient reports no desire to harm self or others. Onset of symptoms was June 29, 2024. 12:48 Method Of Arrival: Ambulatory kl 12:48 Acuity: TOÑITO 3 kl Triage Assessment: 12:54 General: Appears uncomfortable, Behavior is calm, cooperative. Pain: Complains of pain kl in right hip Pain radiates to right femoral area. Historical: - Allergies: 12:53 Cipro; kl 12:53 Codeine; kl 12:53 Lisinopril; kl 12:53 Morphine; kl - Home Meds: 12:53 Entresto Oral [Active]; furosemide 40 mg Oral tab 1 tab once daily [Active]; kl levothyroxine 20 mcg/mL oral solution [Active]; Metoprolol Tartrate Oral [Active]; Norvasc Oral [Active]; Potassium Chloride Oral [Active]; - PMHx: 12:53 Congestive heart failure; Hypertension; Hypothyroidism; Pacemaker; defib; Tachycardia kl (right elbow surgery); - PSHx: 12:53 section; heart cath; hysterectomy; right elbow surgery; kl - Immunization history:: Adult Immunizations not immunized. - Infectious Disease History:: Denies. - Social history:: Smoking status: Patient reports the use of cigarette tobacco products, smokes one pack cigarettes per day. Screenin:40 [facility] ED Fall Risk Assessment (Adult) History of falling in the last 3 months, ap3 including since admission No falls in past 3 months (0 pts) Confusion or Disorientation No (0 pts) Intoxicated or Sedated No (0 pts) Impaired Gait No (0 pts) Mobility Assist Device Used No (0 pt) Altered Elimination No (0 pt) Score/Fall Risk Level 0 - 2 = Low Risk Oriented to surroundings. Abuse screen: Denies threats or abuse. Denies injuries from another. Nutritional screening: No deficits noted. Tuberculosis screening: No symptoms or risk factors identified. Vital Signs: 12:48 BP 129 / 85; Pulse 88; Resp 16; Temp 97.7(TE); Pulse Ox 100% on R/A; Weight 73.48 kg kl (R); Height 5 ft. 1 in. ; Pain 10/10; 12:48 Body Mass Index 30.61 (73.48 kg, 154.94 cm) kl 12:48 Pain Scale: Adult ED Course: 12:33 Patient arrived in ED. sj2 12:38 Alejandro Barraza PA is PHCP. cp 12:38 Alejandro Jenkins MD is Attending Physician. cp 12:50 Arm band placed on. ap3 12:53 Triage completed. kl 13:24 XRAY Pelvis In Process Unspecified. EDMS 13:24 XRAY Hip RIGHT 2 view In Process Unspecified. EDMS 14:41 CT Lumbar Spine Wo Con In Process Unspecified. EDMS 14:41 CT Pelvis wo Cont In Process Unspecified. EDMS 15:19 Vani Diallo, RN is Primary Nurse. ap3 16:40 Patient has correct armband on for positive identification. ap3 16:40 No provider procedures requiring assistance completed. Patient did not have IV access ap3 during this emergency room visit. Administered Medications: 15:20 Drug: HYDROcodone-acetaminophen PO 10 mg-325 mg 1 tabs PO once Route: PO; ap3 15:20 Follow up: Response: No adverse reaction ap3 15:55 Drug: Dexamethasone IM 10 mg IM once Route: IM; Site: right gluteus; ap3 16:41 Follow up: Response: No adverse reaction ap3 15:55 Drug: Ketorolac IM 30 mg IM once Route: IM; Site: right gluteus; ap3 16:41 Follow up: Response: No adverse reaction ap3 15:55 Drug: Diazepam IM 5 mg IM once Route: IM; Site: right gluteus; ap3 16:41 Follow up: Response: No adverse reaction ap3 Outcome: 16:17 Discharge ordered by MD. cp 16:40 Discharged to home ambulatory, ap3 16:40 Condition: stable 16:40 Discharge instructions given to patient, Instructed on discharge instructions, follow up and referral plans. medication usage, Demonstrated understanding of instructions, follow-up care, medications, Prescriptions given X 3, 16:41 Patient left the ED. ap3 Signatures: Dispatcher [employer] EDCarley Napier, RN RN Alejandro Agudelo PA PA cp Prokisch, Amanda, RN RN ap3 Taras Ovalle
[2024-07-02 17:01] VITALS: BP 129/85; TEMP 97.7; O2SAT 100
== END 2024-07-02 16:41 | disposition home or self-care (01) ==
LOC: ER 12:27
DX: M54.31 Sciatica, right side (principal); I10 Essential (primary) hypertension; E03.9 Hypothyroidism, unspecified; F17.210 Nicotine dependence, cigarettes, uncomplicated; Z95.810 Presence of automatic (implantable) cardiac defibrillator; Z79.899 Other long term (current) drug therapy; Z88.1 Allergy status to other antibiotic agents; Z88.5 Allergy status to narcotic agent
CPT/HCPCS: 72131; 72192; 72170; 73502; 96372; 99284; J3360; J1100

== ENCOUNTER 2025-03-09 02:11 | Inpatient (IN) | payer OTHER, SELFPAY ==
--- OUTSIDE RECORDS SUMMARY | 2025-03-09 02:17 | XMS REPORT | Continuity of Care Document ---
Author Name Unknown Address [address] [facility] [address] [place] [address] [facility] Address [address] [facility] [address] [place] [address] Care Team Providers Care Fudge Candy Maker Name Role Phone STEPH OSWALD Primary Care Physician Unavaila Steph Glaser Attending Clinician Unavailable Awilda Daniels Attending Clinician Unavailable Oscar Arceo Attending Clinician Unavailable Varghese Gaston Attending Clinician Unavailable Varghese Gaston Attending Clinician Unavailable KAREEM ESPINOSA Attending Clinician Unavailable JOSEF CROWELL Attending Clinician Unavailable [id number] Attending Clinician Unavailable VARGHESE MEDINA Attending Clinician Unav MAXIMILIAN Edwards Attending Clinician Unavailable MD MYA Attending Clinician Unavailab saurabh THACKER Attending Clinician Unavailable LAB90 Attending Clinician Unavailable QUAN ANG Attending Clinician Unavailable TRED53 Attending Clinician Unavailable RAISA KIMBROUGH Attending Clinician Unavailable NOLVIA VANG Attending Clinician Unavailable MIGUEL ÁNGEL DANGELO Attending Clinician Unavailable TRED47 Attending Clinician Unavailable TERI GARCIA Attending Clinician Unavailable TG MOJICA Attending Clinician Unavailable AALIYAH MASON Attending Clinician Unavaila ble Aaliyah Morrison Attending Clinician [phone] DIDIER ARGUETA Attending Clinician Unavailable Oscar Arceo Admitting Clinician Unavailable Varghese Gaston Admitting Clinician Unavailable AALIYAH MASON Admitting Clinician UnavailDIDIER Gorman Admitting Clinician Unavailable Payers Payer Name Policy Type Policy Number Effective Date Expirati on Date Source [place] [facility] [place] 94 9 [id number] 2024 00:00:00 HIM AMBETTER FROM [facility] [id number] 2020 00:00:00 Ambetter from [facility] [id number] 2020 00:00:00 [facility] Ambetter from [facility] [id number] 2020 00:00:00 [facility] Ambetter from [facility] [id number] 2020 00:00:00 [facility] Problems Condition Name Condition Details Condition Category Status Onset Date Resolution Date Last Treatment Date Treating Clinician Comments Source 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 12-02 00:00: 00 Hilda rothman Class 1 obesity due to excess calories with serious comorbidit y and body mass index (BMI) of 30.0 to 30.9 in adult Class 1 obesity due to excess calories with serious comorbidit y and body mass index (BMI) of 30.0 to 30.9 in adult Disease Active 03-03 00:00: 00 Hilda rothman Encounter for consultati on Encounter for consultati on Disease Active 03-03 00:00: 00 Hilda rothman [...] 30.0 to 30.9 in adult Disease Active 2023-0 9-19 00:00: 00 Hilda rothman History of non-ST elevation myocardial infarction (NSTEMI) History of non-ST elevation myocardial infarction (NSTEMI) Disease Active 11-03 00:00: 00 Hilda rothman CHF (congestiv e heart failure) (multi HCC) CHF (congestiv e heart failure) (multi HCC) Disease Active 10-10 00:00: 00 Hilda rothman History of placement of internal cardiac defibrilla tor History of placement of internal cardiac defibrilla tor Disease Active 10-10 00:00: 00 Hilda rothman COPD (chronic obstructiv e pulmonary disease) (multi HCC) COPD (chronic obstructiv e pulmonary disease) (multi HCC) Disease Active 10-10 00:00: 00 Hilda rothman ICD (implantab le cardiovert er-defibri llator) in place ICD (implantab le cardiovert er-defibri llator) in place Disease Active 10-10 00:00: 00 Hilda rothman [id number] Hypokalemi a Problem Active [facility] [id number] Tachycardi a Problem Active [facility] Smoker Smoker Problem Active [facility] [id number] Acquired hypothyroi dism Problem Active [facility] [id number] Peripheral edema Problem Active [facility] [id number] Cervical radiculopa thy at C5 Problem Active [facility] [id number] Lumbar radiculopa thy, chronic Problem Active [facility] No known active problems No known active problems Disease [facility] Allergies, Adverse Reactions, Alerts Allergy Name Allergy Type Status Severity Reaction(s) Onset Date Inactive Date Treating Clinician Comments Source Lisinopr il Propensi ty to adverse reaction s Active Rash 10-09 00:00: 00 Hilda rothman Morphine Propensi ty to adverse reaction s Active Other 10-09 00:00: 00 Hilda Seybold - Externa l LISINOPR IL DRUG INGREDI Active Rash 01-14 00:00: 00 [facility] Lisinopr il Propensi ty to adverse reaction s Active Rash 01-14 00:00: 00 [facility] MORPHINE DRUG INGREDI Active Unknown-Cmnt 2009-06 00:00: 00 [facility] Morphine Propensi ty to adverse reaction s Active Unknown - See comments 2009-06 00:00: 00 [facility] CODEINE- BUTALBIT AL-ASA-C AFF DRUG Active N/V 2006-06 00:00: 00 [facility] Codeine- Butalbit al-Asa-C aff Propensi ty to adverse reaction s Active Nausea and/or Vomiting 2006-06 00:00: 00 [facility] morphine morphine Active Unknown Commo n [facility] lisinopr il lisinopr il Active Unknown Common [facility] morphine Drug Active [facility] lisinopr il Drug Active [facility] morphine Drug Active [facility] lisinopr il Drug Active [facility] morphine Drug Active [facility] lisinopr il Drug Active [facility] morphine Drug Active [facility] lisinopr il Drug Active [facility] morphine Drug Active [facility] lisinopr il Drug Active [facility] morphine Drug Active [facility] lisinopr il Drug Active [facility] morphine Drug Active [facility] lisinopr il Drug Active [facility] morphine Drug Active [facility] lisinopr il Drug Active [facility] morphine Drug Active [facility] lisinopr il Drug Active [facility] morphine Drug Active [facility] lisinopr il Drug Active [facility] morphine Drug Active [facility] lisinopr il Drug Active [facility] morphine Drug Active [facility] lisinopr il Drug Active [facility] morphine Drug Active [facility] lisinopr il Drug Active [facility] morphine Drug Active [facility] lisinopr il Drug Active [facility] Social History Social Habit Start Date Stop Date Quantity Comments Source Gender identity Deb Flores - External ASSERTION Not Hilda Flores - External History of Occupation Hilda Flores - External Sexual orientation Srikanth Flores - External History of tobacco use Cigarette Smoker Hilda painting - External Alcoholic beverage intake 2024-12-07 00:00:00 2024-12-07 00:00:00 Ex-drinker (finding) Hilda Flores - External Cigarettes smoked current (pack per day) - Reported 2024-12-02 00:00:00 2024-12-02 00:00:00 Hilda Flores - External Cigarette pack-years 2024-12-02 00:00:00 2024-12-02 00:00:00 Hilda Flores - External Tobacco use and exposure 2024-12-02 00:00:00 2024-12-02 00:00:00 Smokeless tobacco non-user Hilda Flores - External Alcohol intake 2023-03-11 00:00:00 2023-03-11 00:00:00 Ex-drinker (finding) Hilda Flores - External History of Social function 2023-03-02 00:00:00 2023-03-02 00:00:00 Hilda Flores - External Education 2022-10-10 00:00:00 2022-10-10 00:00:00 11 Hilda Flores - External Alcohol Comment 2022-10-09 00:00:00 2022-10-09 00:00:00 stopped in 2007 Hilda Flores - External Sex 2022-07-02 21:22:32 2022-07-02 21:22:32 Female (finding) Hilda Flores - External Exposure to SARS-CoV-2 (event) 2021-11-24 00:00:00 2021-12-04 10:21:00 Unable to assess [facility] Sex assigned at 1965 00:00:00 1965 00:00:00 Hilda Stephenson Smoking Status Start Date Stop Date Source Occasional tobacco smoker 2024-12-02 00:00:00 Hilda Muniz External Ex-smoker 2023-11-16 00:00:00 2023-11-16 00:00:00 Hilda Stephenson Smokes tobacco daily 2022-10-09 00:00:00 Hilda Muniz External Medications Ordered Medication Name Filled Medication Name Start Date Stop Date Current Medication? Ordering Clinician Indication Dosage Frequency Signature (SIG) Comments Components Source Potassium Chloride ER (KLOR-CON) 20 MEQ oral Tab CR 12-07 15:37: 09 12-07 00:00 :00 No in the morning. Hilda rothman Varenicline Tartrate 1 MG oral Tablet 12-07 00:00: 00 Yes [id number] 1mg Q.5D Take 1 tablet (1 mg total) by mouth 2 times daily. Hilda rothman Semaglutide -SHAD-Jama ght Management 0.25 MG/0.5ML Subcutaneou s Solution Auto-inject or 12-07 00:00: 00 Yes [id number] .25mg Q1W Inject 0.25 mg into the skin once a week. Hilda rothman Empaglifloz in (Jardiance) 10 MG oral Tablet 12-02 00:00: 00 Yes [id number] 10mg QD Take 1 tablet (10 mg total) by mouth daily. Hilda rothman Furosemide (Lasix) 20 MG oral Tablet 12-02 00:00: 00 Yes 20mg QD Take 1 tablet (20 mg total) by mouth daily. Hilda rothman Metoprolol Succinate 50 MG oral TABLET SR 24 HR 12-02 00:00: 00 11-28 04:59 :00 No Take 0.5 tablets (25 mg total) by mouth daily for 7 days, THEN 1 tablet (50 mg total) daily. Hilda rothman Potassium Chloride ER (KLOR-CON) 20 MEQ oral Tab CR 04 13:23: 12 Yes in the morning. Hilda rothman Furosemide (LASIX OR) 4-04 13:23: 12 Yes QD daily. Hilda rothman Varenicline Tartrate, Starter, 0.5 MG X 11 & 1 MG X 42 oral Tablet Therapy Pack 4-04 00:00: 00 12-07 00:00 :00 No [id number] Use as directed on package instructio ns, try to quit smoking after 1 week.. Hilda rothman Semaglutide -SHAD-Jama ght Management 0.25 MG/0.5ML Subcutaneou s Solution Auto-inject or 09-16 00:00: 00 12-07 00:00 :00 No [id number] .25mg Q1W Inject 0.25 mg into the skin once a week. Hilda rothman Spironolact one 25 MG oral Tablet 2023-06 1-12 00:00: 00 Yes 25mg QD TAKE 1 TABLET (25 MG TOTAL) BY MOUTH DAILY. Hilda rothman Metoprolol Succinate 25 MG oral TABLET SR 24 HR 6-03 00:00: 00 09-16 00:00 :00 No 25mg QD Take 1 tablet (25 mg total) by mouth daily. Hilda rothman Sacubitril- Valsartan (Entresto) 24-26 MG oral Tablet 5-13 00:00: 00 Yes 24mg Q.5D Take 24-26 mg by mouth 2 times daily. Hilda rothman PEG-KCl-NaC l-NaSulf-Na Asc-C (MOVIPREP) 100 g oral Recon Soln 1-18 00:00: 00 Yes [id number] Instructio ns provided to patient. Follow instructio ns provided by provider.. Hilda rothman Sacubitril- Valsartan (Entresto) 24-26 MG oral Tablet 9-27 00:00: 00 Yes 24mg Take 24-26 mg [...] POWDER, BREATH ACTIVATED 10-10 00:00: 00 Yes [id number] 1{puff} Inhale 1 puff into the lungs 2 times daily Hilda rothman Levalbutero l Tartrate (Xopenex HFA) 45 MCG/ACT inhalation Aerosol 10-10 00:00: 00 Yes [id number] 2{puff} Q.[id number] 3D Inhale 2 puffs into the lungs every 8 hours as needed for wheezing or shortness of breath Hilda rothman Furosemide 40 MG oral Tablet 10-06 00:00: 00 03-03 00:00 :00 No 40mg Take 1 tablet (40 mg total) by mouth daily Hilda rothman albuterol 90 mcg/actuati on inhaler 12-04 00:00: 00 Yes [id number] 2{puff} Inhale 2 Puffs every 6 (six) hours as needed for Wheezing or Shortness of Breath. [facility] Chantix Continuing Month Jaleel 1 MG Chantix Continuing Month Jaleel 1 MG 01-21 00:00: 00 04-21 00:00 :00 No BID Chantix Continuing Month Jaleel 1 MG Amoxicillin -Pot Clavulanate Amoxicillin -Pot Clavulanate 01-12 00:00: 00 01-19 00:00 :00 No Awilda Millender 1 tablet [facility] acetaminoph en-codeine 300-30 mg tablet 09-18 00:00: 00 Yes 1{tbl} Take 1 tablet by mouth every 4 (four) hours as needed for Pain (scale 4-6). [facility] ibuprofen 600 mg tablet 09-18 00:00: 00 Yes 600mg Take 1 tablet by mouth every 6 (six) hours as needed for Pain (scale 4-6). [facility] sulfamethox azole-trime thoprim (BACTRIM DS) 800-160 mg tablet 2009-06 00:00: 00 Yes 1{tbl} Take 1 Tab by mouth 2 (two) times daily. [facility] hydrochloro thiazide (ESIDRIX) 25 mg tablet 2009-06 00:00: 00 Yes 12.5mg Take 0.5 Tabs by mouth daily. [facility] hydrocodone -acetaminop hen (NORCO 5) 5-325 mg tablet 2009-06 00:00: 00 Yes 1{tbl} Take 1 Tab by mouth every 6 (six) hours as needed for Pain. [facility] Furosemide Furosemide Yes Awilda Millender 1 tablet [facility] Aspirin 81 Aspirin 81 Yes Awilda Millender 1 tablet [facility] Levothyroxi ne Sodium Levothyroxi ne Sodium Yes Awilda Millender 1 tablet in the morning on an empty stomach [facility] Naproxen Naproxen Yes Awilda Millender 1 tablet [facility] Hydrochloro thiazide Hydrochloro thiazide Yes Awilda Millender 1 tablet in the morning [facility] Daily Multi Vitamin/Min erals Daily Multi Vitamin/Min erals Yes Awilda Millender as directed [facility] Chantix Starting Month Jaleel 0.5 MG X 11 & 1 MG X 42 Chantix Starting Month Jaleel 0.5 MG X 11 & 1 MG X 42 No Chantix Starting Month Jaleel 0.5 MG X 11 & 1 MG X 42 Furosemide 40 MG Furosemide 40 MG No 1{table t} QD Furosemide 40 MG Levothyroxi ne Sodium 25 MCG Levothyroxi ne Sodium 25 MCG No QD Levothyrox ine Sodium 25 MCG Atorvastati n Calcium 40 MG Atorvastati n Calcium 40 MG No 1{table t} QD Atorvastat in Calcium 40 MG Chantix 1 MG Chantix 1 MG No 1{table t} BID Chantix 1 MG Immunizations Ordered Immunization Name Filled Immunization Name Date Status Comments Source Pfizer COVID-19 Vaccine Appsperse COVID-19 Vaccine 2021-03-13 11:37:00 Completed [facility] Covid-19 Vaccine (Appsperse), Mrna-lnp, Garth Protein, Pf, 30mcg/0.3ml,IM 2021-03-13 00:00:00 Marleen Flores Seema Pfizer COVID-19 Vaccine Pfizer COVID-19 Vaccine 2021-02-12 16:27:00 Completed [facility] Covid-19 Vaccine (Pfizer), Mrna-lnp, Garth Protein, Pf, [...] Unknown Completed Hilda Rodriguezybol d - External Influenza Virus Vaccine, No Preserv, age 6 months and up Unknown Completed Hilda Seybold - External Covid-19 Vaccine (Pfizer), Mrna-lnp, Garth Protein, Pf, 30mcg/0.3ml,IM Unknown Completed Hilda Meadol d - External Influenza Virus Vaccine, No Preserv, age 6 months and up Unknown Completed Hilda Rodriguezybold - External Covid-19 Vaccine (Pfizer), Mrna-lnp, Garth Protein, Pf, 30mcg/0.3ml,IM Unknown Completed Hilda Meadol d - External Vital Signs Vital Name Observation Time Observation Value Comments S ource Height/Length Measured 2019-10-27 21:50:43 Systolic blood pressure 2024-12-07 20:34:00 122 mm[Hg] Hilda Mathis ld - External Diastolic blood pressure 2024-12-07 20:34:00 74 mm[Hg] Hilda Mathis ld - External Heart rate 2024-12-07 20:34:00 106 /min Andressa Flores - External Body temperature 2024-12-07 20:34:00 36.44 Monalisa Hilda Flores - External Respiratory rate 2024-12-07 20:34:00 20 /min Hilda Flores - External Body height 2024-12-07 20:34:00 157.5 cm Deb Flores - External Body weight 2024-12-07 20:34:00 74.571 kg Deb ey Seybold - External BMI 2024-12-07 20:34:00 30.07 kg/m2 Deb ey Seybold - External Oxygen saturation in Arterial blood by Pulse oximetry 2024-12-07 20:34:00 97 /min Hilda Seybo ld - External Systolic blood pressure 2024-09-16 18:19:00 130 mm[Hg] Hilda Seybo ld - External Diastolic blood pressure 2024-09-16 18:19:00 70 mm[Hg] Hilda Seybo ld - External Heart rate 2024-09-16 18:19:00 91 /min Kelse y Seybold - External Body temperature 2024-09-16 18:19:00 36.5 Monalisa Hilda Seybold - External Respiratory rate 2024-09-16 18:19:00 20 /min Hilda Seybold - External Body height 2024-09-16 18:19:00 157.5 cm Deb ey Seybold - External Body weight 2024-09-16 18:19:00 77.792 kg Deb ey Seybold - External BMI 2024-09-16 18:19:00 31.37 kg/m2 Deb ey Seybold - External Oxygen saturation in Arterial blood by Pulse oximetry 2024-09-16 18:19:00 99 /min Hilda Seybo ld - External Systolic blood pressure 2023-03-03 21:43:00 137 mm[Hg] Hilda Seybo ld - External Diastolic blood pressure 2023-03-03 21:43:00 84 mm[Hg] Hilda Seybo ld - External Heart rate 2023-03-03 21:43:00 91 /min Kelse y Seybold - External Body temperature 2023-03-03 21:43:00 37.06 Monalisa Hilda Seybold - External Body height 2023-03-03 21:43:00 157.5 cm Deb ey Seybold - External Body weight 2023-03-03 21:43:00 74.844 kg Deb ey Seybold - External BMI 2023-03-03 21:43:00 30.18 kg/m2 Deb ey Seybold - External Systolic blood pressure 2022-10-10 21:14:00 101 mm[Hg] Hilda Mathis ld - External Diastolic blood pressure 2022-10-10 21:14:00 74 mm[Hg] Hilda Meado ld - External Heart rate 2022-10-10 21:14:00 85 /min Andressa clark Seybmert - External Body temperature 2022-10-10 21:14:00 36.33 [...] Systolic blood pressure 2021-12-04 15:36:00 125 mm[Hg] [facility] Diastolic blood pressure 2021-12-04 15:36:00 53 mm[Hg] [facility] Heart rate 2021-12-04 15:36:00 93 /min [facility] Body temperature 2021-12-04 15:36:00 36.78 Monalisa [facility] Respiratory rate 2021-12-04 15:36:00 20 /min [facility] Body height 2021-12-04 15:36:00 160 cm [facility] Body weight 2021-12-04 15:36:00 75.751 kg [facility] BMI 2021-12-04 15:36:00 29.58 kg/m2 [facility] Oxygen saturation in Arterial blood by Pulse oximetry 2021-12-04 15:36:00 97 /min [facility] height 2020-12-10 09:00:00 61 [in_i] Commo n [facility] weight 2020-12-10 09:00:00 160 [lb_av] Comm on [facility] temperature 2020-12-10 09:00:00 97.2 [degF] Com mon [facility] bmi 2020-12-10 09:00:00 30.23 kg/m2 Comm on [facility] oximetry 2020-12-10 09:00:00 100 % Commo n [facility] respiratory rate 2020-12-10 09:00:00 20 /min Common [facility] blood pressure systolic 2020-12-10 09:00:00 110 mm[Hg] Common [facility] blood pressure diastolic 2020-12-10 09:00:00 64 mm[Hg] [facility] Height/Length Measured 2021-07-02 12:51:42 158 cm Weight [...] CHEST 1 VW 2021-12-04 16:35:48 Aaliyah Mason [facility] RAPID INFLUENZA A/B 2021-12-04 15:50:00 Aleksandr Mason [facility] COVID-19 (ID NOW RAPID TESTING) 2021-12-04 15:50:00 Aaliyah Mason [facility] NOTICE OF PRIVACY PRACTICES 2021-12-04 15:23:47 Doctor Unassigned, [place] [facility] CONSENT/REFUSAL FOR DIAGNOSIS AND TREATMENT 2021-12-04 15:23:25 Doctor Unassigned, [place] [facility] Encounters Start Date/Time End Date/Time Encounter Type Admission Type Attending [facility] Facility Care Department Encounter ID Source 2022-01-08 08:37:00 [facility] [id number] [facility] 2021-07-10 13:02:37 Outpatient Stehp Oswald [facility] [id number] [facility] 2021-07-10 11:34:12 [facility] [id number] [facility] 2021-07-10 11:34:01 Outpatient Awilda DanielsAUDIE [facility] [id number] [facility] 2021-07-10 10:59:36 [facility] [id number] [facility] 2021-07-10 10:59:25 Outpatient Awilda Daniels [facility] [id number] [facility] 2021-07-10 10:59:02 Outpatient Awilda Daniels [facility] [id number] [facility] 2019-10-27 15:41:00 Inpatient 1 Oscar Arceo Min [facility] TEL [id number] [facility] 2019-08-09 13:06:00 Inpatient Varghese Gaston George [facility] STEFANI [id number] [facility] 2025-06-09 15:30:00 2025-06-09 15:30:00 Outpatient KAREEM ESPINOSA [id number] Hilda Flores 2025-02-14 00:00:00 2025-02-14 00:00:00 Outpatient KAREEM ESPINOSA HILDA [id number] Hilda Seybold 2025-02-11 00:00:00 2025-02-11 00:00:00 Outpatient KAREEM ESPINOSA HILDA [id number] Hilda Seybold 2025-01-04 09:30:00 2025-01-04 09:30:00 Outpatient JOSEF CROWELLSEY HILDA [id number] Hilda Seybold 2025-01-04 09:30:00 2025-01-04 09:30:00 Outpatient [facility]ILDA [facility]ILDA [id number] [facility] 2024-12-15 15:00:00 2024-12-15 15:00:00 Outpatient HILDA HILDA [id number] Hilda Seybold 2024-12-07 15:30:00 2024-12-07 15:30:00 Outpatient KAREEM ESPINOSA HILDA HILDA [id number] [facility] 2024-12-07 00:00:00 2024-12-07 00:00:00 Outpatient HILDA HILDA [id number] [facility] 2024-12-06 12:00:00 2024-12-06 12:00:00 Outpatient HILDA HILDA [id number] Hilda Seybold 2024-12-05 08:45:00 2024-12-05 08:45:00 Outpatient HILDA FORREST [id number] Hilda Seybold 2024-12-02 14:25:00 2024-12-02 14:25:00 Outpatient [facility] HILDA FORREST [id number] Hilda Seybold 2024-12-02 13:45:00 2024-12-02 13:45:00 Outpatient JOSEF CROWELLSEY HILDA [id number] Hilda Seybold 2024-11-30 00:00:00 2024-11-30 00:00:00 Outpatient VARGHESE MEDINA [id number] Hilda Seybold 2024-11-24 00:00:00 2024-11-24 00:00:00 Outpatient ESPINOSAKAREEM REYNA HILDA FORREST [id number] Hilda [facility] 2024-10-27 12:00:00 2024-10-27 12:00:00 Outpatient HILDA FORREST [id number] [facility] 2024-10-26 15:20:00 2024-10-26 15:20:00 Outpatient HILDA HILDA [id number] [facility] 2024-10-26 00:00:00 2024-10-26 00:00:00 Outpatient KAREEM ESPINOSA HILDA FORREST [id number] [facility] 2024-09-16 13:30:00 2024-09-16 13:30:00 Outpatient KAREEM ESPINOSA HILDA FORREST [id number] Hilda [facility] 2024-09-14 00:00:00 2024-09-14 00:00:00 Outpatient PREMAXIMILIAN CINTRON [facility] FORREST [id number] [facility] 2024-09-13 00:00:00 2024-09-13 00:00:00 Outpatient PREMAXIMILIAN CINTRON HILDA FORREST [id number] [facility] 2024-08-31 00:00:00 2024-08-31 00:00:00 Outpatient PREMAXIMILIAN CINTRON [facility]DA FORREST [id number] [facility] 2024-04-26 14:40:00 2024-04-26 14:40:00 Outpatient ADAM, VARGHESE FORREST [id number] Hilda [facility] 2024-04-25 13:55:00 2024-04-25 13:55:00 Outpatient ADAMVARGHESE GO [id number] [facility] 2024-04-24 00:00:00 2024-04-24 00:00:00 Outpatient ADAMVARGHESE Grijalva [id number] [facility] 2024-03-23 00:00:00 2024-03-23 00:00:00 Outpatient MD HILDA LOWRY [id number] [facility] 2024-02-16 11:30:00 2024-02-16 11:30:00 Outpatient PACE53 HILDA FORREST [id number] [facility] 2024-02-11 00:00:00 2024-02-11 00:00:00 Outpatient ADAM, VARGHESE [facility]DA FORREST [id number] [facility] 2024-01-25 00:00:00 2024-01-25 00:00:00 Outpatient ADAM, VARGHESE HILDA FORREST [id number] [facility] 2024-01-20 15:10:00 2024-01-20 15:10:00 Outpatient LAB90 HILDA FORREST [id number] [facility] 2024-01-12 00:00:00 2024-01-12 00:00:00 Outpatient ADAM, VARGHESE HILDA FORREST [id number] Hilda [facility] 2024-01-06 15:30:00 2024-01-06 15:30:00 Outpatient HILDA FORREST [id number] Hilda [facility] 2024-01-01 21:15:00 2024-01-01 21:15:00 Outpatient PROVIDERQUAN [id number] [place] [facility]11 [facility]:00:00 2023-12-11 00:00:00 Outpatient PREZASMAXIMILIAN HILDA FORREST [id number] [facility] 2023-11-18 07:15:00 2023-11-18 07:15:00 Outpatient HILDA FORREST [id number] [facility] 2023-11-16 14:45:00 2023-11-16 14:45:00 Outpatient TRED53 HILDA FORREST [id number] [facility] 2023-11-16 14:25:00 2023-11-16 14:25:00 Outpatient ADAMVARGHESE HILDA FORREST [id number] [facility] 2023-10-26 00:00:00 2023-10-26 00:00:00 Outpatient PREZAS MAXIMILIAN FORREST [id number] [facility] 2023-10-25 00:00:00 2023-10-25 00:00:00 Outpatient PREZASMAXIMILAIN [id number] [facility] 2023-10-23 00:00:00 2023-10-23 00:00:00 Outpatient ADAM VARGHESE HILDA FORREST [id number] [facility] 2023-10-23 00:00:00 2023-10-23 00:00:00 Outpatient ADAMVARGHESE HILDA FORREST [id number] [facility]ilda [facility] 2023-10-23 00:00:00 2023-10-23 00:00:00 Outpatient ADAMVARGHESE HILDA FORREST [id number] [facility]ilda [facility] 2023-10-17 00:00:00 2023-10-17 00:00:00 Outpatient PREZASMAXIMILIAN HILDA FORREST [id number] [facility]ilda [facility] 2023-09-15 00:00:00 2023-09-15 00:00:00 Outpatient ADAMVARGHESE HILDA FORREST [id number] [facility] 2023-09-09 13:40:00 2023-09-09 13:40:00 Outpatient ADAMVARGHESE HILDA FORREST [id number] Ihlda [facility]bold 2023-09-01 12:00:00 2023-09-01 12:00:00 Outpatient PACE53 HILDA FORRSET [id number] [facility] 2023-08-26 00:00:00 2023-08-26 00:00:00 Outpatient ADAM, VARGHESE HILDA FORREST [id number] [facility] 2023-08-16 00:00:00 2023-08-16 00:00:00 Outpatient SIDIQ, RAISA FORREST [id number] [facility] 2023-08-10 09:00:00 2023-08-10 09:00:00 Outpatient SIDIQ, RAISA FORREST [id number] [facility] 2023-08-06 12:55:00 2023-08-06 12:55:00 Outpatient LAB90 HILDA FORREST [id number] [facility] 2023-08-04 00:00:00 2023-08-04 00:00:00 Outpatient SIDIQ, RAISA FORREST [id number] [facility] 2023-07-20 00:00:00 2023-07-20 00:00:00 Outpatient SIDIQ, RAISA FORREST [id number] [facility] 2023-07-20 00:00:00 2023-07-20 00:00:00 Outpatient HILDA FORREST [id number] [facility] 2023-07-18 00:00:00 2023-07-18 00:00:00 Outpatient SIDWILLIE, RAISA FORREST HILDA [id number] [facility]ilda [facility] 2023-07-18 00:00:00 2023-07-18 00:00:00 Outpatient SIDIQ, RAISA TARIQJACQUE FORREST [id number] [facility]ilda [facility] 2023-07-15 00:00:00 2023-07-15 00:00:00 Outpatient VANGNOLVIA HILDA FORREST [id number] [facility]ilda [facility] 2023-07-02 13:30:00 2023-07-02 13:30:00 Outpatient SIDIQ, RAISA HILDA FORREST [id number] [facility]ilda [facility] 2023-07-02 12:00:00 2023-07-02 12:00:00 Outpatient PACE53 HILDA FORREST [id number] [facility]ilda [facility] 2023-07-02 00:00:00 2023-07-02 00:00:00 Outpatient MD HILDA LOWRY [id number] [facility] 2023-07-02 00:00:00 2023-07-02 00:00:00 Outpatient HILDA FORREST [id number] [facility]ilda [facility] 2023-06-02 09:30:00 2023-06-02 09:30:00 Outpatient MAXIMILIAN VIDALES [id number] [facility] 2023-05-04 15:20:00 2023-05-04 15:20:00 Outpatient MIGUEL ÁNGEL DANGELO [id number] [facility] 2023-05-01 00:00:00 2023-05-01 00:00:00 Outpatient MAXIMILIAN VIDALES [id number] [facility] 2023-04-30 10:45:00 2023-04-30 10:45:00 Outpatient PACE53 HILDA FORREST [id number] [facility] 2023-04-28 00:00:00 2023-04-28 00:00:00 Outpatient VARGHESE MEDINA [id number] [facility] 2023-03-17 00:00:00 2023-03-17 00:00:00 Outpatient MAXIMILIAN VIDALES HILDA FORREST [id number] [facility] 2023-03-12 00:00:00 2023-03-12 00:00:00 Outpatient MAXIMILIAN VIDALES HILDA FORREST [id number] [facility] 2023-03-11 11:30:00 2023-03-11 11:30:00 Outpatient TREJossue7 HILDA FORREST [id number] [facility] 2023-03-11 09:10:00 2023-03-11 09:10:00 Outpatient ADAMVARGHESE Grijalva [facility] FORREST [id number] [facility] 2023-03-11 00:00:00 2023-03-11 00:00:00 Outpatient ADAMVARGHESE GO [facility] FORREST [id number] [facility] 2023-03-10 00:00:00 2023-03-10 00:00:00 Outpatient VARGHESE MEDINA HILDA FORREST [id number] [facility] 2023-03-05 00:00:00 2023-03-05 00:00:00 Outpatient MD HILDA LOWRY [id number] [facility] 2023-03-03 16:30:00 2023-03-03 16:30:00 Outpatient MAXIMILIAN VIDALES HILDA FORREST [id number] [facility] 2023-03-03 00:00:00 2023-03-03 00:00:00 Outpatient HILDA FORREST [id number] [facility] 2023-02-24 00:00:00 2023-02-24 00:00:00 Outpatient PREZASGEORGIEMAXIMILIANCRISTIANO FORREST [id number] [facility] 2023-02-23 00:00:00 2023-02-23 00:00:00 Outpatient HILDA FORREST [id number] [facility] 2023-02-18 15:50:00 2023-02-18 15:50:00 Outpatient TERI GARCIA [id number] [facility] 2023-01-14 14:30:00 2023-01-14 14:30:00 Outpatient TERI GARCIA HILDA FORREST [id number] [facility] 2023-01-14 00:00:00 2023-01-14 00:00:00 Outpatient MD HILDA LOWRY [id number] [facility] 2023-01-02 15:20:00 2023-01-02 15:20:00 Outpatient TG MOJICA HILDA FORREST [id number] [facility] 2022-12-03 15:15:00 2022-12-03 15:15:00 Outpatient PREZASGEORGIEMAXIMILIANCRISTIANO FORREST [id number] [facility] 2022-11-24 00:00:00 2022-11-24 00:00:00 Outpatient PREZAS MAXIMILIAN FORREST [id number] [facility] 2022-11-11 15:30:00 2022-11-11 15:30:00 Outpatient PREZASGEORGIEMAXIMILIANCRISTIANO FORREST [id number] [facility] 2022-11-04 00:00:00 2022-11-04 00:00:00 Outpatient HILDA FORREST [id number] [facility] 2022-11-04 00:00:00 2022-11-04 00:00:00 Outpatient [facility]ILDA FORREST [id number] [facility] 2022-11-03 00:00:00 2022-11-03 00:00:00 Outpatient HILDA FORREST [id number] [facility] 2022-10-24 00:00:00 2022-10-24 00:00:00 Outpatient PREZAS MAXIMILIAN FORREST [id number] [facility] 2022-10-20 00:00:00 2022-10-20 00:00:00 Outpatient PREZAS MAXIMILIAN FORREST [id number] [facility] 2022-10-10 16:15:00 2022-10-10 16:15:00 Outpatient PREZAS MAXIMILIAN FORREST [id number] [facility] 2021-12-04 10:40:00 2021-12-04 12:16:00 Emergency X AALIYAH MASON [facility] ERT [id number] [facility] 2021-12-04 10:40:00 2021-12-04 12:16:00 Emergency EnidAaliyah robison [facility] [id number] [facility] 2021-05-10 00:00:00 2021-05-10 00:00:00 (TEL) STLMLC STLMLC [id number] [facility] 2021-01-20 00:00:00 2021-01-20 00:00:00 (WEB) STLMLC STLMLC [id number] [facility] 2021-01-14 14:30:00 2021-01-14 14:30:00 Emergency X [facility] ERT [id number] [facility] 2020-12-10 00:00:00 2020-12-10 00:00:00 OFFICE VISIT ESTAB PT LEVEL 4 STLMLC STLMLC [id number] [facility] 2020-01-13 14:40:00 2020-01-13 14:40:00 Outpatient [facility] Medicine [id number] [facility] 2020-01-13 11:40:00 2020-01-13 11:40:00 [facility] [id number] [facility] 2019-12-21 16:33:00 2019-12-21 16:33:00 Outpatient [facility] [id number] [facility] 2019-10-27 15:41:00 2019-10-28 20:02:00 Inpatient 1 Oscar Arceo Min [facility] TEL [id number] [facility] 2019-09-05 13:11:00 2019-09-05 13:11:00 [facility] [id number] [facility] 2019-08-15 19:48:00 2019-08-20 12:33:00 Inpatient DIDIER BRAGG [facility] MED [id number] [facility] 2019-07-07 15:26:00 2019-07-07 15:26:00 Outpatient [facility] [place] [place] [id number] [facility] 2019-06-23 14:00:00 2019-06-23 14:00:00 Outpatient [facility] [id number] [facility] 2018-02-04 15:00:00 2018-02-04 15:00:00 Outpatient [facility] [id number] [facility] Results Test Description Test Time Test Comments Results Result Co mments Source Troponin [id number] 21:47:02* Test Item Value Reference Range Interpretation Comme [facility] Troponin-T (test code = Troponin-T) 7.950 ng/L [...] a diagnosis of chronic myocardial injury. Troponin [id number] 19:26:34* Test Item Value Reference Range Interpretation [...] a diagnosis of chronic myocardial injury. Troponin [id number] 17:01:59* Test Item Value Reference Range Interpretation [...] diagnosis of chronic myocardial injury. Comprehensive Metabolic [id number] 16:46:40* Test Item Value Reference Range Interpretation [...] is not provided, and the patient is -Eritrean, multiply by 1.212. If sex is not [...] by the National Kidney Foundation, http://nkdep.nih.gov Creatine [id number] 16:46:40* Test Item Value Reference Range Interpretation Comme nts CK (test code = CK) 224 U/L 26-192 H Comprehensive Metabolic [id number] 16:46:40* Test Item Value Reference Range Interpretation [...] is not provided, and the patient is -Eritrean, multiply by 1.212. If sex is not [...] is not provided, and the patient is -Eritrean, multiply by 1.212. If sex is not [...] the National Kidney Foundation, http://nkdep.nih.gov Comprehensive Metabolic [id number] 16:46:40* Test Item Value Reference Range Interpretation [...] is not provided, and the patient is -Eritrean, multiply by 1.212. If sex is not [...] is not provided, and the patient is -Eritrean, multiply by 1.212. If sex is not [...] National Kidney Foundation, http://nkdep.nih.gov Pro B Natriuretic [id number] 16:43:50* Test Item Value Reference Range Interpretation Comme nts NT-proBNP (test code = NT-proBNP) 513 pg/mL 0-124 H Automated [id number] 16:24:33* Test Item Value Reference Range Interpretation Comme nts Neutro Auto (test code = Liliya tro Auto) 53.0 % 36.0-70.0 Lymph Auto (test code = Lymph Auto) 39.3 % 12.0-44.0 Braxton Auto (test code = Braxton Auto) 6.6 % 0.0-11.0 Eos, Auto (test code = Eos, Auto) 0.0 % 0.0-7.0 Basophil Auto (test code = B asophil Auto) 0.8 % 0.0-2.0 Neutro Absolute (test code = Neutro Absolute) 4.0 x10 1.6-7.4 Lymph Absolute (test code = Lymph Absolute) 2.97 x10 .50-4.60 Braxton Absolute (test code = M donna Absolute) .50 x10 .00-1.20 Eos Absolute (test code = Eo s Absolute) 0.00 x10 0.00-0.74 Baso Absolute (test code = B aso Absolute) 0.06 x10 0.00-0.21 IG [id number] 16:24:33* Test Item Value Reference Range Interpretation Comme nts IG (test code = IG) 0.3 % 0.0-5.0 IG Abs (test code = IG Abs) 0 x10 N Complete Blood Count with [id number] 16:24:32* Test Item Value Reference Range Interpretation [...] 0 % N XR Chest 1 View [id number] 16:11:29Patient: SHEFALI JOYNER Date/Time10/27/2019 16:05 CDTReason for ExamSt. 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 Follow instructions provided by provider.. [facility] Notes Date/Time Note Provider Source 2024-12-07 15:37:16 Patient is here to re-start thyroid medication. [facility] 2024-09-16 13:23:23 The rooming process including VS skill was completed by Marianne Terry LVN Student. Chart documentation was entered by me. As the assigned Preceptor, I provided direct observation and offered guidance as needed. Rosa Blue LVN [facility]
[2025-03-09] MEDS ORDERED: ASPIRIN 81 MG CHEWABLE TABLET ONE ×2 (02:34→09:11)
[2025-03-09 03:06] LABS: Absolute Lymphocytes (CBC) 2.8 K/uL (0.7-4.9); Hematocrit 39.8 % (36.0-45.0); Hemoglobin 13.3 g/dL (12.0-15.0); MCH 29.5 pg (27.0-35.0); MCHC 33.5 g/dL (32.0-36.0); MCV 88.2 fL (80-100); MPV 9.0 fL (7.6-11.3); Nucleated RBC Absolute Count 0.0 (0-0); Nucleated Red Blood Cells % 0.0 % (0-0); RBC Red Blood Cell Count 4.51 M/uL (3.86-4.86); White Blood Count 7.70 thou/uL (4.3-10.9)
[2025-03-09 03:17] LABS: PT Prothrombin Time 12.3 SECONDS (10-13.0); PTT, Activated Partial Thromb 27.1 SECONDS (27.2-37.4); Protime INR 1.09
[2025-03-09 03:25] LABS: Anion Gap 8.4 mEq/L (5.0-15.0); BUN Blood Urea Nitrogen 14.0 mg/dL (7-18); Glucose Level 95.0 mg/dL (74-106); NT PRO-BNP 289.0 pg/mL (<125); Potassium 3.4 mEq/L (3.5-5.1)
[2025-03-09 03:26] LABS: Troponin High Sensitivity 100.5 pg/mL (<58.9)
[2025-03-09] MEDS ORDERED: NITROGLYCERIN 0.4 MG/TAB SL ONE (03:40)
[2025-03-09] MEDS ORDERED: HYDROMORPHONE HCL 0.5 MG/0.5 ML INJ ONE (03:40)
--- NOTE | 2025-03-09 03:57 | ER ---
Nurse's Notes [facility] Name: Virgie Silveira Age: 59 yrs Sex: Female : 1965 Arrival Date: 03/09/2025 Time: 02:11 Bed 23 Private MD: Ulysses Julien Diagnosis: NSTEMI, chest pain Presentation: 03/09 02:26 Chief complaint: Patient states: c/o chest pain x3 hrs "chest pressure in the center" kb4 along with difficulty breathing. Coronavirus screen: At this time, unable to obtain information related to travel outside the [place] At this time, the client does not indicate any symptoms associated with coronavirus-19. Ebola Screen: No symptoms or risks identified at this time. Initial Sepsis Screen: Does the patient meet any 2 criteria? No. Patient's initial sepsis screen is negative. Does the patient have a suspected source of infection? No. Patient's initial sepsis screen is negative. Risk Assessment: Do you want to hurt yourself or someone else? Patient reports no desire to harm self or others. Onset of symptoms was March 09, 2025. 02:26 Method Of Arrival: Ambulatory kb4 02:26 Acuity: TOÑITO 2 kb4 Historical: - PMHx: 02:29 Congestive heart failure; Pacemaker; defib; Hypertension; Hypothyroidism; Tachycardia kb4 (right elbow surgery); - PSHx: 02:29 heart cath; hysterectomy; section; right elbow surgery; kb4 - Immunization history:: Adult Immunizations unknown. - Infectious Disease History:: Denies. - Social history:: Smoking status: Patient reports the use of cigarette tobacco products, denies chronic smoking, but will smoke occasionally. Screenin:31 [facility] ED Fall Risk Assessment (Adult) History of falling in the last 3 months, kb4 including since admission No falls in past 3 months (0 pts) Confusion or Disorientation No (0 pts) Intoxicated or Sedated No (0 pts) Impaired Gait No (0 pts) Mobility Assist Device Used No (0 pt) Altered Elimination No (0 pt) Score/Fall Risk Level 0 - 2 = Low Risk. Abuse screen: Denies threats or abuse. Denies injuries from another. Nutritional screening: No deficits noted. Tuberculosis screening: No symptoms or risk factors identified. Assessment: 02:30 Pain: Complains of pain in xiphoid area and mid-sternal area Pain does not radiate. kb4 Cardiovascular: Rhythm is regular. Respiratory: Airway is patent Respiratory effort is even, unlabored, Breath sounds are diminished bilaterally. 03:24 Reassessment: Patient appears in no apparent distress at this time. No changes from al5 previously documented assessment. Patient and/or family updated on plan of care and expected duration. Pain level reassessed. Patient is alert, oriented x 3, equal unlabored respirations, skin warm/dry/pink. 04:00 Reassessment: Patient appears in no apparent distress at this time. No changes from al5 previously documented assessment. Patient and/or family updated on plan of care and expected duration. Pain level reassessed. Patient is alert, oriented x 3, equal unlabored respirations, skin warm/dry/pink. patient admitted to ER hold. 05:20 Reassessment: Patient and/or family updated on plan of care and expected duration. Pain kb4 level reassessed. Patient is alert, oriented x 3, equal unlabored respirations, skin warm/dry/pink. General: Appears in no apparent distress. comfortable, Behavior is calm, cooperative. GI: Abdomen is flat. : No signs and/or symptoms were reported regarding the genitourinary system. EENT: No signs and/or symptoms were reported regarding the EENT system. Derm: No signs and/or symptoms reported regarding the dermatologic system. Musculoskeletal: No signs and/or symptoms reported regarding the musculoskeletal system. Vital Signs: 02:26 BP 150 / 84; Pulse 87; Resp 18; Pulse Ox 100% on R/A; Weight 72.57 kg; Height 5 ft. 2 kb4 in. ; 02:26 Temp 97.8; kb4 03:30 BP 114 / 61; Pulse 78; Resp 24; Pulse Ox 98% on R/A; cc6 04:30 BP 117 / 61; Pulse 75; Resp 16; Pulse Ox 98% on 2 lpm NC; cc6 02:26 Body Mass Index 29.26 (72.57 kg, 157.48 cm) kb4 ED Course: 02:17 Patient arrived in ED. gm2 02:17 Ulysses Julien DO is Private Physician. gm2 02:26 Em Santacruz, BECKY is Primary Nurse. kb4 02:27 Tonia Gonzalez MD is Attending Physician. sp3 02:29 Triage completed. kb4 02:29 Arm band placed on. kb4 02:31 Patient has correct armband on for positive identification. Bed in low position. Call kb4 light in reach. Side rails up X 1. 02:35 No provider procedures requiring assistance completed. Inserted saline lock: 20 gauge al5 in right antecubital area, using aseptic technique. Blood collected. Flushed with 10 mL NS. 03:56 Jose Raul Roca MD is Hospitalizing Provider. sp3 03:59 XRAY Chest (1 view) In Process Unspecified. EDMS 04:00 Provided Education on: need for admission. al5 04:00 Patient admitted, IV remains in place. al5 Administered Medications: 02:37 Drug: Aspirin PO Chewable Tablet 324 mg PO once; 81 mg tablets x 4 Route: PO; kb4 03:47 Drug: Nitroglycerin Sublingual 0.4 mg Sublingual once Route: Sublingual; cc6 05:18 Follow up: Response: No adverse reaction; Pain is decreased al5 03:47 Drug: HYDROmorphone IVP 0.5 mg IVP once Route: IVP; Site: right antecubital; cc6 05:18 Follow up: Response: No adverse reaction; Pain is decreased al5 Medication: 02:31 VIS not applicable for this client. kb4 Outcome: 03:56 Decision to Hospitalize by Provider. sp3 04:00 Admitted to ER Hold. Please see [facility] for further documentation. al5 04:00 Condition: stable 04:00 Instructed on the need for admit, 10:57 Patient left the ED. iw Signatures: Dispatcher [employer] EDJo Mahmood, RN RN Tonia Garcia MD MD sp3 Sarah Barnes 2 Vani Alford RN RN al5 Katie Lmoeli RN RN cc6 Em Santacruz RN RN kb4
--- NOTE | 2025-03-09 03:57 | EDPHYS ---
Physician Documentation [facility] Name: Virgie Silveira Age: 59 yrs Sex: Female : 1965 Arrival Date: 03/09/2025 Time: 02:11 Bed 23 Private MD: Ulysses Julien ED Physician Tonia Gonzalez HPI: 03/09 03:44 This 59 yrs old Female presents to ER via Ambulatory with complaints of Leg Swelling, sp3 Shortness Of Breath. 03:44 59-year-old female with history of CAD, CHF, pacemaker, hypertension, who sees Hilda Flores for both PCP and cardiology presents to the ED with chest pain that started earlier today which has improved but is still present. She states she has associated shortness of breath mild in nature. She denies any headache, neck pain, fever, back pain, abdominal pain, vomiting, diarrhea, syncope, near syncope, bleeding, rash, known sick contacts, travel history, or any other signs or symptoms on ROS at this time.. Historical: - PMHx: 02:29 Congestive heart failure; Pacemaker; defib; Hypertension; Hypothyroidism; Tachycardia kb4 (right elbow surgery); - PSHx: 02:29 heart cath; hysterectomy; section; right elbow surgery; kb4 - Immunization history:: Adult Immunizations unknown. - Infectious Disease History:: Denies. - Social history:: Smoking status: Patient reports the use of cigarette tobacco products, denies chronic smoking, but will smoke occasionally. ROS: 03:45 Constitutional: Negative for fever, chills, and weight loss, Eyes: Negative for injury, sp3 pain, redness, and discharge, ENT: Negative for injury, pain, and discharge, Neck: Negative for injury, pain, and swelling, Abdomen/GI: Negative for abdominal pain, nausea, vomiting, diarrhea, and constipation, Back: Negative for injury and pain, MS/Extremity: Negative for injury and deformity, Skin: Negative for injury, rash, and discoloration, Neuro: Negative for headache, weakness, numbness, tingling, and seizure, Psych: Negative for depression, anxiety, suicide ideation, homicidal ideation, and hallucinations, Allergy/Immunology: Negative for hives, rash, and allergies, Endocrine: Negative for neck swelling, polydipsia, polyuria, polyphagia, and marked weight changes, Hematologic/Lymphatic: Negative for swollen nodes, abnormal bleeding, and unusual bruising, 03:45 All other systems are negative, Exam: 03:45 Constitutional: This is a well developed, well nourished patient who is awake, alert, sp3 and in no acute distress. Head/Face: Normocephalic, atraumatic. Eyes: Pupils equal round and reactive to light, extra-ocular motions intact. Lids and lashes normal. Conjunctiva and sclera are non-icteric and not injected. Cornea within normal limits. Periorbital areas with no swelling, redness, or edema. ENT: Nares patent. No nasal discharge, no septal abnormalities noted. External auditory canals are clear. Oropharynx with no redness, swelling, or masses, exudates, or evidence of obstruction, uvula midline. Mucous membranes moist. Neck: Trachea midline, no thyromegaly or masses palpated, and no cervical lymphadenopathy. Supple, full range of motion without nuchal rigidity, or vertebral point tenderness. No Meningismus. Chest/axilla: Normal chest wall appearance and motion. Nontender with no deformity. No lesions are appreciated. Cardiovascular: Regular rate and rhythm with a normal S1 and S2. No gallops, murmurs, or rubs. Normal PMI, no JVD. No pulse deficits. Respiratory: Lungs have equal breath sounds bilaterally, clear to auscultation and percussion. No rales, rhonchi or wheezes noted. No increased work of breathing, no retractions or nasal flaring. Abdomen/GI: Soft, non-tender, with normal bowel sounds. No distension or tympany. No guarding or rebound. No evidence of tenderness throughout. Back: No spinal tenderness. No costovertebral tenderness. Full range of motion. Skin: Warm, dry with normal turgor. Normal color with no rashes, no lesions, and no evidence of cellulitis. MS/ Extremity: Pulses equal, no cyanosis. Neurovascular intact. Full, normal range of motion. Neuro: Awake and alert, GCS 15, oriented to person, place, time, and situation. Cranial nerves II-XII grossly intact. Motor strength 5/5 in all extremities. Sensory grossly intact. Cerebellar exam normal. Normal gait. Psych: Awake, alert, with orientation to person, place and time. Behavior, mood, and affect are within normal limits. 03:45 ECG was reviewed by the Attending Physician. EKG demonstrates normal sinus rhythm at 81 bpm with normal intervals normal QRS [address] depression in lead II and inverted T waves in leads II and aVF nonspecific ST/T changes without evidence of acute ischemia. Vital Signs: 02:26 BP 150 / 84; Pulse 87; Resp 18; Pulse Ox 100% on R/A; Weight 72.57 kg; Height 5 ft. 2 kb4 in. ; 02:26 Temp 97.8; kb4 03:30 BP 114 / 61; Pulse 78; Resp 24; Pulse Ox 98% on R/A; cc6 04:30 BP 117 / 61; Pulse 75; Resp 16; Pulse Ox 98% on 2 lpm NC; cc6 02:26 Body Mass Index 29.26 (72.57 kg, 157.48 cm) kb4 MDM: 02:27 Medical Screening Exam initiated sp3 03:50 Data reviewed: vital signs, nurses notes, lab test result(s), EKG, radiologic studies. sp3 ED course: 59-year-old female with PMH above now with chest pain. Differential diagnosis includes acute coronary syndrome, angina, musculoskeletal pain, gastritis, GERD, among others. Troponin is at 105 and EKG demonstrates mild inferior changes. Patient will be admitted to internal medicine with cardiology consult with diagnosis NSTEMI and chest pain.. 03/09 02:28 Order name: Basic Metabolic Panel; Complete Time: 03:27 sp3 03/09 02:28 Order name: CBC with Diff; Complete Time: 03:27 sp3 03/09 02:28 Order name: NT PRO-BNP; Complete Time: 03:27 sp3 03/09 02:28 Order name: Troponin HS; Complete Time: 03:27 sp3 03/09 02:35 Order name: PT-INR; Complete Time: 03: al5 03/09 02:35 Order name: Ptt, Activated; Complete Time: 03: al5 03/09 04:26 Order name: CBC with Automated Diff EDMS 03/09 04:26 Order name: CBC with Automated Diff EDMS 03/09 04:26 Order name: Comprehensive Metabolic Panel EDMS 03/09 04:26 Order name: Comprehensive Metabolic Panel EDMS 03/09 04:26 Order name: Troponin High Sensitivity EDMS 03/09 04:26 Order name: Troponin High Sensitivity EDMS 03/09 04:26 Order name: Troponin High Sensitivity [facility] 03/09 04:26 Order name: Troponin High Sensitivity [facility] 03/09 02:28 Order name: XRAY Chest (1 view) 3 03/09 02:28 Order name: EKG; Complete Time: 02:28 3 03/09 02:28 Order name: Cardiac monitoring; Complete Time: 02:35 3 03/09 02:28 Order name: EKG - Nurse/Tech; Complete Time: 02:35 3 03/09 02:28 Order name: IV Saline Lock; Complete Time: 02:35 3 03/09 02:28 Order name: Labs collected and sent; Complete Time: 02:35 3 03/09 02:28 Order name: O2 Per Protocol; Complete Time: 02:35 3 03/09 02:28 Order name: O2 Sat Monitoring; Complete Time: 02:35 sp3 Administered Medications: 02:37 Drug: Aspirin PO Chewable Tablet 324 mg PO once; 81 mg tablets x 4 Route: PO; kb4 03:47 Drug: Nitroglycerin Sublingual 0.4 mg Sublingual once Route: Sublingual; cc6 05:18 Follow up: Response: No adverse reaction; Pain is decreased al5 03:47 Drug: HYDROmorphone IVP 0.5 mg IVP once Route: IVP; Site: right antecubital; cc6 05:18 Follow up: Response: No adverse reaction; Pain is decreased al5 Disposition Summary: 03/09/25 03:56 Hospitalization Ordered Notes: Hospitalization Status: Inpatient Admission sp3 Provider: Jose Raul Roca sp3 Condition: Stable sp3 Problem: an acute exacerbation sp3 Symptoms: have worsened sp3 Bed/Room Type: Standard sp3 Location: Telemetry/MedSurg (observation)(03/09/25 10:01) 6 Room Assignment: 208(03/09/25 10:01) [facility] Diagnosis - NSTEMI, chest pain sp3 Forms: - Medication Reconciliation Form sp3 - SBAR form sp3 - Leadership Thank You Letter sp3 Signatures: Dispatcher [employer] Tonia Epperson MD MD sp3 Norma Melara RN RN vc1 Tonia Coppola bc6 Katie Lomeli RN RN cc6 Em Santacruz RN RN kb4 Vani Alford RN al5 Corrections: (The following items were deleted from the chart) 02:36 02:36 PROTIME (+INR)+COAG.LAB.BRZ ordered. EDMS EDMS 02:36 02:36 PTT, ACTIVATED+COAG.LAB.BRZ ordered. EDMS EDMS 03:55 03:50 ED course: 59-year-old female with PMH above now with chest pain. Differential sp3 diagnosis includes acute coronary syndrome, angina, musculoskeletal pain, gastritis, GERD, among others.. sp3 04:58 03:56 Telemetry/MedSurg (Inpatient) sp3 vc1 04:58 03:56 sp3 vc1 10:01 04:58 [facility] ER HOLD vc1 bc6 10:01 04:58 ERHOLD- vc1 bc6
--- NOTE | 2025-03-09 04:21 | P.HP ---
Certification for Inpatient Patient admitted to: Inpatient With expected LOS: >2 Midnights Practitioner: I am a practitioner with admitting privileges, knowledge of patient current condition, hospital course, and medical plan of care. Services: Services provided to patient in accordance with Admission requirements found in Title 42 Section 412.3 of the Code of Federal Regulations Patient History Date of Service: 03/09/25 Reason for admission: Chest Pain History of Present Illness: 59 yrs old Female with past medical history of hypertension, hyperlipidemia, hypothyroidism, congestive heart failure status post defibrillator, was brought to ER with chest discomfort and bilateral leg swelling which has been going on since 2 to 3 days and has been progressively getting worse and was brought to ER. She has a history of CAD, CHF, pacemaker, hypertension, who sees Hilda Flores for both PCP and cardiology. Chest pain that started earlier today which has improved but is still present. She states she has associated shortness of breath mild in nature. She denies any headache, neck pain, fever, back pain, abdominal pain, vomiting, diarrhea, syncope, near syncope, bleeding, rash, Denies any sick contacts. Patient was assessed in the ER and has been admitted for further management of NSTEMI. Allergies lisinopril Allergy (Verified 11/01/22 03:38) Hives/Rash morphine Allergy (Verified 11/01/22 03:38) Hives/Rash Home medications list reviewed: Yes Home Medications: Furosemide [Lasix*] 40 mg PO DAILY #30 tab 06/07/19 Levothyroxine Sodium 25 mcg PO DAILY #30 tablet 06/07/19 Hydrocodone 5/APAP 325 [[place] 5/325*] 1 tab PO Q6H PRN 3 Days #12 tab 05/08/22 Aspirin Chewable [Aspirin Chewable*] 81 mg PO DAILY #30 tab.chew 11/03/22 Midodrine HCl [Proamatine*] 5 mg PO TIDWM #90 tab 02/23/23 levoFLOXacin [Levaquin*] 750 mg PO DAILY 6 Days #6 tab 09/05/23 predniSONE [Deltasone*] 10 mg PO DAILY 3 Days #3 tab 09/05/23 predniSONE [Deltasone] 40 mg PO 1X 3 Days #3 tab 09/05/23 predniSONE [Prednisone] 20 mg PO DAILY 3 Days #3 tab 09/05/23 - Past Medical/Surgical History Diabetic: No Past Medical History: Reviewed- Non-Contributory -: Hypothyroidism -: Hypertension -: Systolic CHF -: Hyperlipidemia Past Surgical History: Reviewed- Non-Contributory -: Hysterectomy -: Elbow Surgery -: C section -: Pacemaker 2019 Psychosocial/ Personal History: Employed, lives with family - Family History Mother -: Cancer Notes: Colon CA Father -: Hypertension Notes: HTN, spinal issue - Social History Smoking Status: Current some day smoker Alcohol use: No CD- Drugs: No Caffeine use: Yes Review of Systems 10-point ROS is otherwise unremarkable Physical Examination - Vital Signs Temperature: 98.2 F Blood Pressure: 136/72 Pulse: 78 Respirations: 18 Pulse Ox (%): 94 - Physical Exam General: Alert, Oriented x3, Mild distress HEENT: Atraumatic, Normocephalic Neck: Supple Respiratory: Normal air movement, Crackles/rales Cardiovascular: Regular rate/rhythm, Normal S1 S2 Capillary refill: <2 Seconds Gastrointestinal: Soft and benign, W/out hepatosplenomegaly Musculoskeletal: No clubbing, Swelling Integumentary: No rashes Neurological: Other (Alert awake nonfocal) Lymphatics: No axilla or inguinal lymphadenopathy - Studies Laboratory Data (last 24 hrs) 03/09/25 03/09/25 03/09/25 02:32 02:32 02:32 WBC 7.70 Hgb 13.3 Hct 39.8 Plt Count 237 PT 12.3 INR 1.09 APTT 27.1 L Sodium 143 Potassium 3.4 L BUN 14 Creatinine 0.87 Glucose 95 Assessment and Plan - Plan NSTEMI Will trend cardiac enzymes Will monitor telemetry Started on aspirin and statin Cardiology consult Acute on chronic CHF possibly systolic/diastolic Monitor closely on telemetry Started on diuresis Oxygen supplementation Will try to wean down oxygen requirement Continue home medications Titrate as needed Will obtain an echocardiogram Cardiology consult Hypokalemia Electrolytes monitor and replace accordingly Hypertension Antihypertensives titrated Continue home medications and titrate as needed Hyperlipidemia Continue statin GI/DVT prophylaxis Advanced directive full code Discharge Plan: Home Plan to discharge in: 48 Hours - Advance Directives Does patient have a Living Will: No Does patient have a Durable POA for Healthcare: No - Code Status/Comfort Care Code Status: Full Code Time Spent Managing Pts Care (In Minutes): 48
[2025-03-09] MEDS ORDERED: ONDANSETRON 4 MG/2 ML VIAL IV PRN (04:22)
[2025-03-09] MEDS ORDERED: ACETAMINOPHEN 325 MG TABLET PO PRN (04:22)
[2025-03-09] MEDS: FUROSEMIDE 20 MG/ 2ML VIAL IV SCH (05:04)
[2025-03-09 05:36] VITALS: BMI 29.2
[2025-03-09] MEDS ORDERED: FUROSEMIDE 20 MG/ 2ML VIAL ONE ×2 (05:49→09:11)
[2025-03-09] MEDS ORDERED: LEVOTHYROXINE SOD 0.025 MG TAB PO SCH (07:30)
[2025-03-09] MEDS: LEVOTHYROXINE SOD 0.025 MG TAB PO SCH (07:30)
--- NOTE | 2025-03-09 07:42 | RAD REPORT ---
EXAMINATION: ONE VIEW CHEST XR CLINICAL INDICATION: Female, 59 years old.,Chest pain;SOB TECHNIQUE: Frontal chest projection is submitted. Examination is limited by patient positioning and t echnique. COMPARISON: 04/14/2024 FINDINGS: The lungs are well inflated and clear. No pneumothorax or sizable effusion. The heart is normal in s ize. Mediastinal contours are unremarkable. Left chest wall pacer/AICD in unchanged position. IMPRESSION: No acute intrathoracic abnormalities.
--- NOTE | 2025-03-09 08:53 | P.PN ---
Date of Service: 03/09/25 Subjective: feeling better edema improving reports compliant with meds - no significant change in meds/dosage last month, friends/family have been bringing over food, that would /could lead to retention Physical Exam: Gen: Alert, Oriented, NAD CV: Regular rate and rhythm, trace to 1+ edema in bilateral legs Pulm: Nonlabored respirations on room air, clear bilaterally Abdomen: Soft, nontender, nondistended Neuro: Normal strength, normal affect Problem List: Acute on chronic systolic CHF (25-29% EF as of 11/2024) NSTEMI Hypertension Hyperlipidemia Hypothyroidism Hx Non-Ischemic Cardiomyopathy Hx Defibrillator/ICD Acute on chronic systolic CHF (25-29% EF as of 11/2024) NSTEMI Hx Non-Ischemic Cardiomyopathy Hx Defibrillator/ICD on admission, presents with worsening lower extremity swelling associated with chest pain and shortness of breath Had normal echo and LHC in 2022. Recent echo from office (November 2024): 25-29%EF, global hypokinesia, mild MR --- Previously 30-34% EF December 2023 Trend troponins. Initial troponin mildly elevated 100 CXR negative. EKG without ischemic changes. Repeat echo to re-eval EF / stenosis Monitor on telemetry Cardio consult IV Lasix 20mg q8h Hypertension Hyperlipidemia Hypothyroidism confirm home meds, restart as appropriate resume home Synthroid, asa 81mg VTE: Code: Full Dispo: Home Pending cardio recs, diuresis, further improvement Time spent managing patient's care: 55 minutes
[2025-03-09] MEDS: ASPIRIN 81 MG CHEWABLE TABLET PO SCH (09:00)
[2025-03-09] MEDS ORDERED: HYDROCODONE/APAP 5/325 MG TAB ONE (09:49)
[2025-03-09] MEDS: HYDROCODONE/APAP 5/325 MG TAB PO PRN (09:52)
--- NOTE | 2025-03-09 11:34 | P.CNS ---
Date of Consult: 03/09/25 Chief Complaint: Chest Pain History of Present Illness: Patient with PMH of combined heart failure s/p ICD placement, non ischemic in nature, chronic troponin elevation, presented with chest pain, sharp, no radiation, started yesterday, also report TINOCO and SOB, no palpitations, no s yncope Allergies lisinopril Allergy (Verified 11/01/22 03:38) Hives/Rash morphine Allergy (Verified 11/01/22 03:38) Hives/Rash Home medications list reviewed: Yes Home Medications: Furosemide [Lasix*] 40 mg PO DAILY #30 tab 06/07/19 Aspirin Chewable [Aspirin Chewable*] 81 mg PO DAILY #30 tab.chew 11/03/22 Empagliflozin [Jardiance] 10 mg PO DAILY 03/09/25 Metoprolol Succinate [Toprol Xl*] 50 mg PO DAILY 03/09/25 Sacubitril/Valsartan [Entresto 24 mg-26 mg Tablet] 1 tab PO DAILY 03/09/25 - Past Medical/Surgical History Diabetic: No -: Hypothyroidism -: Hypertension -: Systolic CHF -: Hyperlipidemia -: Hysterectomy -: Elbow Surgery -: C section -: Pacemaker 2019 Psychosocial/ Personal History: Employed, lives with family - Family History Mother Medical History: Cancer Notes: Colon CA Father Medical History: Hypertension Notes: HTN, spinal issue - Social History Smoking Status: Current some day smoker Alcohol use: No CD- Drugs: No Caffeine use: Yes Place of Residence: Home Review of Systems 10-point ROS is otherwise unremarkable Physical Examination Temp Pulse Resp BP Pulse Ox 97.8 F 75 16 117/61 94 03/09/25 11:00 03/09/25 11:03 03/09/25 11:03 03/09/25 11:03 03/09/25 04:55 General: Alert, In no apparent distress HEENT: Atraumatic, PERRLA, Mucous membr. moist/pink, EOMI, Sclerae nonicteric Neck: Supple, 2+ carotid pulse no bruit, No LAD, Without JVD or thyroid abnormality Respiratory: Clear to auscultation bilaterally, Normal air movement Cardiovascular: Regular rate/rhythm, Normal S1 S2 Gastrointestinal: Normal bowel sounds, No tenderness Musculoskeletal: No tenderness Integumentary: No rashes Neurological: Normal gait, Normal speech, Normal tone, Normal affect Lymphatics: No axilla or inguinal lymphadenopathy Laboratory Data (last 24 hrs) 03/09/25 03/09/25 03/09/25 02:32 02:32 02:32 WBC 7.70 Hgb 13.3 Hct 39.8 Plt Count 237 PT 12.3 INR 1.09 APTT 27.1 L Sodium 143 Potassium 3.4 L BUN 14 Creatinine 0.87 Glucose 95 - Problems (1) Acute on chronic systolic heart failure Current Visit: No Status: Acute Plan: continue lasix 20 mg IV TID Continue Toprol XL 50 mg daily continue patient home dose Entresto continue Jardiance 10 mg daily continue to monitor input and output and electrolytes (2) NSTEMI (non-ST elevated myocardial infarction) Current Visit: No Status: Acute Plan: Mild leak in troponin with no significant delta, this is chronic, patient had coronary angiogram in 2022 that shown normal coronaries ASA 81 mg daily Lipitor 40 mg daily No further cardiac work up needed. (3) Hypertension Current Visit: No Status: Chronic Plan: continue above medications and monitor Qualifiers: Hypertension type: primary hypertension Qualified Code(s): I10 - Essential (primary) hypertension
[2025-03-09] MEDS: POTASSIUM 25 MEQ EFFERV TAB PO ONE ×2 (20:24→20:26)
[2025-03-10 06:41] LABS: Absolute Lymphocytes (CBC) 2.0 K/uL (0.7-4.9); Hematocrit 46.1 % (36.0-45.0); Hemoglobin 15.2 g/dL (12.0-15.0); MCH 29.2 pg (27.0-35.0); MCHC 33.1 g/dL (32.0-36.0); MCV 88.2 fL (80-100); MPV 9.5 fL (7.6-11.3); Nucleated RBC Absolute Count 0.0 (0-0); Nucleated Red Blood Cells % 0.0 % (0-0); RBC Red Blood Cell Count 5.23 M/uL (3.86-4.86); White Blood Count 7.30 thou/uL (4.3-10.9)
[2025-03-10 06:58] LABS: ALT/SGPT 139.0 U/L (13-56); AST/SGOT 100.0 U/L (15-37); Albumin 3.5 g/dL (3.4-5.0); Albumin/Globulin Ratio 0.9 (1.1-1.8); Alkaline Phosphatase 121.0 U/L (45-117); Anion Gap 8.0 mEq/L (5.0-15.0); BUN Blood Urea Nitrogen 19.0 mg/dL (7-18); Globulin 4.0 g/dL (2.3-3.5); Glucose Level 103.0 mg/dL (74-106); Magnesium 2.2 mg/dL (1.6-2.4); Potassium 4.0 mEq/L (3.5-5.1)
[2025-03-10 08:03] VITALS: BP 113/65
[2025-03-10 08:44] VITALS: TEMP 98.1
--- NOTE | 2025-03-10 09:06 | P.DS ---
Admission Date: 03/09/25 Discharge Date: 03/10/25 Disposition: ROUTINE DISCHARGE Discharge Condition: GOOD Reason for Admission: Chest Pain Consultations: Cardiology - Dr. Perez Brief History of Present Illness: 59 yo F, PMH: hypertension, hyperlipidemia, hypothyroidism, congestive heart failure status post defibrillator Patient was brought to ER with chest discomfort and bilateral leg swelling which has been going on since 2 to 3 days and has been progressively getting worse and was brought to ER. She has a history of CAD, CHF, pacemaker, hypertension, who sees Hilda Flores for both PCP and cardiology. Chest pain that started earlier today which has improved but is still present. She states she has associated shortness of breath mild in nature. She denies any headache, neck pain, fever, back pain, abdominal pain, vomiting, diarrhea, syncope, near syncope, bleeding, rash, Denies any sick contacts.Patient was assessed in the ER and has been admitted for further management of NSTEMI. Hospital Course: Problem List: Acute on chronic systolic CHF (25-29% EF as of 11/2024) NSTEMI Hypertension Hyperlipidemia Hypothyroidism Hx Non-Ischemic Cardiomyopathy Hx Defibrillator/ICD Physician discharge instructions: Patient presented with worsening lower extremity edema associated with shortness of breath and chest discomfort secondary to acute on chronic CHF exacerbation. Chest xray on admission was negative. Troponins were mildly elevated but trended flat. Peaked at 100. Cardiology was consulted and recommended patient follow up in office for further management. Suspect elevated troponins secondary to demand ischemia in setting of CHF. No indications to warrant further inpatient evaluation. Echo was done prior to discharge however official report pending upon discharge. Can follow up with PCP to discuss echo results. Patient was given IV lasix and restarted on her home medications and had improvement of her symptoms. Lower extremity edema and dyspnea improved with diuresis. Patient was feeling better, breathing more comfortably on room air, lower extremity edema improved, and was deemed stable for discharge. Check weight around the same time each day. Keep daily log of weight reading to take to follow up appointment for further adjustment of diuretics. If you notice a weight gain or 2 or more pounds within 24 hours, take an extra dose of lasix. If having to take an extra dose of lasix fairly consistently, consider scheduling appointment with Cardio/PCP for further management. Blood pressure was noted to be low-normal throughout hospitalization. Recommend taking half dose of metoprolol for now. (25mg daily) Check blood pressure around the same time each day. Keep daily log of blood pressure readings and heart rate to take to follow up appointments for further adjustments of medications. If blood pressure is consistently > 140, can take full dose of metoprolol. Medications: Decrease Metoprolol to 25 mg daily Follow up: PCP 3-5 days Cardiology in 2-4 weeks Please call to schedule / confirm appointments Physical Exam: Gen: Alert, Oriented, NAD CV: Regular rate and rhythm, no edema Pulm: Nonlabored respirations on room air, clear bilaterally Abdomen: Soft, nontender, nondistended Neuro: Normal strength, normal affect Vital Signs/Physical Exam: Temp Pulse Resp BP Pulse Ox 98.1 F 90 16 113/65 96 03/10/25 08:00 03/10/25 08:02 03/10/25 08:13 03/10/25 08:02 03/10/25 08:13 Laboratory Data at Discharge: WBC 7.30 thou/uL (4.3-10.9) 03/10/25 06:07 Hgb 15.2 g/dL (12.0-15.0) H D 03/10/25 06:07 Hct 46.1 % (36.0-45.0) H 03/10/25 06:07 Plt Count 250 thou/uL (152-406) 03/10/25 06:07 PT 12.3 SECONDS (10-13.0) 03/09/25 02:32 INR 1.09 03/09/25 02:32 APTT 27.1 SECONDS (27.2-37.4) L 03/09/25 02:32 Sodium 137 mEq/L (136-145) D 03/10/25 06:07 Potassium 4.0 mEq/L (3.5-5.1) D 03/10/25 06:07 BUN 19 mg/dL (7-18) H 03/10/25 06:07 Creatinine 1.05 mg/dL (0.55-1.02) H 03/10/25 06:07 Glucose 103 mg/dL (74-106) 03/10/25 06:07 Magnesium 2.2 mg/dL (1.6-2.4) 03/10/25 06:07 Total Bilirubin 0.4 mg/dL (0.2-1.0) 03/10/25 06:07 AST 100 U/L (15-37) H 03/10/25 06:07 ALT 139 U/L (13-56) H 03/10/25 06:07 Alkaline Phosphatase 121 U/L (45-117) H 03/10/25 06:07 Home Medications: Furosemide [Lasix*] 40 mg PO DAILY #30 tab 06/07/19 Aspirin Chewable [Aspirin Chewable*] 81 mg PO DAILY #30 tab.chew 11/03/22 Empagliflozin [Jardiance] 10 mg PO DAILY 03/09/25 Metoprolol Succinate [Toprol Xl*] 50 mg PO DAILY 03/09/25 Sacubitril/Valsartan [Entresto 24 mg-26 mg Tablet] 1 tab PO DAILY 03/09/25 Physician Discharge Instructions: Physician discharge instructions: Patient presented with worsening lower extremity edema associated with shortness of breath and chest discomfort secondary to acute on chronic CHF exacerbation. Chest xray on admission was negative. Troponins were mildly elevated but trended flat. Peaked at 100. Cardiology was consulted and recommended patient follow up in office for further management. Suspect elevated troponins secondary to demand ischemia in setting of CHF. No indications to warrant further inpatient evaluation. Echo was done prior to discharge however official report pending upon discharge. Can follow up with PCP to discuss echo results. Patient was given IV lasix and restarted on her home medications and had improvement of her symptoms. Lower extremity edema and dyspnea improved with diuresis. Patient was feeling better, breathing more comfortably on room air, lower extremity edema improved, and was deemed stable for discharge. Check weight around the same time each day. Keep daily log of weight reading to take to follow up appointment for further adjustment of diuretics. If you notice a weight gain or 2 or more pounds within 24 hours, take an extra dose of lasix. If having to take an extra dose of lasix fairly consistently, consider scheduling appointment with Cardio/PCP for further management. Blood pressure was noted to be low-normal throughout hospitalization. Recommend taking half dose of metoprolol for now. (25mg daily) Check blood pressure around the same time each day. Keep daily log of blood pressure readings and heart rate to take to follow up appointments for further adjustments of medications. If blood pressure is consistently > 140, can take full dose of metoprolol. Medications: Decrease Metoprolol to 25 mg daily Follow up: PCP 3-5 days Cardiology in 2-4 weeks Please call to schedule / confirm appointments Followup: Ulysses Julien DO [Primary Care Provider] - 1-2 Weeks Time spent managing pt's care (in minutes): 45
[2025-03-10 09:24] VITALS: O2SAT 96
== END 2025-03-10 11:40 | disposition home or self-care (01) | DRG 280 ==
LOC: ER 02:11 → ERHOLD 04:22 → 2ND 10:33
PROVIDERS: ADMIT Family Medicine; ATTEND Hospitalist
DX: I11.0 Hypertensive heart disease with heart failure (principal); I50.23 Acute on chronic systolic (congestive) heart failure; I21.A1 Myocardial infarction type 2; E87.6 Hypokalemia; E78.5 Hyperlipidemia, unspecified; E03.9 Hypothyroidism, unspecified; I25.10 Atherosclerotic heart disease of native coronary artery without angina pectoris; F17.210 Nicotine dependence, cigarettes, uncomplicated; Z63.4 Disappearance and death of family member; Z95.810 Presence of automatic (implantable) cardiac defibrillator; Z90.710 Acquired absence of both cervix and uterus; Z88.5 Allergy status to narcotic agent; Z88.8 Allergy status to other drugs, medicaments and biological substances; Z79.890 Hormone replacement therapy; Z79.82 Long term (current) use of aspirin; Z79.52 Long term (current) use of systemic steroids; Z79.899 Other long term (current) drug therapy
CPT/HCPCS: 36415; 71045; 80048; 80053; 83735; 83880; 84484; 85025; 85610; 85730; 93005; 93306; 94760; 96374; 99285; J1171; J1938